=== PATIENT | female | born 1975 ===

== ENCOUNTER 2022-10-03 18:01 | Emergency (ER) | payer OTHER ==
--- OUTSIDE RECORDS SUMMARY | 2022-10-03 18:17 | XMS REPORT | Continuity of Care Document ---
:1975 Author Organization [facility] t Address [address] [facility]. [address] [place] [address] Care Team Providers Name Role Phone Kandice Andrew MD Primary Care Physician JANEE ALCOCER Attending Clinician Unavailable ABRAHAN SILVESTRE Attending Clinician Unavailable KILEY MOE Attending Clinician Unavailable JANET ADAM Attending Clinician Unavailable JANET ADAM Attending Clinician Unavailable DANILO CUMMINGS Attending Clinician Unavailable DANILO CUMMINGS Attending Clinician Unavailable Doctor Unassigned, Bly Attending Clinician Unavailable Ly MACKEY, mIelda Reyna Attending Clinician Unavailable LUIS MAGUIRE Attending Clinician Unavailable Pepe Horner MD Attending Clinician Luis Maguire MD Attending Clinician Dmitri Wilson MD Attending Clinician Marlon Flower MD Attending Clinician LUIS ANTONIO JAMISON Attending Clinician Unavailable KANDICE ANDREW Attending Clinician Unavailable Worker, Transplant Social Attending Clinician Unavailable Gagan Win MD Attending Clinician Elizabeth Garcia MD Attending Clinician ELIZABETH GARCIA Attending Clinician Unavailable Renal, Transplant Class Attending Clinician Unavailable GAGAN WIN Attending Clinician Unavailable Jamila THOMAS, lAta Reyes Attending Clinician [phone] Janee Alcocer MD Attending Clinician Lorrie THOMAS, Kandice Carroll Attending Clinician [phone] Liang THOMAS, Abrahan Attending Clinician Nurse, [facility] Plastic Surg Attending Clinician Unavailable Pj Rosario Attending Clinician PJ SCHNEIDER Attending Clinician Unavailable Catrett V, ACNP, Tonja Attending Clinician Only, Adc Test Attending Clinician Unavailable Rashida MACKEY, Mercedez Crawford Attending Clinician Pob, [facility] Lab Main Attending Clinician Unavailable EVELIA JOHNSON Attending Clinician Unavailable Roderick THOMAS, Evelia Attending Clinician Janet Adam DO Attending Clinician Vaccine, Ang Db [facility] Attending Clinician Unavailable Chris TRACING LATHE SET UP OPERATOR, Etienne Attending Clinician ETIENNE HUSSEIN Attending Clinician Unavailable Therapist, [facility] Respiratory Attending Clinician Unavailable Av Porras MD Attending Clinician AV PORRAS Attending Clinician Unavailable Jane Maldonado S Attending Clinician Billy Andrade MD Attending Clinician Levy Duarte MD Attending Clinician Italo Steven DO Attending Clinician ALYSSA TRUJILLO Attending Clinician Unavailable Kiley Moe MD Attending Clinician Kika Villa CRNA Attending Clinician Osei Laird MD Attending Clinician Gramm TRACING LATHE SET UP OPERATOR, Diana A Attending Clinician GRAMM, DIANA A Attending Clinician Unavailable KNOW, DOES_NOT Attending Clinician Unavailable Lachelle Larios Attending Clinician Unavailable Reji Ibarra MD Attending Clinician REJI IBARRA Attending Clinician Unavailable JANEE ALCOCER Admitting Clinician Unavailable ABRAHAN SILVESTRE Admitting Clinician Unavailable KILEY MOE Admitting Clinician Unavailable DANILO CUMMINGS Admitting Clinician Unavailable LUIS MAGUIRE Admitting Clinician Unavailable Luis Maguire MD Admitting Clinician Janee Alcocer MD Admitting Clinician Abrahan Silvestre MD Admitting Clinician PJ SCHNEIDER Admitting Clinician Unavailable JANET ADAM Admitting Clinician Unavailable Levy Duarte MD Admitting Clinician Kiley Moe MD Admitting Clinician Physician, No Primary or Family Admitting Clinician UnavailLachelle Wheatley Admitting Clinician Unavailable REJI IBARRA Admitting Clinician Unavailable ALYSSA TRUJILLO Admitting Clinician Unavailable Payers Payer Name Policy Type Policy Number Effective Date Expiration Date S sher [facility] [id number] 2016 00:00:00 PLUS Problems Condition Condition Condition Status Onset Resolution Last Treating Co mments Source Name Details Category Date Date Treatment Clinician Date ESRD on ESRD on Disease Active Univers hemodialys hemodialys 2-21 it y of is is 00:00: [place] 00 Medical Branch Lung Lung Disease Active Univers nodule nodule 2-03 ity of 00:00: [place] 00 Medical Branch (HFpEF) (HFpEF) Disease Active 2020-05 Univers heart heart 0-03 ity of failure failure 00:00: [place] with with 00 Medical preserved preserved Bran ch ejection ejection fraction fraction Pulmonary Pulmonary Disease Active Uni vers edema edema 01-30 ity of cardiac cardiac 00:00: [place] cause cause 00 Medical Branch Screening Screening Disease Active Overview: Univers for for 01-15 Formattin ity of colorectal colorectal 00:00: g of this [place] cancer cancer 00 note Medical might be Branch different from the original. Added automatic ally from request for surgery [id number] History of History of Disease Active Overview : Univers colon colon 01-15 Formattin ity of polyps polyps 00:00: g of this [place] 00 note Medical might be Branch different from the original. Added automatic ally from request for surgery [id number] Peritoneal Peritoneal Disease Active Overview : Univers dialysis dialysis 7-02 Formattin ity of catheter catheter 00:00: g of this [place] as in place in place 00 note Medica l might be Branch different from the original. Added automatic ally from request for surgery [id number] Mediastina Mediastina Disease Active Overview : Univers l l 9-06 Formattin ity of lymphadeno lymphadeno 00:00: g of this [place] jarrett jarrett 00 note Medical might be Branch different from the original. Added automatic ally from request for surgery [id number] Pseudoaneu Pseudoaneu Disease Active Overview : Univers rysm of rysm of 8 Formattin ity o f arterioven arterioven 00:00: g of this [place] ous ous 00 note Medical dialysis dialysis might be Bran ch fistula, fistula, different initial initial from the encounter encounter original. Added automatic ally from request for surgery [id number] S/P S/P Disease Active Univers hysterecto hysterecto 6-30 it y of my my 00:00: [place] 00 Medical Branch Volume Volume Disease Active Univers overload overload 4-24 ity of 00:00: Medical Branch Endometria Endometria Disease Active U nivers l l 1-05 ity of adenocarci adenocarci 00:[place]oma 00 Medical Branch Tobacco Tobacco Disease Active Univers use use 9-22 ity of disorder disorder 00:00: [place] [facility] Essential Essential Disease Active Uni vers hypertensi hypertensi 5-18 it y of on, benign on, benign 00:00: [place] Obesity Obesity Disease Active 2015-05 Univers (BMI (BMI 1-02 ity of 30-39.9) 30-39.9) 00:00: [place] Medical [facility] ESRD ESRD Disease Active 2015-05 Overview: Univer s needing needing 0-23 Formattin ity o f dialysis dialysis 00:00: g of this [place] 00 note Medical might be Branch different from the original. 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 Morbid Morbid Disease Active 2015-05 Univers obesity obesity 0-22 ity of 00:00: [place] 00 Medical Branch Allergies, Adverse Reactions, Alerts Allergy Allergy Status Severity Reaction(s) Onset Inactive Treating Comm ents Source Name Type Date Date Clinician MIDAZOLA DRUG Active Unknown-Cmnt 2020-0 Un adrianna M HCL INGREDI 02-05 ity of 00:00: [place] 00 Medical Branch Midazola Propensi Active Unknown - 2020-0 Severe Uni vers m Hcl ty to See comments 02-05 memory ity of adverse 00:00: loss [place] reaction 00 Medical [facility] lisinopr DA Active NC 2020-0 [facility] il 6-02 Clear 00:00: Solitario 00 [facility] lisinopr DA Active NC itching 2020-0 [facility] il 6-02 Clear 00:00: [place] 00 [facility] codeine DA Active SV 2020-0 [facility] 6- Clear 00:00: Solit[place] 00 [facility] "PRILS" DA Active U COUGH 2020-0 [facility] 6- Clear 00:00: [place] 00 [facility] codeine DA Active SV VOMIT 2020-0 [facility] 6- Clear 00:00: Solit[place] 00 [facility] Katerina Drug Active Cough 2018-0 Univers Inhibito Allergy 9-12 ity of rs 00:00: [place] 00 Medical Branch KATERINA Drug Active COUGH 2018-0 Univers INHIBITO Class 9-12 ity of RS 00:00: [place] 00 Medical Branch Katerina Drug Active Cough 2018-0 Univers Inhibito Allergy 9-12 ity of rs 00:00: [place] 00 [facility] CODEINE DRUG Active Other-Cmnt 2017- Unive rs INGREDI 1-17 ity of 00:00: [place] 00 Medical Branch LISINOPR DRUG Active COUGH 2017- Univers IL INGREDI 1-17 ity of 00:00: [place] 00 Medical Branch Codeine Propensi Active Other - See 2016-05 Un adrianna ty to comments 05-26 ity of adverse 00:00: [place] reaction 00 Medical [facility] Lisinopr Propensi Active Cough 2016- Univer s il ty to 17 ity of adverse 00:00: [place] reaction 00 Medical [facility] Family History Family Member Diagnosis Comments Start Date Stop Date Source Maternal Arthritis [facility] Maternal Cancer [facility] Maternal Heart [facility] Maternal Diabetes [facility] Maternal Psychiatry University of grandmother [facility] Maternal Uncle Heart [facility] Natural mother defects Univers ity of [facility] Natural mother Heart [facility] Natural mother Osteoporosis Universi ty of [facility] Natural mother Psychiatry [facility] Natural mother Stroke [facility] Natural mother Coronary Heart Univer sity of Disease [facility] Natural mother High cholesterol Univ ersity of [facility] Natural mother Hypertension Universi ty of [facility] Natural sister Asthma [facility] Social History Social Habit Start Date Stop Date Quantity Comments Source History of tobacco Passive smoker Un iversity of use [place] [facility] History SDOH Social Unive rsity of Connections Get [place] [facility] ical Together Branch History SDOH Social Unive rsity of Connections [facility] Medical Branch History SDOH Social Unive rsity of Connections [place] [facility] Membership Branch History SDOH Social Unive rsity of Connections [place] [facility] Meetings Branch History SDOH University o f Housing [facility] Last Year Branch Alcohol intake 2022-09-24 2022-09-24 0 /d University of 00:00:00 00:00:00 [facility] Exposure to 2022-09-13 2022-09-23 Not sure University of SARS-CoV-2 (event) 00:00:00 05:29:00 [facility] Branch History SDOH Social 2022-09-09 2022-09-09 5 Unive rsity of Connections Phone 00:00:00 00:00:00 [place] M edical Branch History SDOH Social 2022-09-09 2022-09-09 7 Unive rsity of Connections Living 00:00:00 00:00:00 [place] [facility] History SDOH 2022-09-09 2022-09-09 0 University o f Physical Activity 00:00:00 00:00:00 [place] M edical DPW Branch History SDOH 2022-09-09 2022-09-09 0 University o f Physical Activity 00:00:00 00:00:00 [place] M edical MPS Branch History SDOH 2022-09-09 2022-09-09 5 University o f Financial 00:00:00 00:00:00 [place] [facility] History SDOH Food 2022-09-09 2022-09-09 1 Univers ity of Worry 00:00:00 00:00:00 [place] [facility] History SDOH 2022-09-09 2022-09-09 2 University o f Transport Med 00:00:00 00:00:00 [place] Medic al Branch History SDOH 2022-09-09 2022-09-09 2 University o f Transport Non-Med 00:00:00 00:00:00 [place] M edical Branch History SDOH 2022-09-09 2022-09-09 2 University o f Housing Unable to 00:00:00 00:00:00 [place] M edical Pay Branch History SDOH 2022-09-09 2022-09-09 1 University o f Housing Places 00:00:00 00:00:00 [place] [facility] geovani Lived Branch History SDAL 2022-09-09 2022-09-09 1 University o f Alcohol Frequency 00:00:00 00:00:00 [facility] edical Branch Education 2022-09-08 2022-09-08 12 University of 00:00:00 00:00:00 [facility] Tobacco use and 2022-07-16 2022-07-16 Smokeless Universit y of exposure 00:00:00 00:00:00 tobacco non-user [facility] dical Branch Tobacco Comment 2022-07-16 2022-07-16 Vape 3 mg Universit y of 00:00:00 00:00:00 nicotine [place] [facility] History SDOH Food 2022-07-01 2022-07-01 1 Univers ity of Scarcity 00:00:00 00:00:[address] [facility] Branch History SDOH 2022-07-01 2022-07-01 0 University o f Alcohol Std Drinks 00:00:00 00:00:00 [place] [facility] History SDOH 2022-07-01 2022-07-01 1 University o f Alcohol Binge 00:00:00 00:00:00 [place] [facility] Cigarettes smoked 2021-05-22 2021-05-22 Univers ity of current (pack [facility] Cigarette 2021-05-22 2021-05-22 University of pack-years 00:00:00 00:00:00 [facility] Alcohol Comment 2019-03-30 2019-03-30 rare Universit y of 00:00:00 00:00:00 [facility] Sex [birth year] Universit y of 00:00:00 00:00:00 [facility] Smoking Status Start Date Stop Date Source Light tobacco smoker 2022-07-16 00:00:00 Univers ity [facility] [place] [facility] Medications Ordered Filled Start Stop Current Ordering Indication Dosage Frequency Signature Comments Components Source Medication Medication Date Date Medication? Clinician (SIG) Name Name budesonide- Yes 2{puff} Inhale 2 Univers formoteroL 5-18 Puffs in ity o f 160-4.5 13:26: the [place] mcg/actuati 07 morning Medic al on inhaler and 2 Branch Puffs in the evening. budesonide- Yes 2{puff} Inhale 2 Univers formoteroL 5-18 Puffs in ity o f 160-4.5 13:26: the [facility]/actuati morning Medic al on inhaler and 2 Branch Puffs in the evening. heparin 2022-0 2023- No [id number] DIALYSIS Univers 1,000 5- 05-03 ONCE - PT ity of unit/mL ( 17:45: 16:54 ROOM, 1 [place] mL) - 00 :00 dose, On Medical dialysis 09/09/22 Branc h catheter at 1245, care Routine
A port : 1.7 ml V port : 1.8 ml
heparin 2022-0 3- No [id number] DIALYSIS Univers 1,000 5- 05-03 ONCE - PT ity of unit/mL ( 17:45: 16:54 ROOM, 1 [place] mL) - 00 :00 dose, On Medical dialysis 09/09/22 Branc h catheter at 1245, care Routine
A port : 1.7 ml V port : 1.8 ml
budesonide- Yes 2{puff} Inhale 2 Univers formoteroL 5-03 Puffs in ity o f 160-4.5 15:02: [facility] morning Medic al on inhaler and 2 Branch Puffs in the evening. famotidine Yes 20mg Take 1 Unive rs 20 mg 5-03 tablet by ity of tablet 15:02: mouth in [place] [address] the Medical morning Branch and 1 tablet in the evening. budesonide- 3-0 Yes 2{puff} Inhale 2 Univers formoteroL 5-03 Puffs in ity o f 160-4.5 15:02: the [facility]/actuati 33 morning Medic al on inhaler and 2 Branch Puffs in the evening. famotidine 2023-0 Yes 20mg Take 1 Unive rs 20 mg 5-03 tablet by ity of tablet 15:02: mouth in [place] [address] the Medical morning Branch and 1 tablet in the evening. famotidine 2023-0 Yes 20mg Take 1 Unive rs 20 mg 5-03 tablet by ity of tablet 15:02: mouth in [place] [address] the Medical morning Branch and 1 tablet in the evening. famotidine 2023-0 Yes 20mg Take 1 Unive rs 20 mg 5-03 tablet by ity of tablet 15:02: mouth in [place] [address] the Medical morning Branch and 1 tablet in the evening. aspirin 2022-0 Yes 81mg 81 mg, Univers chewable 5-03 Oral, ity of tablet 81 14:00: DAILY, [place] mg 00 First dose Medical on Wed [address] 09/09/22 at 0900, Until Discontinu ed, Routine sennosides 2022-0 Yes 8.6mg 8.6 mg, Uni vers (SENOKOT) 5-03 Oral, ity of tablet 8.6 14:00: DAILY, [place] mg 00 First dose Medical on Wed [address] 09/09/22 at 0900, Until Discontinu ed, Routine NIFEdipine 2022-0 Yes 90mg 90 mg, Unive rs XL 5-03 Oral, QAM, ity of (PROCARDIA 14:00: First dose [place] XL) tablet 00 on Wed Medical 90 mg 09/09/22 at Branch 0900, Until Discontinu ed, Routine
presentation team member approving Non-formul hebert medication : DANILO CASTRO
Rox ason for non-formul hebert use: PATIENT CURRENTLY TAKING NONFORMULA RY PRODUCT aspirin 2022-0 2023- No 81mg 81 mg, Univers chewable 5-03 05-03 Oral, ity of tablet 81 14:00: 22:02 DAILY, [place] mg 00 :35 First dose Medical on Wed [address] 09/09/22 at 0900, Until Discontinu ed, Routine sennosides 2023-0 2023- No 8.6mg 8.6 mg, Un adrianna (SENOKOT) 09-09-03 Oral, ity of tablet 8.6 14:00: 22:02 DAILY, [place] mg 00 :35 First dose Medical on Wed Branch 09/09/22 at 0900, Until Discontinu ed, Routine NIFEdipine No 90mg 90 mg, Univ ers XL 09-09-03 Oral, QAM, ity of (PROCARDIA 14:00: 22:02 First dose [place] XL) tablet 00 :35 on Wed Medical 90 mg 09/09/22 at Branch 0900, Until Discontinu ed, Routine
presentation team member approving Non-formul hebert medication : DANILO CASTRO
Re ason for non-formul hebert use: PATIENT CURRENTLY TAKING NONFORMULA RY PRODUCT epoetin 2022- No 8000U 8,000 Univers bharat-epbx 09-09-03 Units, ity of (RETACRIT) 13:45: 14:39 Intravenou [place] injection 00 :00 s, Medical 8,000 Units DIALYSIS Bran ch ONCE - JULIANNE DSU, 1 dose, On Wed09/09/22 at 0845, Routine
presentation team member approving Restricted medication : WANG RODRIGUEZ epoetin No 8000U 8,000 Univers bharat-epbx 09-09-03 Units, ity of (RETACRIT) 13:45: 14:39 Intravenou [place] injection 00 :00 s, Medical 8,000 Units DIALYSIS Bran ch ONCE - JULIANNE DSU, 1 dose, On Wed09/09/22 at 0845, Routine
presentation team member approving Restricted medication : WANG RODRIGUEZ gabapentin Yes 300mg 300 mg, Uni vers (NEURONTIN) 03 Oral, QHS, it y of tablet 300 05:30: First dose [place] mg 00 (after Medical last Branch modificati on) on Wed09/09/22 at 0030, Until Discontinu ed, Routine gabapentin 2022- No 300mg 300 mg, Un adrianna (NEURONTIN) 09-09-03 Oral, QHS, i ty of tablet 300 05:30: 22:02 First dose [place] mg 00 :35 (after Medical last Branch modificati on) on Wed09/09/22 at 0030, Until Discontinu ed, Routine citalopram 3-0 Yes 40mg 40 mg, Unive rs (CELEXA) 5-03 Oral, QHS, ity o f tablet 40 02:00: First dose [place] mg 00 on [facility] 09/08/[address] 2100, Until Discontinu ed, Routine citalopram 202-0 202- No 40mg 40 mg, Univ ers (CELEXA) 5- 05-03 Oral, QHS, ity of tablet 40 02:00: 22:02 First dose [place] mg 00 :35 on [facility] 09/08/[address] 2099, Until Discontinu ed, Routine heparin 2022-0 Yes 5000U 5,000 Univers (porcine) 5-03 Units, ity of injection 01:00: Subcutaneo [place] 5,000 Units 00 us, Q12H, Med ica First dose Branch on Wed09/08/22 at 1999, Until Discontinu ed, Routine losartan 2022-0 Yes 50mg 50 mg, Univers (COZAAR) 5-03 Oral, BID, ity o f tablet 50 01:00: First dose [place] mg 00 on [facility] 09/08/22 at Branch 1999, Until Discontinu ed, Routine famotidine 2022-0 Yes 20mg 20 mg, [facility] rs (PEPCID AC) 5-03 Oral, BID, it y of tablet 20 01:00: First dose [place] mg 00 on [facility] 09/08/22 at Branch 1999, Until Discontinu ed, Routine budesonide- 2022-0 Yes 2{puff} 2 Puff, Univers formoteroL 5-03 Inhalation ity of (SYMBICORT) 01:00: , BID, [place] 160-4.5 00 First dose Medica l mcg/actuati on Wed [address] on inhaler 09/08/22 at 2 Puff 1999, Until Discontinu ed, Routine heparin 2023-0 2023- No 5000U 5,000 Univers (porcine) 5-03 05-03 Units, ity of injection 01:00: 22:02 Subcutaneo [place] 5,000 Units 00 :35 us, Q12H, Med ical First dose Branch on Wed09/08/22 at 1999, Until Discontinu ed, Routine losartan 2022- No 50mg 50 mg, Univer s (COZAAR) 09-09 Oral, BID, ity of tablet 50 01:00: 22:02 First dose [place] mg 00 :35 on Wed09/08/22 at Branch 1999, Until Discontinu ed, Routine famotidine No 20mg 20 mg, Univ ers (PEPCID AC) 09-09 Oral, BID, i ty of tablet 20 01:00: 22:02 First dose [place] mg 00 :35 on Wed09/08/[address] 1999, Until Discontinu ed, Routine budesonide- 2022- No 2{puff} 2 Puff, Univers formoteroL 09-09 Inhalation it y of (SYMBICORT) 01:00: 22:02 , BID, [place] 160-4.5 00 :35 First dose Medica l mcg/actuati on Wed on inhaler 09/08/22 at 2 Puff 1999, Until Discontinu ed, Routine HYDROcodone 2022- Yes [id number] 1{tbl} Take 1 U nivers -acetaminop 5- 05-11 tablet by it y of hen (NORCO) 00:00: 04:59 [place] 5-325 mg 00 :00 every 6 Medical tablet (six) Branch hours as needed for Pain (scale 7-10) for up to 7 days. Indication s: acute pain HYDROcodone 2022- Yes [id number] 1{tbl} Take 1 U nivers -acetaminop 5-03 05-11 tablet by it y of hen (NORCO) 00:00: 04:59 [place] 5-325 mg 00 :00 every 6 Medical tablet (six) Branch hours as needed for Pain (scale 7-10) for up to 7 days. Indication s: acute pain carvediloL Yes 12.5mg 12.5 mg, U nivers (COREG) 09-08 Oral, BID ity of tablet 12.5 22:00: MEALS, [place] mg 00 First dose Medical on [facility] 09/08/22 at 1700, Until Discontinu ed, Routine carvediloL 2022- No 12.5mg 12.5 mg, Univers (COREG) 09-08 Oral, BID ity of tablet 12.5 22:00: 22:02 MEALS, [place] mg 00 :35 First dose Medical on [facility] 09/08/22 at 1700, Until Discontinu ed, Routine traMADoL Yes 50mg 50 mg, Univers (ULTRAM) 09-08 Oral, ity of tablet 50 17:45: [id number], [place] mg [address] [facility] 09/08/22 at 1245, Until Discontinu ed, Routine, Pain (scale 4-6) traMADoL 2022- No 50mg 50 mg, Univer s (ULTRAM) 09-08 Oral, ity of tablet 50 17:45: 22:02 [id number], [place] mg 00 :[address] [facility] 09/08/22 at 1245, Until Wed09/09/22 at 1702, Routine, Pain (scale 4-6) calcium Yes 667mg 667 mg, Univer s acetate(radha 09-08 Oral, TID ity of sphat bind) 17:00: MEALS, [place] (PHOSLO) 00 First dose Medic al capsule 667 on [facility] 09/08/22 at 1200, Until Discontinu ed albuterol 0 Yes 2{puff} 2 Puff, Un adrianna (VENTOLIN) 09-08 Inhalation ity of inhaler 2 17:00: , Q6H, [place] Puff 00 First dose Medical on [facility] 09/08/22 at 1200, Until Discontinu ed, Routine sevelamer 0 Yes 2400mg 2,400 mg, U nivers (RENVELA) 09-08 Oral, TID ity o f tablet 17:00: MEALS, [place] 2,400 mg 00 First dose Medic al on [facility] 09/08/22 at 1200, Until Discontinu ed, Routine calcium 2022-0 2022- No 667mg 667 mg, Unive rs acetate(radha 09-08 Oral, TID it y of sphat bind) 17:00: 22:02 MEALS, [place] (PHOSLO) 00 :35 First dose Medic al capsule 667 on Wed mg 09/08/22 at 1200, Until Discontinu ed albuterol 2022- No 2{puff} 2 Puff, U nivers (VENTOLIN) 09-08 Inhalation it y of inhaler 2 17:00: 22:02 , Q6H, [place] Puff 00 :35 First dose Medical on [facility] 09/08/22 at 1200, Until Discontinu ed, Routine sevelamer 2022- No 2400mg 2,400 mg, Univers (RENVELA) 09-08 Oral, TID ity of tablet 17:00: 22:02 MEALS, [place] 2,400 mg 00 :35 First dose Medic al on Wed [address] 09/08/22 at 1200, Until Discontinu ed, Routine HYDROcodone 2022- No 1{tbl} 1 tablet, Univers -acetaminop 09-08 Oral, ity of hen (NORCO 16:45: 18:10 ONCE, 1 [place] 5) 5-325 mg 00 :00 dose, On Medi geovani tablet 1 Wed09/08/22 Branc h tablet at 1145, Routine, PACU HYDROcodone 2022- No 1{tbl} 1 tablet, Univers -acetaminop 09-08 Oral, ity of hen (NORCO 16:45: 18:10 ONCE, 1 [place] 5) 5-325 mg 00 :00 dose, On Medi geovani tablet 1 Wed09/08/22 Branc h tablet at 1145, Routine, PACU FENTanyl PF 2022- No 25ug 25 mcg, Un adrianna (SUBLIMAZE 09-08 Slow IV ity o f (PF)) 16:44: 18:32 Push, [place] injection 57 :00 Q5MIN PRN, Medi geovani 25 mcg 4 doses, Branch Starting on Wed09/08/22 at 1144, Until Wed09/08/22 at 1332, Routine, Pain (scale 4-6), PACU FENTanyl PF 2022- No 25ug 25 mcg, Un adrianna (SUBLIMAZE 09-08 Slow IV ity o f (PF)) 16:44: 18:32 Push, [place] injection 57 :00 Q5MIN PRN, Medi geovani 25 mcg 4 doses, Branch Starting on Wed09/08/22 at 1144, Until Wed09/08/22 at 1332, Routine, Pain (scale 4-6), PACU FENTanyl PF 2022-0 Yes 50ug 50 mcg, Uni vers (SUBLIMAZE 09-08 Slow IV ity of (PF)) 16:31: Push, [place] injection 48 Q8HPRN, Medical 50 mcg Starting Branch on Wed09/08/22 at 1131, Until Discontinu ed, Routine, Pain (scale 7-10) FENTanyl PF 2022-0 2022- No 50ug 50 mcg, Un adrianna (SUBLIMAZE 09-08 Slow IV ity o f (PF)) 16:31: 22:02 Push, [place] injection 48 :35 Q8HPRN, Medical 50 mcg Starting Branch on Wed09/08/22 at 1131, Until Wed09/09/22 at 1702, Routine, Pain (scale 7-10) acetaminoph 2022-0 Yes 650mg 650 mg, Un adrianna en 09-08 Oral, ity of (TYLENOL) 16:29: Q6HPRN, [place] tablet 650 41 Starting Medic al mg on Wed09/08/22 at 1129, Until Discontinu ed, Routine, Pain (scale 1-3) acetaminoph 2022-0 2022- No 650mg 650 mg, U nivers en 09-08 Oral, ity of (TYLENOL) 16:29: 22:02 Q6HPRN, [place] tablet 650 41 :35 Starting Medic al mg on Wed Branch 09/08/22 at 1129, Until Wed09/09/22 at 1702, Routine, Pain (scale 1-3) iodixanoL 2022-0 202- No PRN, Univers (VISIPAQUE 09-08 Starting ity of 270-150 mL) 16:25: 17:36 on Wed [place] injection 00 :34 09/08/22 at Medic al 1125, Branch Until Wed09/08/22 at 1236, Routine, Intra-op thrombin 2022- No PRN, Univers (recombinan 09-08 Starting ity of t) 15:52: 17:36 on Wed [place] (RECOTHROM) 00 :34 09/08/[address] [facility] topical 1052, Branch solution Until Wed09/08/22 at 1236, Routine, Intra-op alteplase 2022- No PRN, Univers (CATHFLO 09-08 Starting ity of ACTIVASE) 15:09: 17:36 on Wed [place] intraventri 00 :34 09/08/[address] [facility] cular 1009, Branch injection Until Wed09/08/22 at 1236, Routine, Intra-op lidocaine 2022- No PRN, Univers 1% (PF) 09-08 Starting ity of (XYLOCAINE) 12:47: 17:36 on [facility] as injection 00 :34 09/08/22 at Medic al 07, Branch Until Wed09/08/22 at 1236, Routine, Intra-op heparin 2022- No PRN, Univers 10,000 09-08 Starting ity of units in NS 12:47: 17:36 on [facility] as 1000 mL for 00 :34 09/08/[address] [facility] vascular 0747, Branch Intra-op budesonide- 2022-0 Yes 2{puff} Inhale 2 Univers formoteroL 4-26 Puffs in ity o f 160-4.5 11:36: the [place] mcg/actuati 52 morning Medic al on inhaler and 2 Branch Puffs in the evening. famotidine 2023-0 Yes 20mg Take 1 Unive rs 20 mg 4-26 tablet by ity of tablet 11:36: mouth in [place] [address] the Medical morning Branch and 1 tablet in the evening. famotidine 2023-0 Yes 20mg Take 1 Unive rs 20 mg 3-16 tablet by ity of tablet 13:31: mouth in [address] Medical morning Branch and 1 tablet in the evening. famotidine 2023-0 Yes 20mg Take 1 Unive rs 20 mg 3-16 tablet by ity of tablet 13:31: mouth in [address] Medical morning Branch and 1 tablet in the evening. famotidine 2023-0 Yes 20mg Take 1 Unive rs 20 mg 3-16 tablet by ity of tablet 13:31: mouth in [place] [address] the Medical morning Branch and 1 tablet in the evening. famotidine 2023-0 Yes 20mg Take 1 Unive rs 20 mg 3-16 tablet by ity of tablet 13:31: mouth in [place] [address] the Medical morning Branch and 1 tablet in the evening. famotidine 2023-0 Yes 20mg Take 1 Unive rs 20 mg 3-16 tablet by ity of tablet 13:31: mouth in [place] [address] the Medical morning Branch and 1 tablet in the evening. famotidine 2023-0 Yes 20mg Take 1 Unive rs 20 mg 3-16 tablet by ity of tablet 13:31: mouth in [place] [address] the Medical morning Branch and 1 tablet in the evening. famotidine 2023-0 Yes 20mg Take 1 Unive rs 20 mg 3-16 tablet by ity of tablet 13:31: mouth in [place] [address] the [facility] morning [place] and 1 tablet in the evening. honey 80 % 2022- Yes [id number] 3mL Apply 3 mL Univers 3-16 -31 to area(s) ity of 00:00: 04:59 every 24 [place] 00 :00 (twenty- Medical ur) hours Branch as needed for Pain (scale 7-10) for up to 14 days. honey 80 % 0 2022- Yes [id number] 3mL Apply 3 mL Univers 3-16 -31 to area(s) ity of 00:00: 04:59 every 24 [place] 00 :00 (twenty- Medical ur) hours Branch as needed for Pain (scale 7-10) for up to 14 days. honey 80 % 0 2022- Yes [id number] 3mL Apply 3 mL Univers 3-16 03-31 to area(s) ity of 00:00: 04:59 every 24 [place] 00 :00 (twenty- Medical ur) hours Branch as needed for Pain (scale 7-10) for up to 14 days. honey 80 % 0 2022- Yes [id number] 3mL Apply 3 mL Univers 3-16 -31 to area(s) ity of 00:00: 04:59 every 24 [place] 00 :00 (twenty-fo Medical ur) hours Branch as needed for Pain (scale 7-10) for up to 14 days. doxycycline 2022- Yes [id number] 100mg Take 1 Univers hyclate 100 3-07 03-13 capsule by i ty of mg capsule 00:00: 04:59 mouth [place] 00 :00 every 12 Medical (twelve) Branch hours for 5 days. doxycycline 2022-0 2022- Yes [id number] 100mg Take 1 Univers hyclate 100 3-07 03-13 capsule by i ty of mg capsule 00:00: 04:59 mouth [place] 00 :00 every 12 Medical (twelve) Branch hours for 5 days. doxycycline 2022-0 2022- Yes [id number] 100mg Take 1 Univers hyclate 100 3- 03-13 capsule by i ty of mg capsule 00:00: 04:59 mouth [place] 00 :00 every 12 Medical (twelve) Branch hours for 5 days. doxycycline 2022- Yes [id number] 100mg Take 1 Univers hyclate 100 3- 03-13 capsule by i ty of mg capsule 00:00: 04:59 mouth [place] 00 :00 every 12 Medical (twelve) Branch hours for 5 days. budesonide- 0 Yes 2{puff} Inhale 2 Univers formoteroL 3-03 Puffs 2 ity of 160-4.5 18:24: (two) [place] mcg/actuati 00 times Medical on inhaler daily. Branch budesonide- 0 Yes 2{puff} Inhale 2 Univers formoteroL 3-03 Puffs 2 ity of 160-4.5 18:24: (two) [place] mcg/actuati 00 times Medical on inhaler daily. Branch budesonide- 0 Yes 2{puff} Inhale 2 Univers formoteroL 3-03 Puffs 2 ity of 160-4.5 18:24: (two) [place] mcg/actuati 00 times Medical on inhaler daily. Branch budesonide- 2022-0 Yes 2{puff} Inhale 2 Univers formoteroL 3-03 Puffs 2 ity of 160-4.5 18:24: (two) [place] mcg/actuati 00 times Medical on inhaler daily. Branch budesonide- 2022-0 Yes 2{puff} Inhale 2 Univers formoteroL 3-03 Puffs 2 ity of 160-4.5 18:24: (two) [place] mcg/actuati 00 times Medical on inhaler daily. [place] budesonide- 2022-0 Yes 2{puff} Inhale 2 Univers formoteroL 3-03 Puffs 2 ity of 160-4.5 18:24: (two) [place] mcg/actuati 00 times Medical on inhaler daily. [place] budesonide- 2022-0 Yes 2{puff} Inhale 2 Univers formoteroL 3-03 Puffs 2 ity of 160-4.5 18:24: (two) [place] mcg/actuati 00 times Medical on inhaler daily. Branch budesonide- 2022-0 Yes 2{puff} Inhale 2 Univers formoteroL 3-03 Puffs 2 ity of 160-4.5 18:24: (two) [place] mcg/actuati 00 times Medical on inhaler daily. [place] budesonide- 2022- Yes 2{puff} Inhale 2 Univers formoteroL 3-03 Puffs 2 ity of 160-4.5 18:24: (two) [place] mcg/actuati 00 times Medical on inhaler daily. [place] budesonide- 2022-0 Yes 2{puff} Inhale 2 Univers formoteroL 3-03 Puffs 2 ity of 160-4.5 18:24: (two) [place] mcg/actuati 00 times Medical on inhaler daily. [place] budesonide- 2022-0 Yes 2{puff} Inhale 2 Univers formoteroL 3-03 Puffs 2 ity of 160-4.5 18:24: (two) [place] mcg/actuati 00 times Medical on inhaler daily. [place] budesonide- 2022-0 Yes 2{puff} Inhale 2 Univers formoteroL 3-03 Puffs 2 ity of 160-4.5 18:24: (two) [place] mcg/actuati 00 times Medical on inhaler daily. Branch budesonide- 2022-0 Yes 2{puff} Inhale 2 Univers formoteroL 3-03 Puffs 2 ity of 160-4.5 18:24: (two) [place] mcg/actuati 00 times Medical on inhaler daily. [place] budesonide- 2022-0 Yes 2{puff} Inhale 2 Univers formoteroL 3-03 Puffs 2 ity of 160-4.5 18:24: (two) [place] mcg/actuati 00 times Medical on inhaler daily. Branch losartan 50 2022- No 50mg Take 50 mg Univers mg tablet 07-10 by mouth 2 ity of 15:54: 00:00 (two) [place] 23 :00 times Medical daily. Branch heparin Yes 2000U PRN - SEE Univ ers 1,000 07-10 INSTRUCTIO ity of unit/mL (10 15:23: NS, [place] mL) - 21 Starting Medical dialysis on Wed Branch catheter 07/10/22 at care 0923, Until Discontinu ed, Routine
For Priming of Ports:&nbs p; &n bsp; After initial saline flush, prime each port with heparin according to the priming volume listed on each catheter port for catheter lock.
heparin Yes 2000U PRN - SEE Univ ers 1,000 - INSTRUCTIO ity of unit/mL (10 15:23: NS, [place] mL) - 21 Starting Medical dialysis on Wed Branch catheter 07/10/22 at care 0923, Until Discontinu ed, Routine
For Priming of Ports:&nbs p; &n bsp; After initial saline flush, prime each port with heparin according to the priming volume listed on each catheter port for catheter lock.
acetaminoph No 1000mg 1,000 mg, Univers en ADULT 07-10 IV ity of (IRMEV) 05:00: 05:32 [place], [place] 00 :00 at 400 Medical 1,000 mg mL/hr Branch Administer over 15 Minutes, ONCE, 1 dose, On [place] 07/09/22 at 2300, Routine, PACU
In dication: Perioperat rubi Patient FENTanyl PF No 25ug 25 mcg, Un adrianna (SUBLIMAZE 07-10 Slow IV ity o f (PF)) 04:04: 05:17 Push, [place] injection 16 :00 Q5MIN PRN, Medi geovani 25 mcg 4 doses, Branch Starting on [place] 07/09/22 at 2204, Until [place] 07/09/22 at 2317, Routine, Pain (scale 4-6), PACU ondansetron 2022- No 4mg 4 mg, Slow Univers (ZOFRAN 07-10 IV Push, ity of (PF)) 04:04: 04:10 PRN, 1 [place] injection 4 16 :00 dose, Medical mg Starting Branch on [place] 07/09/22 at 2204, Until [place] 07/09/22 at 2210, Routine, Nausea and Vomiting (N/V), PACU heparin 2022- No PRN, Univers lock flush 07-10 Starting ity of (HEPARIN 03:38: 04:02 on [place] LOCKFLUSH(P 00 :43 07/09/22 at [facility] ica ORCINE)(PF) 2137, Branch ) 100 Until [place] unit/mL 07/09/22 at injection 2202, Routine, Intra-op vancomycin 2022- No PRN, Univer s (VANCOCIN) 07-10 Starting ity of injection 02:17: 04:02 on [facility] 00 :43 07/09/22 at Medical 2017, Branch Until [place] 07/09/22 at 2202, MENA, Intra-op vancomycin 2022- No PRN, Univer s (VANCOCIN) 07-10 Starting ity of 1,000 mg in 02:16: 04:02 on [place] as NaCl 0.9% 00 :43 07/09/22 at Medic al (NS) 1,000 2015, Branch mL OR Intra-op irrigation heparin 2022- No PRN, Univers 1,000 07-10 Starting ity of unit/mL 01:44: 04:02 on [place] 10,000 00 :43 07/09/22 at Medical Units in 194, Branch NaCl 0.9% Intra-op (NS) 1,000 mL OR irrigation carvediloL Yes 25mg 25 mg, Unive rs (COREG) 07-10 Oral, BID ity of tablet 25 00:45: MEALS, [place] mg 00 First dose Medical on [place] Branch 07/09/22 at 1845, Until Discontinu ed, Routine carvediloL 2023-0 Yes 25mg 25 mg, Unive rs (COREG) 3-03 Oral, BID ity of tablet 25 00:45: MEALS, [place] mg 00 First dose Medical on [place] Branch 07/09/22 at 1845, Until Discontinu ed, Routine hydralAZINE 3-0 Yes 10mg 10 mg, Univ ers (APRESOLINE 3-03 Slow IV ity o f ) injection 00:39: Push, [place] 10 mg 48 Q6HPRN, Medical Starting Branch on [facility] 07/09/22 at 1839, Until Discontinu ed, Routine, DBP=>10 0; SBP=>180 hydralAZINE 2023-0 Yes 10mg 10 mg, Univ ers (APRESOLINE 3-03 Slow IV ity o f ) injection 00:39: Push, [place] 10 mg 48 Q6HPRN, Medical Starting Branch on [facility] 07/09/22 at 1839, Until Discontinu ed, Routine, DBP=>10 0; SBP=>180 carvediloL 3-0 Yes [id number] 12.5mg Take 1 Univers 12.5 mg 3-03 tablet by ity of tablet 00:00: mouth in [place] [address] the [facility] morning Branch and 1 tablet in the evening. Take with meals. Take half a tablet on dialysis days. carvediloL 3-0 Yes [id number] 12.5mg Take 1 Univers 12.5 mg 3-03 tablet by ity of tablet 00:00: mouth in [place] [address] the [facility] morning Branch and 1 tablet in the evening. Take with meals. Take half a tablet on dialysis days. carvediloL 2023-0 Yes [id number] 12.5mg Take 1 Univers 12.5 mg 3-03 tablet by ity of tablet 00:00: mouth in [place] [address] the [facility] morning Branch and 1 tablet in the evening. Take with meals. Take half a tablet on dialysis days. carvediloL 2023-0 Yes [id number] 12.5mg Take 1 Univers 12.5 mg 3-03 tablet by ity of tablet 00:00: mouth in [address] morning [place] and 1 tablet in the evening. Take with meals. Take half a tablet on dialysis days. carvediloL 2023-0 Yes [id number] 12.5mg Take 1 Univers 12.5 mg 3-03 tablet by ity of tablet 00:00: mouth in [place] [address] the [facility] morning [place] [address] and 1 tablet in the evening. Take with meals. Take half a tablet on dialysis days. carvediloL 2022-0 Yes [id number] 12.5mg Take 1 Univers 12.5 mg 3-03 tablet by ity of tablet 00:00: mouth in [place] 00 the [facility] morning [address] and 1 tablet in the evening. Take with meals. Take half a tablet on dialysis days. carvediloL 2022-0 Yes [id number] 12.5mg Take 1 Univers 12.5 mg 3-03 tablet by ity of tablet 00:00: mouth in [place] [address] the [facility] morning [place] [address] and 1 tablet in the evening. Take with meals. Take half a tablet on dialysis days. carvediloL 2022-0 Yes [id number] 12.5mg Take 1 Univers 12.5 mg 3-03 tablet by ity of tablet 00:00: mouth in [place] [address] the [facility] morning [address] [address] and 1 tablet in the evening. Take with meals. Take half a tablet on dialysis days. carvediloL 2022-0 Yes [id number] 12.5mg Take 1 Univers 12.5 mg 3-03 tablet by ity of tablet 00:00: mouth in [place] [address] the [facility] morning [place] [address] and 1 tablet in the evening. Take with meals. Take half a tablet on dialysis days. carvediloL 2022-0 Yes [id number] 12.5mg Take 1 Univers 12.5 mg 3-03 tablet by ity of tablet 00:00: mouth in [place] [address] the [facility] morning [place] [address] and 1 tablet in the evening. Take with meals. Take half a tablet on dialysis days. carvediloL 2022-0 Yes [id number] 12.5mg Take 1 Univers 12.5 mg 3-03 tablet by ity of tablet 00:00: mouth in [place] [address] the [facility] morning [place] [address] and 1 tablet in the evening. Take with meals. Take half a tablet on dialysis days. carvediloL 3-0 Yes [id number] 12.5mg Take 1 Univers 12.5 mg 3-03 tablet by ity of tablet 00:00: mouth in [place] [address] the [facility] morning [place] [address] and 1 tablet in the evening. Take with meals. Take half a tablet on dialysis days. carvediloL 2022-0 Yes [id number] 12.5mg Take 1 Univers 12.5 mg 3-03 tablet by ity of tablet 00:00: mouth in [place] [address] the [facility] morning [place] [address] and 1 tablet in the evening. Take with meals. Take half a tablet on dialysis days. carvediloL 3-0 Yes [id number] 12.5mg Take 1 Univers 12.5 mg 3-03 tablet by ity of tablet 00:00: mouth in [place] [address] the [facility] morning [place] [address] and 1 tablet in the evening. Take with meals. Take half a tablet on dialysis days. carvediloL 2022-0 Yes [id number] 12.5mg Take 1 Univers 12.5 mg 3-03 tablet by ity of tablet 00:00: mouth in [place] [address] the [facility] morning [place] [address] and 1 tablet in the evening. Take with meals. Take half a tablet on dialysis days. carvediloL 2022-0 Yes [id number] 12.5mg Take 1 Univers 12.5 mg 3-03 tablet by ity of tablet 00:00: mouth in [address] and 1 tablet in the evening. Take with meals. Take half a tablet on dialysis days. carvediloL 2022-0 Yes [id number] 12.5mg Take 1 Univers 12.5 mg 3-03 tablet by ity of tablet 00:00: mouth in [address] and 1 tablet in the evening. Take with meals. Take half a tablet on dialysis days. carvediloL 2022-0 Yes [id number] 12.5mg Take 1 Univers 12.5 mg 3-03 tablet by ity of tablet 00:00: mouth in [address] and 1 tablet in the evening. Take with meals. Take half a tablet on dialysis days. carvediloL 2022-0 Yes [id number] 12.5mg Take 1 Univers 12.5 mg 3-03 tablet by ity of tablet 00:00: mouth in [place] [address] the [facility] and 1 tablet in the evening. Take with meals. Take half a tablet on dialysis days. NIFEdipine 2022-0 2023- No 90mg Take 90 mg Univers XL 90 mg 24 07-09 by mouth ity of hr tablet 11:16: 00:00 daily. [place] 27 :00 [facility] NIFEdipine 2022-0 3- No 90mg Take 90 mg Univers XL 90 mg 24 07-09 by mouth ity of hr tablet 11:16: 00:00 daily. [place] 27 :00 Medical Branch losartan 50 2022-0 Yes 50mg Take 50 mg Univers mg tablet 02 by mouth 2 ity of 11:16: (two) [place] 25 times Medical daily. Branch budesonide- Yes 2{puff} Inhale 2 Univers formoteroL 3-02 Puffs 2 ity of 160-4.5 11:16: (two) [place] mcg/actuati 25 times Medical on inhaler daily. Branch calcium 0 Yes 500mg 500 mg, Univer s carbonate 07-08 Oral, TID ity o f (OSCAL-500) 23:00: MEALS, [place] tablet 500 00 First dose Med ical mg on Wed [place] 07/08/22 at 1700, Until Discontinu ed, Routine calcium 2022-0 Yes 500mg 500 mg, Univer s carbonate 07-08 Oral, TID ity o f (OSCAL-500) 23:00: MEALS, [place] tablet 500 00 First dose Med ical mg on [facility] 07/08/22 at 1700, Until Discontinu ed, Routine calcium 2022-0 Yes 500mg 500 mg, Univer s carbonate 07-08 Oral, TID ity o f (OSCAL-500) 23:00: MEALS, [place] tablet 500 00 First dose Med ical mg on [facility] 07/08/22 at 1700, Until Discontinu ed, Routine heparin 2022-0 Yes 2000U PRN - SEE [facility] ers 1,000 3- INSTRUCTIO ity of unit/mL (10 20:21: NS, [place] mL) - 10 Starting Medical dialysis on [facility] catheter 07/08/22 at care 1421, Until Discontinu ed, Routine
For Priming of Ports:&nbs p; &n bsp; After initial saline flush, prime each port with heparin according to the priming volume listed on each catheter port for catheter lock.
heparin 2022-0 Yes 2000U PRN - SEE [facility] ers 1,000 3- INSTRUCTIO ity of unit/mL (10 20:21: NS, [place] mL) - 10 Starting Medical dialysis on [facility] catheter 07/08/22 at care 1421, Until Discontinu ed, Routine
For Priming of Ports:&nbs p; &n bsp; After initial saline flush, prime each port with heparin according to the priming volume listed on each catheter port for catheter lock.
heparin 2022-0 Yes 2000U PRN - SEE Univ ers 1,000 3- INSTRUCTIO ity of unit/mL (10 20:21: NS, [place] mL) - 10 Starting Medical dialysis on Wed Branch catheter 07/08/22 at care 1421, Until Discontinu ed, Routine
For Priming of Ports:&nbs p; &n bsp; After initial saline flush, prime each port with heparin according to the priming volume listed on each catheter port for catheter lock.
insulin 2022-0 Yes 2U 2 Units, Univer s lispro 3- Subcutaneo ity of (human) 14:35: us, PRN - [place] (HumaLOG 57 SEE Medical U-100) INSTRUCTIO Branch injection 2 NS, 1 Units dose, Starting on Wed07/08/22 at 0835, Until Discontinu ed, Routine, For blood glucose > 300 mg/dL dextrose 2022-0 Yes 125mL 125 mL, Unive rs 10% (D10W) 3- Intravenou ity of bolus 14:35: s, PRN - [place] infusion 57 SEE Medical 125 mL INSTRUCTIO Branch NS, Administer over 60 Minutes, Other, Administer once if after insulin administra tion, blood glucose is 71-150 mg/dL and patient is unable to eat a 15 g carb snack, Starting on Wed07/08/22 at 0835, For 1 dose
If patient is able to eat/swallo w, give 15 gram carb snack - Sprite or cranberry juice.
insulin 2022-0 Yes 2U 2 Units, Univer s lispro 3-01 Subcutaneo ity of (human) 14:35: us, PRN - [place] (HumaLOG 57 SEE Medical U-100) INSTRUCTIO Branch injection 2 NS, 1 Units dose, Starting on Wed07/08/22 at 0835, Until Discontinu ed, Routine, For blood glucose > 300 mg/dL dextrose 2022-0 Yes 125mL 125 mL, Unive rs 10% (D10W) 3- Intravenou ity of bolus 14:35: s, PRN - [place] infusion 57 SEE Medical 125 mL INSTRUCTIO Branch NS, Administer over 60 Minutes, Other, Administer once if after insulin administra tion, blood glucose is 71-150 mg/dL and patient is unable to eat a 15 g carb snack, Starting on Wed07/08/22 at 0835, For 1 dose
If patient is able to eat/swallo w, give 15 gram carb snack - Sprite or cranberry juice.
insulin 0 Yes 2U 2 Units, Univer s lispro 07-08 Subcutaneo ity of (human) 14:35: us, PRN - [place] (HumaLOG 57 SEE Medical U-100) INSTRUCTIO Branch injection 2 NS, 1 Units dose, Starting on Wed07/08/22 at 0835, Until Discontinu ed, Routine, For blood glucose > 300 mg/dL dextrose 2022-0 Yes 125mL 125 mL, Unive rs 10% (D10W) 07-08 Intravenou ity of bolus 14:35: s, PRN - [place] infusion 57 SEE Medical 125 mL INSTRUCTIO Branch NS, Administer over 60 Minutes, Other, Administer once if after insulin administra tion, blood glucose is 71-150 mg/dL and patient is unable to eat a 15 g carb snack, Starting on Wed07/08/22 at 0835, For 1 dose
If patient is able to eat/swallo w, give 15 gram carb snack - Sprite or cranberry juice.
lidocaine 2022-0 202- No 10mL 10 mL, Unive rs 1% (PF) 07-08 Subcutaneo ity o f (XYLOCAINE) 14:00: 14:00 us, ONCE, [place] injection 00 :00 1 dose, On Medi geovani 10 mL Wed07/08/22 Branch at 0800, Routine heparin 2022-0 Yes 5000U PERITONEAL Uni vers (1,000 3- DIALYSIS ity of unit/mL, 10 13:00: PRN- PT [place] as mL vial) 02 ROOM, 1 Medical dose, Branch Starting on Wed07/08/22 at 0700, Until Discontinu ed, Routine heparin 2022-0 Yes 5000U PERITONEAL Uni vers (1,000 3- DIALYSIS ity of unit/mL, 10 13:00: PRN- PT [place] mL vial) 02 ROOM, 1 Medical dose, Branch Starting on Wed07/08/22 at 0700, Until Discontinu ed, Routine heparin 2022-0 Yes 5000U PERITONEAL Uni vers (1,000 07-08 DIALYSIS ity of unit/mL, 10 13:00: PRN- PT [place] as mL vial) 02 ROOM, 1 Medical dose, Branch Starting on Wed07/08/22 at 0700, Until Discontinu ed, Routine calcium 3-0 Yes 2g 2 g, IV Univers gluconate 2 07-08 Infusion, ity of g in NaCl 12:35: at 200 [place] 100 mL 42 mL/hr Medical (ISO-OSM) Administer Bran ch RTU IV over 30 infusion 2 Minutes, g PRN - SEE INSTRUCTIO NS, Starting on Wed07/08/22 at 0635, Until Discontinu ed, STAT, Potassium greater than or equal to 6.0 mEq/L with our without EKG changes calcium 3-0 Yes 2g 2 g, IV Univers gluconate 2 07-08 Infusion, ity of g in NaCl 12:35: at 200 [place] 100 mL 42 mL/hr Medical (ISO-OSM) Administer Bran ch RTU IV over 30 infusion 2 Minutes, g PRN - SEE INSTRUCTIO NS, Starting on Wed07/08/22 at 0635, Until Discontinu ed, STAT, Potassium greater than or equal to 6.0 mEq/L with our without EKG changes calcium 3-0 Yes 2g 2 g, IV Univers gluconate 2 07-08 Infusion, ity of g in NaCl 12:35: at 200 [place] 100 mL 42 mL/hr Medical (ISO-OSM) Administer Bran ch RTU IV over 30 infusion 2 Minutes, g PRN - SEE INSTRUCTIO NS, Starting on Wed07/08/22 at 0635, Until Discontinu ed, STAT, Potassium greater than or equal to 6.0 mEq/L with our without EKG changes dextrose 3-0 Yes 250mL 250 mL, IV Un adrianna 10% (D10W) 07-08 Infusion, ity of bolus 12:35: PRN - SEE [place] infusion 30 INSTRUCTIO Medic al 250 mL NS, Branch Administer over 60 Minutes, Other, If blood glucose is < or = 70 mg/dL and patient is unable to swallow or has mental status changes, Starting on Wed07/08/22 at 0635
If blood glucose is < or = 70 mg/dL and patient is unable to swallow or has mental status changes (Give glucagon order if patient needs fluid restrictio n): IF IV access available: Dextrose 10%. 1. 125 mL (? bag) of D10W IV infusion - equivalent to 12.5 g dextrose 2. Blood glucose - draw blood glucose 15 minutes after D10W Administra tion. 3. If blood glucose is < 80 mg/dL, repeat.
dextrose 2022-0 Yes 250mL 250 mL, IV Un adrianna 10% (D10W) 3- Infusion, ity of bolus 12:35: PRN - SEE [place] infusion 30 INSTRUCTIO Medic al 250 mL NS, Branch Administer over 60 Minutes, Other, If blood glucose is < or = 70 mg/dL and patient is unable to swallow or has mental status changes, Starting on Wed07/08/22 at 0635
If blood glucose is < or = 70 mg/dL and patient is unable to swallow or has mental status changes (Give glucagon order if patient needs fluid restrictio n): IF IV access available: Dextrose 10%. 1. 125 mL (? bag) of D10W IV infusion - equivalent to 12.5 g dextrose 2. Blood glucose - draw blood glucose 15 minutes after D10W Administra tion. 3. If blood glucose is < 80 mg/dL, repeat.
dextrose 0 Yes 250mL 250 mL, IV Un adrianna 10% (D10W) 3 Infusion, ity of bolus 12:35: PRN - SEE [place] infusion 30 INSTRUCTIO Medic al 250 mL NS, Branch Administer over 60 Minutes, Other, If blood glucose is < or = 70 mg/dL and patient is unable to swallow or has mental status changes, Starting on Wed07/08/22 at 0635
If blood glucose is < or = 70 mg/dL and patient is unable to swallow or has mental status changes (Give glucagon order if patient needs fluid restrictio n): IF IV access available: Dextrose 10%. 1. 125 mL (? bag) of D10W IV infusion - equivalent to 12.5 g dextrose 2. Blood glucose - draw blood glucose 15 minutes after D10W Administra tion. 3. If blood glucose is < 80 mg/dL, repeat.
glucagon 2022-0 Yes 1mg 1 mg, Univers (GLUCAGEN 07-08 Intramuscu ity of DIAGNOSTIC 12:35: [place], PRN, [place] KIT) 28 Starting Medical injection 1 on Wed Branch mg 07/08/22 at 0635, Until Discontinu ed, MENA, Blood Glucose < or = 70 mg/dL and patient is NPO, unable to swallow or has mental changes. glucagon 2022-0 Yes 1mg 1 mg, Univers (GLUCAGEN 07-08 Intramuscu ity of DIAGNOSTIC 12:35: [place], PRN, [place] KIT) 28 Starting Medical injection 1 on Wed Branch mg 07/08/22 at 0635, Until Discontinu ed, MENA, Blood Glucose < or = 70 mg/dL and patient is NPO, unable to swallow or has mental changes. glucagon 2022-0 Yes 1mg 1 mg, Univers (GLUCAGEN 07-08 Intramuscu ity of DIAGNOSTIC 12:35: [place], PRN, [place] KIT) 28 Starting Medical injection 1 on Wed Branch mg 07/08/22 at 0635, Until Discontinu ed, MENA, Blood Glucose < or = 70 mg/dL and patient is NPO, unable to swallow or has mental changes. ceFAZolin 2022-0 2022- Yes 1000mg 1,000 mg, Univers (ANCEF) 07-0803 Intravenou ity o f 1,000 mg in 00:30: 00:29 s, Q24H, 2 [place] NaCl 0.9% 00 :00 doses, Medical (NS) 100 mL First dose Br anch MINI-BAG on Wed07/07/22 at 1830, Last dose on Wed07/08/22 at 1830, Administer over 30 Minutes, 100 mL
Reas on for Anti-Infec tive: Empiric Non-Surgic al Prophylaxi s
Durat ion of therapy: 72 hours ceFAZolin 2022022- No 1000mg 1,000 mg, Univers (ANCEF) 07-08 Intravenou ity o f 1,000 mg in 00:30: 05:03 s, Q24H, 2 [place] NaCl 0.9% 00 :00 doses, Medical (NS) 100 mL First dose Br anch MINI-BAG on Wed07/07/22 at 1830, Last dose on Wed07/08/22 at 1830, Administer over 30 Minutes, 100 mL
Reas on for Anti-Infec tive: Empiric Non-Surgic al Prophylaxi s
Durat ion of therapy: 72 hours thrombin 2022- No PRN, Univers topical 07-07 Starting ity of solution 19:32: 22:47 on Wed 00 :56 07/07/22 at [facility] 1332, Branch Until Wed07/07/22 at 1647, Routine, Intra-op heparin 2022- No PRN, Univers 10,000 07-07 Starting ity of units in NS 19:11: 22:47 on Wed [place] 1000 mL for 00 :56 07/07/22 at [facility], Branch Intra-op fenofibrate Yes Univer s 48 mg 2-27 ity of tablet 00:00: [place] [facility] fenofibrate 2022-0 Yes Univer s 48 mg 2-27 ity of tablet 00:00: [place] [facility] fenofibrate 2022-0 Yes Univer s 48 mg 2-27 ity of tablet 00:00: [facility] fenofibrate 2022-0 Yes Univer s 48 mg 2-27 ity of tablet 00:00: [place] [facility] fenofibrate 2022-0 Yes Univer s 48 mg 2-27 ity of tablet 00:00: [facility] fenofibrate 2022-0 Yes Univer s 48 mg 2-27 ity of tablet 00:00: [place] [facility] fenofibrate 2022-0 Yes Univer s 48 mg 2-27 ity of tablet 00:00: [place] [facility] fenofibrate 2022-0 Yes Univer s 48 mg 2-27 ity of tablet 00:00: [place] [facility] fenofibrate 2023-0 Yes Univer s 48 mg 2-27 ity of tablet 00:00: Medical Branch fenofibrate 2022-0 Yes Univer s 48 mg 2-27 ity of tablet 00:00: [facility] Branch fenofibrate 2022-0 Yes Univer s 48 mg 2-27 ity of tablet 00:00: Medical Branch fenofibrate 2022-0 Yes Univer s 48 mg 2-27 ity of tablet 00:00: Medical Branch heparin 2022- No [id number] 5000U DIALYSIS Univers 1,000 07-05 ONCE - JULIANNE ity of unit/mL (10 01:45: 00:34 DSU, 1 [place] mL) - 00 :00 dose, On Medical dialysis Sat Branch catheter 07/04/22 at care 1945, Routine heparin 2022- No 5mL 500 Units Univ ers lock flush 07-04 (5 mL), IV it y of (HEPARIN 13:06: 13:15 Push, [place] LOCKFLUSH(P 00 :00 ONCE, 1 Medic al ORCINE)(PF) dose, On Bran ch ) 100 Sat unit/mL 07/04/22 at injection 0715, STAT 500 Units NaCl 0.9% 2022- No 5mL 5 mL, Slow U nivers (NS) 07-03 IV Push, ity of injection 5 22:30: 22:30 ONCE, 1 [place] mL 00 :00 dose, On Medical Fri Branch 07/03/22 at 1630, Routine heparin Yes 2000U PRN - SEE Univ ers 1,000 - INSTRUCTIO ity of unit/mL (10 22:28: NS, [place] mL) - 55 Starting Medical dialysis on [facility] catheter 07/03/22 at care 1628, Until Discontinu ed, Routine
For Priming of Ports:&nbs p; &n bsp; After initial saline flush, prime each port with heparin according to the priming volume listed on each catheter port for catheter lock.
heparin 2022- No 2000U PRN - SEE Uni vers 1,000 07-03 INSTRUCTIO ity of unit/mL (10 22:28: 13:00 NS, [place] mL) - 55 :56 Starting Medical dialysis on Wed [place] catheter 07/03/22 at care 1628, Until 07/04/22 at 0700, Routine
For Priming of Ports:&nbs p; &n bsp; After initial saline flush, prime each port with heparin according to the priming volume listed on each catheter port for catheter lock.
NaCl 0.9% 0 202- No 500mL at 999 Univ ers (NS) IV 07-02 02-23 mL/hr, IV ity of infusion 23:45: 23:36 Infusion, [place] 500 mL 00 :44 ONCE, 1 Medical dose, On [place] Marci 07/02/22 at 1745, Routine iopamidol 0 Yes PRN, Univers (ISOVUE 07-02 Starting ity of 370-500 mL) 20:32: [place] injection 00 07/02/22 at [facility] 1432, [place] [address] Until Discontinu ed, Routine, Intra-op thrombin 0 Yes PRN, Univers (recombinan 07-02 Starting ity of t) 20:00: on [place] (RECOTHROM) 00 07/02/22 at [facility] topical 1400, Branch solution Until Discontinu ed, Routine, Intra-op alteplase 0 Yes PRN, Univers (TPA) 07-02 Starting ity of (ACTIVASE) 17:58: on [place] 10 mg/10 mL 00 07/02/22 at [facility] syringe 1158, Branch Until Discontinu ed, Routine, Intra-op lidocaine 0 Yes PRN, Univers 1% (PF) 07-02 Starting ity of (XYLOCAINE) 17:52: on [place] injection 00 07/02/22 at [facility] 115[address], [address] Until Discontinu ed, Routine, Intra-op heparin 2022-0 2022- No PRN, Univers 10,000 07-02 Starting ity of units in NS 17:52: 12:48 on [place] 1000 mL for 00 :51 07/02/22 at [facility] 1152, Branch Intra-op polyethylen 2022-0 Yes 17g 17 g, Unive rs e glycol 07-02 Oral, ity of 3350 powder 15:00: DAILY, [place] 17 g 00 First dose Medical on [place] Branch 07/02/22 at 0900, Until Discontinu ed, Routine piperacilli 2022- No 4.5g 4.5 g, IV Univers n-tazobacta 07-02 Piggyback, i ty of m (ZOSYN) 11:30: 11:29 Q12H ABX, [place] 4.5 g in 00 :00 14 doses, Medica l NaCl 0.9% First dose Bran ch (NS) 100 mL on [place] MINI-BAG 07/02/22 at 0530, Last dose on Wed07/08/22 at 1730, Administer over 4 Hours, 100 mL
Reas on for Anti-Infec tive: Documented Infection< br>Documen roger Infection Site: Blood
D uration of Therapy: 7 days piperacilli 2022- No 4.5g 4.5 g, IV Univers n-tazobacta 07-02 Piggyback, i ty of m (ZOSYN) 11:30: 18:35 Q12H ABX, [place] 4.5 g in 00 :32 14 doses, Medica l NaCl 0.9% First dose Bran ch (NS) 100 mL on [place] MINI-BAG 07/02/22 at 0530, Last dose on Wed07/08/22 at 1730, Administer over 4 Hours, 100 mL
Reas on for Anti-Infec tive: Documented Infection< br>Documen roger Infection Site: Blood
D uration of Therapy: 7 days acetaminoph 0 Yes 500mg 500 mg, Un adrianna en 07-02 Oral, ity of (TYLENOL) 04:42: Q6HPRN, [place] tablet 500 00 Starting Medic al mg on Wed Branch 07/01/22 at 2242, Until Discontinu ed, Routine, Pain (scale 1-3), Temp > 38 C, fever acetaminoph Yes 500mg 500 mg, Un adrianna en 07-02 Oral, ity of (TYLENOL) 04:42: Q6HPRN, [place] tablet 500 00 Starting Medic al mg on Wed Branch 07/01/22 at 2242, Until Discontinu ed, Routine, Pain (scale 1-3), Temp > 38 C, fever acetaminoph 3-0 Yes 500mg 500 mg, Un adrianna en 07-02 Oral, ity of (TYLENOL) 04:42: Q6HPRN, [place] tablet 500 00 Starting Medic al mg on Wed07/01/22 at 2242, Until Discontinu ed, Routine, Pain (scale 1-3), Temp > 38 C, fever acetaminoph 2022-0 Yes 500mg 500 mg, Un adrianna en 07-02 Oral, ity of (TYLENOL) 04:42: Q6HPRN, [place] tablet 500 00 Starting Medic al mg on Wed07/01/22 at 2242, Until Discontinu ed, Routine, Pain (scale 1-3), Temp > 38 C, fever melatonin 2022-0 Yes 3mg 3 mg, Univers (MELATIN) 2-23 Oral, QHS, ity of tablet 3 mg 03:00: First dose Wed07/01/22 at Branch 2100, Until Discontinu ed, Routine melatonin 2022-0 Yes 3mg 3 mg, Univers (MELATIN) 2-23 Oral, QHS, ity of tablet 3 mg 03:00: First dose Wed07/01/22 at Branch 2100, Until Discontinu ed, Routine melatonin 2022-0 Yes 3mg 3 mg, Univers (MELATIN) 2-23 Oral, QHS, ity of tablet 3 mg 03:00: First dose Wed07/01/22 at Branch 2100, Until Discontinu ed, Routine melatonin 2022-0 Yes 3mg 3 mg, Univers (MELATIN) 2-23 Oral, QHS, ity of tablet 3 mg 03:00: First dose Wed07/01/22 at Branch 2100, Until Discontinu ed, Routine NaCl 0.9% 2022- No 5mL 5 mL, Slow U nivers (NS) 07-01 IV Push, ity of injection 5 21:30: 21:30 ONCE, 1 [place] mL 00 :00 dose, On Wed [address] [address] 07/01/22 at 1530, Routine epoetin 2022-0 2022- No [id number] 10,000 Unive rs bharat-epbx 2-22 02-22 Units, ity of (RETACRIT) 21:30: 21:59 Intravenou [place] injection 00 :00 s, Medical 10,000 DIALYSIS Branch Units ONCE - JULIANNE DSU, 1 dose, On 07/01/22 at 1530, Routine
presentation team member approving Restricted medication : RENU RODRIGUEZLAYTON [place] heparin 2022- No 2000U PRN - SEE Uni vers 1,000 07-01 INSTRUCTIO ity of unit/mL (10 21:22: 12:48 NS, [place] mL) - 08 :51 Starting Medical dialysis on Wed Branch catheter 07/01/22 at care 1522, Until 07/03/22 at 0648, Routine
For Priming of Ports:&nbs p; &n bsp; After initial saline flush, prime each port with heparin according to the priming volume listed on each catheter port for catheter lock.
sennosides Yes 8.6mg 8.6 mg, Uni vers (SENOKOT) 07-01 Oral, ity of tablet 8.6 15:00: DAILY, [place] mg 00 First dose Medical on Wed Branch 07/01/22 at 0900, Until Discontinu ed, Routine sennosides 2022- No 8.6mg 8.6 mg, Un adrianna (SENOKOT) 07-01 Oral, ity of tablet 8.6 15:00: 12:58 DAILY, [place] mg 00 :16 First dose Medical on Wed Branch 07/01/22 at 0900, Until Discontinu ed, Routine docusate 2022- No 100mg 100 mg, Univ ers (COLACE) 07-01 Oral, ity of capsule 100 06:30: 12:19 DAILY, [place] mg 00 :23 First dose Medical on Wed Branch 07/01/22 at 0030, Until Discontinu ed, Routine zinc oxide Yes Topical, Uni vers 20 % 07-01 PRN, ity of ointment 06:18: Starting [place] 48 on Wed Medical 07/01/22 at Branch 0018, Until Discontinu ed, Routine, Other, hemorrhoid s zinc oxide 2022- No Topical, Un adrianna 20 % 07-01 PRN, ity of ointment 06:18: 12:52 [place] 48 :03 on Wed Medical 07/01/22 at Branch 0018, Until 07/05/22 at 0652, Routine, Other, hemorrhoid s HEPARIN 2022- No 4000U 4,000 Univers SODIUM 06-30 Units, IV ity of (PORCINE) 23:45: 01:51 Push, [place] 1,000 00 :00 ONCE, 1 Medical UNIT/ML dose, On Branch BOLUS ACS Tue ORDER SET 06/30/22 at 1745, MENA heparin Yes 0U/h 0-2,750 Univers 25,000 06-30 Units/hr ity of Units/250 23:35: (0-27.5 [place] mL 02 mL/hr), IV Medical (Premixed Infusion, Branc h Bag) in TITRATE, 0.45 % NS Starting on Tu06/30/22 at 1735, Until Discontinu ed, MENA heparin 2022- No 0U/h 0-2,750 Univer s 25,000 06-30 03-01 Units/hr ity of Units/250 23:35: 13:02 (0-27.5 [place] mL 02 :12 mL/hr), IV Medical (Premixed Infusion, Branc h Bag) in TITRATE, 0.45 % NS Parameters in Admin. Instr., Starting on Wed06/30/22 at 1735
In itiate dosing:&nb sp; & nbsp;&nbsp ; -Patient 83 kg or under: 1,000 Units/hr (Calculate d dose at 12 units/kg/h r) &n bsp; &nbs p; -Patient over 83 k,000 units/hr&n bsp;DO NOT Exceed the MAXIMUM 1,000 units/hr for initiation of heparin drip.&nbsp ; CAU TION - If LMWH given in ER, AVOID bolus and start next dose/drip 12 hrs after ER dosage.&nb sp; M ust program rate using programmab le infusion pump.&nbsp ; Lili ck with the ordering provider first prior to any administra tion should the patient be on existing/a dditional anticoagul ant therapy. Rang e, Dosing and Testing: &nbs p;FOR [facility] ONLY &nbs p; - aPTT < 35: & nbsp;Bolus 5000 units, increase rate 300 units/hr&n bsp; - aPTT 35-44:&nbs p; [place] marg[place] 3000 units, increase rate 200 units/hr&n bsp; - aPTT 45-54:&nbs p; In crease rate 100 units/hr&n bsp; - aPTT 55-85:&nbs p; NO CHANGE&nbs p; - aPTT 86-95:&nbs p; De crease rate 100 units/hr&n bsp; - aPTT 96-120:&nb sp; H old 30 minutes, decrease rate 150 units/hr&n bsp; - aPTT > 120: Hold 60 minutes, decrease rate 200 units/hr&n bsp; Check aPTT 6 hours after initiation , then Q6H after every change, aPTT Q12H once therapeuti c levels are reached.&n bsp; &nbs p; __ &n bsp;FOR [facility] ONLY - aPTT < 40: & nbsp;Bolus 5000 units, increase rate 300 units/hr&n bsp; - aPTT 40-49:&amp ;nbsp;&nbs p;Bolus 3000 units, increase rate 200 units/hr&n bsp; - aPTT 50-59:&nbs p; In crease rate 100 units/hr&n bsp; - aPTT 60-85:&nbs p; NO CHANGE&nbs p; - aPTT 86-95:&nbs p; De crease rate 100 units/hr&n bsp; - aPTT 96-120:&nb sp; H old 30 minutes, decrease rate 150 units/hr&n bsp; - aPTT > 120: Hold 60 minutes, decrease rate 200 units/hr&n bsp; Check aPTT 6 hours after initiation , then Q6H after every change, aPTT Q12H once therapeuti c levels are reached.&n bsp; DO NOT ADJUST INITIAL BOLUS OR INITIAL INFUSION RATE.
heparin Yes 3000U FOR Univers (1,000 06-30 REBOLUSING ity of unit/mL, 10 23:34: , Starting [place] mL vial) 52 on [facility] for 06/30/22 at [place] [address], Until Discontinu ed, Routine
Dosing based on aPPT testing parameters (refer to continuous heparin drip order).
heparin 2022- No 3000U FOR Univers (1,000 06-30 REBOLUSING ity of unit/mL, 10 23:34: 13:02 , Starting [place] mL vial) 52 :12 on [facility] for 06/30/22 at [place] [address], Until 07/08/22 at 0702, Routine
Dosing based on aPPT testing parameters (refer to continuous heparin drip order).
NaCl 0.9% 2022- No 5mL 5 mL, Slow U nivers (NS) 06-30 IV Push, ity of injection 5 16:15: 16:15 ONCE, 1 [place] mL 00 :00 dose, On [facility] 06/30/22 at 1015, Routine benzonatate 2023-0 Yes 100mg 100 mg, Un adrianna (TESSALON 06-30 Oral, ity of PERLES) 15:26: Q8HPRN, [place] capsule 100 49 Starting Medi geovani mg on Wed Branch 06/30/22 at 0926, Until Discontinu ed, Routine, Cough dexamethaso 2022- No 6mg 6 mg, Univ ers ne sod phos 06-30 Intravenou i ty of PF 15:00: 22:12 s, DAILY, [place] injection 6 00 :50 First dose Me dical mg on Wed Branch 06/30/22 at 0900, Until Discontinu ed, 1 mL acetaminoph 2022- No 1000mg 1,000 mg, Univers en ADULT 06-30 IV ity of (OFIRMEV) 14:45: 15:59 Infusion, [place] injection 00 :00 at 400 Medical 1,000 mg mL/hr Branch Administer over 15 Minutes, ONCE, 1 dose, On [facility] 06/30/22 at 0845, Routine
Indicatio n: Non-periop erative Patient
Approved by: Per Policy (NPO Status) sevelamer 2022-0 Yes 2400mg 2,400 mg, U nivers (RENVELA) 2-21 Oral, TID ity o f tablet 14:00: MEALS, [place] 2,400 mg 00 First dose Medic al on [facility] 06/30/22 at 0800, Until Discontinu ed, Routine sevelamer 2022-0 Yes 2400mg 2,400 mg, U nivers (RENVELA) 2-21 Oral, TID ity o f tablet 14:00: MEALS, [place] 2,400 mg 00 First dose Medic al on [facility] 06/30/22 at 0800, Until Discontinu ed, Routine sevelamer 2022-0 Yes 2400mg 2,400 mg, U nivers (RENVELA) 2-21 Oral, TID ity o f tablet 14:00: MEALS, [place] 2,400 mg 00 First dose Medic al on [facility] 06/30/22 at 0800, Until Discontinu ed, Routine sevelamer 2022-0 Yes 2400mg 2,400 mg, U nivers (RENVELA) 2-21 Oral, TID ity o f tablet 14:00: MEALS, [place] 2,400 mg 00 First dose Medic al on [facility] 06/30/22 at 0800, Until Discontinu ed, Routine acetaminoph No 500mg 500 mg, U nivers en 06-30 Oral, ity of (TYLENOL) 11:21: 04:42 Q6HPRN, [place] tablet 500 29 :24 Starting Medic al mg on [facility] 06/30/22 at 0521, Until Wed07/01/22 at 2242, Routine, Pain (scale 1-3), Temp > 38 C, fever albuterol 0 Yes 2{puff} 2 Puff, Un adrianna (VENTOLIN) 2-21 Inhalation ity of inhaler 2 06:00: , Q6H, [place] Puff 00 First dose Medical on [facility] 06/30/22 at 0000, Until Discontinu ed, Routine albuterol 0 Yes 2{puff} 2 Puff, Un adrianna (VENTOLIN) 2-21 Inhalation ity of inhaler 2 06:00: , Q6H, [place] Puff 00 First dose Medical on [facility] 06/30/22 at 0000, Until Discontinu ed, Routine albuterol 0 Yes 2{puff} 2 Puff, Un adrianna (VENTOLIN) 2-21 Inhalation ity of inhaler 2 06:00: , Q6H, [place] Puff 00 First dose Medical on [facility] 06/30/22 at 0000, Until Discontinu ed, Routine albuterol 0 Yes 2{puff} 2 Puff, Un adrianna (VENTOLIN) 2-21 Inhalation ity of inhaler 2 06:00: , Q6H, [place] Puff 00 First dose Medical on [facility] 06/30/22 at 0000, Until Discontinu ed, Routine carvediloL No 25mg 25 mg, Univ ers (COREG) 06-30 Oral, BID ity of tablet 25 03:30: 12:25 MEALS, [place] mg 00 :55 First dose Medical (after Branch last modificati on) on Wed06/29/22 at 2130, Until Discontinu ed, Routine gabapentin 0 Yes 1200mg 1,200 mg, Univers (NEURONTIN) 2-21 Oral, QHS, it y of tablet 03:00: First dose [place] 1,[address] [facility] 06/29/22 at [place] [address], Until Discontinu ed, Routine citalopram 2023-0 Yes 40mg 40 mg, Unive rs (CELEXA) 2-21 Oral, QHS, ity o f tablet 40 03:00: First dose [place] mg [address] [facility] 06/29/22 at [place] [address], Until Discontinu ed, Routine gabapentin 3-0 Yes 1200mg 1,200 mg, Univers (NEURONTIN) 2-21 Oral, QHS, it y of tablet 03:00: First dose [place] 1,[address] [facility] 06/29/22 at [place] [address], Until Discontinu ed, Routine citalopram 3-0 Yes 40mg 40 mg, Unive rs (CELEXA) 2-21 Oral, QHS, ity o f tablet 40 03:00: First dose [place] mg [address] [facility] 06/29/22 at [place] [address], Until Discontinu ed, Routine gabapentin 3-0 Yes 1200mg 1,200 mg, Univers (NEURONTIN) 2-21 Oral, QHS, it y of tablet 03:00: First dose [place] 1,[address] [facility] 06/29/22 at [place] [address], Until Discontinu ed, Routine citalopram 3-0 Yes 40mg 40 mg, Unive rs (CELEXA) 2-21 Oral, QHS, ity o f tablet 40 03:00: First dose [place] mg [address] [facility] 06/29/22 at [place] [address], Until Discontinu ed, Routine gabapentin 3-0 Yes 1200mg 1,200 mg, Univers (NEURONTIN) 2-21 Oral, QHS, it y of tablet 03:00: First dose [place] 1,[address] [facility] 06/29/22 at [place] [address], Until Discontinu ed, Routine citalopram 2023-0 Yes 40mg 40 mg, Unive rs (CELEXA) 2-21 Oral, QHS, ity o f tablet 40 03:00: First dose [place] mg [address] [facility] 06/29/22 at [place] [address], Until Discontinu ed, Routine famotidine 2023-0 Yes 20mg 20 mg, Unive rs (PEPCID AC) 2-21 Oral, ity of tablet 20 02:00: DAILY, [place] mg 00 First dose Medical on Wed Branch 06/29/22 at 1999, Until Discontinu ed, Routine budesonide- 2023-0 Yes 2{puff} 2 Puff, Univers formoteroL 2-21 Inhalation ity of (SYMBICORT) 02:00: , BID, [place] 160-4.5 00 First dose Medica l mcg/actuati on Wed Branch on inhaler 06/29/22 at 2 Puff 1999, Until Discontinu ed, Routine famotidine 2023-0 Yes 20mg 20 mg, Unive rs (PEPCID AC) 2-21 Oral, ity of tablet 20 02:00: DAILY, [place] mg 00 First dose Medical on Wed Branch 06/29/22 at 1999, Until Discontinu ed, Routine budesonide- 2023-0 Yes 2{puff} 2 Puff, Univers formoteroL 2-21 Inhalation ity of (SYMBICORT) 02:00: , BID, [place] 160-4.5 00 First dose Medica l mcg/actuati on Wed Branch on inhaler 06/29/22 at 2 Puff 1999, Until Discontinu ed, Routine famotidine 2023-0 Yes 20mg 20 mg, Unive rs (PEPCID AC) 2-21 Oral, ity of tablet 20 02:00: DAILY, [place] mg 00 First dose Medical on Wed Branch 06/29/22 at 1999, Until Discontinu ed, Routine budesonide- 2023-0 Yes 2{puff} 2 Puff, Univers formoteroL 2-21 Inhalation ity of (SYMBICORT) 02:00: , BID, [place] 160-4.5 00 First dose Medica l mcg/actuati on Wed Branch on inhaler 06/29/22 at 2 Puff 1999, Until Discontinu ed, Routine famotidine 2023-0 Yes 20mg 20 mg, Unive rs (PEPCID AC) 2-21 Oral, ity of tablet 20 02:00: DAILY, [place] mg 00 First dose Medical on Wed Branch 06/29/22 at 1999, Until Discontinu ed, Routine budesonide- 2023-0 Yes 2{puff} 2 Puff, Univers formoteroL 2-21 Inhalation ity of (SYMBICORT) 02:00: , BID, [place] 160-4.5 00 First dose Medica l mcg/actuati on Wed Branch on inhaler 06/29/22 at 2 Puff 1999, Until Discontinu ed, Routine heparin 2022- No 5000U 5,000 Univers (porcine) 06-30 Units, ity of injection 02:00: 15:26 Subcutaneo [place] 5,000 Units 00 :14 us, Q12H, Med ical First dose Branch (after last modificati on) on Wed06/29/22 at 2000, Until Discontinu ed, Routine NaCl 0.9% 2022- No 5mL 5 mL, Slow U nivers (NS) 06-30 IV Push, ity of injection 5 01:45: 03:00 ONCE, 1 [place] mL 00 :00 dose, On Medical [facility] Branch 06/29/22 at 1945, Routine heparin 2022- No 2000U PRN - SEE Uni vers 1,000 06-30 INSTRUCTIO ity of unit/mL (10 01:44: 12:48 NS, [place] mL) - 41 :51 Starting Medical dialysis on [facility] catheter 06/29/22 at care 1944, Until Wed07/03/22 at 0648, Routine
For Priming of Ports:&nbs p; &n bsp; After initial saline flush, prime each port with heparin according to the priming volume listed on each catheter port for catheter lock.
losartan 50 Yes 50mg Take 50 mg Univers mg tablet 2-20 by mouth 2 ity of 21:55: (two) [place] 30 times Medical daily. Branch NIFEdipine 0 Yes 90mg Take 90 mg U nivers XL 90 mg 24 2-20 by mouth ity of hr tablet 21:55: daily. [address] budesonide- Yes 2{puff} Inhale 2 Univers formoteroL 2-20 Puffs 2 ity of 160-4.5 21:55: (two) [place] mcg/actuati 30 times Medical on inhaler daily. Branch losartan 50 Yes 50mg Take 50 mg Univers mg tablet 2-20 by mouth 2 ity of 21:55: (two) [place] 30 times Medical daily. [place] [address] NIFEdipine 0 Yes 90mg Take 90 mg U nivers XL 90 mg 24 2-20 by mouth ity of hr tablet 21:55: daily. [address] budesonide- 0 Yes 2{puff} Inhale 2 Univers formoteroL 2-20 Puffs 2 ity of 160-4.5 21:55: (two) [place] mcg/actuati 30 times Medical on inhaler daily. [address] [address] losartan 50 2022-0 Yes 50mg Take 50 mg Univers mg tablet 2-20 by mouth 2 ity of 21:55: (two) [place] 30 times Medical daily. [place] [address] NIFEdipine 0 Yes 90mg Take 90 mg U nivers XL 90 mg 24 2-20 by mouth ity of hr tablet 21:55: daily. [address] budesonide- 0 Yes 2{puff} Inhale 2 Univers formoteroL 2-20 Puffs 2 ity of 160-4.5 21:55: (two) [place] mcg/actuati 30 times Medical on inhaler daily. [place] [address] dextrose 2022- No 250mL 250 mL, IV U nivers 10% (D10W) 06-29- Infusion, ity of bolus 19:45: 21:54 ONCE, On [place] infusion 00 :00 Mon Medical 250 mL 06/29/[address] 1345, For 1 dose
De xtrose 10% 250 mL bag contains:& nbsp;10 gm = 100 mL 20 gm = 200 mL 25 gm = 250 mL (whole bag) The maximum rate at which dextrose can be infused without producing glycosuria is 0.5 g/kg/hour. &nbs p;BUD: If wrapper is open bag is good for 30 days at room temperatur e. &l t;br> albuterol 2022- No 10mg 10 mg, Unive rs (PROVENTIL) -29 06-20 Inhalation i ty of 2.5 mg /3 19:45: 20:14 , ONCE [place] mL (0.083 00 :00 NOW, 1 Medical %) dose, On [address] nebulizer Mon solution 10 06/29/22 at mg 1345, Routine insulin 2022- No 5U 5 Units, Unive rs regular -29 06-20 Slow IV ity of human 19:30: 20:10 Push, [place] (HUMULIN R) 00 :00 ONCE, 1 Medic al injection 5 dose, On Bran ch Units 06/29/22 at 1330, Routine
Indicatio n for insulin: Hyperkalem ia- Please use the Insulin Protocol for Hyperkalem ia order set calcium 2022- No 2g 2 g, IV Univer s gluconate 2 06-29 Infusion, it y of g in NaCl 19:30: 21:54 at 200 [place] 100 mL 00 :00 mL/hr Medical (ISO-OSM) Administer Bran ch RTU IV over 30 infusion 2 Minutes, g ONCE, 1 dose, On 06/29/22 at 1330, Routine NIFEdipine 2021-0 Yes 90mg Take 1 Unive rs XL 90 mg 24 6-09 tablet by ity of hr tablet 00:00: mouth [place] 00 every Medical morning. Branch NIFEdipine 2021-0 Yes 90mg Take 1 Unive rs XL 90 mg 24 6-09 tablet by ity of hr tablet 00:00: mouth [place] 00 every Medical morning. Branch NIFEdipine 2-0 Yes 90mg Take 1 Unive rs XL 90 mg 24 6-09 tablet by ity of hr tablet 00:00: mouth [place] 00 every Medical morning. Branch NIFEdipine 2-0 Yes 90mg Take 1 Unive rs XL 90 mg 24 6-09 tablet by ity of hr tablet 00:00: mouth [place] 00 every Medical morning. Branch NIFEdipine 2-0 Yes 90mg Take 1 [facility] rs XL 90 mg 24 6-09 tablet by ity of hr tablet 00:00: mouth [place] 00 every Medical morning. Branch NIFEdipine 2022-0 Yes 90mg Take 1 [facility] rs XL 90 mg 24 6-09 tablet by ity of hr tablet 00:00: mouth [place] 00 every Medical morning. Branch NIFEdipine 2022-0 Yes 90mg Take 1 [facility] rs XL 90 mg 24 6-09 tablet by ity of hr tablet 00:00: mouth [place] 00 every Medical morning. Branch NIFEdipine 2-0 Yes 90mg Take 1 [facility] rs XL 90 mg 24 6-09 tablet by ity of hr tablet 00:00: mouth [place] 00 every Medical morning. Branch NIFEdipine 2022-0 Yes 90mg Take 1 [facility] rs XL 90 mg 24 6-09 tablet by ity of hr tablet 00:00: mouth [place] 00 every Medical morning. Branch NIFEdipine 2022-0 Yes 90mg Take 1 [facility] rs XL 90 mg 24 6-09 tablet by ity of hr tablet 00:00: mouth [place] 00 every Medical morning. Branch NIFEdipine 2022-0 Yes 90mg Take 1 [facility] rs XL 90 mg 24 6-09 tablet by ity of hr tablet 00:00: mouth [place] 00 every Medical morning. Branch NIFEdipine 2022-0 Yes 90mg Take 1 [facility] rs XL 90 mg 24 6-09 tablet by ity of hr tablet 00:00: mouth [place] 00 every Medical morning. Branch calcium 2021-0 Yes TAKE 2 [facility] acetate,radha 5-31 TABLETS BY it y of sphat bind, 00:00: MOUTH [place] 667 mg Tab 00 THREE Medical TIMES A Branch DAY WITH EACH MEAL calcium 2-0 Yes TAKE 2 [facility] acetate,radha 5-31 TABLETS BY it y of sphat bind, 00:00: MOUTH [place] 667 mg Tab 00 THREE Medical TIMES A Branch DAY WITH EACH MEAL calcium 2-0 Yes TAKE 2 [facility] acetate,radha 5-31 TABLETS BY it y of sphat bind, 00:00: MOUTH [place] 667 mg Tab 00 THREE Medical TIMES A Branch DAY WITH EACH MEAL calcium 2-0 Yes TAKE 2 [facility] acetate,radha 5-31 TABLETS BY it y of sphat bind, 00:00: MOUTH [place] 667 mg Tab 00 THREE Medical TIMES A Branch DAY WITH EACH MEAL calcium 2-0 Yes TAKE 2 [facility] acetate,radha 5-31 TABLETS BY it y of sphat bind, 00:00: MOUTH [place] 667 mg Tab 00 THREE Medical TIMES A Branch DAY WITH EACH MEAL calcium 2-0 Yes TAKE 2 [facility] acetate,radha 5-31 TABLETS BY it y of sphat bind, 00:00: MOUTH [place] 667 mg Tab 00 THREE Medical TIMES A Branch DAY WITH EACH MEAL calcium 2022-0 Yes TAKE 2 [facility] acetate,radha 5-31 TABLETS BY it y of sphat bind, 00:00: MOUTH [place] 667 mg Tab 00 THREE Medical TIMES A Branch DAY WITH EACH MEAL calcium 2022-0 Yes TAKE 2 [facility] acetate,radha 5-31 TABLETS BY it y of sphat bind, 00:00: MOUTH [place] 667 mg Tab 00 THREE Medical TIMES A Branch DAY WITH EACH MEAL calcium 2022-0 Yes TAKE 2 [facility] acetate,radha 5-31 TABLETS BY it y of sphat bind, 00:00: MOUTH [place] 667 mg Tab 00 THREE Medical TIMES A Branch DAY WITH EACH MEAL calcium 2022-0 Yes TAKE 2 [facility] acetate,radha 5-31 TABLETS BY it y of sphat bind, 00:00: MOUTH [place] 667 mg Tab 00 THREE Medical TIMES A Branch DAY WITH EACH MEAL calcium 2022-0 Yes TAKE 2 [facility] acetate,radha 5-31 TABLETS BY it y of sphat bind, 00:00: MOUTH [place] 667 mg Tab 00 THREE Medical TIMES A Branch DAY WITH EACH MEAL calcium 2022-0 Yes TAKE 2 [facility] acetate,radha 5-31 TABLETS BY it y of sphat bind, 00:00: MOUTH [place] 667 mg Tab 00 THREE Medical TIMES A Branch DAY WITH EACH MEAL losartan 50 2022-0 Yes 50mg Take 1 [facility] mg tablet 5-04 tablet by ity o f 00:00: mouth in [place] 00 the Medical morning Branch and 1 tablet in the evening. losartan 50 2022-0 Yes 50mg Take 1 [facility] ers mg tablet 5-04 tablet by ity o f 00:00: mouth in [place] 00 the Medical morning Branch and 1 tablet in the evening. losartan 50 2022-0 Yes 50mg Take 1 [facility] ers mg tablet 5-04 tablet by ity o f 00:00: mouth in [place] 00 the Medical morning Branch and 1 tablet in the evening. losartan 50 2022-0 Yes 50mg Take 1 [facility] ers mg tablet 5-04 tablet by ity o f 00:00: mouth in [place] 00 the Medical morning Branch and 1 tablet in the evening. losartan 50 2022-0 Yes 50mg Take 1 [facility] mg tablet 5-04 tablet by ity o f 00:00: mouth in [place] 00 the Medical morning Branch and 1 tablet in the evening. losartan 50 2022-0 Yes 50mg Take 1 [facility] ers mg tablet 5-04 tablet by ity o f 00:00: mouth in [place] 00 the Medical morning Branch and 1 tablet in the evening. losartan 50 2022-0 Yes 50mg Take 1 [facility] ers mg tablet 5-04 tablet by ity o f 00:00: mouth in [place] 00 the Medical morning Branch and 1 tablet in the evening. losartan 50 2021-0 Yes 50mg Take 1 [facility] ers mg tablet 5-04 tablet by ity o f 00:00: mouth in [place] 00 the Medical morning Branch and 1 tablet in the evening. losartan 50 2-0 Yes 50mg Take 1 [facility] ers mg tablet 5-04 tablet by ity o f 00:00: mouth in [place] 00 the Medical morning Branch and 1 tablet in the evening. losartan 50 2-0 Yes 50mg Take 1 [facility] ers mg tablet 5-04 tablet by ity o f 00:00: mouth in [place] 00 the Medical morning Branch and 1 tablet in the evening. losartan 50 2021-0 Yes 50mg Take 1 [facility] ers mg tablet 5-04 tablet by ity o f 00:00: mouth in [place] 00 the Medical morning Branch and 1 tablet in the evening. losartan 50 2021-0 Yes 50mg Take 1 [facility] ers mg tablet 5-04 tablet by ity o f 00:00: mouth in [place] 00 the Medical morning Branch and 1 tablet in the evening. losartan 50 2021-0 Yes 50mg Take 50 mg [facility] mg tablet 3-24 by mouth 2 ity of 16:33: (two) [place] 35 times Medical daily. Branch NIFEdipine 2021-0 Yes 90mg Take 90 mg U nivers XL 90 mg 24 3-24 by mouth ity of hr tablet 16:33: daily. [place] [address] Medical Branch budesonide- 2021-0 Yes 2{puff} Inhale 2 [facility] formoteroL 3-24 Puffs 2 ity of (SYMBICORT) 16:33: (two) [place] 160-4.5 35 times Medical mcg/actuati daily. Branch on inhaler losartan 50 2021-0 Yes 50mg Take 50 mg [facility] mg tablet 3-24 by mouth 2 ity of 16:33: (two) [place] 35 times Medical daily. Branch NIFEdipine 2021-0 Yes 90mg Take 90 mg U nivers XL 90 mg 24 3-24 by mouth ity of hr tablet 16:33: daily. [place] [address] Medical Branch budesonide- 2021-0 Yes 2{puff} Inhale 2 [facility] formoteroL 3-24 Puffs 2 ity of (SYMBICORT) 16:33: (two) [place] 160-4.5 35 times Medical mcg/actuati daily. Branch on inhaler losartan 50 2022-0 Yes 50mg Take 50 mg [facility] mg tablet 3-24 by mouth 2 ity of 16:33: (two) [place] 35 times Medical daily. Branch NIFEdipine Yes 90mg Take 90 mg U nivers XL 90 mg 24 3-24 by mouth ity of hr tablet 16:33: daily. [place] 35 Medical Branch budesonide- Yes 2{puff} Inhale 2 [facility] formoteroL 3-24 Puffs 2 ity of (SYMBICORT) 16:33: (two) [place] 160-4.5 35 times Medical mcg/actuati daily. Branch on inhaler sennosides Yes [id number] 8.6mg Take 1 [facility] 8.6 mg 3-04 tablet by ity of tablet 00:00: mouth [place] 00 daily. Medical Branch sennosides Yes [id number] 8.6mg Take 1 [facility] 8.6 mg 3-04 tablet by ity of tablet 00:00: mouth [place] 00 daily. Medical Branch sennosides Yes [id number] 8.6mg Take 1 [facility] 8.6 mg 3-04 tablet by ity of tablet 00:00: mouth [place] 00 daily. Medical Branch sennosides Yes [id number] 8.6mg Take 1 [facility] 8.6 mg 3-04 tablet by ity of tablet 00:00: mouth [place] 00 daily. Medical Branch sennosides Yes [id number] 8.6mg Take 1 [facility] 8.6 mg 3-04 tablet by ity of tablet 00:00: mouth [place] 00 daily. Medical Branch sennosides Yes [id number] 8.6mg Take 1 [facility] 8.6 mg 3-04 tablet by ity of tablet 00:00: mouth [place] 00 daily. Medical Branch sennosides Yes [id number] 8.6mg Take 1 [facility] 8.6 mg 3-04 tablet by ity of tablet 00:00: mouth [place] 00 daily. Medical Branch sennosides Yes [id number] 8.6mg Take 1 [facility] 8.6 mg 3-04 tablet by ity of tablet 00:00: mouth [place] 00 daily. Medical Branch sennosides Yes [id number] 8.6mg Take 1 [facility] 8.6 mg 3-04 tablet by ity of tablet 00:00: mouth [place] 00 daily. [facility] Yes [id number] 8.6mg Take 1 [facility] 8.6 mg 3-04 tablet by ity of tablet 00:00: mouth [place] 00 daily. [facility] Yes [id number] 8.6mg Take 1 [facility] 8.6 mg 3-04 tablet by ity of tablet 00:00: mouth [place] 00 daily. [facility] Yes [id number] 8.6mg Take 1 [facility] 8.6 mg 3-04 tablet by ity of tablet 00:00: mouth [place] 00 daily. [facility] Yes [id number] 8.6mg Take 1 [facility] 8.6 mg 3-04 tablet by ity of tablet 00:00: mouth [place] 00 daily. [facility] Yes [id number] 8.6mg Take 1 [facility] 8.6 mg 3-04 tablet by ity of tablet 00:00: mouth [place] 00 daily. [facility] Yes [id number] 8.6mg Take 1 [facility] 8.6 mg 3-04 tablet by ity of tablet 00:00: mouth [place] 00 daily. [facility] Yes [id number] 8.6mg Take 1 [facility] 8.6 mg 3-04 tablet by ity of tablet 00:00: mouth [place] 00 daily. [facility] Yes [id number] 8.6mg Take 1 [facility] 8.6 mg 3-04 tablet by ity of tablet 00:00: mouth [place] 00 daily. [facility] Yes [id number] 8.6mg Take 1 [facility] 8.6 mg 3-04 tablet by ity of tablet 00:00: mouth [place] 00 daily. [facility] Yes [id number] 8.6mg Take 1 [facility] 8.6 mg 3-04 tablet by ity of tablet 00:00: mouth [place] 00 daily. [facility] Yes [id number] 8.6mg Take 1 [facility] 8.6 mg 3-04 tablet by ity of tablet 00:00: mouth [place] 00 daily. [facility] Yes [id number] 8.6mg Take 1 [facility] 8.6 mg 3-04 tablet by ity of tablet 00:00: mouth [place] 00 daily. [facility] Yes [id number] 8.6mg Take 1 [facility] 8.6 mg 3-04 tablet by ity of tablet 00:00: mouth [place] 00 daily. [facility] Yes [id number] 8.6mg Take 1 [facility] 8.6 mg 3-04 tablet by ity of tablet 00:00: mouth [place] 00 daily. [facility] Yes [id number] 8.6mg Take 1 [facility] 8.6 mg 3-04 tablet by ity of tablet 00:00: mouth [place] 00 daily. [facility] Yes [id number] 8.6mg Take 1 [facility] 8.6 mg 3-04 tablet by ity of tablet 00:00: mouth [place] 00 daily. [facility] Yes [id number] 8.6mg Take 1 [facility] 8.6 mg 3-04 tablet by ity of tablet 00:00: mouth [place] 00 daily. [facility] [id number] 100mg Take 1 [facility] nivers 100 mg 3-03 capsule by ity of capsule 00:00: mouth [place] 00 daily. [facility] [id number] 100mg Take 1 U nivers 100 mg 3-03 capsule by ity of capsule 00:00: mouth [place] 00 daily. [facility] [id number] 100mg Take 1 U nivers 100 mg 3-03 capsule by ity of capsule 00:00: mouth [place] 00 daily. [facility] docusate 2022- No [id number] 100mg Take 1 [facility] 100 mg 3-03 02-20 capsule by ity of capsule 00:00: 00:00 mouth [place] 00 :00 daily. [facility] docusate 2022- No [id number] 100mg Take 1 [facility] 100 mg 3-03 02-20 capsule by ity of capsule 00:00: 00:00 mouth [place] 00 :00 daily. [facility] docusate 2023- No [id number] 100mg Take 1 [facility] 100 mg 3-07 09-20 capsule by ity of capsule 00:00: 00:00 mouth [place] 00 :00 daily. [facility] Branch docusate 2021-0 2022- No [id number] 100mg Take 1 [facility] 100 mg 3-07 09-20 capsule by ity of capsule 00:00: 00:00 mouth [place] 00 :00 daily. [facility] Branch docusate 2021-2022- No [id number] 100mg Take 1 [facility] 100 mg 3-07 09-20 capsule by ity of capsule 00:00: 00:00 mouth [place] 00 :00 daily. Medical Branch VENTOLIN Yes 2{puff} Inhale 2 Un adrianna HFA 90 9-08 Puffs ity of mcg/actuati 00:00: every 6 [place] as on inhaler 00 (six) Medical hours. Branch VENTOLIN Yes 2{puff} Inhale 2 Un adrianna HFA 90 9-08 Puffs ity of mcg/actuati 00:00: every 6 [place] on inhaler 00 (six) Medical hours. Branch VENTOLIN Yes 2{puff} Inhale 2 Un adrianna HFA 90 9-08 Puffs ity of mcg/actuati 00:00: every 6 [place] on inhaler 00 (six) Medical hours. Branch VENTOLIN Yes 2{puff} Inhale 2 Un adrianna HFA 90 9-08 Puffs ity of mcg/actuati 00:00: every 6 [place] on inhaler 00 (six) Medical hours. Branch VENTOLIN Yes 2{puff} Inhale 2 Un adrianna HFA 90 9-08 Puffs ity of mcg/actuati 00:00: every 6 [place] on inhaler 00 (six) Medical hours. Branch VENTOLIN Yes 2{puff} Inhale 2 Un adrianna HFA 90 9-08 Puffs ity of mcg/actuati 00:00: every 6 [place] on inhaler 00 (six) Medical hours. Branch VENTOLIN Yes 2{puff} Inhale 2 Un adrianna HFA 90 9-08 Puffs ity of mcg/actuati 00:00: every 6 [place] on inhaler 00 (six) Medical hours. [place] VENTOLIN 0 Yes 2{puff} Inhale 2 Un adrianna HFA 90 9-08 Puffs ity of mcg/actuati 00:00: every 6 [place] on inhaler 00 (six) Medical hours. Branch VENTOLIN 0 Yes 2{puff} Inhale 2 Un adrianna HFA 90 9-08 Puffs ity of mcg/actuati 00:00: every 6 [place] on inhaler 00 (six) Medical hours. Branch VENTOLIN 0 Yes 2{puff} Inhale 2 Un adrianna HFA 90 9-08 Puffs ity of mcg/actuati 00:00: every 6 [place] on inhaler 00 (six) Medical hours. Branch VENTOLIN 0 Yes 2{puff} Inhale 2 Un adrianna HFA 90 9-08 Puffs ity of mcg/actuati 00:00: every 6 [place] on inhaler 00 (six) Medical hours. Branch VENTOLIN Yes 2{puff} Inhale 2 Un adrianna HFA 90 9-08 Puffs ity of mcg/actuati 00:00: every 6 [place] on inhaler 00 (six) Medical hours. Branch VENTOLIN 0 Yes 2{puff} Inhale 2 Un adrianna HFA 90 9-08 Puffs ity of mcg/actuati 00:00: every 6 [place] as on inhaler 00 (six) Medical hours. Branch VENTOLIN 0 Yes 2{puff} Inhale 2 Un adrianna HFA 90 9-08 Puffs ity of mcg/actuati 00:00: every 6 [place] on inhaler 00 (six) Medical hours. Branch VENTOLIN 0 Yes 2{puff} Inhale 2 Un adrianna HFA 90 9-08 Puffs ity of mcg/actuati 00:00: every 6 [place] on inhaler 00 (six) Medical hours. Branch VENTOLIN 0 Yes 2{puff} Inhale 2 Un adrianna HFA 90 9-08 Puffs ity of mcg/actuati 00:00: every 6 [place] on inhaler 00 (six) Medical hours. Branch VENTOLIN 0 Yes 2{puff} Inhale 2 Un adrianna HFA 90 9-08 Puffs ity of mcg/actuati 00:00: every 6 [place] on inhaler 00 (six) Medical hours. Branch VENTOLIN Yes 2{puff} Inhale 2 Un adrianna HFA 90 9-08 Puffs ity of mcg/actuati 00:00: every 6 [place] as on inhaler 00 (six) Medical hours. Branch VENTOLIN Yes 2{puff} Inhale 2 Un adrianna HFA 90 9-08 Puffs ity of mcg/actuati 00:00: every 6 [place] as on inhaler 00 (six) Medical hours. Branch VENTOLIN Yes 2{puff} Inhale 2 Un adrianna HFA 90 9-08 Puffs ity of mcg/actuati 00:00: every 6 [place] as on inhaler 00 (six) Medical hours. [place] VENTOLIN Yes 2{puff} Inhale 2 Un adrianna HFA 90 9-08 Puffs ity of mcg/actuati 00:00: every 6 [place] as on inhaler 00 (six) Medical hours. Branch VENTOLIN Yes 2{puff} Inhale 2 Un adrianna HFA 90 9-08 Puffs ity of mcg/actuati 00:00: every 6 [place] as on inhaler 00 (six) Medical hours. Branch VENTOLIN Yes 2{puff} Inhale 2 Un adrianna HFA 90 9-08 Puffs ity of mcg/actuati 00:00: every 6 [place] as on inhaler 00 (six) Medical hours. Branch VENTOLIN Yes 2{puff} Inhale 2 Un adrianna HFA 90 9-08 Puffs ity of mcg/actuati 00:00: every 6 [place] as on inhaler 00 (six) Medical hours. Branch VENTOLIN Yes 2{puff} Inhale 2 Un adrianna HFA 90 9-08 Puffs ity of mcg/actuati 00:00: every 6 [place] as on inhaler 00 (six) Medical hours. Branch VENTOLIN Yes 2{puff} Inhale 2 Un adrianna HFA 90 9-08 Puffs ity of mcg/actuati 00:00: every 6 [place] as on inhaler 00 (six) Medical hours. [place] carvedilol 2018-0 Yes 50mg Take 50 mg U nivers 25 mg 4-27 by mouth 2 ity of tablet 00:00: (two) [place] 00 times Medical daily with Branch meals. carvedilol 2018-0 Yes 50mg Take 50 mg U nivers 25 mg 4-27 by mouth 2 ity of tablet 00:00: (two) [place] 00 times Medical daily with Branch meals. carvedilol 2018-0 Yes 50mg Take 50 mg U nivers 25 mg 4-27 by mouth 2 ity of tablet 00:00: (two) [place] 00 times Medical daily with Branch meals. carvedilol 2018-0 Yes 50mg Take 50 mg U nivers 25 mg 4-27 by mouth 2 ity of tablet 00:00: (two) [place] 00 times Medical daily with Branch meals. carvedilol 2018-0 Yes 50mg Take 50 mg U nivers 25 mg 4-27 by mouth 2 ity of tablet 00:00: (two) [place] 00 times Medical daily with Branch meals. carvedilol 2018-0 Yes 50mg Take 50 mg U nivers 25 mg 4-27 by mouth 2 ity of tablet 00:00: (two) [place] 00 times Medical daily with Branch meals. carvedilol 2018-0 2023- No 50mg Take 50 mg [facility] 25 mg 4-27 03-02 by mouth 2 ity of tablet 00:00: 00:00 (two) [place] 00 :00 times Medical daily with Branch meals. carvedilol 2018-0 2023- No 50mg Take 50 mg [facility] 25 mg 4-27 03-02 by mouth 2 ity of tablet 00:00: 00:00 (two) [place] 00 :00 times Medical daily with Branch meals. citalopram 2018-0 Yes 40mg Take 40 mg U nivers 40 mg 2-23 by mouth ity of tablet 00:00: at [place] [address] bedtime. Medical Branch sevelamer 2018-0 Yes 2400mg Take 2,400 [facility] 800 mg 2-23 mg by ity of tablet 00:00: mouth 3 [place] 00 (three) Medical times Branch daily with meals. citalopram 2018-0 Yes 40mg Take 40 mg U nivers 40 mg 2-23 by mouth ity of tablet 00:00: at [place] [address] bedtime. Medical Branch sevelamer 2018-0 Yes 2400mg Take 2,400 [facility] 800 mg 2-23 mg by ity of tablet 00:00: mouth 3 (three) Medical times Branch daily with meals. citalopram 2018-0 Yes 40mg Take 40 mg U nivers 40 mg 2-23 by mouth ity of tablet 00:00: at [place] [address] bedtime. Medical Branch sevelamer 2018-0 Yes 2400mg Take 2,400 [facility] 800 mg 2-23 mg by ity of tablet 00:00: mouth 3 (three) Medical times Branch daily with meals. citalopram 2018-0 Yes 40mg Take 40 mg U nivers 40 mg 2-23 by mouth ity of tablet 00:00: at [place] [address] bedtime. Medical Branch sevelamer 2018-0 Yes 2400mg Take 2,400 [facility] 800 mg 2-23 mg by ity of tablet 00:00: mouth 3 (three) Medical times Branch daily with meals. citalopram 2018-0 Yes 40mg Take 40 mg U nivers 40 mg 2-23 by mouth ity of tablet 00:00: at [place] [address] bedtime. Medical Branch sevelamer 2018-0 Yes 2400mg Take 2,400 [facility] 800 mg 2-23 mg by ity of tablet 00:00: mouth [place] () Medical times Branch daily with meals. citalopram 2018-0 Yes 40mg Take 40 mg U nivers 40 mg 2-23 by mouth ity of tablet 00:00: at [place] [address] bedtime. Medical Branch sevelamer 2018-0 Yes 2400mg Take 2,400 [facility] 800 mg 2-23 mg by ity of tablet 00:00: mouth [place] (three) Medical times Branch daily with meals. citalopram 2018-0 Yes 40mg Take 40 mg U nivers 40 mg 2-23 by mouth ity of tablet 00:00: at [place] [address] bedtime. Medical Branch sevelamer 2018-0 Yes 2400mg Take 2,400 [facility] 800 mg 2-23 mg by ity of tablet 00:00: mouth 3 [place] (three) Medical times Branch daily with meals. citalopram 2018-0 Yes 40mg Take 40 mg U nivers 40 mg 2-23 by mouth ity of tablet 00:00: at [place] [address] bedtime. Medical Branch sevelamer 2018-0 Yes 2400mg Take 2,400 [facility] 800 mg 2-23 mg by ity of tablet 00:00: mouth 3 (three) Medical times Branch daily with meals. citalopram 2018-0 Yes 40mg Take 40 mg U nivers 40 mg 2-23 by mouth ity of tablet 00:00: at [place] bedtime. Medical Branch sevelamer 2018-0 Yes 2400mg Take 2,400 [facility] 800 mg 2-23 mg by ity of tablet 00:00: mouth 3 (three) Medical times Branch daily with meals. citalopram 2018-0 Yes 40mg Take 40 mg U nivers 40 mg 2-23 by mouth ity of tablet 00:00: at [place] bedtime. Medical Branch sevelamer 2018-0 Yes 2400mg Take 2,400 [facility] 800 mg 2-23 mg by ity of tablet 00:00: mouth 3 (three) Medical times Branch daily with meals. citalopram 2018-0 Yes 40mg Take 40 mg U nivers 40 mg 2-23 by mouth ity of tablet 00:00: at [place] [address] bedtime. Medical Branch sevelamer 2018-0 Yes 2400mg Take 2,400 [facility] 800 mg 2-23 mg by ity of tablet 00:00: mouth () Medical times Branch daily with meals. citalopram 2018-0 Yes 40mg Take 40 mg U nivers 40 mg 2-23 by mouth ity of tablet 00:00: at [place] bedtime. Medical Branch sevelamer 2018-0 Yes 2400mg Take 2,400 [facility] 800 mg 2-23 mg by ity of tablet 00:00: mouth (three) Medical times Branch daily with meals. citalopram 2018-0 Yes 40mg Take 40 mg U nivers 40 mg 2-23 by mouth ity of tablet 00:00: at [place] bedtime. Medical Branch sevelamer 2018-0 Yes 2400mg Take 2,400 [facility] 800 mg 2-23 mg by ity of tablet 00:00: mouth 3 (three) Medical times Branch daily with meals. citalopram 2018-0 Yes 40mg Take 40 mg U nivers 40 mg 2-23 by mouth ity of tablet 00:00: at [place] [address] bedtime. Medical Branch sevelamer 2018-0 Yes 2400mg Take 2,400 [facility] 800 mg 2-23 mg by ity of tablet 00:00: mouth 3 (three) Medical times Branch daily with meals. citalopram 2018-0 Yes 40mg Take 40 mg U nivers 40 mg 2-23 by mouth ity of tablet 00:00: at [place] bedtime. Medical Branch sevelamer 2018-0 Yes 2400mg Take 2,400 [facility] 800 mg 2-23 mg by ity of tablet 00:00: mouth 3 (three) Medical times Branch daily with meals. citalopram 2018-0 Yes 40mg Take 40 mg U nivers 40 mg 2-23 by mouth ity of tablet 00:00: at [place] bedtime. Medical Branch sevelamer 2018-0 Yes 2400mg Take 2,400 [facility] 800 mg 2-23 mg by ity of tablet 00:00: mouth () Medical times Branch daily with meals. citalopram 2018-0 Yes 40mg Take 40 mg U nivers 40 mg 2-23 by mouth ity of tablet 00:00: at [place] bedtime. Medical Branch sevelamer 2018-0 Yes 2400mg Take 2,400 [facility] 800 mg 2-23 mg by ity of tablet 00:00: mouth () Medical times Branch daily with meals. citalopram 2018-0 Yes 40mg Take 40 mg U nivers 40 mg 2-23 by mouth ity of tablet 00:00: at [place] bedtime. Medical Branch sevelamer 2018-0 Yes 2400mg Take 2,400 [facility] 800 mg 2-23 mg by ity of tablet 00:00: mouth () Medical times Branch daily with meals. citalopram 2018-0 Yes 40mg Take 40 mg U nivers 40 mg 2-23 by mouth ity of tablet 00:00: at [place] [address] bedtime. Medical Branch sevelamer 2018-0 Yes 2400mg Take 2,400 [facility] 800 mg 2-23 mg by ity of tablet 00:00: mouth () Medical times Branch daily with meals. citalopram 2018-0 Yes 40mg Take 40 mg U nivers 40 mg 2-23 by mouth ity of tablet 00:00: at [place] [address] bedtime. Medical Branch sevelamer 2018-0 Yes 2400mg Take 2,400 [facility] 800 mg 2-23 mg by ity of tablet 00:00: mouth 3 [place] (three) Medical times Branch daily with meals. citalopram 2018-0 Yes 40mg Take 40 mg U nivers 40 mg 2-23 by mouth ity of tablet 00:00: at [place] [address] bedtime. [facility] 2018-0 Yes 2400mg Take 2,400 [facility] 800 mg 2-23 mg by ity of tablet 00:00: mouth 3 [place] (three) Medical times Branch daily with meals. citalopram 2018-0 Yes 40mg Take 1 Unive rs 40 mg 2-23 tablet by ity of tablet 00:00: mouth at [place] [address] bedtime. [facility] 2018-0 Yes 2400mg Take 3 Univ ers 800 mg 2-23 tablets by ity of tablet 00:00: mouth in [place] 00 the Medical morning Branch and 3 tablets at noon and 3 tablets in the evening. Take with meals. citalopram 2018-0 Yes 40mg Take 1 Unive rs 40 mg 2-23 tablet by ity of tablet 00:00: mouth at [place] [address] bedtime. [facility] 2018-0 Yes 2400mg Take 3 Univ ers 800 mg 2-23 tablets by ity of tablet 00:00: mouth in [place] 00 the Medical morning Branch and 3 tablets at noon and 3 tablets in the evening. Take with meals. citalopram 2018-0 Yes 40mg Take 1 Unive rs 40 mg 2-23 tablet by ity of tablet 00:00: mouth at [place] [address] bedtime. [facility] 2018-0 Yes 2400mg Take 3 Univ ers 800 mg 2-23 tablets by ity of tablet 00:00: mouth in [place] 00 the Medical morning Branch and 3 tablets at noon and 3 tablets in the evening. Take with meals. citalopram 2018-0 Yes 40mg Take 1 Unive rs 40 mg 2-23 tablet by ity of tablet 00:00: mouth at [place] [address] bedtime. [facility] 2018-0 Yes 2400mg Take 3 Univ ers 800 mg 2-23 tablets by ity of tablet 00:00: mouth in [place] [address] the Medical morning Branch and 3 tablets at noon and 3 tablets in the evening. Take with meals. citalopram 2018-0 Yes 40mg Take 1 Unive rs 40 mg 2-23 tablet by ity of tablet 00:00: mouth at [place] [address] bedtime. Medical Branch sevelamer 2018-0 Yes 2400mg Take 3 Univ ers 800 mg 2-23 tablets by ity of tablet 00:00: mouth in [place] 00 the Medical morning Branch and 3 tablets at noon and 3 tablets in the evening. Take with meals. gabapentin 2018-0 Yes [id number] 1200mg Take 2 [facility] 600 mg 1-05 tablets by ity of tablet 00:00: mouth at [place] [address] bedtime. Medical Branch gabapentin 2018-0 Yes [id number] 1200mg Take 2 [facility] 600 mg 1-05 tablets by ity of tablet 00:00: mouth at [place] [address] bedtime. Medical Branch gabapentin 2018-0 Yes [id number] 1200mg Take 2 [facility] 600 mg 1-05 tablets by ity of tablet 00:00: mouth at [place] [address] bedtime. Medical Branch gabapentin 2018-0 Yes [id number] 1200mg Take 2 [facility] 600 mg 1-05 tablets by ity of tablet 00:00: mouth at [place] [address] bedtime. [facility] gabapentin 2018-0 Yes [id number] 1200mg Take 2 [facility] 600 mg 1-05 tablets by [facility] tablet 00:00: mouth at [place] [address] bedtime. [facility] gabapentin 2018-0 Yes [id number] 1200mg Take 2 [facility] 600 mg 1-05 tablets by [facility] tablet 00:00: mouth at [place] [address] bedtime. [facility] gabapentin 2018-0 Yes [id number] 1200mg Take 2 [facility] 600 mg 1-05 tablets by [facility] tablet 00:00: mouth at [place] [address] bedtime. [facility] gabapentin 2018-0 Yes [id number] 1200mg Take 2 [facility] 600 mg 1-05 tablets by [facility] tablet 00:00: mouth at [place] [address] bedtime. [facility] gabapentin 2018-0 Yes [id number] 1200mg Take 2 [facility] 600 mg 1-05 tablets by [facility] tablet 00:00: mouth at [place] [address] bedtime. [facility] gabapentin 2018-0 Yes [id number] 1200mg Take 2 [facility] 600 mg 1-05 tablets by [facility] tablet 00:00: mouth at [place] [address] bedtime. [facility] gabapentin 2018-0 Yes [id number] 1200mg Take 2 [facility] 600 mg 1-05 tablets by [facility] tablet 00:00: mouth at [place] [address] bedtime. [facility] gabapentin 2018-0 Yes [id number] 1200mg Take 2 [facility] 600 mg 1-05 tablets by [facility] tablet 00:00: mouth at [place] [address] bedtime. [facility] gabapentin 2018-0 Yes [id number] 1200mg Take 2 [facility] 600 mg 1-05 tablets by [facility] tablet 00:00: mouth at [place] [address] bedtime. [facility] gabapentin 2018-0 Yes [id number] 1200mg Take 2 [facility] 600 mg 1-05 tablets by [facility] tablet 00:00: mouth at [place] [address] bedtime. [facility] gabapentin 2018-0 Yes [id number] 1200mg Take 2 [facility] 600 mg 1-05 tablets by [facility] tablet 00:00: mouth at [place] [address] bedtime. [facility] gabapentin 2018-0 Yes [id number] 1200mg Take 2 [facility] 600 mg 1-05 tablets by [facility] of tablet 00:00: mouth at [place] [address] bedtime. [facility] gabapentin 2018-0 Yes [id number] 1200mg Take 2 [facility] 600 mg 1-05 tablets by [facility] of tablet 00:00: mouth at [place] [address] bedtime. [facility] gabapentin 2018-0 Yes [id number] 1200mg Take 2 [facility] 600 mg 1-05 tablets by [facility] tablet 00:00: mouth at [place] [address] bedtime. [facility] gabapentin 2018-0 Yes [id number] 1200mg Take 2 [facility] 600 mg 1-05 tablets by [facility] of tablet 00:00: mouth at [place] [address] bedtime. [facility] gabapentin 2018-0 Yes [id number] 1200mg Take 2 [facility] 600 mg 1-05 tablets by [facility] of tablet 00:00: mouth at [place] [address] bedtime. [facility] gabapentin 2018-0 Yes [id number] 1200mg Take 2 [facility] 600 mg 1-05 tablets by [facility] tablet 00:00: mouth at [place] [address] bedtime. [facility] gabapentin 2018-0 Yes [id number] 1200mg Take 2 [facility] 600 mg 1-05 tablets by [facility] of tablet 00:00: mouth at [place] [address] bedtime. [facility] gabapentin 2018-0 Yes [id number] 1200mg Take 2 [facility] 600 mg 1-05 tablets by [facility] of tablet 00:00: mouth at [place] [address] bedtime. [facility] gabapentin 2018-0 Yes [id number] 1200mg Take 2 [facility] 600 mg 1-05 tablets by [facility] of tablet 00:00: mouth at [place] [address] bedtime. [facility] gabapentin 2018-0 Yes [id number] 1200mg Take 2 [facility] 600 mg 1-05 tablets by [facility] of tablet 00:00: mouth at [place] 00 bedtime. [facility] gabapentin 2018-0 Yes [id number] 1200mg Take 2 [facility] 600 mg 1-05 tablets by [facility] of tablet 00:00: mouth at [place] [address] bedtime. [facility] Immunizations Ordered Filled Immunization Date Status Comments [facility] e Immunization Name Name Remdesivir 2022-07-09 Completed [facility] 00:00:00 [facility] Remdesivir 2022-07-09 Completed [facility] 00:00:00 [facility] Remdesivir 2022-07-09 Completed [facility] 00:00:00 [facility] Remdesivir 2022-07-09 Completed [facility] 00:00:00 [facility] Remdesivir 2022-07-09 Completed [facility] 00:00:00 [facility] Remdesivir 2022-07-09 Completed [facility] 00:00:00 [facility] Remdesivir 2022-07-09 Completed [facility] 00:00:00 [facility] Remdesivir 2022-07-09 Completed [facility] 00:00:00 [facility] Remdesivir 2022-07-09 Completed [facility] 00:00:00 [facility] Remdesivir 2022-07-09 Completed [facility] 00:00:00 [facility] Remdesivir 2022-07-09 Completed [facility] 00:00:00 [facility] Remdesivir 2022-07-09 Completed [facility] 00:00:00 [facility] Remdesivir 2022-07-09 Completed [facility] 00:00:00 [facility] Remdesivir 2022-07-09 Completed [facility] 00:00:00 [facility] Remdesivir 2022-07-09 Completed [facility] 00:00:00 [facility] Remdesivir 2022-07-09 Completed [facility] 00:00:00 [facility] Remdesivir 2022-07-09 Completed [facility] 00:00:00 [facility] Remdesivir 2022-07-09 Completed [facility] 00:00:00 [facility] Remdesivir 2022-07-09 Completed [facility] of 00:00:00 [facility] Remdesivir 2022-07-09 Completed [facility] 00:00:00 [facility] Remdesivir 2022-07-07 Completed [facility] 00:00:00 [place] [facility] Remdesivir 2022-07-07 Completed [facility] 00:00:00 [place] [facility] Remdesivir 2022-07-07 Completed [facility] 00:00:00 [place] [facility] Remdesivir 2022-07-07 Completed [facility] 00:00:00 [place] [facility] Remdesivir 2022-07-07 Completed [facility] 00:00:00 [place] [facility] Remdesivir 2022-07-07 Completed [facility] 00:00:00 [place] [facility] Remdesivir 2022-07-07 Completed [facility] 00:00:00 [place] [facility] Remdesivir 2022-07-07 Completed [facility] 00:00:00 [place] [facility] Remdesivir 2022-07-07 Completed [facility] 00:00:00 [place] [facility] Remdesivir 2022-07-07 Completed [facility] 00:00:00 [place] [facility] Remdesivir 2022-07-07 Completed [facility] 00:00:00 [place] [facility] Remdesivir 2022-07-07 Completed [facility] 00:00:00 [place] [facility] Remdesivir 2022-07-07 Completed [facility] 00:00:00 [place] [facility] Remdesivir 2022-07-07 Completed [facility] 00:00:00 [place] [facility] Remdesivir 2022-07-07 Completed [facility] 00:00:00 [place] [facility] Remdesivir 2022-07-07 Completed [facility] 00:00:00 [place] [facility] Remdesivir 2022-07-07 Completed [facility] 00:00:00 [place] [facility] Remdesivir 2022-07-07 Completed [facility] 00:00:00 [place] [facility] Remdesivir 2022-07-07 Completed [facility] 00:00:00 [place] [facility] Remdesivir 2022-07-07 Completed [facility] 00:00:00 [place] [facility] Remdesivir 2022-07-07 Completed [facility] 00:00:00 [place] [facility] Remdesivir 2022-07-06 Completed [facility] 00:00:00 [place] [facility] Remdesivir 2022-07-06 Completed [facility] 00:00:00 [place] [facility] Remdesivir 2022-07-06 Completed [facility] 00:00:00 [place] [facility] Remdesivir 2022-07-06 Completed [facility] 00:00:00 [place] [facility] Remdesivir 2022-07-06 Completed [facility] 00:00:00 [place] [facility] Remdesivir 2022-07-06 Completed [facility] 00:00:00 [place] [facility] Remdesivir 2022-07-06 Completed [facility] 00:00:00 [place] [facility] Remdesivir 2022-07-06 Completed [facility] 00:00:00 [place] [facility] Remdesivir 2022-07-06 Completed [facility] 00:00:00 [place] [facility] Remdesivir 2022-07-06 Completed [facility] 00:00:00 [place] [facility] Remdesivir 2022-07-06 Completed [facility] 00:00:00 [place] [facility] Remdesivir 2022-07-06 Completed [facility] 00:00:00 [place] [facility] Remdesivir 2022-07-06 Completed [facility] 00:00:00 [place] [facility] Remdesivir 2022-07-06 Completed [facility] 00:00:00 [place] [facility] Remdesivir 2022-07-06 Completed [facility] 00:00:00 [place] [facility] Remdesivir 2022-07-06 Completed [facility] 00:00:00 [place] [facility] Remdesivir 2022-07-06 Completed [facility] 00:00:00 [place] [facility] Remdesivir 2022-07-06 Completed [facility] 00:00:00 [place] [facility] Remdesivir 2022-07-06 Completed [facility] 00:00:00 [place] [facility] Remdesivir 2022-07-06 Completed [facility] 00:00:00 [place] [facility] Remdesivir 2022-07-06 Completed [facility] 00:00:00 [place] [facility] Remdesivir 2022-07-05 Completed [facility] 00:00:00 [place] [facility] Remdesivir 2022-07-05 Completed [facility] 00:00:00 [place] [facility] Remdesivir 2022-07-05 Completed [facility] 00:00:00 [place] [facility] Remdesivir 2022-07-05 Completed [facility] 00:00:00 [place] [facility] Remdesivir 2022-07-05 Completed [facility] 00:00:00 [place] [facility] Remdesivir 2022-07-05 Completed [facility] 00:00:00 [place] [facility] Remdesivir 2022-07-05 Completed [facility] 00:00:00 [place] [facility] Remdesivir 2022-07-05 Completed [facility] 00:00:00 [place] [facility] Remdesivir 2022-07-05 Completed [facility] 00:00:00 [place] [facility] Remdesivir 2022-07-05 Completed [facility] 00:00:00 [place] [facility] Remdesivir 2022-07-05 Completed [facility] 00:00:00 [place] [facility] Remdesivir 2022-07-05 Completed [facility] 00:00:00 [place] [facility] Remdesivir 2022-07-05 Completed [facility] 00:00:00 [place] [facility] Remdesivir 2022-07-05 Completed [facility] 00:00:00 [place] [facility] Remdesivir 2022-07-05 Completed [facility] 00:00:00 [place] [facility] Remdesivir 2022-07-05 Completed [facility] 00:00:00 [place] [facility] Remdesivir 2022-07-05 Completed [facility] 00:00:00 [place] [facility] Remdesivir 2022-07-05 Completed [facility] 00:00:00 [place] [facility] Remdesivir 2022-07-05 Completed [facility] 00:00:00 [place] [facility] Remdesivir 2022-07-05 Completed [facility] 00:00:00 [place] [facility] Remdesivir 2022-07-05 Completed [facility] 00:00:00 [place] [facility] Remdesivir 2022-07-04 Completed [facility] 00:00:00 [place] [facility] Remdesivir 2022-07-04 Completed [facility] 00:00:00 [place] [facility] Remdesivir 2022-07-04 Completed [facility] 00:00:00 [place] [facility] Remdesivir 2022-07-04 Completed [facility] 00:00:00 [place] [facility] Remdesivir 2022-07-04 Completed [facility] 00:00:00 [place] [facility] Remdesivir 2022-07-04 Completed [facility] 00:00:00 [place] [facility] Remdesivir 2022-07-04 Completed [facility] 00:00:00 [place] [facility] Remdesivir 2022-07-04 Completed [facility] 00:00:00 [place] [facility] Remdesivir 2022-07-04 Completed [facility] 00:00:00 [place] [facility] Remdesivir 2022-07-04 Completed [facility] 00:00:00 [place] [facility] Remdesivir 2022-07-04 Completed [facility] 00:00:00 [place] [facility] Remdesivir 2022-07-04 Completed [facility] 00:00:00 [place] [facility] Remdesivir 2022-07-04 Completed [facility] 00:00:00 [place] [facility] Remdesivir 2022-07-04 Completed [facility] 00:00:00 [place] [facility] Remdesivir 2022-07-04 Completed [facility] 00:00:00 [place] [facility] Remdesivir 2022-07-04 Completed [facility] 00:00:00 [place] [facility] Remdesivir 2022-07-04 Completed [facility] 00:00:00 [place] [facility] Remdesivir 2022-07-04 Completed [facility] 00:00:00 [place] [facility] Remdesivir 2022-07-04 Completed [facility] 00:00:00 [place] [facility] Remdesivir 2022-07-04 Completed [facility] 00:00:00 [place] [facility] Remdesivir 2022-07-04 Completed [facility] 00:00:00 [place] [facility] Remdesivir 2022-07-03 Completed [facility] 00:00:00 [place] [facility] Remdesivir 2022-07-03 Completed [facility] 00:00:00 [place] [facility] Remdesivir 2022-07-03 Completed [facility] 00:00:00 [place] [facility] Remdesivir 2022-07-03 Completed [facility] 00:00:00 [place] [facility] Remdesivir 2022-07-03 Completed [facility] 00:00:00 [place] [facility] Remdesivir 2022-07-03 Completed [facility] 00:00:00 [place] [facility] Remdesivir 2022-07-03 Completed [facility] 00:00:00 [place] [facility] Remdesivir 2022-07-03 Completed [facility] 00:00:00 [place] [facility] Remdesivir 2022-07-03 Completed [facility] 00:00:00 [place] [facility] Remdesivir 2022-07-03 Completed [facility] 00:00:00 [place] [facility] Remdesivir 2022-07-03 Completed [facility] 00:00:00 [place] [facility] Remdesivir 2022-07-03 Completed [facility] 00:00:00 [place] [facility] Remdesivir 2022-07-03 Completed [facility] 00:00:00 [place] [facility] Remdesivir 2022-07-03 Completed [facility] 00:00:00 [place] [facility] Remdesivir 2022-07-03 Completed [facility] 00:00:00 [place] [facility] Remdesivir 2022-07-03 Completed [facility] 00:00:00 [place] [facility] Remdesivir 2022-07-03 Completed [facility] 00:00:00 [place] [facility] Remdesivir 2022-07-03 Completed [facility] 00:00:00 [place] [facility] Remdesivir 2022-07-03 Completed [facility] 00:00:00 [place] [facility] Remdesivir 2022-07-03 Completed [facility] 00:00:00 [place] [facility] Remdesivir 2022-07-03 Completed [facility] 00:00:00 [place] [facility] Remdesivir 2022-07-02 Completed [facility] 00:00:00 [place] [facility] Remdesivir 2022-07-02 Completed [facility] 00:00:00 [place] [facility] Remdesivir 2022-07-02 Completed [facility] 00:00:00 [place] [facility] Remdesivir 2022-07-02 Completed [facility] 00:00:00 [place] [facility] Remdesivir 2022-07-02 Completed [facility] 00:00:00 [place] [facility] Remdesivir 2022-07-02 Completed [facility] 00:00:00 [place] [facility] Remdesivir 2022-07-02 Completed [facility] 00:00:00 [place] [facility] Remdesivir 2022-07-02 Completed [facility] 00:00:00 [place] [facility] Remdesivir 2022-07-02 Completed [facility] 00:00:00 [place] [facility] Remdesivir 2022-07-02 Completed [facility] 00:00:00 [place] [facility] Remdesivir 2022-07-02 Completed [facility] 00:00:00 [place] [facility] Remdesivir 2022-07-02 Completed [facility] 00:00:00 [place] [facility] Remdesivir 2022-07-02 Completed [facility] 00:00:00 [place] [facility] Remdesivir 2022-07-02 Completed [facility] 00:00:00 [place] [facility] Remdesivir 2022-07-02 Completed [facility] 00:00:00 [place] [facility] Remdesivir 2022-07-02 Completed [facility] 00:00:00 [place] [facility] Remdesivir 2022-07-02 Completed [facility] 00:00:00 [place] [facility] Remdesivir 2022-07-02 Completed [facility] 00:00:00 [place] [facility] Remdesivir 2022-07-02 Completed [facility] 00:00:00 [place] [facility] Remdesivir 2022-07-02 Completed [facility] 00:00:00 [place] [facility] Remdesivir 2022-07-02 Completed [facility] 00:00:00 [place] [facility] Remdesivir 2022-07-02 Completed [facility] 00:00:00 [place] [facility] Remdesivir 2022-07-01 Completed [facility] 00:00:00 [place] [facility] Remdesivir 2022-07-01 Completed [facility] 00:00:00 [place] [facility] Remdesivir 2022-07-01 Completed [facility] 00:00:00 [place] [facility] Remdesivir 2022-07-01 Completed [facility] 00:00:00 [place] [facility] Remdesivir 2022-07-01 Completed [facility] 00:00:00 [place] [facility] Remdesivir 2022-07-01 Completed [facility] 00:00:00 [place] [facility] Remdesivir 2022-07-01 Completed [facility] 00:00:00 [place] [facility] Remdesivir 2022-07-01 Completed [facility] 00:00:00 [place] [facility] Remdesivir 2022-07-01 Completed [facility] 00:00:00 [place] [facility] Remdesivir 2022-07-01 Completed [facility] 00:00:00 [place] [facility] Remdesivir 2022-07-01 Completed [facility] 00:00:00 [place] [facility] Remdesivir 2022-07-01 Completed [facility] 00:00:00 [place] [facility] Remdesivir 2022-07-01 Completed [facility] 00:00:00 [place] [facility] Remdesivir 2022-07-01 Completed [facility] 00:00:00 [place] [facility] Remdesivir 2022-07-01 Completed [facility] 00:00:00 [place] [facility] Remdesivir 2022-07-01 Completed [facility] 00:00:00 [place] [facility] Remdesivir 2022-07-01 Completed [facility] 00:00:00 [place] [facility] Remdesivir 2022-07-01 Completed [facility] 00:00:00 [place] [facility] Remdesivir 2022-07-01 Completed [facility] 00:00:00 [place] [facility] Remdesivir 2022-07-01 Completed [facility] 00:00:00 [place] [facility] Remdesivir 2022-07-01 Completed [facility] 00:00:00 [place] [facility] Remdesivir 2022-07-01 Completed [facility] 00:00:00 [place] [facility] Remdesivir 2022-07-01 Completed [facility] 00:00:00 [place] [facility] Remdesivir 2022-06-30 Completed [facility] 00:00:00 [place] [facility] Remdesivir 2022-06-30 Completed [facility] 00:00:00 [place] [facility] Remdesivir 2022-06-30 Completed [facility] 00:00:00 [place] [facility] Remdesivir 2022-06-30 Completed [facility] 00:00:00 [place] [facility] Remdesivir 2022-06-30 Completed [facility] 00:00:00 [place] [facility] Remdesivir 2022-06-30 Completed [facility] 00:00:00 [place] [facility] Remdesivir 2022-06-30 Completed [facility] 00:00:00 [place] [facility] Remdesivir 2022-06-30 Completed [facility] 00:00:00 [place] [facility] Remdesivir 2022-06-30 Completed [facility] of 00:00:00 [facility] Remdesivir 2022-06-30 Completed [facility] 00:00:00 [place] [facility] Remdesivir 2022-06-30 Completed [facility] of 00:00:00 [facility] Remdesivir 2022-06-30 Completed [facility] of 00:00:00 [facility] Remdesivir 2022-06-30 Completed [facility] 00:00:00 [place] [facility] Remdesivir 2022-06-30 Completed [facility] 00:00:00 [place] [facility] Remdesivir 2022-06-30 Completed [facility] 00:00:00 [place] [facility] Remdesivir 2022-06-30 Completed [facility] 00:00:00 [place] [facility] Remdesivir 2022-06-30 Completed [facility] of 00:00:00 [facility] Remdesivir 2022-06-30 Completed [facility] of 00:00:00 [facility] Remdesivir 2022-06-30 Completed [facility] of 00[facility]00:00 [facility] Remdesivir 2022-06-30 Completed [facility] of 00:00:00 [facility] Remdesivir 2022-06-30 Completed [facility] of 00:00:00 [facility] Remdesivir 2022-06-30 Completed [facility] of 00:00:00 [facility] Remdesivir 2022-06-30 Completed [facility] of 00:00:00 [facility] SARS-COV-2 COVID-19 2021-04-26 Completed Unive rsity of PFIZER VACCINE 00:00:00 [facility] SARS-COV-2 COVID-19 2021-04-26 Completed Unive rsity of PFIZER VACCINE 00:00:00 [place] [facility] SARS-COV-2 COVID-19 2021-04-26 Completed Unive rsity of PFIZER VACCINE 00:00:00 [place] [facility] SARS-COV-2 COVID-19 2021-04-26 Completed Unive rsity of PFIZER VACCINE 00:00:00 [facility] SARS-COV-2 COVID-19 2021-04-26 Completed Unive rsity of PFIZER VACCINE 00:00:00 [facility] SARS-COV-2 COVID-19 2021-04-26 Completed Unive rsity of PFIZER VACCINE 00:00:00 [facility] SARS-COV-2 COVID-19 2021-04-26 Completed Unive rsity of PFIZER VACCINE 00:00:00 [facility] SARS-COV-2 COVID-19 2021-04-26 Completed Unive rsity of PFIZER VACCINE 00:00:00 [facility] SARS-COV-2 COVID-19 2021-04-26 Completed Unive rsity of PFIZER VACCINE 00:00:00 [facility] SARS-COV-2 COVID-19 2021-04-26 Completed Unive rsity of PFIZER VACCINE 00:00:00 [facility] SARS-COV-2 COVID-19 2021-04-26 Completed Unive rsity of PFIZER VACCINE 00:00:00 [facility] SARS-COV-2 COVID-19 2021-04-26 Completed Unive rsity of PFIZER VACCINE 00:00:00 [facility] SARS-COV-2 COVID-19 2021-04-26 Completed Unive rsity of PFIZER VACCINE 00:00:00 [facility] SARS-COV-2 COVID-19 2021-04-26 Completed Unive rsity of PFIZER VACCINE 00:00:00 [facility] SARS-COV-2 COVID-19 2021-04-26 Completed Unive rsity of PFIZER VACCINE 00:00:00 [facility] SARS-COV-2 COVID-19 2021-04-26 Completed Unive rsity of PFIZER VACCINE 00:00:00 [facility] SARS-COV-2 COVID-19 2021-04-26 Completed Unive rsity of PFIZER VACCINE 00:00:00 [facility] SARS-COV-2 COVID-19 2021-04-26 Completed Unive rsity of PFIZER VACCINE 00:00:00 [facility] SARS-COV-2 COVID-19 2021-04-26 Completed Unive rs[facility] of PFIZER VACCINE 00:00:00 [facility] SARS-COV-2 COVID-19 2021-04-26 Completed Unive rsity of PFIZER VACCINE 00:00:00 [facility] SARS-COV-2 COVID-19 2021-04-26 Completed Unive rsity of PFIZER VACCINE 00:00:00 [facility] SARS-COV-2 COVID-19 2021-04-26 Completed [facility]ive rs[facility] of PFIZER VACCINE 00:00:00 [facility] SARS-COV-2 COVID-19 2021-04-26 Completed Unive rsity of PFIZER VACCINE 00:00:00 [facility] SARS-COV-2 COVID-19 2021-04-26 Completed [facility]ive rs[facility] of PFIZER VACCINE 00:00:00 [facility] SARS-COV-2 COVID-19 2021-04-26 Completed Unive rs[facility] of PFIZER VACCINE 00:00:00 [facility] SARS-COV-2 COVID-19 2021-04-26 Completed Unive rsity of PFIZER VACCINE 00:00:00 [facility] Pneumococcal 2016-02-19 Completed University o f Polysaccharide, 00:00:00 [place] [facility] PPSV23 (PNEUMOVAX) Branch Pneumococcal 2016-02-19 Completed University o f Polysaccharide, 00:00:00 [place] [facility] PPSV23 (PNEUMOVAX) Branch Pneumococcal 2016-02-19 Completed University o f Polysaccharide, 00:00:00 [place] [facility] PPSV23 (PNEUMOVAX) Branch Pneumococcal 2016-02-19 Completed [facility] o f Polysaccharide, 00:00:00 [place] [facility] PPSV23 (PNEUMOVAX) Branch Pneumococcal 2016-02-19 Completed [facility] o f Polysaccharide, 00:00:00 [place] [facility] PPSV23 (PNEUMOVAX) Branch Pneumococcal 2016-02-19 Completed University o f Polysaccharide, 00:00:00 [place] [facility] PPSV23 (PNEUMOVAX) Branch Pneumococcal 2016-02-19 Completed University o f Polysaccharide, 00:00:00 [place] [facility] PPSV23 (PNEUMOVAX) Branch Pneumococcal 2016-02-19 Completed [facility] o f Polysaccharide, 00:00:00 [place] [facility] PPSV23 (PNEUMOVAX) Branch Pneumococcal 2016-02-19 Completed [facility] o f Polysaccharide, 00:00:00 [place] [facility] PPSV23 (PNEUMOVAX) Branch Pneumococcal 2016-02-19 Completed [facility] o f Polysaccharide, 00:00:00 [place] [facility] PPSV23 (PNEUMOVAX) Branch Pneumococcal 2016-02-19 Completed [facility] o f Polysaccharide, 00:00:00 [place] [facility] PPSV23 (PNEUMOVAX) Branch Pneumococcal 2016-02-19 Completed [facility] o f Polysaccharide, 00:00:00 [place] [facility] PPSV23 (PNEUMOVAX) Branch Pneumococcal 2016-02-19 Completed [facility] o f Polysaccharide, 00:00:00 [place] [facility] PPSV23 (PNEUMOVAX) Branch Pneumococcal 2016-02-19 Completed [facility] o f Polysaccharide, 00:00:00 [place] [facility] PPSV23 (PNEUMOVAX) Branch Pneumococcal 2016-02-19 Completed [facility] o f Polysaccharide, 00:00:00 [place] [facility] PPSV23 (PNEUMOVAX) Branch Pneumococcal 2016-02-19 Completed [facility] o f Polysaccharide, 00:00:00 [place] [facility] PPSV23 (PNEUMOVAX) Branch Pneumococcal 2016-02-19 Completed [facility] o f Polysaccharide, 00:00:00 [place] [facility] PPSV23 (PNEUMOVAX) Branch Pneumococcal 2016-02-19 Completed [facility] o f Polysaccharide, 00:00:00 [place] [facility] PPSV23 (PNEUMOVAX) Branch Pneumococcal 2016-02-19 Completed [facility] o f Polysaccharide, 00:00:00 [place] [facility] PPSV23 (PNEUMOVAX) Branch Pneumococcal 2016-02-19 Completed University o f Polysaccharide, 00:00:00 [place] [facility] PPSV23 (PNEUMOVAX) Branch Pneumococcal 2016-02-19 Completed University o f Polysaccharide, 00:00:00 [place] [facility] PPSV23 (PNEUMOVAX) Branch Pneumococcal 2016-02-19 Completed University o f Polysaccharide, 00:00:00 [place] [facility] PPSV23 (PNEUMOVAX) Branch Pneumococcal 2016-02-19 Completed University o f Polysaccharide, 00:00:00 [place] [facility] PPSV23 (PNEUMOVAX) Branch Pneumococcal 2016-02-19 Completed University o f Polysaccharide, 00:00:00 [place] [facility] PPSV23 (PNEUMOVAX) Branch Pneumococcal 2016-02-19 Completed University o f Polysaccharide, 00:00:00 [place] [facility] PPSV23 (PNEUMOVAX) Branch Pneumococcal 2016-02-19 Completed University o f Polysaccharide, 00:00:00 [place] [facility] PPSV23 (PNEUMOVAX) [place] Vital Signs Vital Name Observation Time Observation Value Comments Source Systolic blood 2022-09-24 178 mm[Hg] University of pressure 18:26:00 [facility] Diastolic blood 2022-09-24 105 mm[Hg] University o f pressure 18:26:00 [facility] Heart rate 2022-09-24 58 /min University of 18:26:00 [facility] Body temperature 2022-09-24 36.83 Geri University of 18:21:00 [facility] Respiratory rate 2022-09-24 18 /min University of 18:21:00 [facility] Body height 2022-09-24 170.2 cm University of 18:21:00 [facility] Body weight 2022-09-24 109.634 kg University of 18::00 [facility] BMI 2022-09-24 37.86 kg/m2 University of 18:21:00 [facility] Oxygen saturation 2022-09-24 95 /min University of in Arterial blood 18:21:00 [facility] by Pulse oximetry Branch Systolic blood 2022-09-09 156 mm[Hg] University of pressure 19:24:00 [facility] Diastolic blood 2022-09-09 84 mm[Hg] University o f pressure 19:24:00 [facility] Heart rate 2022-09-09 77 /min University of 19:24:00 [facility] Body temperature 2022-09-09 36.89 Geri University of 19:24:00 [facility] Respiratory rate 2022-09-09 16 /min University of 19:24:00 [facility] Body weight 2022-09-09 108.6 kg University of 17:41:00 [facility] BMI 2022-09-09 37.50 kg/m2 University of 17:41:00 [facility] Oxygen saturation 2022-09-09 98 /min University of in Arterial blood 12:39:00 [facility] geovani by Pulse oximetry Branch Body height 2022-09-08 170.2 cm University of 20:25:00 [facility] Systolic blood 2022-09-08 174 mm[Hg] University of pressure 10:47:00 [facility] Diastolic blood 2022-09-08 91 mm[Hg] University o f pressure 10:47:00 [facility] Heart rate 2022-09-08 61 /min University of 10:47:00 [facility] Body temperature 2022-09-08 36.83 Geri University of 10:23:00 [facility] Respiratory rate 2022-09-08 18 /min University of 10:23:00 [facility] Body height 2022-09-08 170.2 cm University of 10:23:00 [facility] Body weight 2022-09-08 109.9 kg University of 10:23:00 [facility] BMI 2022-09-08 37.50 kg/m2 University of 10:23:00 [facility] Oxygen saturation 2022-09-08 97 /min University of in Arterial blood 10:23:00 [place] [facility] by Pulse oximetry Branch Systolic blood 2022-08-13 163 mm[Hg] Patient denies University of pressure 18:06:00 s/s of coronary [place] [facility] distress. [facility] Diastolic blood 2022-08-13 95 mm[Hg] Patient denies University of pressure 18:06:00 s/s of coronary [place] [facility] distress. [facility] Heart rate 2022-08-13 61 /min University of 18:01:00 [facility] Body temperature 2022-08-13 36.39 Geri University of 18:01:00 [facility] Respiratory rate 2022-08-13 16 /min University of 18:01:00 [facility] Body height 2022-08-13 170.2 cm University of 18:01:00 [facility] Body weight 2022-08-13 110.904 kg University of 18:01:00 [facility] BMI 2022-08-13 38.29 kg/m2 University of 18:01:00 [facility] Oxygen saturation 2022-08-13 95 /min University of in Arterial blood 18:01:00 [place] [facility] by Pulse oximetry Branch Systolic blood 2022-07-23 160 mm[Hg] Patient feeling University of pressure 18:37:00 alina cobb [place] [facility] s/s of coronary Branch distress Diastolic blood 2022-07-23 91 mm[Hg] Patient feeling Universit y of pressure 18:37:00 fine denies [place] [facility] s/s of coronary Branch distress Heart rate 2022-07-23 75 /min University of 18:31:00 [facility] Body temperature 2022-07-23 36.67 Geri University of 18:31:00 [facility] Respiratory rate 2022-07-23 16 /min University of 18:31:00 [facility] Body height 2022-07-23 170.2 cm University of 18:31:00 [facility] Body weight 2022-07-23 110.36 kg University of 18:31:00 [facility] BMI 2022-07-23 38.11 kg/m2 University of 18:31:00 [facility] Oxygen saturation 2022-07-23 93 /min University of in Arterial blood 18:31:00 [place] [facility] by Pulse oximetry Branch Systolic blood 2022-07-16 143 mm[Hg] University of pressure 20:24:00 [place] [facility] Diastolic blood 2022-07-16 86 mm[Hg] University o f pressure 20:24:00 [facility] Heart rate 2022-07-16 62 /min University of 20:24:00 [facility] Body temperature 2022-07-16 36.22 Geri University of 20:22:00 [facility] Respiratory rate 2022-07-16 14 /min University of 20:22:00 [facility] Body height 2022-07-16 170.2 cm University of 20:22:00 [facility] Body weight 2022-07-16 110.678 kg University of 20:22:00 [facility] BMI 2022-07-16 38.22 kg/m2 University of 20:22:00 [facility] Oxygen saturation 2022-07-16 98 /min University of in Arterial blood 20:22:00 [place] [facility] by Pulse oximetry Branch Systolic blood 2022-07-10 170 mm[Hg] University of pressure 21:04:00 [place] [facility] Diastolic blood 2022-07-10 101 mm[Hg] University o f pressure 21:04:00 [facility] Heart rate 2022-07-10 80 /min University of 21:04:00 [facility] Body temperature 2022-07-10 37 Geri University of 21:04:00 [facility] Respiratory rate 2022-07-10 18 /min University of 21:04:00 [facility] Oxygen saturation 2022-07-10 92 /min University of in Arterial blood 21:04:00 [place] [facility] by Pulse oximetry Branch Body weight 2022-07-10 111.6 kg University of 20:15:00 [facility] BMI 2022-07-10 38.53 kg/m2 University of 20:15:00 [facility] Body height 2022-06-30 170.2 cm University of 09:11:00 [facility] Systolic blood 2022-07-10 162 mm[Hg] University of pressure 01:15:00 [facility] Diastolic blood 2022-07-10 98 mm[Hg] University o f pressure 01:15:00 [facility] Heart rate 2022-07-10 72 /min University of :15:00 [facility] Body temperature 2022-07-10 36.67 Geri University of :15:00 [facility] Respiratory rate 2022-07-10 18 /min University of :15:00 [facility] Body weight 2022-07-10 112.9 kg University of :15:00 [facility] BMI 2022-07-10 39.22 kg/m2 University of :15:00 [facility] Oxygen saturation 2022-07-09 92 /min University of in Arterial blood 18:16:00 [facility] by Pulse oximetry [place] Body height 2022-06-30 170.2 cm University of 09:11:00 [facility] Systolic blood 2022-07-07 163 mm[Hg] University of pressure 16:20:00 [facility] Diastolic blood 2022-07-07 88 mm[Hg] University o f pressure 16:20:00 [facility] Heart rate 2022-07-07 67 /min University of 16:20:00 [facility] Body temperature 2022-07-07 36.33 Geri University of 16:20:00 [facility] Respiratory rate 2022-07-07 16 /min University of 16:20:00 [facility] Oxygen saturation 2022-07-07 100 /min University of in Arterial blood 16:20:00 [facility] by Pulse oximetry [place] Body weight 2022-07-05 113.8 kg University of :18:00 [facility] BMI 2022-07-05 40.74 kg/m2 University of :18:00 [facility] Body height 2022-06-30 170.2 cm University of 09:11:00 [facility] Systolic blood 2022-07-02 142 mm[Hg] University of pressure 14:42:00 [facility] Branch Diastolic blood 2022-07-02 80 mm[Hg] University o f pressure 14:42:00 [facility] Heart rate 2022-07-02 66 /min University of 14:42:00 [facility] Body temperature 2022-07-02 37.44 Geri University of 14:42:00 [facility] Respiratory rate 2022-07-02 19 /min University of 14:42:00 [facility] Oxygen saturation 2022-07-02 97 /min University of in Arterial blood 14:42:00 [place] [facility] by Pulse oximetry Branch Body weight 2022-07-02 110 kg pt bed scale University of 03:00:00 [facility] BMI 2022-07-02 39.54 kg/m2 University of 03:00:00 [facility] Body height 2022-06-30 170.2 cm University of 09:11:00 [facility] Systolic blood 2021-11-18 103 mm[Hg] University of pressure 13:49:00 [facility] Diastolic blood 2021-11-18 66 mm[Hg] University o f pressure 13:49:00 [facility] Heart rate 2021-11-18 81 /min University of 13:49:00 [facility] Oxygen saturation 2021-11-18 98 /min University of in Arterial blood 13:49:00 [facility] geovani by Pulse oximetry Branch Body temperature 2021-11-18 36.39 Geri University of 13:48:00 [facility] Body height 2021-11-18 170.2 cm University of 13:48:00 [facility] Body weight 2021-11-18 110.36 kg University of 13:48:00 [facility] BMI 2021-11-18 38.11 kg/m2 University of 13:48:00 [facility] Systolic blood 2022-07-02 142 mm[Hg] University of pressure 14:42:00 [facility] Diastolic blood 2022-07-02 80 mm[Hg] University o f pressure 14:42:00 [facility] Heart rate 2022-07-02 66 /min University of 14:42:00 [facility] Body temperature 2022-07-02 37.44 Geri University of 14:42:00 [facility] Respiratory rate 2022-07-02 19 /min University of 14:42:00 [facility] Oxygen saturation 2022-07-02 97 /min [facility] Arterial blood 14:42:00 [facility] by Pulse oximetry [place] Body weight 2022-07-02 110 kg pt bed scale [facility] 03:00:00 [facility] BMI 2022-07-02 37.98 kg/m2 [facility] 03:00:00 [facility] Body height 2022-06-30 170.2 cm [facility] 09:11:00 [facility] Procedures Procedure Date / Time Performing Clinician Source Performed [facility]PHORUS 2022-09-09 [facility]:22[facility] 2022-09-09 13:22:00 [facility] ([facility], K, CL, CO2, GLUCOSE, Medica l Branch BUN, CREATININE, CA) PHOSPHORUS 2022-09-09 13:22[facility] 2022-09-09 13:22[facility] BASIC MET[facility]OLIC PANEL 2022-09-09 13:22:00 [facility] (NA, K, CL, CO2, GLUCOSE, Medica l Branch BUN, CREATININE, CA) CBC WITH DIFF 2022-09-09 13:21:00 [facility] WITH DIFF 2022-09-09 13:21:[facility] FL TIME OR 2022-09-08 19:25:26 Mary Justen [facility] (NON-REPORTABLE) [facility] FL TIME OR 2022-09-08 19:25:26 Jazmynenolan [facility] (NON-REPORTABLE) [facility] FISTULOGRAM 2022-09-08 12:00:00 Danilo Cummings [facility] PTFE GRAFT THROMBECTOMY 2022-09-08 12:00:00 [facility] 2022-09-08 12:00:00 Danilo Cummings [facility] FISTULOGRAM 2022-09-08 12:00:00 Danilo Cummings [facility] PTFE GRAFT THROMBECTOMY 2022-09-08 12:00:00 Danilo Cummings [facility] BRACHIAL ARTERY 2022-09-08 12:00:00 Danilo Cummings [facility] POTASSIUM SERUM 2022-09-08 10:44:00 [facility] HB ABO GROUPING 2022-09-08 10:44:00 [facility] POTASSIUM SERUM 2022-09-08 10:44:00 [facility] HB ABO GROUPING 2022-09-08 10:44:00 [facility] ASSIGNMENT OF BENEFITS 2022-09-08 10:18:31 Doctor Unassigned, Un [facility] XR CHEST 1 2022-07-10 14:35:00 [facility] XR CHEST 1 2022-07-10 14:35:00 [facility] MAGNESIUM 2022-07-10 11:27[facility] 2022-07-10 11:27:00 [facility] (NA, K, CL, CO2, GLUCOSE, Medica l Branch BUN, CREATININE, CA) CBC WITH DIFF 2022-07-10 11:27:00 [facility] MAGNESIUM 2022-07-10 11:27:00 [facility]OLIC PANEL 2022-07-10 11:27:00 [facility] ([facility], K, CL, CO2, GLUCOSE, Medica l Branch BUN, CREATININE, CA) CBC WITH DIFF 2022-07-10 11:27:00 [facility] HEMATOMA EVACUATION 2022-07-10 01:19:00 Danilo Cummings [facility] PERMACATH PLACEMENT 2022-07-10 01:19:00 Danilo Cummings [facility] HEMATOMA EVACUATION 2022-07-10 01:19:00 Danilo Cummings [facility] PERMACATH PLACEMENT 2022-07-10 01:19:00 Danilo Cummings [facility] PREPARE PACKED RBC 2022-07-09 23:09:48 [facility] PREPARE PACKED RBC 2022-07-09 23:09:48 [facility] 2022-07-09 11:41:00 [facility] BASIC METABOLIC PANEL 2022-07-09 11:41:00 Adina Ayoub [facility] (NA, K, CL, CO2, GLUCOSE, Medica l Branch BUN, CREATININE, CA) CBC WITH DIFF 2022-07-09 11:41:00 [facility] MAGNESIUM 2022-07-09 11:41:00 [facility] BASIC METABOLIC PANEL 2022-07-09 11:41:00 [facility] (NA, K, CL, CO2, GLUCOSE, Medica l Branch BUN, CREATININE, CA) CBC WITH DIFF 2022-07-09 11:41:00 [facility] PHOSPHORUS 2022-07-08 17:35:00 [facility] BASIC METABOLIC PANEL 2022-07-08 17:35:00 Adina Ayoub [facility] (NA, K, CL, CO2, GLUCOSE, Medica l Branch BUN, CREATININE, CA) PHOSPHORUS 2022-07-08 17:35:00 [facility] BASIC METABOLIC PANEL 2022-07-08 17:35:00 [facility] (NA, K, CL, CO2, GLUCOSE, Medica l Branch BUN, CREATININE, CA) PHOSPHORUS 2022-07-08 17:35:00 [facility] MET[facility]OLIC PANEL 2022-07-08 17:35:00 [facility] (NA, K, CL, CO2, GLUCOSE, Medica l Branch BUN, CREATININE, CA) XR CHEST 1 VW 2022-07-08 15:25:00 Denisha [facility] XR CHEST 1 VW 2022-07-08 15:25:00 Denisha [facility] XR CHEST 1 VW 2022-07-08 15:25:00 Denisha [facility] CBC WITH DIFF 2022-07-08 05:58:00 Antoine [facility] ACTIVATED PARTIAL 2022-07-08 05:58:00 Antoine [facility] CBC WITH DIFF 2022-07-08 05:58:00 Antoine [facility] ACTIVATED PARTIAL 2022-07-08 05:58:00 Antoine [facility] CBC WITH DIFF 2022-07-08 05:58:00 Antoine [facility] ACTIVATED PARTIAL 2022-07-08 05:58:00 Antoine [facility] SURGICAL PATHOLOGY EXAM 2022-07-07 19:57:00 [facility] 2022-07-07 19:57:00 Danilo Cummings [facility] VBG+VCOOX+NA+K+GLU+CA2+ 2022-07-07 19:50:00 Luis Maguire [facility] VBG+VCOOX+NA+K+GLU+CA2+ 2022-07-07 19:50:00 Luis Maguire [facility] VBG+VCOOX+NA+K+GLU+CA2+ 2022-07-07 19:50:00 Luis Maguire [facility] VBG+VCOOX+NA+K+GLU+CA2+ 2022-07-07 19:32:00 Luis Maguire [facility] VBG+VCOOX+NA+K+GLU+CA2+ 2022-07-07 19:32:00 Luis Maguire [facility] VBG+VCOOX+NA+K+GLU+CA2+ 2022-07-07 19:32:00 Luis Maguire [facility] ARTERIOVENOUS FISTULA 2022-07-07 17:50:00 Danilo Cummings [facility] ARTERIOVENOUS FISTULA 2022-07-07 17:50:00 Danilo Cummings [facility] PREPARE PACKED RBC 2022-07-07 10:33:[address] [facility] PREPARE PACKED RBC 2022-07-07 10:33:[address] [facility] PREPARE PACKED RBC 2022-07-07 10:33:[address] [facility] ACTIVATED PARTIAL 2022-07-07 04:17:00 [facility] ACTIVATED PARTIAL 2022-07-07 04:17:00 [facility] ACTIVATED PARTIAL 2022-07-07 04:17:00 [facility] HB ABO GROUPING 2022-07-06 23:10:00 [facility] HB ABO GROUPING 2022-07-06 23:10:00 [facility] HB ABO GROUPING 2022-07-06 23:10:00 [facility] MAGNESIUM 2022-07-06 11:54:00 [facility]OLIC PANEL 2022-07-06 11:54:00 Adina Ayoub [facility] (NA, K, CL, CO2, GLUCOSE, Medica l Branch BUN, CREATININE, CA) CBC WITH DIFF 2022-07-06 11:54:00 Adina Ayoub [facility] ACTIVATED PARTIAL 2022-07-06 11:54:00 [facility]-07-06 11:54:00 [facility]IC METABOLIC PANEL 2022-07-06 11:54:00 Adina Ayoub [facility] sity [facility] (NA, K, CL, CO2, GLUCOSE, Medica l Branch BUN, CREATININE, CA) CBC WITH DIFF 2022-07-06 11:54:00 [facility] 2022-07-06 11:54[facility]00 [facility] 2022-07-06 11:54:00 [facility] BASIC METABOLIC PANEL 2022-07-06 11:54:00 Adina Ayoub [facility] sity [facility] (NA, K, CL, CO2, GLUCOSE, Medica l Branch BUN, CREATININE, CA) CBC WITH DIFF 2022-07-06 11:54:00 [facility] ACTIVATED PARTIAL 2022-07-06 11:54[facility] 2022-07-06 00:01:00 [facility] ACTIVATED PARTIAL 2022-07-06 00:01:00 [facility] ACTIVATED PARTIAL 2022-07-06 00:01:00 [facility] MAGNESIUM 2022-07-05 11:45:00 [facility] BASIC METABOLIC PANEL 2022-07-05 11:45:00 Adina Ayoub [facility] sity [facility] (NA, K, CL, CO2, GLUCOSE, Medica l Branch BUN, CREATININE, CA) CBC WITH DIFF 2022-07-05 11:45:00 [facility] 2022-07-05 11:45:00 [facility] 2022-07-05 11:45:00 [facility] BASIC METABOLIC PANEL 2022-07-05 11:45:00 Adina Ayoub [facility] sity [facility] (NA, K, CL, CO2, GLUCOSE, Medica l Branch BUN, CREATININE, CA) CBC WITH DIFF 2022-07-05 11:45:00 Adina Ayoub [facility] ACTIVATED PARTIAL 2022-07-05 11:45:00 [facility] 2022-07-05 11:45:00 Adina Ayoub [facility] BASIC METABOLIC PANEL 2022-07-05 11:45:00 Adina Ayoub [facility] (NA, K, CL, CO2, GLUCOSE, Medica l Branch BUN, CREATININE, CA) CBC WITH DIFF 2022-07-05 11:45:00 [facility] 2022-07-05 11:45:00 [facility] ACTIVATED PARTIAL 2022-07-05 03:59:00 [facility] ACTIVATED PARTIAL 2022-07-05 03:59:00 [facility] ACTIVATED PARTIAL 2022-07-05 03:59:00 [facility] ACTIVATED PARTIAL 2022-07-04 18:56:00 [facility] ACTIVATED PARTIAL 2022-07-04 18:56:00 [facility] ACTIVATED PARTIAL 2022-07-04 18:56:00 [facility] MAGNESIUM 2022-07-04 07:35:00 [facility] BASIC METABOLIC PANEL 2022-07-04 07:35:00 Adina Ayoub [facility] (NA, K, CL, CO2, GLUCOSE, Medica l Branch BUN, CREATININE, CA) CBC WITH DIFF 2022-07-04 07:35:00 Adina Ayoub [facility] ACTIVATED PARTIAL 2022-07-04 07:35:00 [facility] MAGNESIUM 2022-07-04 07:35:00 [facility] BASIC METABOLIC PANEL 2022-07-04 07:35:00 Adina Ayoub [facility] (NA, K, CL, CO2, GLUCOSE, Medica l Branch BUN, CREATININE, CA) CBC WITH DIFF 2022-07-04 07:35:00 [facility] ACTIVATED PARTIAL 2022-07-04 07:35:00 [facility] MAGNESIUM 2022-07-04 07:35:00 [facility] BASIC METABOLIC PANEL 2022-07-04 07:35:00 [facility] (NA, K, CL, CO2, GLUCOSE, Medica l Branch BUN, CREATININE, CA) CBC WITH DIFF 2022-07-04 07:35:00 [facility] ACTIVATED PARTIAL 2022-07-04 07:35:00 [facility] AC PANEL 21 + LACTIC ACID 2022-07-04 05:16:00 Federico Watson [facility] AC PANEL 21 + LACTIC ACID 2022-07-04 05:16:00 Federico Watson [facility] AC PANEL 21 + LACTIC ACID 2022-07-04 05:16:00 Federico Watson [facility] CBC WITHOUT DIFF 2022-07-04 05:15:00 [facility] WITHOUT DIFF 2022-07-04 05:15:00 Federico Watson [facility] CBC WITHOUT DIFF 2022-07-04 05:15:00 [facility] ACT[facility] PART[facility] 2022-07-04 00:03:00 Antoine [facility] CBC WITHOUT DIFF 2022-07-04 00:03:00 [facility] ACT[facility] PART[facility] 2022-07-04 00:03:00 Antoine [facility] CBC WITHOUT DIFF 2022-07-04 00:03:00 [facility] ACT[facility] PART[facility] 2022-07-04 00:03:00 Antoine [facility] CBC WITHOUT DIFF 2022-07-04 00:03:00 Federico Watson [facility] ACTIVATED PARTIAL 2022-07-04 00:03:00 Antoine [facility] TRANSFUSE PACKED RBC 2022-07-03 18:48:00 [facility] TRANSFUSE PACKED RBC 2022-07-03 18:48:00 [facility] TRANSFUSE PACKED RBC 2022-07-03 18:48:00 [facility] PREPARE PACKED RBC 2022-07-03 18:33:53 [facility] PREPARE PACKED RBC 2022-07-03 18:33:53 [facility] PREPARE PACKED RBC 2022-07-03 18:33:53 [facility] PREPARE PACKED RBC 2022-07-03 18:33:53 [facility] MAGNESIUM 2022-07-03 08:28:00 [facility]OLIC PANEL 2022-07-03 08:28:00 [facility] (NA, K, CL, CO2, GLUCOSE, Medica l Branch BUN, CREATININE, CA) CBC WITH DIFF 2022-07-03 08:28:00 [facility] ACTIVATED PARTIAL 2022-07-03 08:28:00 [facility] MAGNESIUM 2022-07-03 08:28:00 [facility] BASIC METABOLIC PANEL 2022-07-03 08:28:00 [facility], K, CL, CO2, GLUCOSE, Medica l Branch BUN, CREATININE, CA) CBC WITH DIFF 2022-07-03 08:28:00 [facility] ACTIVATED PARTIAL 2022-07-03 08:28:00 Mega [facility] MAGNESIUM 2022-07-03 08:28:00 [facility] BASIC METABOLIC PANEL 2022-07-03 08:28:00 Adina Ayoub [facility] (NA, K, CL, CO2, GLUCOSE, Medica l Branch BUN, CREATININE, CA) CBC WITH DIFF 2022-07-03 08:28:00 [facility] ACTIVATED PARTIAL 2022-07-03 08:28:00 Mega [facility] MAGNESIUM 2022-07-03 08:28:00 Mega [facility] BASIC METABOLIC PANEL 2022-07-03 08:28:00 [facility] (NA, K, CL, CO2, GLUCOSE, Medica l Branch BUN, CREATININE, CA) CBC WITH DIFF 2022-07-03 08:28:00 [facility] ACTIVATED PARTIAL 2022-07-03 08:28:00 Mega [facility] BASIC METABOLIC PANEL 2022-07-02 23:31:00 Bret Lilly [facility] (NA, K, CL, CO2, GLUCOSE, Medica l Branch BUN, CREATININE, CA) CBC WITHOUT DIFF 2022-07-02 23:31:00 [facility] ACTIVATED PARTIAL 2022-07-02 23:31:00 [facility] BASIC METABOLIC PANEL 2022-07-02 23:31:00 Bret Lilly [facility] (NA, K, CL, CO2, GLUCOSE, Medica l Branch BUN, CREATININE, CA) CBC WITHOUT DIFF 2022-07-02 23:31:00 [facility] ACTIVATED PARTIAL 2022-07-02 23:31:00 Mega [facility] BASIC METABOLIC PANEL 2022-07-02 23:31:00 Bret Lilly [facility] (NA, K, CL, CO2, GLUCOSE, Medica l Branch BUN, CREATININE, CA) CBC WITHOUT DIFF 2022-07-02 23:31:00 [facility] ACTIVATED PARTIAL 2022-07-02 23:31:00 Adina Ayoub [facility] BASIC METABOLIC PANEL 2022-07-02 23:31:00 Bret Lilly [facility] (NA, K, CL, CO2, GLUCOSE, Medica l Branch BUN, CREATININE, CA) CBC WITHOUT DIFF 2022-07-02 23:31:00 Bret Lilly [facility] ACTIVATED PARTIAL 2022-07-02 23:31:00 [facility] 2022-07-02 21:43:00 [facility] (NON-REPORTABLE) [facility] FL TIME OR 2022-07-02 21:43:00 [facility] (NON-REPORTABLE) [facility] FL TIME OR 2022-07-02 21:43:00 [facility] (NON-REPORTABLE) [facility] FL TIME OR 2022-07-02 21:43:00 [facility] (NON-REPORTABLE) [facility] HB ABO GROUPING 2022-07-02 20:15:00 [facility] HB ABO GROUPING 2022-07-02 20:15:00 [facility] HB ABO GROUPING 2022-07-02 20:15:00 [facility] HB ABO GROUPING 2022-07-02 20:15:00 [facility] FISTULOGRAM 2022-07-02 16:58:00 [facility] ANGIOPLASTY 2022-07-02 16:58:00 [facility] ARTERIOVENOUS FISTULA 2022-07-02 16:58:00 [facility] FISTULOGRAM 2022-07-02 16:58:00 [facility] ANGIOPLASTY 2022-07-02 16:58:00 [facility] ARTERIOVENOUS FISTULA 2022-07-02 16:58:00 [facility] CBC WITH DIFF 2022-07-02 11:40:00 [facility] BASIC METABOLIC PANEL 2022-07-02 11:40:00 Adina Ayoub [facility] (NA, K, CL, CO2, GLUCOSE, Medica l Branch BUN, CREATININE, CA) MAGNESIUM 2022-07-02 11:40:00 [facility] ACTIVATED PARTIAL 2022-07-02 11:40:00 Antoine [facility] MAGNESIUM 2022-07-02 11:40:00 [facility] BASIC METABOLIC PANEL 2022-07-02 11:40:00 Adina Ayoub [facility] (NA, K, CL, CO2, GLUCOSE, Medica l Branch BUN, CREATININE, CA) CBC WITH DIFF 2022-07-02 11:40:00 [facility] ACTIVATED PARTIAL 2022-07-02 11:40:00 Antoine [facility] MAGNESIUM 2022-07-02 11:40:00 [facility] BASIC METABOLIC PANEL 2022-07-02 11:40:00 Adina Ayoub [facility] (NA, K, CL, CO2, GLUCOSE, Medica l Branch BUN, CREATININE, CA) CBC WITH DIFF 2022-07-02 11:40:00 [facility] 2022-07-02 11:40:00 Antoine [facility] MAGNESIUM 2022-07-02 11:40:00 [facility] BASIC METABOLIC PANEL 2022-07-02 11:40:00 [facility] (NA, K, CL, CO2, GLUCOSE, Medica l Branch BUN, CREATININE, CA) CBC WITH DIFF 2022-07-02 11:40:00 [facility] ACTIVATED PARTIAL 2022-07-02 11:40:00 Antoine [facility] MAGNESIUM 2022-07-02 11:40:00 [facility] MET[facility]OLIC PANEL 2022-07-02 11:40:00 Adina Ayoub [facility] (NA, K, CL, CO2, GLUCOSE, Medica l Branch BUN, CREATININE, CA) CBC WITH DIFF 2022-07-02 11:40:00 [facility] ACTIVATED PARTIAL 2022-07-02 11:40:00 Antoine [facility] AC PANEL 20 + LACTIC ACID 2022-07-02 04:47:00 Yeison [facility] AC PANEL 20 + LACTIC ACID 2022-07-02 04:47:00 Yeison [facility] AC PANEL 20 + LACTIC ACID 2022-07-02 04:47:00 Yeison [facility] AC PANEL 20 + LACTIC ACID 2022-07-02 04:47:00 Yeison [facility] AC PANEL 20 + LACTIC ACID 2022-07-02 04:47:00 Yeison [facility] ACTIVATED PARTIAL 2022-07-02 04:29:00 Antoine [facility] ACTIVATED PARTIAL 2022-07-02 04:29:00 Antoine [facility] ACTIVATED PARTIAL 2022-07-02 04:29:00 Antoine [facility] ACTIVATED PARTIAL 2022-07-02 04:29:00 Antoine [facility] ACTIVATED PARTIAL 2022-07-02 04:29:00 Antoine [facility] ACTIVATED PARTIAL 2022-07-02 02:58:00 Antoine [facility] ACTIVATED PARTIAL 2022-07-02 02:58:00 Antoine [facility] ACTIVATED PARTIAL 2022-07-02 02:58:00 [facility]-07-02 02:58:00 Antoine [facility] ACTIVATED PARTIAL 2022-07-02 02:58:00 [facility] 2022-07-02 00:31:00 Hector [facility] BLOOD CULTURE SCREEN 2022-07-02 00:31:00 Hector Wang [facility] BLOOD CULTURE SCREEN 2022-07-02 00:31:00 Hector Wang R [facility] BLOOD CULTURE SCREEN 2022-07-02 00:31:00 Hector Wang R [facility] BLOOD CULTURE SCREEN 2022-07-02 00:31:00 Hector Wang R [facility] BLOOD CULTURE SCREEN 2022-07-01 23:55:00 Hector Wang R [facility] BLOOD CULTURE SCREEN 2022-07-01 23:55:00 Hector Wang R [facility] BLOOD CULTURE SCREEN 2022-07-01 23:55:00 Hector Wagn R [facility] BLOOD CULTURE SCREEN 2022-07-01 23:55:00 Hector Wang R [facility] BLOOD CULTURE SCREEN 2022-07-01 23:55:00 Hector Wang [facility] HEMODIALYSIS DUPLEX - BY 2022-07-01 15:13:47 Karly, [facility] [place] V[facility] HEMODIALYSIS DUPLEX - BY 2022-07-01 15:13:47 Karly, [facility] Medical Branch HEMODIALYSIS DUPLEX - BY 2022-07-01 15:13:47 Karly, [facility] [place] [facility] HEMODIALYSIS DUPLEX - BY 2022-07-01 15:13:47 Karly, [facility] [place] VASCULAR [facility] HEMODIALYSIS DUPLEX - BY 2022-07-01 15:13:47 Karly, [facility] [place] VASCULAR [facility] BASIC METABOLIC PANEL 2022-07-01 11:15:00 [facility] (NA, K, CL, CO2, GLUCOSE, Medica l Branch BUN, CREATININE, CA) CBC WITH DIFF 2022-07-01 11:15:00 [facility] 2022-07-01 11:15:00 [facility] 2022-07-01 11:15:00 Antoine [facility] MAGNESIUM 2022-07-01 11:15:00 Mega [facility] BASIC METABOLIC PANEL 2022-07-01 11:15:00 Adina [facility]youb [facility] (NA, K, CL, CO2, GLUCOSE, Medica l Branch BUN, CREATININE, CA) CBC WITH DIFF 2022-07-01 11:15:00 [facility] 2022-07-01 11:15:00 Antoine [facility] MAGNESIUM 2022-07-01 11:15:00 Mega [facility] BASIC METABOLIC PANEL 2022-07-01 11:15:00 Adina Ayoub [facility] (NA, K, CL, CO2, GLUCOSE, Medica l Branch BUN, CREATININE, CA) CBC WITH DIFF 2022-07-01 11:15:00 [facility] 2022-07-01 11:15:00 Antoine [facility] MAGNESIUM 2022-07-01 11:15:00 Mega [facility] BASIC METABOLIC PANEL 2022-07-01 11:15:00 Adina Ayoub [facility] (NA, K, CL, CO2, GLUCOSE, Medica l Branch BUN, CREATININE, CA) CBC WITH DIFF 2022-07-01 11:15:00 Mega [facility] ACTIVATED PARTIAL 2022-07-01 11:15:00 Antoine [facility] MAGNESIUM 2022-07-01 11:15:00 Ayoub, Adina [facility] BASIC METABOLIC PANEL 2022-07-01 11:15:00 Adina Ayoub [facility] (NA, K, CL, CO2, GLUCOSE, Medica l Branch BUN, CREATININE, CA) CBC WITH DIFF 2022-07-01 11:15:00 Adina Ayoub [facility] ACTIVATED PARTIAL 2022-07-01 11:15:00 Antoien [facility] PROTHROMBIN TIME / INR 2022-06-30 23:50:00 Antoine [facility] ACTIVATED PARTIAL 2022-06-30 23:50:00 Antoine [facility] PROTHROMBIN TIME / INR 2022-06-30 23:50:00 Antoine [facility] ACTIVATED PARTIAL 2022-06-30 23:50:00 Antoine [facility] PROTHROMBIN TIME / INR 2022-06-30 23:50:00 Antoine [facility] ACTIVATED PARTIAL 2022-06-30 23:50:00 Antoine [facility] PROTHROMBIN TIME / INR 2022-06-30 23:50:00 Antoine [facility] ACTIVATED PARTIAL 2022-06-30 23:50:00 Antoine [facility] PROTHROMBIN TIME / INR 2022-06-30 23:50:00 Antoine [facility] ACTIVATED PARTIAL 2022-06-30 23:50:00 Antoine [facility] GALV ONLY - INFLUENZA A B 2022-06-30 23:48:00 [facility] GALV ONLY - INFLUENZA A B 2022-06-30 23:48:00 [facility] GALV ONLY - INFLUENZA A B 2022-06-30 23:48:00 Adina Ayoub Un [facility] RSV PCR Medical Branch GALV ONLY - INFLUENZA A B 2022-06-30 23:48:00 Adina Ayoub [facility] [place] [facility] PCR [facility] GALV ONLY - INFLUENZA A B 2022-06-30 23:48:00 Adina Ayoub [facility] PCR Medical Branch BASIC METABOLIC PANEL 2022-06-30 16:15:00 RawalaPramodd [facility] rsity [facility] (NA, K, CL, CO2, GLUCOSE, Felipe Medica l Branch BUN, CREATININE, CA) PROTHROMBIN TIME / INR 2022-06-30 16:15:00 Rawala, [facility] BAS[facility] MET[facility]OLIC PANEL 2022-06-30 16:15:00 RawalaLucasAlford [facility] rsity [facility] (NA, K, CL, CO2, GLUCOSE, Felipe Medica l Branch BUN, CREATININE, CA) PROTHROMBIN TIME / INR 2022-06-30 16:15:00 Rawala [facility] BASIC METABOLIC PANEL 2022-06-30 16:15:00 Rawala, Alford [facility] rsity [facility] (NA, K, CL, CO2, GLUCOSE, Felipe Medica l Branch BUN, CREATININE, CA) PROTHROMBIN TIME / INR 2022-06-30 16:15:00 Rawala, [facility] Univ [facility] BASIC METABOLIC PANEL 2022-06-30 16:15:00 RawalaLucasAlford [facility] rsity [facility] (NA, K, CL, CO2, GLUCOSE, Felipe Medica l Branch BUN, CREATININE, CA) PROTHROMBIN TIME / INR 2022-06-30 16:15:00 Rawala, [facility] BASIC METABOLIC PANEL 2022-06-30 16:15:00 Rawala, Alford [facility] rsity [facility] (NA, K, CL, CO2, GLUCOSE, Felipe Medica l Branch BUN, CREATININE, CA) PROTHROMBIN TIME / INR 2022-06-30 16:15:00 Rawala, Alford [facility] BASIC METABOLIC PANEL 2022-06-30 11:44:00 Karly, [facility] (NA, K, CL, CO2, GLUCOSE, Medica l Branch BUN, CREATININE, CA) MAGNESIUM 2022-06-30 11:44:00 Karly, [facility] CBC WITHOUT DIFF 2022-06-30 11:44:00 Kraly, [facility] LACTATE DEHYDROGENASE 2022-06-30 11:44:00 Karly, [facility] D-DIMER 2022-06-30 11:44:00 Karly, [facility] LACTATE DEHYDROGENASE 2022-06-30 11:44:00 Karly, [facility] MAGNESIUM 2022-06-30 11:44:00 Karly, [facility] BASIC METABOLIC PANEL 2022-06-30 11:44:00 Karly, [facility] (NA, K, CL, CO2, GLUCOSE, Medica l Branch BUN, CREATININE, CA) CBC WITHOUT DIFF 2022-06-30 11:44:00 Karly, [facility] D-DIMER 2022-06-30 11:44:00 Karly, [facility] LACTATE DEHYDROGENASE 2022-06-30 11:44:00 Karly, [facility] MAGNESIUM 2022-06-30 11:44:00 Karly, [facility] BASIC METABOLIC PANEL 2022-06-30 11:44:00 Karly, [facility] (NA, K, CL, CO2, GLUCOSE, Medica l Branch BUN, CREATININE, CA) CBC WITHOUT DIFF 2022-06-30 11:44:00 Karly, [facility] D-DIMER 2022-06-30 11:44:00 Karly, [facility] LACTATE DEHYDROGENASE 2022-06-30 11:44:00 Karly, [facility] MAGNESIUM 2022-06-30 11:44:00 Karly, [facility] BASIC METABOLIC PANEL 2022-06-30 11:44:00 Karly, [facility] (NA, K, CL, CO2, GLUCOSE, Medica l Branch BUN, CREATININE, CA) CBC WITHOUT DIFF 2022-06-30 11:44:00 Karly, [facility] D-DIMER 2022-06-30 11:44:00 Karly, [facility] LACTATE DEHYDROGENASE 2022-06-30 11:44:00 Karly, [facility] MAGNESIUM 2022-06-30 11:44:00 Karly, [facility] BASIC METABOLIC PANEL 2022-06-30 11:44:00 Karly, [facility] (NA, K, CL, CO2, GLUCOSE, Medica l Branch BUN, CREATININE, CA) CBC WITHOUT DIFF 2022-06-30 11:44:00 Karly, [facility] D-DIMER 2022-06-30 11:44:00 Karly, [facility] BLOOD CULTURE SCREEN 2022-06-30 06:26:00 Karly, [facility] BLOOD CULTURE SCREEN 2022-06-30 06:26:00 Karly, [facility] BLOOD CULTURE SCREEN 2022-06-30 06:26:00 Karly, [facility] BLOOD CULTURE SCREEN 2022-06-30 06:26:00 Karly, [facility] BLOOD CULTURE SCREEN 2022-06-30 06:26:00 Karly, [facility] COVID-19 (ID NOW RAPID 2022-06-30 06:21:00 Karly [facility] TESTING) [facility] MRSA / MSSA SCREEN BY 2022-06-30 06:21:00 Karly [facility] PCR, NARES [facility] BLOOD CULTURE SCREEN 2022-06-30 06:21:00 Karly, [facility] LAB ONLY COVID 2022-06-30 06:21:00 Karly, [facility] INTERPRETATION [facility] BLOOD CULTURE WORKUP 2022-06-30 06:21:00 Karly, [facility] GRAM NEGATIVE BLOOD 2022-06-30 06:21:00 Karly [facility] PATHOGENS DNA [facility] PROBE-AEROBIC BLOOD CULTURE SCREEN 2022-06-30 06:21:00 Karly, [facility] BLOOD CULTURE WORKUP 2022-06-30 06:21:00 [facility], [facility] MRSA / MSSA SCREEN BY 2022-06-30 06:21:00 Karly, [facility] PCR, NARES Medical Branch GRAM NEGATIVE BLOOD 2022-06-30 06:21:00 Karly, [facility] PATHOGENS DNA Medical Branch PROBE-AEROBIC COVID-19 (ID NOW RAPID 2022-06-30 06:21:00 Karly, [facility] TESTING) Medical Branch LAB ONLY COVID 2022-06-30 06:21:00 Karly, [facility] INTERPRETATION Medical Branch BLOOD CULTURE SCREEN 2022-06-30 06:21:00 Karly, [facility] BLOOD CULTURE WORKUP 2022-06-30 06:21:00 Karly, [facility] MRSA / MSSA SCREEN BY 2022-06-30 06:21:00 Karly, [facility] PCR, NAR Medical Branch GRAM NEGATIVE BLOOD 2022-06-30 06:21:00 Karly, [facility] PATHOGENS DNA Medical Branch PROBE-AEROBIC COVID-19 (ID NOW RAPID 2022-06-30 06:21:00 Karly, [facility] TESTING) Medical Branch LAB ONLY COVID 2022-06-30 06:21:00 Karly, [facility] INTERPRETATION Medical Branch BLOOD CULTURE SCREEN 2022-06-30 06:21:00 Karly, [facility] BLOOD CULTURE WORKUP 2022-06-30 06:21:00 Karly, [facility] MRSA / MSSA SCREEN BY 2022-06-30 06:21:00 Karly, [facility] PCR, NAR Medical Branch GRAM NEGATIVE BLOOD 2022-06-30 06:21:00 Karly, [facility] PATHOGENS DNA Medical Branch PROBE-AEROBIC COVID-19 (ID NOW RAPID 2022-06-30 06:21:00 Karly, [facility] TESTING) Medical Branch LAB ONLY COVID 2022-06-30 06:21:00 Karly, [facility] INTERPRETATION Medical Branch BLOOD CULTURE SCREEN 2022-06-30 06:21:00 Karly [facility] BLOOD CULTURE WORKUP 2022-06-30 06:21:00 Karly [facility] MRSA / MSSA SCREEN BY 2022-06-30 06:21:00 Karly [facility] PCR, NARES [facility] GRAM NEGATIVE BLOOD 2022-06-30 06:21:00 Karly [facility] PATHOGENS DNA Medical Branch PROBE-AEROBIC COVID-19 (ID NOW RAPID 2022-06-30 06:21:00 Karly [facility] TESTING) Medical Branch LAB ONLY COVID 2022-06-30 06:21:00 Karly [facility] INTERPRETATION [facility] XR CHEST 1 VW 2022-06-30 05:55:00 Karly, [facility] XR CHEST 1 VW 2022-06-30 05:55:00 Karly, [facility] XR CHEST 1 VW 2022-06-30 05:55:00 Karly, [facility] XR CHEST 1 VW 2022-06-30 05:55:00 Karly, [facility] XR CHEST 1 VW 2022-06-30 05:55:00 Karly [facility] GLYCOSYLATED HEMOGLOBIN 2022-06-30 01:57:00 Karly [facility] (A1[facility]) Medical Branch HEPATITIS B SURFACE 2022-06-30 01:57:00 [facility]ci [facility] ANTIBODY [facility] HEPATITIS B SURFACE 2022-06-30 01:57:00 Marci Saini [facility] ANTIGEN [facility] FOLATE 2022-06-30 01:57:00 Karly [facility] VITAMIN B12, LEVEL 2022-06-30 01:57:00 Karly [facility] PROCALCITONIN 2022-06-30 01:57:00 Karly [facility] C-REACTIVE PROTEIN 2022-06-30 01:57:00 Karly [facility] TROPONIN I 2022-06-30 01:57:00 Karly [facility] FERRITIN SERUM 2022-06-30 01:57:00 Karly, [facility] FERRITIN SERUM 2022-06-30 01:57:00 Karly, [facility] VITAMIN B12, LEVEL 2022-06-30 01:57:00 Karly, [facility] FOLATE 2022-06-30 01:57:00 Karly, [facility] C-REACTIVE PROTEIN 2022-06-30 01:57:00 Karly, [facility] TROPONIN I 2022-06-30 01:57:00 Karly, [facility] GLYCOSYLATED HEMOGLOBIN 2022-06-30 01:57:00 Karly [facility] Medical [place] HEPATITIS B SURFACE 2022-06-30 01:57:00 Yeny [facility] ANTIBODY Medical Branch HEPATITIS B SURFACE 2022-06-30 01:57:00 Yeny [facility] ANTIGEN [facility] PROCALCITONIN 2022-06-30 01:57:00 Karly [facility] FERRITIN SERUM 2022-06-30 01:57:00 Karly [facility] VITAMIN B12, LEVEL 2022-06-30 01:57:00 Karly [facility] FOLATE 2022-06-30 01:57:00 Karly, [facility] C-REACTIVE PROTEIN 2022-06-30 01:57:00 Karly [facility] TROPONIN I 2022-06-30 01:57:00 Karly [facility] GLYCOSYLATED HEMOGLOBIN 2022-06-30 01:57:00 Karly [facility] Medical [place] [address] HEPATITIS B SURFACE 2022-06-30 01:57:00 Yeny [facility] ANTIBODY Medical Branch HEPATITIS B SURFACE 2022-06-30 01:57:00 Yeny [facility] ANTIGEN [facility] PROCALCITONIN 2022-06-30 01:57:00 Karly [facility] FERRITIN SERUM 2022-06-30 01:57:00 Karly [facility] VITAMIN B12, LEVEL 2022-06-30 01:57:00 Karly, [facility] FOLATE 2022-06-30 01:57:00 Karly, [facility] C-REACTIVE PROTEIN 2022-06-30 01:57:00 Karly, [facility] TROPONIN I 2022-06-30 01:57:00 Kalry [facility] GLYCOSYLATED HEMOGLOBIN 2022-06-30 01:57:00 Karly [facility] Medical [place] [address] HEPATITIS B SURFACE 2022-06-30 01:57:00 Yeny [facility] ANTIBODY [facility] HEPATITIS B SURFACE 2022-06-30 01:57:00 Yeny [facility] ANTIGEN [facility] PROCALCITONIN 2022-06-30 01:57:00 Karly [facility] FERRITIN SERUM 2022-06-30 01:57:00 Karly [facility] VITAMIN B12, LEVEL 2022-06-30 01:57:00 Karly [facility] FOLATE 2022-06-30 01:57:00 Karly [facility] C-REACTIVE PROTEIN 2022-06-30 01:57:00 Karly [facility] TROPONIN I 2022-06-30 01:57:00 Karly [facility] GLYCOSYLATED HEMOGLOBIN 2022-06-30 01:57:00 Karly [facility] HEPATITIS B SURFACE 2022-06-30 01:57:00 Yeny [facility] ANTIBODY [facility] HEPATITIS B SURFACE 2022-06-30 01:57:00 Yeny [facility] ANTIGEN [facility] PROCALCITONIN 2022-06-30 01:57:00 Karly [facility] BASIC METABOLIC PANEL 2022-06-29 23:11:00 Seema Vázquez [facility] (NA, K, CL, CO2, GLUCOSE, Medica l Branch BUN, CREATININE, CA) BASIC METABOLIC PANEL 2022-06-29 23:11:00 Seema V[facility] ([facility], K, CL, CO2, GLUCOSE, Medica l Branch BUN, CREATININE, CA) BASIC METABOLIC PANEL 2022-06-29 23:11:00 Seema Vázquez [facility] ([facility], K, CL, CO2, GLUCOSE, Medica l Branch BUN, CREATININE, CA) BASIC METABOLIC PANEL 2022-06-29 23:11:00 Seema Vázquez [facility] (NA, K, CL, CO2, GLUCOSE, Medica l Branch BUN, CREATININE, CA) BASIC METABOLIC PANEL 2022-06-29 23:11:00 Seema Vázquez [facility] versity [facility] (NA, K, CL, CO2, GLUCOSE, Medica l Branch BUN, CREATININE, CA) CBC WITH DIFF 2022-06-29 18:40:00 Romeo [facility] PROTHROMBIN TIME / INR 2022-06-29 18:40:00 Shayy Walters [facility] CBC WITH DIFF 2022-06-29 18:40:00 Romeo [facility] PROTHROMBIN TIME / INR 2022-06-29 18:40:[address] [facility] CBC WITH DIFF 2022-06-29 18:40:00 Romeo [facility] PROTHROMBIN TIME / INR 2022-06-29 18:40:00 Shayy Walters [facility] CBC WITH DIFF 2022-06-29 18:40:00 Romeo [facility] PROTHROMBIN TIME / INR 2022-06-29 18:40:00 Shayy Walters [facility] CBC WITH DIFF 2022-06-29 18:40:00 Romeo [facility] PROTHROMBIN TIME / INR 2022-06-29 18:40:00 Sh[facility]y [facility]ters [facility] HB ECG ROUTINE & RHYTHM 2022-06-29 17:50:[address] [facility] HB ECG ROUTINE & RHYTHM 2022-06-29 17:50:[address] [facility] [place] STRIP Medical Branch HB ECG ROUTINE & RHYTHM 2022-06-29 17:50:18 Shayy Walters [facility] STRIP Medical Branch HB ECG ROUTINE & RHYTHM 2022-06-29 17:50:18 Romeo [facility] STRIP Medical Branch HB ECG ROUTINE & RHYTHM 2022-06-29 17:50:18 [facility] COMP. METABOLIC PANEL 2022-06-29 17:42:00 Shayy Walters [facility] ([id number]) Medical Branch HEPATITIS B SURFACE 2022-06-29 17:42:00 Saini [facility] ANTIGEN Medical Branch HEPATITIS B SURFACE 2022-06-29 17:42:00 Saini, [facility] ANTIBODY Medical Branch COMP. METABOLIC PANEL 2022-06-29 17:42:00 Shayy Walters [facility] ([id number]) Medical Branch HEPATITIS B SURFACE 2022-06-29 17:42:00 Saini [facility] ANTIBODY Medical Branch HEPATITIS B SURFACE 2022-06-29 17:42:00 Saini, [facility] ANTIGEN Medical Branch COMP. METABOLIC PANEL 2022-06-29 17:42:00 Shayy Walters [facility] ([id number]) Medical Branch HEPATITIS B SURFACE 2022-06-29 17:42:00 Saini [facility] ANTIBODY Medical Branch HEPATITIS B SURFACE 2022-06-29 17:42:00 Saini, [facility] ANTIGEN Medical Branch COMP. METABOLIC PANEL 2022-06-29 17:42:00 Shayy Walters [facility] ([id number]) Medical Branch HEPATITIS B SURFACE 2022-06-29 17:42:00 Saini, [facility] ANTIBODY Medical Branch HEPATITIS B SURFACE 2022-06-29 17:42:00 Saini, [facility] ANTIGEN Medical Branch COMP. METABOLIC PANEL 2022-06-29 17:42:00 Shayy Walters [facility] ([id number]) Medical Branch HEPATITIS B SURFACE 2022-06-29 17:42:00 Saini, [facility] [place] ANTIBODY Medical Branch HEPATITIS B SURFACE 2022-06-29 17:42:00 Marci Saini [facility] ANTIGEN Medical Branch CONSENT/REFUSAL FOR 2022-06-29 15:19:23 Doctor Unassigned, [facility] [place] [facility] Bly Medical Branch CONSENT/REFUSAL FOR 2022-06-29 15:19:23 Doctor Unassigned, [facility] [place] [facility] CONSENT/REFUSAL FOR 2022-06-29 15:19:23 Doctor Unassigned, [facility] [place] [facility] CONSENT/REFUSAL FOR 2022-06-29 15:19:23 Doctor Unassigned, [facility] [place] [facility] Branch CONSENT/REFUSAL FOR 2022-06-29 15:19:23 Doctor Unassigned, [facility] [place] [facility] Medical Branch [id number] 2019-10-12 00:00:00 GUPKA.01 [facility] [id number] 2019-10-10 00:00:00 GUPKA.01 [facility] Encounters Start End Encounter Admission Attending Care Care Encounter Source Date/Time Date/Time Type Type Clinicians Facility Department ID 2021-06-25 Outpatient [facility] [id number] Univers 07:26:38 JANEE [facility] 2021-06-19 Inpatient R ABRAHAN SILVESTRE [facility] SCT [id number] Univers [facility] [facility] [id number] Univers 01:00[facility] 2021-03-07 Outpatient R ABHI [facility] MARGOTH [id number] Univers 16:56:51 [facility] 2021-03-07 Outpatient R ABHI [facility] MARGOTH [id number] Univers 04:35:55 KILEY robbins [facility] 2022-09-24 2022-09-24 Outpatient R DANILO CUMMINGS [facility] [id number] Univers 13:30:00 13:49:33 DANILO CUMMINGS kar [facility] [place] [facility] 2022-09-24 2022-09-24 Office [facility] 1.2.840.114 [id number] Univers 13:30:00 13:49:33 Visit , Danilo Landaverde HEALTH 350.1.13.10 i ty of [place] [id number] [facility] [address] 2022-09-08 2022-09-09 Outpatient R FLOYDDANILO [facility] [id number] Univers 05:18:00 15:02:00 DANILO CUMMINGS ity [facility] 2022-09-08 2022-09-09 [facility] ISAIAH 1.2.840.114 1 [id number] Univers 05:18:00 15:02:00 Encounter , Danilo NARANJOY 350.1.13.10 ity of [facility] 4.2.7.2.686 [place] [id number] [facility] 090 [address] 2022-09-08 2022-09-08 Surgery [place] ISAIAH 1.2.840.114 10 [id number] Univers 07:00:00 09:03:00 , Danilo NARANJOY 350.1.13.10 it y of [facility] 4.2.7.2.686 [place] [phone] [facility] 103 [address] 2022-09-08 2022-09-08 Orders Doctor RADHA 1.2.840.114 [id number] Univers 00:00:00 00:00:00 Only Unassigned, SHAUN 350.1.13.10 ity of [facility] 4.2.7.2.686 [place] [id number] [facility] 009 Branch 2022-08-13 2022-08-13 Office [facility] 1.2.840.114 [id number] Univers 13:15:00 13:30:00 Visit , Danilo Landaverde HEALTH 350.1.13.10 i ty [place] [phone] [facility] [address] 2022-08-13 2022-08-13 Outpatient R DANILO CUM[facility] [id number] Univers 13:15:00 13:15:00 DANILO CUMMINGS itkar [facility] [place] [facility] 2022-07-27 2022-07-27 Telephone [facility] 1.2.840.11 [id number] Univers 00:00:00 00:00:00 , Danilo Y HEALTH 350.1.13.10 i ty [place] [id number] [address] 2022-07-23 2022-07-23 Outpatient R DANILO CUM[facility] [id number] Univers 14:00:00 14:13:33 DANILO CUMMINGS [facility] 2022-07-23 2022-07-23 Office [facility] 1.2.840.114 [id number] Univers 14:00:00 14:13:33 Visit , Danilo Y HEALTH 350.1.13.10 i ty [place] [id number] [address] 2022-07-16 2022-07-16 Office [facility] 1.2.840.114 [id number] Univers 14:15:00 14:30:00 Visit , Danilo Y HEALTH 350.1.13.10 i ty [place] [id number] [address] 2022-07-16 2022-07-16 Outpatient R DANILO CUM[facility] [id number] Univers 14:15:00 14:15:00 DANILO CUMMINGS [facility] 2022-07-14 2022-07-14 Telephone [facility] 1.2.840.114 [id number] Univers 00:00:00 00:00:00 , Danilo HEALTH 350.1.13.10 it y of [place] [id number] [address] OFFICE BUILDING 2022-07-13 2022-07-13 Telephone [facility] 1.2.840.11 [id number] Univers 00:00:00 00:00:00 , Danilo Y HEALTH 350.1.13.10 i ty [place] [id number] [address] 2022-07-13 2022-07-13 Transition [facility] Modi 1.2.840.114 10 [id number] Univers 00:00:00 00:00:00 of Care Imeldabee LEO 350.1.13.10 i ty of [place] 4.2.7.[place] [id number] [facility] 403 [address] 2022-06-29 2022-07-10 Inpatient X [facility] [id number] Univers 10:02:00 18:00:00 LUIS ity of [facility] 2022-06-29 2022-07-10 [facility] Pepe Horner 1.2.840.11 4 [id number] Univers 10:02:00 18:00:00 Encounter Luis Maguire SHAUN 350.1.13.10 ity of [facility] 4.2.7.2.686 [place] [id number] [facility] 093 Branch 2022-07-09 2022-07-09 Surgery [place] ISAIAH 1.2.840.114 10 [id number] Univers 19:20:00 21:38:00 , Danilo SHAUN 350.1.13.10 it y of HOSPITAL 4.2.7.2.686 [place] [id number] [facility] 103 [address] 2022-07-07 2022-07-07 Surgery [place] ISAIAH 1.2.840.114 10 [id number] Univers 12:00:00 15:12:00 , Danilo SHAUN 350.1.13.10 it y of HOSPITAL 4.2.7.2.686 [place] [phone] [facility] 103 [address] 2022-07-02 2022-07-02 Surgery [place] ISAIAH 1.2.840.114 10 [id number] Univers 10:55:00 12:45:00 , Danilo SHAUN 350.1.13.10 it y of HOSPITAL 4.2.7.2.686 [place] [id number] [facility] 103 [address] 2022-07-02 2022-07-02 Anesthesia Dmitri Wilson 1.2.840.6 [id number] Univers 11:15:00 11:15:00 Event Marlon Flower 07260.1.1 ity of 3.104.2.7 [place] .3.265901 Medica l .[address] 2022-06-29 2022-06-29 Travel 1.2.840.1 1.2.965.182 [id number] Univers 00:00:00 00:00:00 89108.1.1 350.1.13.10 ity of 3.104.2.7 4.2.7.3.698 [place] .3.644151 084.8 Medica l .[address] 2021-12-16 2021-12-16 Outpatient R YAQUELIN, [facility] [id number] Univers 11:00:00 11:00:00 LUIS ANTONIO robbins [facility] 2021-12-16 2021-12-16 [id number] Univers 10:40:00 10:40:00 KANDICE robbins [facility] 2021-11-18 2021-11-18 Dirt Bike Racer, Transplant Social [facility] 1.2.840.114 [id number] Univers 12:30:00 13:15:00 Management Gagan Win A MULTISPEC 350.1 .13.10 ity of Elizabeth Garcia IALTY 4.2.7.2.686 [facility] [id number] [address] DIABETES CLINIC 2021-11-18 2021-11-18 Dirt Bike Racer, Transplant Social [facility] 1.2.840.114 [id number] Univers 11:30:00 12:15:00 Management Gagan Win MULTISPEC 350.1 .13.10 ity of Jose Elizabeth IALTY 4.2.7.2.686 [facility] [id number] [address] DIABETES CLINIC 2021-11-18 2021-11-18 Office Elizabeth Garcia [facility] 1.2.840.114 [id number] Univers 09:00:00 09:40:00 Visit Gagan Win MULTISPEC 350.1.13 .10 ity of IALTY 4.2.7.2.686 [facility] [id number] [facility] [address] DIABETES CLINIC 2021-11-18 2021-11-18 Outpatient R ELIZABETH GARCIA [facility] [id number] Univers 09:00:00 09:00:00 ity of [facility] 2021-11-04 2021-11-04 Nurse Renal, Transplant Class [facility] 1. 2.840.114 [id number] Univers 10:00:00 10:15:00 Visit Gagan Win MULTISPEC 350.1.13 .10 ity [facility] 4.2.7.2.686 [facility] [id number] [facility] [address] DIABETES CLINIC 2021-11-04 2021-11-04 Outpatient [facility] [id number] Univers 10:00:00 10:00:00 GAGAN ity o [facility] 2021-10-22 2021-10-22 Telephone Jamila [facility] 1.2.840.114 [id number] Univers 00:00:00 00:00:00 Alta collins MULTISPEC 350.1.13.10 ity of IALTY 4.2.7.2.686 [facility] [id number] [address] DIABETES CLINIC 2021-10-10 2021-10-10 [facility] 1.2.544.555 [id number] Univers 14:02:00 23:59:00 Encounter Gagan Carroll SHAUN 350.1.13.10 ity of [facility] 4.2.7.[address] [place] [address] [phone] [place] [address] Branch 2021-10-10 2021-10-10 Outpatient R [facility] ACO [id number] Univers 00:00:00 23:59:00 GAGAN ity o [facility] 2021-10-10 2021-10-10 Telephone [facility] 1.2.840.114 [id number] Univers 00:00:00 00:00:00 Gagan Carroll MULTISPEC 350.1.13.10 ity of [place].2.7.2.686 [place] CENTER [phone] [facility] [place] [address] DIABETES CLINIC 2021-10-10 2021-10-10 Letter [facility] 1.2.840.114 [id number] Univers 00:00:00 00:00:00 (Out) Gagan Carroll MULTISPEC 350.1.13.10 ity of [place] 4.2.7.2.686 [place] CENTER [phone] [facility] [place] [address] DIABETES CLINIC 2021-09-29 2021-09-29 Telephone NYA Alcocer 1.2.840.114 [id number] Univers 00:00:00 00:00:00 [facility] 350.1.13.10 ity of CL[place]ICS 4.[place].2.[place] [phone] [facility] [address] 2021-09-11 2021-09-11 Outpatient [address] JANET ADAM [facility] [id number] Univers 12:00:00 12:00:00 JANET ADAM i ty of [facility] 2021-08-12 2021-08-12 [facility]phone [facility] 1.2.840.114 9 [id number] Univers 00:00:00 00:00:00 Kandice AVILA 350.1.13.10 ity of [place] 4.2.7.2.686 [place] [facility] [phone] [facility] [address] BUILDING 2021-08-12 2021-08-12 Orders Doctor RADHA 1.2.840.114 [id number] Univers 00:00:00 00:00:00 Only Unassigned, SHAUN 350.1.13.10 ity of [facility] 4.2.7.2.686 [place] [id number] [facility] 009 Branch 2021-07-31 2021-07-31 Office Abrahan Silvestre 1.2.840.114 [id number] Univers 16:45:00 17:00:00 Visit [facility] 350.1.13.10 i ty of CL[place]ICS 4.[place] [phone] [facility] 185 [address] 2021-07-31 2021-07-31 Nurse Nurse, [facility] Plastic Surg [facility] 1.2.840.114 [id number] Univers 16:00:00 16:52:11 Visit Pj Schneider [facility] 350.1.1 3.10 ity [facility] 4.2.7.2.686 [place] [id number] [facility] 201 [address] 2021-07-31 2021-07-31 Outpatient R ABRAHAN SILVESTRE [facility] [id number] Univers 16:45:00 16:45:00 ity [facility] [place] [facility] 2021-07-31 2021-07-31 Outpatient [facility] [id number] Univers 16:00:00 16:00:00 PJ [facility] 2021-07-17 2021-07-17 [facility] 1.2.840.114 [id number] Univers 12:59:14 23:59:00 Encounter Kandice [facility].1.13.10 [facility] 4.2.7.2.[place] [id number] [facility] [address] 2021-07-17 2021-07-[address] [facility] RAD [id number] Univers 00:00:00 23:59:00 KANDICE robbins [facility] 2021-07-15 2021-07-15 Surgery ISAIAH Alcocer 1.2.840.114 [id number] Univers 09:42:00 13:31:00 Janee DUNN 350.1.13.10 i ty [facility] 4.2.7.2.686 [place] [phone] [facility] 103 [address] 2021-07-15 2021-07-15 Outpatient R [facility] [id number] Univers 07:31:00 12:36:00 JANEE robbins o f [facility] 2021-07-15 2021-07-15 [facility] ISAIAH Alcocer 1.2.673.296 [id number] Univers 07:31:00 12:36:00 Encounter Janee DUNN 350.1.13.10 ity [facility] 4.2.7.2.686 [place] [id number] [facility] 104 [address] 2021-07-15 2021-07-15 Orders Doctor RADHA 1.2.840.114 [id number] Univers 00:00:00 00:00:00 Only Unassigned, SHAUN 350.1.13.10 ity of [place] [facility] 4.2.7.2.686 [place] [id number] [facility] 009 Branch 2021-07-15 2021-07-15 Case Robb, [facility] 1.2.840.114 [id number] Univers 00:00:00 00:00:00 Management Tonja Fortuna Vini 350.1.13.10 ity of [facility] 4.2.7.2.[place] [id number] [facility] 185 [address] 2021-07-14 2021-07-14 Laboratory Only, Adc Test [facility] 1.2.840. 114 [id number] Univers 15:00:00 15:15:00 Only Janee Alcocer 350.1.13.10 ity of [place] 4.2.7.2.686 [place] [id number] [facility] 353 [address] 2021-07-14 2021-07-[address] [facility] [id number] Univers 15:00:00 15:00:00 JANEE roper [facility] 2021-07-11 2021-07-11 Transition [facility] 1.2.840.114 [id number] Univers 00:00:00 00:00:00 of Care Mercedez LEO 350.1.13.10 i ty of [place] 4.2.7.2.[place] [id number] [facility] 403 [address] 2021-07-08 2021-07-10 Inpatient R ABRAHAN SILVESTRE [facility] SCT [id number] Univers 11:45:00 16:00:00 ity of [facility] 2021-07-08 2021-07-10 Hospital Abrahan Silvestre 1.2.840.114 [id number] Univers 11:45:00 16:00:00 Encounter SHAUN 350.1.13.10 ity of [facility] 4.2.7.2.686 [place] [id number] [facility] 089 Branch 2021-07-08 2021-07-10 Inpatient R ABRAHAN SILVESTRE [facility] SCT [id number] Univers 11:45:00 16:00:00 ity of [facility] 2021-07-08 2021-07-10 Inpatient ABRAHAN GONZALEZ [facility] SCT [id number] Univers 11:45:00 16:00:00 ity of [facility] 2021-07-08 2021-07-08 Surgery Abrahan Silvestre 1.2.692.257 [id number] Univers 12:10:00 16:20:00 SHAUN 350.1.13.10 it y of [facility] 4.2.7.2.686 [place] [id number] [facility] 103 [address] 2021-07-08 2021-07-08 Orders Doctor RADHA 1.2.840.114 [id number] Univers 00:00:00 00:00:00 Only Unassigned, SHAUN 350.1.13.10 ity of [place] [facility] 4.2.7.2.686 [place] [id number] [facility] 009 Branch 2021-07-07 2021-07-07 Vmware Administrator Richard, Adc Lab Main [facility] 1.2.8 40.114 [id number] Univers 15:15:00 15:30:00 Visit Abrahan Silvestre 350.1.13.10 ity [facility] 4.2.7.2.686 [place] [facility] [phone] [address] 2021-07-07 2021-07-07 Outpatient Fanny SILVESTRE ABRAHAN [facility] [id number] Univers 15:15:00 15:15:00 ity [facility] [place] [facility] 2021-07-07 2021-07-07 Laboratory Only, Adc Test [facility] 1.2.840. 114 [id number] Univers 15:00:00 15:15:00 Only Abrahan Silvestre 350.1.13.10 ity [facility] 4.2.7.2.686 [place] [id number] [facility] [address] 2021-07-07 2021-07-07 Outpatient Fanny SILVESTRE ABRAHAN [facility] [id number] Univers 15:00:00 15:00:00 ity of [facility] 2021-07-07 2021-07-07 Orders Doctor RADHA 1.2.840.114 [id number] Univers 00:00:00 00:00:00 Only Unassigned, SHAUN 350.1.13.10 ity of [facility] 4.2.7.2.686 [place] [id number] [address] 2021-07-04 2021-07-04 Telephone [facility] 1.2.840.114 [id number] Univers 00:00:00 00:00:00 Kandicesunita AVILA 350.1.13.10 ity of [place] 4.2.7.2.686 [place] [id number] [facility] [address] [facility] 2021-06-25 2021-06-25 Telephone [facility] 1.2.840.114 [id number] Univers 00:00:00 00:00:00 Kandice AVILA 350.1.13.10 ity of [place] 4.2.7.2.686 [place] [id number] [facility] [address] [facility] 2021-06-25 2021-06-25 Orders Doctor RADHA 1.2.840.114 [id number] Univers 00:00:00 00:00:00 Only Unassigned, SHAUN 350.1.13.10 ity of [place] [facility] 4.2.7.2.686 [place] [id number] [address] 2021-06-24 2021-06-[address] [facility] [id number] Univers 16:45:00 16:45:00 JANEE roper [facility] 2021-06-24 2021-06-24 Office [facility] [place] [facility] 1.2.840.114 [id number] Univers 16:45:00 16:45:00 Visit Janee GOMEZ 350.1.13.10 ity of [facility] 4.2.7.2.[place] [id number] [address] 2021-06-24 2021-06-24 Office Carlyn [facility] 1.2.840.114 [id number] Univers 16:45:00 16:45:00 Visit Janee Y HEALTH 350.1.13.10 ity of CLINICS 4[place].7.2.[place] [id number] [facility] [address] 2021-06-24 2021-06-24 Outpatient R CARLYN, [facility] [id number] Univers 16:45:00 15:30:28 JANEE vasquez [facility] 2021-06-23 2021-06-23 Telephone Alona, [facility] 1.2.840.114 [id number] Univers 00:00:00 00:00:00 Tonja Y HEALTH 350.1.13.10 i ty of CL[place] 4[place].2.[place] [id number] [address] 2021-06-20 2021-06-20 Outpatient R RODERICK, [facility] [id number] Univers 12:40:13 23:59:00 EVELIA rosendo vasquez [facility] 2021-06-20 2021-06-20 [facility] Pj Schneider [facility] 1.2 .840.114 [id number] Univers 12:40:13 23:59:00 Encounter RoderickCatarinosally [place] 350.1.13.10 ity of [place] 4.2.7.2.686 [place] [id number] [facility] [address] 2021-06-20 2021-06-20 Outpatient R RODERICK, [facility] [id number] Univers 12:40:13 23:59:00 EVELIA rustykar vasquez [facility] 2021-06-18 2021-06-18 Prep For Robb, [facility] 1.2.840.114 [id number] Univers 00:00:00 00:00:00 Surgery Tonja Y HEALTH 350.1.13.10 i ty of CL[place]ICS [place].2.[place] [id number] [address] 2021-06-18 2021-06-18 Case Robb, [facility] 1.2.840.114 [id number] Univers 00:00:00 00:00:00 Management Tonja Y HEALTH 350.1.13.10 ity of CL[place]ICS 4[place]2.7.2.[place] [id number] [facility] [address] 2021-06-17 2021-06-17 Office [facility] 1.2.840.114 [id number] Univers 10:40:00 12:45:57 Visit Kandice AVILA 350.1.13.10 ity [facility] 4.2.7.2.[place] [phone] [address] 2021-06-17 2021-06-17 [facility] [id number] Univers 10:40:00 12:45:[facility] 2021-06-17 2021-06-17 Outpatient [facility] [id number] Univers 10:40:00 10:40:00 [facility] 2021-06-17 2021-06-17 Outpatient Fanny [facility] [id number] Univers 10:40:00 10:40:00 [facility] 2021-06-12 2021-06-12 Office AUGUSTA Schneider [id number] [id number] Univers 14:00:00 14:30:00 Visit Pj R Y HE[facility] [id number] [place] [phone] [facility] [address] 2021-06-12 2021-06-12 Office Abrahan Silvestre [facility] 1.2.840.114 [id number] Univers 13:00:00 14:26:18 Visit Y HEALTH 350.1.13.10 i [place] [id number] [address] 2021-06-12 2021-06-[address] [facility] [id number] Univers 13:00[facility]00 [facility]26[facility] 2021-06-[address] [facility] [id number] Univers 14:00:00 14:00:00 PJ ity [facility] 2021-06-12 2021-06-12 Outpatient R ABRAHAN SILVESTRE [facility] [id number] Univers 13:00:00 13:00:00 ity of [facility] 2021-06-12 2021-06-12 Orders Doctor GARCIA [id number] [id number] Univers 00:00:00 00:00:00 Only Unassigned, SHAUN 350.1.13.10 ity of [facility] 4.2.7.2.686 [place] [phone] [facility] [address] 2021-05-22 2021-05-22 Outpatient R JANET ADAM [facility] [id number] Univers 14:00:00 15:08:54 JANET ADAM i ty [facility] 2021-05-22 2021-05-22 [facility] 1.2.840.114 [id number] Univers 14:00:00 15:08:54 Visit Janet AVILA 350.1.13.10 i ty [facility] 4.2.7.2.686 [facility] [phone] [place] dical [address] 2021-05-16 2021-05-16 Outpatient R JANET ADAM [facility] [id number] Univers 15:58:19 23:59:00 JANET ADAM i ty [facility] 2021-05-16 2021-05-16 [facility] 1.2.840.114 [id number] Univers 15:58:19 23:59:00 Encounter Janet AVILA 350.1.13.10 ity [facility] 4.2.7.2.686 [facility] [phone] [facility] [address] 2021-05-12 2021-05-12 Outpatient R JANET ADAM [facility] 10 [id number] Univers 13:00:00 13:00:00 JANET ADAM i ty [facility] 2021-04-26 2021-04-26 Imm/Inj Vaccine, Ang Db [facility] 1.2.840 .114 [id number] Univers 13:10:00 13:20:[address] [facility] 350.1.13.10 ity [facility] 4.2.7.2.686 Owen as GEORGE?BLEA [phone] Ak natalie MADRID [address] [place] [address] MEDICAL OFFICE BUILDING 2021-04-26 2021-04-[address] [facility] [id number] Univers 13:10:00 13:10:00 ETIENNE ity of [facility] 2021-04-17 2021-04-17 Vmware Administrator Therapist, Adc Respiratory [facility] 1.2.840.114 [id number] Univers 12:27:24 13:57:[address] [place] 350.1.13. 10 ity of [place] [phone] [place] [address] 2021-04-17 2021-04-[address] [facility] [id number] Univers 12:30:00 12:30:00 AV ity of [facility] 2021-04-17 2021-04-17 Orders AUGUSTA Adam 1.2.636.744 [id number] Univers 00:00:00 00:00:00 Only [facility] 350.1.13.10 i ty of [facility] [place]7.2.[place] [phone] [facility] [address] 2021-04-08 2021-04-08 Orders Doctor GARCIA 1.2.840.114 [id number] Univers 00:00:00 00:00:00 Only Unassigned, SHAUN 350.1.13.10 ity of [facility] 4.2.7.2.686 Owen as [phone] [facility] [address] 2021-03-27 2021-03-27 Outpatient R JANET ADAM [facility] 10 [id number] Univers 09:00:00 09:36:33 JANET ADAM i ty of [facility] 2021-03-27 2021-03-27 Office Seamus [facility] 1.2.840.114 [id number] Univers 08:37:30 09:36:33 Visit Janet AVILA 350.1.13.10 i ty of [place].2.[place] [facility] [phone] Ak dical NAL [address] [facility] 2021-03-27 2021-03-27 Outpatient R JANET ADAM [facility] 10 [id number] Univers 09:00:00 09:00:00 JANET ADAM i ty of [facility] 2021-03-18 2021-03-18 [facility] 1.2.840.114 [id number] Univers 00:00:00 00:00:00 Management Kandice AVILA 350.1.13.10 ity of [facility] [place].2.[place] [phone] Ak dical [facility] [address] [facility] 2021-03-13 2021-03-13 Patient [facility] 1.2.840.114 [id number] Univers 00:00:00 00:00:00 Secure Msg Kandice AVILA 350.1.13.10 ity of [place] [phone] Ak dical NAL [address] [place] [address] 2021-03-11 2021-03-11 Telephone [facility] 1.2.840.114 [id number] Univers 00:00:00 00:00:00 Kandice AVILA 350.1.13.10 ity of [place] [phone] Ak dic[address] 2021-03-10 2021-03-10 Orders Doctor RADHA 1.2.840.114 [id number] Univers 00:00:00 00:00:00 Only Unassigned, SHAUN 350.1.13.10 ity of [facility] 4.2.7.2.686 [place] as [phone] [facility] [address] 2021-02-19 2021-02-19 [facility] 1.2.840.114 [id number] Univers 11:54:07 23:59:00 Encounter Kandice Avila 350.1.13.10 ity of [place] [phone] [facility] [address] 2021-02-192021-02-19 [facility] [id number] Univers 00:00:00 00:00:00 KANDICE robbins [facility] 2021-02-10 2021-02-10 Office [facility] 1.2.840.114 [id number] Univers 14:27:40 15:35:38 Visit Kandice Avila 350.1.13.10 ity of [place]2.[place] [phone] Ak dical [facility] 231 [facility] 2021-02-10 2021-02-10 Outpatient [facility] [id number] Univers 14:20:00 14:20:00 KANDICE robbins [facility] 2021-02-04 2021-02-04 Telephone Andrew, [facility] 1.2.840.114 [id number] Univers 00:00:00 00:00:00 Kandice Avila 350.1.13.10 ity of [place]2.[place] [phone] [facility] 044 [facility] 2021-02-03 2021-02-03 Transition [place] 1.2.840.114 [id number] Univers 00:00:00 00:00:00 of Care Mercedez Leo 350.1.13.10 i ty of [place].2.[place] [phone] [facility] [address] 2021-01-30 2021-02-01 Hospital Jane Rivera [facility] 1.2.840.11 [id number] Univers 16:40:00 19:25:00 Encounter Billy Andrade 350.1.13.10 ity of [place] 4.2.7.2.686 [facility] [phone] [facility] [address] 2021-01-30 2021-01-30 Orders Doctor GARCIA 1.2.840.114 [id number] Univers 00:00:00 00:00:00 Only Unassigned, SHAUN 350.1.13.10 ity of [facility] 4.2.7.2.686 [place] as [phone] [address] 2021-01-14 2021-01-14 Office [facility] 1.2.840.114 [id number] Univers 13:45:33 14:22:15 Visit Cherylbandarsally Avila 350.1.13.10 ity of [place]2.[place] [phone] Ak dical nal [address] [facility] 2021-01-14 2021-01-[address] [facility] [id number] Univers 13:40:00 13:40:00 EVELIA robbins o f [facility] 2021-01-14 2021-01-14 Orders Doctor RADHA 1.2.840.114 [id number] Univers 00:00:00 00:00:00 Only Unassigned, SHAUN 350.1.13.10 ity of [facility] 4.2.7.2.686 [place] as [phone] [address] 2021-01-14 2021-01-14 Orders Doctor RADHA 1.2.840.114 [id number] Univers 00:00:00 00:00:00 Only Unassigned, SHAUN 350.1.13.10 ity of [facility] 4.2.7.2.686 [place] as [phone] [address] 2020-12-03 2020-12-03 Orders Doctor GARCIA 1.2.840.114 [id number] Univers 00:00:00 00:00:00 Only Unassigned, SHAUN 350.1.13.10 ity of [facility] 4.2.7.2.686 [place] as [phone] [address] 2020-07-25 2020-07-25 Patient Maurizio [facility] 1.2.840.114 [id number] Univers 00:00:00 00:00:00 Outreach Italo BRUNO 350.1.13.10 i ty of [facility] [place]2.7.2.[place] [facility] [phone] Ak dical [address] 2020-04-02 2020-04-[address] [facility] [id number] Univers 13:00:00 13:00:00 ALYSSA ity of [facility] 2020-02-20 2020-02-20 Telephone [facility] 1.2.840.114 [id number] 00:00:00 00:00:00 Kiley [place] 350.1.13.10 [place] 4.2.7.2.686 Professio [phone] [address] 2020-02-20 2020-02-20 Telephone [facility] 1.2.840.114 [id number] Univers 00:00:00 00:00:00 Kiley Avila 350.1.13.10 i ty of [place] [phone] Ak dical [address] 2020-02-19 2020-02-19 Orders Doctor RADHA 1.2.840.114 [id number] 00:00:00 00:00:00 Only Unassigned, SHAUN 350.1.13.10 [place] [facility] 4.2.7.2.686 [phone] 009 2020-02-19 2020-02-19 Orders Doctor RADHA 1.2.840.114 [id number] Univers 00:00:00 00:00:00 Only Unassigned, SHAUN 350.1.13.10 ity of [place] [facility] 4.2.7.2.686 [place] as [phone] [address] 2020-02-06 2020-02-06 [facility] 1.2.840.114 [id number] 06:52:00 08:45:00 Encounter Kiley [place] 350.1.13.10 [place] 4.2.7.2.686 Surgical [phone] [place] [address] 2020-02-06 2020-02-06 [facility] 1.2.840.114 [id number] [facility] 06:52:00 08:45:00 Encounter Kiley [place] 350.1.13.10 ity of [place] Surgical [phone] Med ica[address] 2020-02-06 2020-02-06 Anesthesia Kika Villa [facility] 1.2.840 .114 [id number] 07:26:00 08:12:00 Osei [place] 350.1.13.10 [place] 4.2.7.2.686 Surgical [phone] [place] [address] 2020-02-06 2020-02-06 Anesthesia Kika Villa [facility] 1.2.840 .114 [id number] [facility] 07:26:00 08:12:00 Osei Laird 350.1.13.10 it[place] of [place] [phone] [facility] ica[address] 2020-02-05 2020-02-05 Laboratory Only, [facility] Test [facility] 1.2.840. 114 [id number] Univers 13:19:22 13:34:22 Only Kiley Moe 350.1.13.10 ity of [place]2.[place] [phone] [address] 2020-02-05 2020-02-05 Laboratory Only, [facility] 1.2.840.114 [id number] 13:19:22 13:34:22 Only Test Abbott 350.1.13.10 [place] 4.2.7.2.686 [place] [phone] [facility] 2020-02-05 2020-02-05 Vmware Administrator Richard, [facility] Lab Main [facility] 1.2.8 40.114 [id number] Univers 13:18:28 13:33:28 Visit Diana Early 350.1.13.10 ity of [place] [phone] Ak dical [address] 2020-02-05 2020-02-05 Vmware Administrator Richard, [facility] 1.2.840.114 [id number] 13:18:28 13:33:28 Visit Lab Main [place] 350.1.13.10 [place] 4.2.7.2.686 Professio [phone] [address] 2020-02-05 2020-02-[address] [facility] [id number] Univers 13:00:00 13:00:00 DIANA robbins of [facility] 2020-02-05 2020-02-05 Orders Doctor RADHA 1.2.840.114 [id number] Univers 00:00:00 00:00:00 Only Unassigned, SHAUN 350.1.13.10 ity of [facility] 4.2.7.2.686 [place] as [phone] [address] 2020-02-05 2020-02-05 Orders Doctor RADHA 1.2.840.114 [id number] 00:00:00 00:00:00 Only Unassigned, SHAUN 350.1.13.10 [facility] 4.2.7.2.686 [phone] [facility] 2020-01-16 2020-01-16 Office [facility] 1.2.556.998 [id number] Univers 13:21:42 13:36:42 Visit Kiley Avila 350.1.13.10 i ty of [place] [phone] Ak dical formerly [facility] 188 [facility] 2020-01-16 2020-01-16 Office [facility] 1.2.098.273 [id number] 13:21:42 13:36:42 Visit Kiley Avila 350.1.13.10 [place] 4.2.7.2.686 Professio [phone] [address] 2020-01-16 2020-01-[address] [facility] [id number] Univers 13:30:00 13:30:00 KILEY rosendo [facility] 2020-01-16 2020-01-16 Prep For [facility] 1.2.840.114 [id number] Univers 00:00:00 00:00:00 Surgery Diana Carly Avila 350.1.13.10 it[place] [phone] Ak dical [facility] 204 [facility] 2019-12-21 2019-12-21 Out[address] ADAM [facility] 10 [id number] Univers 13:00:00 13:00:00 JANET ADAM i ty of [facility] 2019-12-09 2019-12-09 Outpatient KNOW, [facility] ADMI [id number] [facility] 05:20:00 05:20:00 DOES_NOT 50 [facility] 2019-11-21 2019-11-21 Hospital [facility] 1.2.840.114 [id number] Univers 06:45:28 13:25:00 Encounter Kiley Avila 350.1.13.10 ity of [place] [phone] [facility] [address] 2019-11-20 2019-11-20 Laboratory Only, Adc Test [facility] 1.2.840. 114 [id number] Univers 15:54:32 16:09:32 Only MoeRaimundoel [place] 350.1.13.10 ity of [place]2.[place] [phone] [facility] [address] 2019-11-20 2019-11-20 Out[facility] [id number] Univers 15:45:00 15:45:00 KILEY robbins of [facility] 2019-11-20 2019-11-20 Orders Doctor RADHA 1.2.840.114 [id number] Univers 00:00:00 00:00:00 Only Unassigned, SHAUN 350.1.13.10 ity of [facility] 4.2.7.2.686 [place] as [phone] [facility] [address] 2019-11-08 2019-11-08 Telephone [facility] 1.2.840.114 [id number] Univers 00:00:00 00:00:00 Kiley Avila 350.1.13.10 i ty of [place] [phone] Ak dical nal 377 [facility] 2019-11-08 2019-11-08 Prep [facility] 1.2.840.114 [id number] Univers 00:00:00 00:00:00 Surgery Kileylars Harriston 350.1.13.10 i ty of [place] [phone] Ak dical nal 377 [facility] 2019-11-07 2019-11-07 Office [facility] 1.2.787.054 [id number] Univers 14:25:31 15:17:25 Visit Kiley [place] 350.1.13.10 i ty [place]2.[place] [facility] [phone] Ak dical nal 377 [facility] 2019-11-07 2019-11-07 Outpatient R MOE, [facility] [id number] Univers 14:30:00 14:30:00 KILEY ity of [facility] 2019-10-19 2019-10-19 Office Seamus [facility] 1.2.840.114 [id number] Univers 08:48:24 09:08:24 Visit Janet Avila 350.1.13.10 i ty of [place]2.[place] [phone] [facility] nal 085 [facility] 2019-10-19 2019-10-19 Outpatient [address] AD[address] [facility] 10 [id number] Univers 08:40:00 08:40:00 JANET ADAM i ty of [facility] 2019-10-10 2019-10-19 Inpatient EM Ric, [facility] INTE.02 [id number] [facility] 00:41:00 04:32:[address] 2019-10-18 2019-10-18 Orders Doctor RADAH 1.2.840.114 [id number] Univers 00:00:00 00:00:00 Only Unassigned, SHAUN 350.1.13.10 ity of [place] [facility] 4.2.7.2.686 Owen as [phone] [facility] [address] 2019-09-29 2019-09-29 Emergency [facility] 1.2.245.086 [id number] Univers 02:32:28 05:10:00 Reji Avila 350.1.13.10 ity of [place] [phone] [facility] [address] 2019-09-29 2019-09-29 Emergency X [facility] ERT [id number] Univers 02:32:28 05:10:00 REJI ity of [facility] 2019-05-23 2019-05-23 Office [facility] 1.2.437.201 [id number] Univers 14:04:18 14:58:09 Visit Kiley Abbott 350.1.13.10 i catherine [place] 4.2.7.2.686 Erika Jaimesio [phone] Ak dic[address] 2019-04-13 2019-04-13 Outpatient R ADALGISAMONIKA, [facility] [id number] [facility] 10:11:28 23:59:00 ALYSSA robbins of [facility] Results Test Description Test Time Test Comments Results Result Comments Source Basic Metabolic Panel (NA, K, CL, CO2, GLUCOSE, BUN, 2022-09 13:53:58 CREATININE, [place]) Test Item Value Reference Range Interpretation Comme nts NA (test code = 8283778977) 139 mmol/L 135-145 K (test code = 1655828008) 4.5 mmol/L 3.5-5.0 CL (test code = 8749546367) 101 mmol/L 98-108 CO2 TOTAL (test code = 8603881329) 26 mmol/L 23-31 AGAP (test code = 9445244154) 12 2-16 BUN (test code = 6856587265) 57 mg/dL 7-23 H GLUCOSE (test code = 9609144821) 78 mg/dL 70-110 CREATININE (test code = 9.15 mg/dL 0.50-1.04 H 7323924128) CALCIUM (test code = 3102467436) 8.6 mg/dL 8.6-10.6 eGFR (test code = 1439123903) 4.6 mL/min/1.73m2 ADAM (test code = ADAM) Association of Glomerular Filtration Rate (GFR) and Staging of Kidney Disease* + +-------- + ------+| GFR (mL/min/1.73 m2) ?| With Kidney Damage ?| ?Without Kidney Damage+ +-- + +| ?>90 ?| ?Stage one ?| ? Normal ?+ +------- + -------+| ?60-89 ?| ?Stage two ?| ? Decreased GFR ? + +-------- + ------+| ?30-59 ?| ?Stage three ?| ? Stage three ? + +-------- + ------+| ?15-29 ?| ?Stage four ? | ? Stage four ?+ +------- + -------+| ?<15 (or dialysis) ? ?| ?Stage five ? | ? Stage five ?+ +------- + -------+ *Each stage assumes the associated GFR level has been in effect for at least three months. ?Stages 1 to 5, with or without kidney disease, indicate chronic kidney disease. Notes: Determination of stages one and two (with eGFR >59mL/min/1.73 m2) requires estimation of kidney damage for at least three months as defined by structural or functional abnormalities of the kidney, manifested by either:Pathological abnormalities or Markers of kidney damage (including abnormalities in the composition of the blood or urine or abnormalities in imaging tests). Lab Interpretation (test code = Abnormal 05353-8) [facility] [id number] 13:53:58 Test Item Value Reference Range Interpretation Comments MAGNESIUM (test code = 6660899810) 2.0 mg/dL 1.7-2.4 Lab Interpretation (test code = Normal 06677-4) [facility] [id number] 13:53:58 Test Item Value Reference Range Interpretation Comments PHOSPHORUS (test code = 6802208140) 5.3 mg/dL 2.5-5.0 H Lab Interpretation (test code = Abnormal 05713-0) [facility] Met[facility] Panel (NA, K, CL, CO2, GLUCOSE, BUN, CREATININE, [place])2022-09-09 13:53:58 Test Item Value Reference Range Interpretation Comments NA (test code = 139 mmol/L 135-145 5696226879) K (test code = 4.5 mmol/L 3.5-5.0 9975229257) CL (test code = 101 mmol/L 98-108 6162691004) CO2 TOTAL (test code = 26 mmol/L 23-31 9383474251) AGAP (test code = 12 2-16 0820973144) BUN (test code = 57 mg/dL 7-23 H 1777437553) GLUCOSE (test code = 78 mg/dL 70-110 1247356665) CREATININE (test code = 9.15 mg/dL 0.50-1.04 H 6061181567) CALCIUM (test code = 8.6 mg/dL 8.6-10.6 8883365141) eGFR (test code = 4.6 mL/min/1.73m2 9021921252) ADAM (test code = ADAM) Association of Glomerular Filtration Rate (GFR) and Staging of Kidney Disease* + --+ --+ ------+| GFR (mL/min/1.73 m2) ?| With Kidney Damage ?| ?Without Kidney Damage+ --------+ --------+ +| ?>90 ?| ?Stage one ?| ? Normal ?+ ---+ ---+ -------+| ?60-89 ?| ?Stage two ?| ? Decreased GFR ? + --+ --+ ------+| ?30-59 ?| ?Stage three ?| ? Stage three ? + --+ --+ ------+| ?15-29 ?| ?Stage four ? | ? Stage four ?+ ---+ ---+ -------+| ?<15 (or dialysis) ? ?| ?Stage five ? | ? Stage five ?+ ---+ ---+ -------+ *Each stage assumes the associated GFR level has been in effect for at least three months. ?Stages 1 to 5, with or without kidney disease, indicate chronic kidney disease. Notes: Determination of stages one and two (with eGFR >59mL/min/1.73 m2) requires estimation of kidney damage for at least three months as defined by structural or functional abnormalities of the kidney, manifested by either:Pathological abnormalities or Markers of kidney damage (including abnormalities in the composition of the blood or urine or abnormalities in imaging tests). Lab Interpretation Abnormal (test code = 15886-4) [facility] [id number] 13:53:58 Test Item Value Reference Range Interpretation Comments MAGNESIUM (test code = 6109991055) 2.0 mg/dL 1.7-2.4 Lab Interpretation (test code = Normal 27246-7) [facility] [id number] 13:53:58 Test Item Value Reference Range Interpretation Comments PHOSPHORUS (test code = 8031033155) 5.3 mg/dL 2.5-5.0 H Lab Interpretation (test code = Abnormal 31076-1) [facility] with Syoukqsogvtp7837-86-61 13:28:57 Test Item Value Reference Range Interpretation Comments WBC (test code = 5.96 See_Comment [Automated 6690-2) message] The sy stem which generated this result transmitted reference range : 4.30 - 11.10 10*3/?L. The reference range was not used to interpret this result as normal/abnormal . RBC (test code = 2.77 See_Comment L [Automated 789-8) message] The sy stem which generated this result transmitted reference range : 3.93 - 5.25 10*6/?L. The reference range was not used to interpret this result as normal/abnormal . HGB (test code = 9.2 g/dL 11.6-15.0 L 718-7) HCT (test code = 29.0 % 35.7-45.2 L 4544-3) MCV (test code = 104.7 fL 80.6-95.5 H 787-2) MCH (test code = 33.2 pg 25.9-32.8 H 785-6) MCHC (test code = 31.7 g/dL 31.6-35.1 786-4) RDW-SD (test code = 64.1 fL 39.0-49.9 H 74023-7) RDW-CV (test code = 16.7 % 12.0-15.5 H 788-0) PLT (test code = 168 See_Comment [Automated 777-3) message] The sy stem which generated this result transmitted reference range : 166 - 358 10*3/ ?L. The reference r darshan was not used to interpret this result as normal/abnormal . MPV (test code = 9.9 fL 9.5-12.9 22397-0) NRBC/100 WBC (test 0.0 See_Comment [Automat ed code = 2862078922) message] The system which generated this result transmitted reference range : 0.0 - 10.0 /100 WBCs. The refer ence range was not u sed to interpret th is result as normal/abnormal . NRBC x10^3 (test code See_Comment [Auto mated = 4775149885) message] The s ystem which generated this result transmitted reference range : 10*3/?L. The reference range was not used to interpret this result as normal/abnormal . GRAN MAT (NEUT) % 64.9 % (test code = 770-8) IMM GRAN % (test code 0.20 % = 7608192850) LYMPH % (test code = 26.0 % 736-9) MONO % (test code = 5.5 % 5905-5) EOS % (test code = 2.9 % 713-8) BASO % (test code = 0.5 % 706-2) GRAN MAT x10^3(ANC) 3.87 10*3/uL 1.88-7.09 (test code = 2859118629) IMM GRAN x10^3 (test 0.00-0.06 code = 2133775956) LYMPH x10^3 (test code 1.55 10*3/uL 1.32-3.29 = 731-0) MONO x10^3 (test code 0.33 10*3/uL 0.33-0.92 = 742-7) EOS x10^3 (test code = 0.17 10*3/uL 0.03-0.39 711-2) BASO x10^3 (test code 0.03 10*3/uL 0.01-0.07 = 704-7) Lab Interpretation Abnormal (test code = 13936-6) [facility] with Cdifvksfdthi3815-14-18 13:28:57 Test Item Value Reference Range Interpretation Comments WBC (test code = 5.96 See_Comment [Automated 6690-2) message] The sy stem which generated this result transmitted reference range : 4.30 - 11.10 10*3/?L. The reference range was not used to interpret this result as normal/abnormal . RBC (test code = 2.77 See_Comment L [Automated 789-8) message] The sy stem which generated this result transmitted reference range : 3.93 - 5.25 10*6/?L. The reference range was not used to interpret this result as normal/abnormal . HGB (test code = 9.2 g/dL 11.6-15.0 L 718-7) HCT (test code = 29.0 % 35.7-45.2 L 4544-3) MCV (test code = 104.7 fL 80.6-95.5 H 787-2) MCH (test code = 33.2 pg 25.9-32.8 H 785-6) MCHC (test code = 31.7 g/dL 31.6-35.1 786-4) RDW-SD (test code = 64.1 fL 39.0-49.9 H 07184-7) RDW-CV (test code = 16.7 % 12.0-15.5 H 788-0) PLT (test code = 168 See_Comment [Automated 777-3) message] The sy stem which generated this result transmitted reference range : 166 - 358 10*3/ ?L. The reference r darshan was not used to interpret this result as normal/abnormal . MPV (test code = 9.9 fL 9.5-12.9 20462-6) NRBC/100 WBC (test 0.0 See_Comment [Automat ed code = 5530067827) message] The system which generated this result transmitted reference range : 0.0 - 10.0 /100 WBCs. The refer ence range was not u sed to interpret th is result as normal/abnormal . NRBC x10^3 (test code See_Comment [Auto mated = [id number]) message] The s ystem which generated this result transmitted reference range : 10*3/?L. The reference range was not used to interpret this result as normal/abnormal . GRAN MAT (NEUT) % 64.9 % (test code = 770-8) IMM GRAN % (test code 0.20 % = [id number]) LYMPH % (test code = 26.0 % 736-9) MONO % (test code = 5.5 % 5905-5) EOS % (test code = 2.9 % 713-8) BASO % (test code = 0.5 % 706-2) GRAN MAT x10^3(ANC) 3.87 10*3/uL 1.88-7.09 (test code = [id number]) IMM GRAN x10^3 (test 0.00-0.06 code = [id number]) LYMPH x10^3 (test code 1.55 10*3/uL 1.32-3.29 = 731-0) MONO x10^3 (test code 0.33 10*3/uL 0.33-0.92 = 742-7) EOS x10^3 (test code = 0.17 10*3/uL 0.03-0.39 711-2) BASO x10^3 (test code 0.03 10*3/uL 0.01-0.07 = 704-7) Lab Interpretation Abnormal (test code = 88592-3) [facility] [id number] 10:52:00 Test Item Value Reference Range Interpretation Comments ABO & RH (test code = 20) A POSITIVE IAT (test code = 1185) [facility] [id number] 10:52:00 Test Item Value Reference Range Interpretation Comments ABO & RH (test code = 20) A POSITIVE IAT (test code = 1185) Negative [facility] [id number] 20:11:42 Test Item Value Reference Range Interpretation Comments Case Report (test code Surgical Pathology ? ? = [id number]) ?Case: [id number] ? Authorizing Provider: ?Danilo Cummings MD ? ? ?Collected: ? 07/07/2022 1357 ?Ordering Location: ? ? [facility] OR ? Received: ?07/07/2022 1455 ? Department ? Pathologist: ? Augie Walker MD ?Specimen: ? ?FISTULA, LUE FISTULA ?ANEURYSM ? Final Diagnosis (test l7laeGJwCSMnj4iuGWUedT code = [id number]) FuZzEwMzNcZnRuYmpcdWMx IHtccnRmMVxlcGljMTAyMD NhPG0fcEhzqDz6iPaqSJBr pjV3jVXqYYggi9ayUOZ3l9 bcjbtzIJMtOTztOw2uwGDx aPgqYbJqZYWyIKr7bF43GJ DnbY4qgRKvDBv4PXOhmAEt cpBcRoGaBPJgyHWpuJZ2JN BsXL7pbtffDDknRGpmALUl wuZ0MKLvdHJyH4IbATNbDE 3whfhkVWV0WOhuCWOoAIX4 JcIhJCAgk2Oljys0UiZnrK FyZFxwbGFpblxmczIwXHBh ciBBLiBGSVNUVUxBIEFORV VSWVNNLCBMRUZUIFVQUEVS IEVYVFJFTUlUWSwgUkVTRU STNW4QTukqGEIvUQGrEKYs QKIVJ1ILHBFFLJmHCTjSPN inKNOGKZ1RXwFQYWFXNMGC SW9WCRMgDT6YHBQEO7JHAG GYIMUEVtiGJQIVD69iiVUq BZLdrwDPEUhmu9BaRXZwOR whK67bkkarYYGwXEQiTd7i MDIzICAxMDoyOSBBTVxwYX LlLlZqQwxqQWZ2j4vqhRYe XHNzdGVjZjIyMDAwXGFuc2 lcZGVmbGFuZzEwMzNcZnRu HmwylEVrUUTiHyRcq5jhi1 44uBTfh2szTQNuPwX2bIZa PRPyaYdjuzi0jJypCwDgJZ Euf6loltXmAqQjGACiVBBe WQElmMJgX077ADKbBElow9 krg8WvFHTisHTga2J3UTTI BXjpRmAeH861d2drg7enmf IokDF3EEHmZJY5NQvowfPr zxY1UMupuZMuJwR0KWwney XnHDjvcuCbevLiSqn4JOFy B432TVV7yFysi3vbGLP6NT CeHUIsExcgLh5bjLScG046 CBDmJWYZXAWpkHj5IRCvjs CpbwXtxDCMl940W892f1wn SJBkntOoaDlXbjbhz0cfD1 19XHBhcGVydzEyMjQwXHBh lNIgoAQ5GWAzUC5tlsyyEP inQKonVUVbabX3ZKIhlTMt L1GxRMNvRL6nscfrHZP3EA ukEFExRNV5UuFwAUKxv7Dv neu0DyBhtr8kdt32EBZ8d3 SzkBelSCM4EJA0QqGcYn6x aDGeXHRqMO3lGnPzzHYzYN Nteg64pSzyMDpmbxKncX7z UdIrBLLicLNhFSKhSE1lpZ GqYQUseH5mhrnaNNQtEsNe zoljRJQvpKyqoaVeQp2neI qiGWA5VHkqG0wpaW8gPrI8 OUzgF6huzR7sMQq6WRfsuT W8IMMlrR7nIY9prltyb1ta OIpjLXthVSUeviZ7uoM6OU QdtCYbQ1EuyI5oBPUrVA5f yalue5xxMMD0ELttKNSaBM V3LbAsEPWqk1Pdsee5ZkJk s3UfgZHsRPkkN54na023TV MknaUkW8lsvLOwxksjwILs ysbrHWqcyzK1DLYxHWMhCP luXGYxXGZzMjBcbGFuZzEw MzNcaGljaFxmMVxkYmNoXG NsFIzcP8juWzNzI1UeWPZp SkAtbTOgYEouaHA3JQDmUX Owb41raSz8YKUxqujpd4Na PWHisITdsEXyeU0qpsPcv5 jeRAYxJONfONShH1AhXCG5 dRPrEOYxbQQxlQG6AE9qtw JxWG3yCCGfVwsentXibRAv fsNfRMSbFFadq9voSP6vCT MzbVihwW6cqUS4QOAqs5wa qXDzxVPzx3yqu8YaayNfOP udRRDkUZlnRZQtFUNrPH1o JOKxbIUnbkTwm8G1GjuxyW KlrbabMdbaakB9UKuoaetz EVFxDSnzU4amDoXlHPIliE odQyewm0KbWCKrWXBpQsat cGFyfX0= Clinical Information ESRD (test code = [id number]) Gross Description (test y2evrEGmXANajMDiOSDqLx code = [id number]) fhfiHqBKPwbJTeA3Dcrliz VIwwVJ0dMQ4hkWhrsLPnuL WcHFUfFtHau8qrt712yZAw p8psCLHUbisfiLv2qTmqJ0 1hy4H7UcrjY41ftIFqQFC9 UXDmGEKuxAHsMHQrBCE2KM UgkVIgY5veVGUvFC7sohom ACkeQJidSDJdaVY7SWQrcM BfO8TiFFYtOPawFWResir3 TgBlRf9reKXciVxtIKufEy ifgDlzj3ZzhDPcSFcySPJv ZIWnPJqxKSRoK5ZWRRFlRn F2Fvc3GzLaXhOECIC3UKvf NTkgRVBUICIgIFoxOTYzMD AwIiBMUlIgODAwMDAwMDAw KRDqEG9tBHzriXMdSZnaIf reQUfnL862COdoOCBhQ4Os V2LaXQujJPR8LGNmFiJdLE HvUQ4LKuVsFOLvSKT5GVHe GJh1FCv7BK6YNkHiRYZnNB Z1Kcr6WCPcPOf6QCcyXU1H MLT4OIFfMzGmJLUlVMI3OT mrEOf3RWRcSVqupxGnPOxs QnpcOQlbN46loPEdLXofwI FpblxmczIwIFNQRUNJTUVO FZRvpVZiZYCjdmSlh6JcKR jveHtoEHQjPkForRfauZ4t AvVpPiHJsZXjuH6hztFDQV jcEFIxB3ByunHvZOEjAZAa LCBsYWJlbGVkIHdpdGggdG msAANvwHmaqyFbpyKzPF1c LWNQISHjgP1cANWkUUHDSH WlJyjmcKIiBAAicnD0hkdv sEHaWQ4zWKVtswVjn5KlMA 8xYDNytE6ssZvslxVnm0Xx kTDmEFGfkvalIC7aJHzblX 0orokwQ0ibDRP0hIS9tGQe UQGue6N1EXNiz9U0OGLxWh 8bNOwbRj4vOJcqQd44MJNu IGFuZCAzLjkgeCAyLjkgeC XmRwFrT66kWvJJa4NsLTZe FBCwoVMlueBuixMmj4TrsG XvbAgli1DgjMyuwkOzMLHr IHJldmVhbCBhIGNlbnRyYW efD8Y5zQE9SVmamEDzzELy PVDaqEDsVTYmyFAeoZ2xlw tbPl65XYMfXNzsHUIlCX0b dGVyOyBzZWNvbmQgbWVhc3 BtWXJzc9GtK6toQK69JQXl NCBjbSBpbiBkaWFtZXRlci kgZmlsbGVkIHdpdGggZGFy pw4fQMPozunaC526mrQcJI 1vcnJoYWdpYyBtYXRlcmlh cH6fLAsmXPYxjSLtwkexOo OzzQJit4VtFxYqQTTtBASp ZSKjsx33AJcsr4kpFC5oVI G3ixhrmIVmCoQCYQTlQIVx yuLioGm5YFYwLMO6zA1gbx BceoTwf3GnuBy5dYGrMRmh IEExLUEyLlxwYXJccGFyZF viGFHlT4IhvErumfUkq4Ja IyypRWVfEQP1UIOneyH8LK 0mGQL8uqNeSRUvFCHrnRQo JQPayt1oalBxIYM9qT8wYH SlxJOuq3MduRQ0vMZmHFOi cvWXSpulo5Epz77gKX3yBT B7ytVkNFXjWJUbnATlOKPg cz7quqUaNIJ5hL6nFUOwEH BlSOWixmTjmLc9ZVotAENn vQKyAOWxVwYqIGJsN2urAB HtEBgks8ZmDN2eA2JyTTQd gGnZCZY0aRYdrhSryOdmPW GGQLR6UFKjnzUocEuyITIL DUIaTISALJw5DUHsnPZdGB Q2IZ7lyMkdTNScP9ZjD0Hq kkS2TFPlru2= Disclaimer (test code = j6avcXWvWDJhm8hoVJGapS [id number]) FuZzEwMzNcZnRuYmpcdWMx KOdkwwOgNUaij2UkZ4ClSt AwMFxhbnNpXGRlZmxhbmcx GXWaVJG6hyZpDUSdQVqcIE GvTIztLv3moMIprHawJrFe PVQsr9uuutWWIRjgYoFsA1 42BLJaUHefm3qri6DuXHDq oVWea7Z5UYYVhlfvaZs5uA eeX51ww9H7WicoQ6ckFVTe UXNlD1NnPU1eHRUqGsu2NC Q3NMO1FXRgSBJeX6KnSV6m UYQpbHHrJFg5m1ivjPeoIH FqQQJ0q9aeYKjttfJiWT2r tf7zxZk3a8hvlhHhPLLlUB LdjXXQAPLtC4FxvGbsOo9c aFx6oAzuDfwiQWT0Feg0YB 3oeh04wcs4pOcqCXTyqcwo MdB6UYbeZJExcnlxVJu3AO qdTGNbdSZ2AJDekQUtS6Kg EQFsAK6yztj4BRA3FWfpZS ZcCbO2SVZacOFrGQWceYsu HVbfb865HBG3ZkQjSK9jJ8 Rnb4U6tC9xuGUjAMKfuHIt PySuOCBefe9yiSNyQHyyj8 SeFNT1tjR2iNNdhLBrDRVl XX52Plooh7KuMkqzz2FtI6 8utOS3JZwxh5cqDS2xKlF5 byLcMGwea4cmkJ9qGeK5FG llWQ6aIK3oKUHnvX2nxlbj XHBnYnJkcmhlYWRccGdicm DsCq0drZmfFOE9LXevP0sx eV8qVpA1MRmaO7ewwF7gRX m6RXeubPU0SLTtaK5iBU8c kvknu4cuPCfjEGozJBRcyb T2itG0FTMocKWyZ7VygX9u BEHiLL0qmlqws6huXZO3OK cgKVGuXHA3CkRnTNUna6Wd wiy9IsOjq7YuoHVvWByaV1 2md248HBTmeoEbD1yxnOHz ahqzyZSwagvwHViqdbO6XD WjozCso3JbMSXfSYV0NBmt LEaqqFVyCOPbgRukv4iiK5 RscGFyXHBsYWluXGYxXGZz MjBcbGFuZzEwMzNcaGljaF oyVJzpWrZrJOFsVSgaS3yk EnRcE4HmXMOkZiAfuSSqK2 ggVGhpcyByZXBvcnQgbWF5 VErgC4y5OHFmkgIxxFd7qd EgFgOvKNZrRXC5CGqtePGo LMPhl1HoaqttqGLuFf3jaI VpITCrgN9zBLFxJBEdZXdz XJ7myTn5SUZNyLYrdJRyPl FPNOTsTR17ykRoDSMJohag s0X2ABttVSAnz7DgkQKyB1 awo6XvOEHsd86pWH6oc2D2 y2wmMMD1YR7hf1PdHJPfnZ NeePAoMUIdb6Swhcqfu5Fb LSJycwEea2SmPOLmffOfbB ZbXZDagoXijp2dqySkMVLx LGZsA3SlcmqwsRyzceNuIU Hfbx8oaeDnMRE6XQJYXWOg YHOrw3UurN7cbDCKDSY4hK Vvvo0lhrZQzNHoBFUqof37 LDYiWJ8aS3udYJBgEETyza ZtmSMvv9OkQZPvzWG7mBCg VI3MQtJGe15sXLAtNAWJqb KoBWRkoTvuaLO1twX7fI4j IChGREEpLlx+IFRoZSBGRE KmQN8slhHjt6MvhsObiXhv NXQnlEOlj9FysBGtu0WpnU hrz0AldIAcbMVkAJ4fJGCc clxwYXIgVVRNQiBMYWJvcm U4l3PmPREhAPKsQOG3pPpg izm2MFAeiP3qMVPvQ3gjls fcVIgvBNFst8LajB4mxFMN jAUnr4OssTEkxDSWtHXgAY 6hkiZfJEmGYCtRNRC3ilZc BUGuc0RaODtbJ8hvQ07uhW rbaYm2nVL7DYA8gM9wHyg+ IFxwYXJccGFyIEFwcHJvcH OmCKOudMpvohOcI6NctzJv lG8vrFWobuSjHX0pLO6dY3 Z8aCClLVSweiQoh1vmKSjm dmUgYmVlbiByZXZpZXdlZC Ggw2EnEFehDAX2CHdcxgBa bmNsdWRpbmcgSCZFLCBTcG YciJAoWLO8PVvnfjIjkgVj TG0vuF5cuAfbjA3fbVBhmL H2wlnxFXYgPTAndAfkCFNf OR5yfXKkXWRlarQOqLrqqF LdkL2tE3RlCNVfOVHwsd1u ECIjgW5cQKmdu0FcwtwpKH RiFIDcRMVpxoBjkj4xUKRq oYOVGR2KYUvhtZZiw2Ucsy ZyB5xAVBH7MTJpJpYvPzln KTAteYWptEQnYACgni20XK CcnA8oaMcaMADruK7ldG3g xBxoqN1wTfTeBgThCShvWV 7iCWCmZ2bxnLIlFISvBWUf C6cpKzLqaM0bpIuoHWjyPe QtBoXyVDncFVR6aY== Embedded Images (test code = [id number]) [facility] [id number] 20:11:42 Test Item Value Reference Range Interpretation Comments Case Report (test code Surgical Pathology ? ? = [id number]) ?Case: [id number] ? Authorizing Provider: ?Danilo Cummings MD ? ? ?Collected: ? 07/07/2022 1357 ?Ordering Location: ? ? [facility] OR ? Received: ?07/07/2022 1455 ? Department ? Pathologist: ? Augie Walker MD ?Specimen: ? ?FISTULA, LUE FISTULA ?ANEURYSM ? Final Diagnosis (test t2plsOTkRELzh3agNOHgkW code = [id number]) FuZzEwMzNcZnRuYmpcdWMx IHtccnRmMVxlcGljMTAyMD AvAB0poPzjdTr6vInoPVFk svD3vBIgMHjvu2zeLFF1c5 hqzmdbEEBvWTjzPx9qaGNb tBskVeCfCCHtWYz7nO66OO AdfQ5ofTEnORu4IHBnoFGh kuNyOwHkMHZkwAAmuOT9RN MhQW4wfmraLZlsYRxrKIBs anZ8UQEsxXWmU7LdRZLwVU 1qzffoVPM5MEsrRKRqMUB1 JpSwUAUms5Xkgoa8SuHdvY FyZFxwbGFpblxmczIwXHBh ciBBLiBGSVNUVUxBIEFORV VSWVNNLCBMRUZUIFVQUEVS IEVYVFJFTUlUWSwgUkVTRU NGGB9SPslfKNLuZAUkDICi UIZJK2YFSSCLWIgXXRlLSP ouHLFCMR3XChDFEGZEZUOD KD2KUQXmSY9AUNTWZ2CTZC BKXIPWOhyKXPRFS23ktTDl GNVpcrGGDScql2YzOPRtXF tkP58zechqTGCfIDDxEd8b MDIzICAxMDoyOSBBTVxwYX FmJtVgJyedJDG5r6cclDSv XHNzdGVjZjIyMDAwXGFuc2 lcZGVmbGFuZzEwMzNcZnRu YqvonCDdUCCzJyZsf0ndm5 25tPOoj4jtCYOrYnO6gIMk HCIvzXoostc1bEkfPcIcAS Fft3syneFbKpYdPFLqNHPh PGUpnSEvB380TUCsFLguc3 csx8TrCVKagEXvv1H7UFVJ DVhpEcPuD136e1ltd1jano HmdNH5BHCuDCJ8MEcfcrZo xpJ4KRjvyLVuGeF1MLtszp RfNPycdoXojgOaLys0VEIl X875UPM7rVqus1qnQUE5US CqNXZeErxxVw9doYBfS582 VYNbSEHXILMnnRf8NKTvwu RkosXjmQRXr881D039x1ap FBHafjGsnBjAuuujl6pcN7 19XHBhcGVydzEyMjQwXHBh qREjwPR4YTQiRV6criefWB avYNaeFIAvpiK6RHAesSRh R9NvJPJkLX2nwmweIAY0ZU avQJUmTUC4IdUaHPYhi8Is sgx0NpNbsr4jhx90PJG8p9 EglXzoIAT8KCZ9DvBpBs0i uMIgHXRiJW3lJqJxyVLaVX Tmoy76qJucFXemwpWhtS6c GfCoDJThcOAdTJRvQD5dbX YmXPVdjA0hoodzGXObFaRx cfxcQMQgoOquudStGu9exU jaSGS0BEtlJ0ajxF1dCpL7 BUqwA0jitQ0jGKi9AAnqaC M3PCPhsT4mUB9ctxxrh8yx PUywIZscVJEkqxV1vvG5ZR CqbALjE8WqgU5dMDBoLE9h jjxio9rjWRQ4LYssSOIfIE X8BnAiYHQqa5Hkuln7ErUe j0OikNBuNJygG74wr810AC AdciKoC7tnoAHvoksqlZLb uxiyFTwnydQ1NUZgLVPvWY luXGYxXGZzMjBcbGFuZzEw MzNcaGljaFxmMVxkYmNoXG ZvJZsjJ3khZbIvV2YtOAOv BhAeyAYaCKpyuZZ6JOSfFA Jxf41zoRp7LRYscilao3Ft YTKspELteNHdtR7nrzVro9 meKGBzZUNyEZXlN7MbJSP9 rUMkYNQljVPfeNJ9PV9ifn JkBE3uJTHiHayjtxRfpPVf tuPzHHUbYQliv6bkFQ1cQS RrgHjynL7wnWW1YAKsh4iu gQXkfHHvq6kkd0PsjqCiZD jjBQUmXOpsPWNrWZLfUV1g TMPgjHAlceGev8E6OwdobE MfigueMyopgvW6AUyyvzsb MNYzJGezI3lfEhIsSPXuwZ bmThucz5QyDPLpIFTwCzot cGFyfX0= Clinical Information ESRD (test code = 0425050981) Gross Description (test h2bskOWfLXByiCVdBCSiXq code = 4425369644) umnyJiGIZmvUIqO5Uhcgvw DWklCU2iCO5drJlksMSykF TeXDGpGmNio2xll446uDKs h2xsZXKZuvplwPp1nIlhI6 0sd9A2XcmeX61mlLVyYZQ2 WCCcBXRlxYLtPISjJDR1PR FphPRgH2dzEHYaGI7rtroa KWvcTWstVGFojPS0KSBakR JwP1QcVLFnGDebMAEagea8 ZnUdMa0nrMLjcKzvMMwwSk hzeQdsw9XsfNNfVVbiPBVz QBCgMSudTGRiQ6IOWEZmWx G2Lfy7KwBeYrUSAVE9VWwn NTkgRVBUICIgIFoxOTYzMD AwIiBMUlIgODAwMDAwMDAw HZXjXT0pYKqqbMPrPMccZs fcQYdlH110YSzaWNBfU7Jg Z4AzDNeuEGH4MFHtAoVoYG UdWH0KIqPcCULhTGL8DGXw GYt3CTt3QR1HOqOfWFJqNJ E8Ags6XXOqGYt8PDbvHG6B FGB0TPNjMrLqEYCeHZZ7TQ ckANx9JGDfWWiqlmNkVBwg KbqiYBydG81reBHfWWvtzH FpblxmczIwIFNQRUNJTUVO DPDgpMEfMXPcuhYae5LwFZ wpwImsIPVoJcGgbHxyaL4c ApJyCgRQyHWjwF1znyMWAF aqJCTiE3ItonAtBTEmZARb LCBsYWJlbGVkIHdpdGggdG sxJTUnsNypuaPoygNhQO4y KJRUCSPsnG1lZBVmMDWUSW DiZzxyvVNfIUIjcfN8maao uFMdXK9yWMQmxfJuy4LuDU 9hIZUfiW9vmVvwciIhw5Oe wLGiZSTztshxJM7cUKthoM 0pnmwhT4cqCOD1mJB4wEQo BDRti4W6OCQsu0O3DQUfPu 7wNBilTs1eIYjzCb63PYBx IGFuZCAzLjkgeCAyLjkgeC JpZoWvS46vVvWZg6ZuLUBl ZKBklCTyrhGwveSlm6QvuZ VzxBfbi4RylEliffMnXUCj IHJldmVhbCBhIGNlbnRyYW jbP4O4fFD0PMrqxUAfnVQr YQUwtNAhNYOxyBHowW0aac taAr17LJOvGPjsHAEtSW3b dGVyOyBzZWNvbmQgbWVhc3 PfMSYza5IfA8hcNQ46JPYy NCBjbSBpbiBkaWFtZXRlci kgZmlsbGVkIHdpdGggZGFy af5mVUNnffqmD525zgLbXE 1vcnJoYWdpYyBtYXRlcmlh mF8yYBnkGYAivOKnzfbwDy FnxLIxb4EtSrGdLKXqLNWu YDSdxq24YLndk4xjPG9hPH A9zyqoiYTlLdEXUVIxRAEi blWbtEr4HYNuLNL4bM3tfy VmuaMxm1SbyRe4bKWuXUxl IEExLUEyLlxwYXJccGFyZF ktJMQpC6ZgiKlsmlTmp5Id BpkfSXQsGEZ4TIGitaQ0TE 0hFOY4bsExIXRuTDBtfYZs MIJkeu1ojyUqHBZ0hT4gMD LoaUTdg4WdcCP5kRWmLOQt udVSIbbnt1Oyg50hXI6dPB N4zmDbROAgMLTvsTUhMVGc qr6vevOqDMQ8lU5rYQFqDI JbNSAxnmSalPx8WPhbGTYh tQPxKOOvXpVmZMCvA0rcTO GaLSyva6SbPI0aZ3KlXDDu qHrVRMC7rOQqrjOilRctNQ LEMCM6OWIiloPvhAhbHTUI XZZrQQKPIPk5MYXmrXKtAO R4PF7nyZnsLGYiW1RhO9Sn tdQ5UDUvot2= Disclaimer (test code = t2hqxBXvMHBzu8sjCGBsmS 4605228599) FuZzEwMzNcZnRuYmpcdWMx USqgtjDlMRrgy8PjC4EbPg AwMFxhbnNpXGRlZmxhbmcx JWAhYNV3llQwBQXaKXtqPJ PcVEobEb7kiSMeuYmbCnQs AEHaa4ldtbFCHCwcHsSlA3 47PAKjHWseu9hju7JlKUNr aOYeo9F1HQDRaicazIo8cH qgH00pb0F5EqwsS0bqJIEb VEAqV2NyLL3bOIKxYgn7KG Z7HDZ5DTCcHYFgL2IvVH5v RZDklFNtFDw7b8ddvVvwPG HyYVC9w5qdSDhidjHmCZ1q xr7ywQb4y3sfdmJySVTuYA DjrNFWDDHmZ6UgsUivHc4p rWh5iKrcLuwyMYQ2Irp6VM 0fkb70zqm0jMwnKPApdawh DtK9FNvmMVNhfsulOLd2FF avRLPpkCR1KCFjdEPbQ4Xq MUAsML9latq0MBG0WVzcZW LvNgO2LWWyrENiXAHtjAtj MVfgr638CWM7IrSjQU6pC6 Bto1P9qI9elPFnQVDppUQi XjAsORMjhm2cnECyMGzar8 QwYTH2lxP3uBMvnEThWTAb PA69Nwuhg5VlEagqt4PhH9 1epAN2YZcyu1qjYV4sTzO4 ekDgROqdh2xynQ8bHoQ2VB tyQY9xUQ3qENYsmZ9xfhzk XHBnYnJkcmhlYWRccGdicm JcRv3loMuaAIV9SEeaY7xo xE8xIeD2XDsiK1swcX0cHC n2ZLuasEB9CUNrrE0vDV0c evaat5etQXmgKKfvXBZauz M1loP7BQImcEFbS2LszC9s YZApIC9tifcee5ugWOP3CZ koFSXdLKQ2RaSeNTQum7Oc caa3HhPfg1QicXSxLApaQ6 7az636DMBhiqPiH6ievQWo gdrelNEbqtsnSGaobxT0FG XtjhXif7RnRLYvTMO9LGdd QUayfGKfVEJlwYcww0ctL1 RscGFyXHBsYWluXGYxXGZz MjBcbGFuZzEwMzNcaGljaF vwTHxnEvSaSVAlFBckY6zu YfRaO7MuFEMwQrZcfXIkC3 ggVGhpcyByZXBvcnQgbWF5 ENwhE3u5WHGbilQmkWx9lx XqQgMfOTWwNNQ7HBwetEZy UHVcb2LzjzpdcNSpTz7amI IhZPQliG7uARGxKCBcGAla FW1qtHp9HKDGqKQfwZSsJp RFHQTjJE06ayZqKZQJopgp r0I2UPinTNWls3OtjLRrS6 qnc6ArDIGin68dCY9lm8K5 o5qaLIW4YK3lk2VwECYjeK XbdEYpFBBhi7Koavnhd6Ce HEDtmhImd6JcFSPzrvIpbP HqKSMdkvIzcw7twlWcHKRl BPMfG7SolcoymPkdjqAyZJ Pnin2yxwJnFKC6FHERIDVi KIRfl4BmlQ6swCLKNKO4dJ Tjtg9xbxBDnNQkLCXtxb77 ZEWmBJ4oF9tzTPIqWKCmzd ItwHXsh0UuUVPkiNJ5yRJe HZ7NNuGTz67oVEXtGSDZvf IoQCUudZdzuFJ1xxC1aB1m IChGREEpLlx+IFRoZSBGRE FgNR9itkWtr6EjlxNimVcz GTHldIHfa6XesSBdq9ZppO gon8JinQSlqGIqTR5dFNAg clxwYXIgVVRNQiBMYWJvcm G7n5SlOBWfWZVsKZI4jSoj faw4ARJyeX2tFMSwN6mjmo jeCBrnLQGly8CquU4htXNE lYGga6LiiTXhtQPMnNGyVJ 1tztBoSAvKVTbXHIE3ugNo PMCih4ZsMTslI8lpM14liL deiIr7lLZ9LHV1gY9yCmt+ IFxwYXJccGFyIEFwcHJvcH PqIHYwqEdpitTlE5OfzpAx eF5zjVJjeiLhHI1nNJ6qV3 D7vVSpGPXlfkMpa1zfBRju dmUgYmVlbiByZXZpZXdlZC Hur7NdJPinBJJ7GMszwaOq bmNsdWRpbmcgSCZFLCBTcG XnuIQwTED7DWkcqgWddcIg TD8coT7ooQfxdR6umVGptN B8hwxiFUDiIXEhrRxuEXHv XK0uiDPmOPQmdxRXoFqlaE CicO6iP2BmVIFdIJTbef6o CTDsoW1pTAatr7VvqqthIU VgVVYrYEYoerJdyg5oJELe jVPCIR7EPCiypRMck8Ymfz OmZ4oPEAM1SJGnHvNxZayg GGEiyAYdwUHmPXSwoa17OP VihE6goQsbYVYimI0znU0d pLlflA8sJrArYmGbGVirNZ 2lOGTvD8qdnAMwUDKzFPXo E0rfRrRxqC4wvVrxZNyeGo CrJmOyUUpcPSR4pX== Embedded Images (test code = 8876953893) [facility] Packed RBC (in units), 1 Units 2022-07-09 23:09:48 Test Item Value Reference Range Interpretation Comments Cross Match Result Compatible (test code = 4409) ISBT Blood Type Code 6200 (test code = 010090) Unit Blood Type (test A Pos code = 4410) Unit Number (test [id number] code = 4411) Blood Expiration Date 572609701713 & Time (test code = 381258) Status Information Issued (test code = 4412) Product Red Blood Cells Identification (test code = 4413) Product Code (test [id number] Performed at [facility] code = 4414) Laboratory Services - [facility] Blood [address] [place] [address]Zsub Free: [phone] A No. [id number] [facility] Packed RBC (in units), 1 Units 2022-07-09 23:09:48 Test Item Value Reference Range Interpretation Comments Cross Match Result Compatible (test code = 4409) ISBT Blood Type Code 6200 (test code = 739231) Unit Blood Type (test A Pos code = 4410) Unit Number (test [id number] code = 4411) Blood Expiration Date & Time (test code = 011401) Status Information Issued (test code = 4412) Product Red Blood Cells Identification (test code = 4413) Product Code (test [id number] Performed at [facility] code = 4414) Laboratory Services - [facility] Blood [address] [address] Free: [phone] A No. [id number] [facility]:52:34 Test Item Value Reference Range Interpretation Comments PHOSPHORUS (test code = 4599528696) 8.4 mg/dL 2.5-5.0 H Lab Interpretation (test code = Abnormal 40361-0) [facility] 18:52:34 Test Item Value Reference Range Interpretation Comments PHOSPHORUS (test code = 4084841734) 8.4 mg/dL 2.5-5.0 H Lab Interpretation (test code = Abnormal 46971-6) [facility] 18:52:34 Test Item Value Reference Range Interpretation Comments PHOSPHORUS (test code = 4807380322) 8.4 mg/dL 2.5-5.0 H Lab Interpretation (test code = Abnormal 35939-3) [facility] (NA, K, CL, CO2, GLUCOSE, BUN, CREATININE, CA)2022-07-08 18:16:48 Test Item Value Reference Range Interpretation Comments NA (test code = 134 mmol/L 135-145 L 0349250690) K (test code = 5.4 mmol/L 3.5-5.0 H 9472036770) CL (test code = 101 mmol/L 98-108 7742227318) CO2 TOTAL (test code = 19 mmol/L 23-31 L 7932256706) AGAP (test code = 14 2-16 1860853370) BUN (test code = 81 mg/dL 7-23 H 1004300815) GLUCOSE (test code = 107 mg/dL 70-110 3662384862) CREATININE (test code = 18.18 mg/dL 0.50-1.04 H 3586101604) CALCIUM (test code = 8.4 mg/dL 8.6-10.6 L 0481838577) eGFR (test code = 2.1 mL/min/1.73m2 0954884509) ADAM (test code = ADAM) Association of Glomerular Filtration Rate (GFR) and Staging of Kidney Disease* + --+ --+ ------+| GFR (mL/min/1.73 m2) ?| With Kidney Damage ?| ?Without Kidney Damage+ --------+ --------+ +| ?>90 ?| ?Stage one ?| ? Normal ?+ ---+ ---+ -------+| ?60-89 ?| ?Stage two ?| ? Decreased GFR ? + --+ --+ ------+| ?30-59 ?| ?Stage three ?| ? Stage three ? + --+ --+ ------+| ?15-29 ?| ?Stage four ? | ? Stage four ?+ ---+ ---+ -------+| ?<15 (or dialysis) ? ?| ?Stage five ? | ? Stage five ?+ ---+ ---+ -------+ *Each stage assumes the associated GFR level has been in effect for at least three months. ?Stages 1 to 5, with or without kidney disease, indicate chronic kidney disease. Notes: Determination of stages one and two (with eGFR >59mL/min/1.73 m2) requires estimation of kidney damage for at least three months as defined by structural or functional abnormalities of the kidney, manifested by either:Pathological abnormalities or Markers of kidney damage (including abnormalities in the composition of the blood or urine or abnormalities in imaging tests). Lab Interpretation Abnormal (test code = 20819-2) [facility] METABOLIC PANEL (NA, K, CL, CO2, GLUCOSE, BUN, CREATININE, CA)2022-07-08 18:16:48 Test Item Value Reference Range Interpretation Comments NA (test code = 134 mmol/L 135-145 L 8355836313) K (test code = 5.4 mmol/L 3.5-5.0 H 8291328346) CL (test code = 101 mmol/L 98-108 6884898223) CO2 TOTAL (test code = 19 mmol/L 23-31 L 7533716457) AGAP (test code = 14 2-16 5721162334) BUN (test code = 81 mg/dL 7-23 H 6445108534) GLUCOSE (test code = 107 mg/dL 70-110 2258667020) CREATININE (test code = 18.18 mg/dL 0.50-1.04 H 4928000004) CALCIUM (test code = 8.4 mg/dL 8.6-10.6 L 3907569503) eGFR (test code = 2.1 mL/min/1.73m2 5482584893) ADAM (test code = ADAM) Association of Glomerular Filtration Rate (GFR) and Staging of Kidney Disease* + --+ --+ ------+| GFR (mL/min/1.73 m2) ?| With Kidney Damage ?| ?Without Kidney Damage+ --------+ --------+ +| ?>90 ?| ?Stage one ?| ? Normal ?+ ---+ ---+ -------+| ?60-89 ?| ?Stage two ?| ? Decreased GFR ? + --+ --+ ------+| ?30-59 ?| ?Stage three ?| ? Stage three ? + --+ --+ ------+| ?15-29 ?| ?Stage four ? | ? Stage four ?+ ---+ ---+ -------+| ?<15 (or dialysis) ? ?| ?Stage five ? | ? Stage five ?+ ---+ ---+ -------+ *Each stage assumes the associated GFR level has been in effect for at least three months. ?Stages 1 to 5, with or without kidney disease, indicate chronic kidney disease. Notes: Determination of stages one and two (with eGFR >59mL/min/1.73 m2) requires estimation of kidney damage for at least three months as defined by structural or functional abnormalities of the kidney, manifested by either:Pathological abnormalities or Markers of kidney damage (including abnormalities in the composition of the blood or urine or abnormalities in imaging tests). Lab Interpretation Abnormal (test code = 14277-5) [facility] METABOLIC PANEL (NA, K, CL, CO2, GLUCOSE, BUN, CREATININE, CA)2022-07-08 18:16:48 Test Item Value Reference Range Interpretation Comments NA (test code = 134 mmol/L 135-145 L 0819869425) K (test code = 5.4 mmol/L 3.5-5.0 H 0267729109) CL (test code = 101 mmol/L 98-108 7432270226) CO2 TOTAL (test code = 19 mmol/L 23-31 L 6652346574) AGAP (test code = 14 2-16 2132609687) BUN (test code = 81 mg/dL 7-23 H 1491136080) GLUCOSE (test code = 107 mg/dL 70-110 1926754479) CREATININE (test code = 18.18 mg/dL 0.50-1.04 H 2907904996) CALCIUM (test code = 8.4 mg/dL 8.6-10.6 L 3589300540) eGFR (test code = 2.1 mL/min/1.73m2 7144665737) ADAM (test code = ADAM) Association of Glomerular Filtration Rate (GFR) and Staging of Kidney Disease* + --+ --+ ------+| GFR (mL/min/1.73 m2) ?| With Kidney Damage ?| ?Without Kidney Damage+ --------+ --------+ +| ?>90 ?| ?Stage one ?| ? Normal ?+ ---+ ---+ -------+| ?60-89 ?| ?Stage two ?| ? Decreased GFR ? + --+ --+ ------+| ?30-59 ?| ?Stage three ?| ? Stage three ? + --+ --+ ------+| ?15-29 ?| ?Stage four ? | ? Stage four ?+ ---+ ---+ -------+| ?<15 (or dialysis) ? ?| ?Stage five ? | ? Stage five ?+ ---+ ---+ -------+ *Each stage assumes the associated GFR level has been in effect for at least three months. ?Stages 1 to 5, with or without kidney disease, indicate chronic kidney disease. Notes: Determination of stages one and two (with eGFR >59mL/min/1.73 m2) requires estimation of kidney damage for at least three months as defined by structural or functional abnormalities of the kidney, manifested by either:Pathological abnormalities or Markers of kidney damage (including abnormalities in the composition of the blood or urine or abnormalities in imaging tests). Lab Interpretation Abnormal (test code = 08230-9) [facility]VCOOX+NA+K+GLU+CA2+2022-07-08 03:40:45 Test Item Value Reference Range Interpretation Comments PH (test code = 7.19 7.32-7.42 LL 9041747310) PCO2 NEVA (test code = 49 See_Comment [Auto mated message] 9473681316) The system Rad generated this result transmit roger reference range : 41 - 51 mmHg. The reference range was not used to interpret this result as normal/abnormal . PO2 NEVA (test code = 82 See_Comment HH [Autom ated message] 7687363705) The system Rad generated this result transmit roger reference range : 25 - 40 mmHg. The reference range was not used to interpret this result as normal/abnormal . HCO3 NEVA (test code = 18 See_Comment L [Auto mated message] 9010116602) The system Rad generated this result transmit roger reference range : 24 - 28 mEq/L. The reference range was not used to interpret this result as normal/abnormal . AC VBE(BEAKER) (test -9.8 mEq/L code = 6589689354) THB NEVA (test code = 11.0 g/dL 12.0-16.0 L 2428043354) %O2HB NEVA (test code = 92.7 % 52.0-63.0 H 4826378664) %COHB NEVA (test code = 0.4 % 0.0-1.5 6543834860) %METHB NEVA (test code = 0.1 % 0.4-1.5 L 2739799486) VOL%O2 NEVA (test code = 14.4 % 6.0-12.0 H QUES 2098571391) NA (test code = 130 mmol/L 135-145 L 6096905997) K+ (test code = 5.4 mmol/L 3.5-5.0 H 5168919092) AC CA IONZ (test code = 4.50 mg/dL 4.50-5.30 5109117459) GLUCOSE (test code = 88 mg/dL 70-110 5134035136) Lab Interpretation Abnormal (test code = 95378-7) [facility]+NA+K+GLU+CA2+2022-07-08 03:40:45 Test Item Value Reference Range Interpretation Comments PH (test code = 7.19 7.32-7.42 LL 3475815878) PCO2 NEVA (test code = 49 See_Comment [Auto mated message] 2620888342) The system Rad generated this result transmit roger reference range : 41 - 51 mmHg. The reference range was not used to interpret this result as normal/abnormal . PO2 NEVA (test code = 82 See_Comment HH [Autom ated message] 2362290875) The system Rad generated this result transmit roger reference range : 25 - 40 mmHg. The reference range was not used to interpret this result as normal/abnormal . HCO3 NEVA (test code = 18 See_Comment L [Auto mated message] 1569392882) The system Rad generated this result transmit roger reference range : 24 - 28 mEq/L. The reference range was not used to interpret this result as normal/abnormal . AC VBE(BEAKER) (test -9.8 mEq/L code = 7478388000) THB NEVA (test code = 11.0 g/dL 12.0-16.0 L 4397636482) %O2HB NEVA (test code = 92.7 % 52.0-63.0 H 5363613728) %COHB NEVA (test code = 0.4 % 0.0-1.5 4441968086) %METHB NEVA (test code = 0.1 % 0.4-1.5 L 3290791650) VOL%O2 NEVA (test code = 14.4 % 6.0-12.0 H QUES 9656557405) NA (test code = 130 mmol/L 135-145 L 2293011193) K+ (test code = 5.4 mmol/L 3.5-5.0 H 0230693734) AC CA IONZ (test code = 4.50 mg/dL 4.50-5.30 6267165857) GLUCOSE (test code = 88 mg/dL 70-110 6320048182) Lab Interpretation Abnormal (test code = 57898-3) [facility]NA+K+GLU+CA2+2022-07-08 03:40:45 Test Item Value Reference Range Interpretation Comments PH (test code = 7.19 7.32-7.42 LL 9169714859) PCO2 NEAV (test code = 49 See_Comment [Auto mated message] 1733654571) The system Rad generated this result transmit roger reference range : 41 - 51 mmHg. The reference range was not used to interpret this result as normal/abnormal . PO2 NEVA (test code = 82 See_Comment HH [Autom ated message] [id number]) The system Rad generated this result transmit roger reference range : 25 - 40 mmHg. The reference range was not used to interpret this result as normal/abnormal . HCO3 NEVA (test code = 18 See_Comment L [Auto mated message] [id number]) The system Rad generated this result transmit roger reference range : 24 - 28 mEq/L. The reference range was not used to interpret this result as normal/abnormal . AC VBE(BEAKER) (test -9.8 mEq/L code = 2016514720) THB NEVA (test code = 11.0 g/dL 12.0-16.0 L 6436476628) %O2HB NEVA (test code = 92.7 % 52.0-63.0 H 1378435323) %COHB NEVA (test code = 0.4 % 0.0-1.5 6429682952) %METHB NEVA (test code = 0.1 % 0.4-1.5 L 1857270716) VOL%O2 NEVA (test code = 14.4 % 6.0-12.0 H QUES 3169610128) NA (test code = 130 mmol/L 135-145 L 4838169054) K+ (test code = 5.4 mmol/L 3.5-5.0 H 2288075761) AC CA IONZ (test code = 4.50 mg/dL 4.50-5.30 4499329574) GLUCOSE (test code = 88 mg/dL 70-110 3450400989) Lab Interpretation Abnormal (test code = 77811-5) [facility]GLU[facility]CA2+2022-07-08 03:40:10 Test Item Value Reference Range Interpretation Comments PH (test code = 7.18 7.32-7.42 LL 5652052046) PCO2 NEVA (test code = 47 See_Comment [Auto mated message] [id number]) The system Rad generated this result transmit roger reference range : 41 - 51 mmHg. The reference range was not used to interpret this result as normal/abnormal . PO2 NEVA (test code = 90 See_Comment HH [Autom ated message] 1440790555) The system Rad generated this result transmit roger reference range : 25 - 40 mmHg. The reference range was not used to interpret this result as normal/abnormal . HCO3 NEVA (test code = 17 See_Comment L [Auto mated message] 8314060382) The system Rad generated this result transmit roger reference range : 24 - 28 mEq/L. The reference range was not used to interpret this result as normal/abnormal . AC VBE(BEAKER) (test -10.7 mEq/L code = 3441444036) THB NEVA (test code = 9.0 g/dL 12.0-16.0 L 4596137847) %O2HB NEVA (test code = 93.5 % 52.0-63.0 H 6707475564) %COHB NEVA (test code = 0.2 % 0.0-1.5 5449611317) %METHB NEVA (test code = 0.3 % 0.4-1.5 L 3542935725) VOL%O2 NEVA (test code = 12.0 % 6.0-12.0 QUES 8517074641) NA (test code = 130 mmol/L 135-145 L 9325761637) K+ (test code = 5.6 mmol/L 3.5-5.0 H 0519603624) AC CA IONZ (test code = 4.50 mg/dL 4.50-5.30 3687416051) GLUCOSE (test code = 95 mg/dL 70-110 8477505727) Lab Interpretation Abnormal (test code = 63818-2) [facility]+K+GLU+CA2+2022-07-08 03:40:10 Test Item Value Reference Range Interpretation Comments PH (test code = 7.18 7.32-7.42 LL 1177524622) PCO2 NEVA (test code = 47 See_Comment [Auto mated message] [id number]) The system Rad generated this result transmit roger reference range : 41 - 51 mmHg. The reference range was not used to interpret this result as normal/abnormal . PO2 NEVA (test code = 90 See_Comment HH [Autom ated message] 8763506131) The system Rad generated this result transmit roger reference range : 25 - 40 mmHg. The reference range was not used to interpret this result as normal/abnormal . HCO3 NEVA (test code = 17 See_Comment L [Auto mated message] 7372801728) The system Rad generated this result transmit roger reference range : 24 - 28 mEq/L. The reference range was not used to interpret this result as normal/abnormal . AC VBE(BEAKER) (test -10.7 mEq/L code = 7052964589) THB NEVA (test code = 9.0 g/dL 12.0-16.0 L 7757182322) %O2HB NEVA (test code = 93.5 % 52.0-63.0 H 8022648401) %COHB NEVA (test code = 0.2 % 0.0-1.5 1972223398) %METHB NEVA (test code = 0.3 % 0.4-1.5 L 2367583120) VOL%O2 NEVA (test code = 12.0 % 6.0-12.0 QUES 9552024977) NA (test code = 130 mmol/L 135-145 L 5295535926) K+ (test code = 5.6 mmol/L 3.5-5.0 H 2031722891) AC CA IONZ (test code = 4.50 mg/dL 4.50-5.30 6599575781) GLUCOSE (test code = 95 mg/dL 70-110 1884243372) Lab Interpretation Abnormal (test code = 75588-5) [facility]+K+GLU+CA2+2022-07-08 03:40:10 Test Item Value Reference Range Interpretation Comments PH (test code = 7.18 7.32-7.42 LL 6466235397) PCO2 NEVA (test code = 47 See_Comment [Auto mated message] 4728946940) The system Rad generated this result transmit roger reference range : 41 - 51 mmHg. The reference range was not used to interpret this result as normal/abnormal . PO2 NEVA (test code = 90 See_Comment HH [Autom ated message] 3775291422) The system Rad generated this result transmit roger reference range : 25 - 40 mmHg. The reference range was not used to interpret this result as normal/abnormal . HCO3 NEVA (test code = 17 See_Comment L [Auto mated message] 1716749057) The system Rad generated this result transmit roegr reference range : 24 - 28 mEq/L. The reference range was not used to interpret this result as normal/abnormal . AC VBE(BEAKER) (test -10.7 mEq/L code = 8733207128) THB NEVA (test code = 9.0 g/dL 12.0-16.0 L 6321668924) %O2HB NEVA (test code = 93.5 % 52.0-63.0 H 0333928453) %COHB NEVA (test code = 0.2 % 0.0-1.5 1788294904) %METHB NEVA (test code = 0.3 % 0.4-1.5 L 1662105700) VOL%O2 NEVA (test code = 12.0 % 6.0-12.0 QUES 4898107736) NA (test code = 130 mmol/L 135-145 L 3683092497) K+ (test code = 5.6 mmol/L 3.5-5.0 H 0008339725) AC CA IONZ (test code = 4.50 mg/dL 4.50-5.30 7981647303) GLUCOSE (test code = 95 mg/dL 70-110 0543923457) Lab Interpretation Abnormal (test code = 27960-1) [facility] RBC (in units), 1 Units 2022-07-07 10:33:21 Test Item Value Reference Range Interpretation Comments Cross Match Result Compatible (test code = 4409) ISBT Blood Type Code 6200 (test code = 550743) Unit Blood Type (test A Pos code = 4410) Unit Number (test [id number] code = 4411) Blood Expiration Date [id number] & Time (test code = 485819) Status Information Issued (test code = 4412) Product Red Blood Cells Identification (test code = 4413) Product Code (test R2883A59 Performed at [facility] code = 4414) Laboratory Services - [facility] Blood [address] [place] [id number] Free: [phone] A No. [id number] [facility] Packed RBC (in units), 1 Units 2022-07-07 10:33:21 Test Item Value Reference Range Interpretation Comments Cross Match Result Compatible (test code = 4409) ISBT Blood Type Code 6200 (test code = 008838) Unit Blood Type (test A Pos code = 4410) Unit Number (test [id number] code = 4411) Blood Expiration Date & Time (test code = 201238) Status Information Issued (test code = 4412) Product Red Blood Cells Identification (test code = 4413) Product Code (test M3566M63 Performed at [facility] code = 4414) Laboratory Services - [facility] Blood [address] [place] [id number] Free: [phone] A No. [id number] [facility] Packed RBC (in units), 1 Units 2022-07-07 10:33:21 Test Item Value Reference Range Interpretation Comments Cross Match Result Compatible (test code = 4409) ISBT Blood Type Code 6200 (test code = 407989) Unit Blood Type (test A Pos code = 4410) Unit Number (test [id number] code = 4411) Blood Expiration Date & Time (test code = 557546) Status Information Issued (test code = 4412) Product Red Blood Cells Identification (test code = 4413) Product Code (test A0588W91 Performed at [facility] code = 4414) Laboratory Services - [facility] Blood [address] [place] [address]Fxll Free: [phone] A No. [id number] [facility] America[facility] Umpqxcs5323-21-61 01:01:21 Test Item Value Reference Range Interpretation Comments Blood Culture-Aerobic No organisms No growth Previo us (test code = 99281-3) isolated prelim inary verified result was Culture In Progress on 07/01/2022 at 22 02 CSTPrevious preliminary verified result was No growth a t 24 hours on 07/02/2022 at 19 01 CSTPrevious preliminary verified result was No growth a t 48 hours on 07/03/2022 at 19 CSTPrevious preliminary verified result was No growth a t 72 hours on 07/04/2022 at 19 01 MARKET RESE[employer] INTERVIEWER Blood No organisms No growth Previous Culture-Anaerobic isolated preliminar y (test code = 04373-1) verifi ed result was Culture In Progress on 07/01/2022 at 22 02 CSTPrevious preliminary verified result was No growth a t 24 hours on 07/02/2022 at 19 CSTPrevious preliminary verified result was No growth a t 48 hours on 07/03/2022 at 19 CSTPrevious preliminary verified result was No growth a t 72 hours on 07/04/2022 at 28 05 MARKET RESEARCH INTERVIEWER Lab Interpretation Normal (test code = 79065-9) [facility] [id number] 01:01:21 Test Item Value Reference Range Interpretation Comments Blood Culture-Aerobic No organisms No growth Previo us (test code = 16008-2) isolated prelim inary verified result was Culture In Progress on 07/01/2022 at 22 CSTPrevious preliminary verified result was No growth a t 24 hours on 07/02/2022 at 19 CSTPrevious preliminary verified result was No growth a t 48 hours on 07/03/2022 at 28 05 CSTPrevious preliminary verified result was No growth a t 72 hours on 07/04/2022 at 19 01 MARK[employer] INTERVIEWER Blood No organisms No growth Previous Culture-Anaerobic isolated preliminar y (test code = 11211-9) verifi ed result was Culture In Progress on 07/01/2022 at 22 02 CSTPrevious preliminary verified result was No growth a t 24 hours on 07/02/2022 at 19 CSTPrevious preliminary verified result was No growth a t 48 hours on 07/03/2022 at 19 CSTPrevious preliminary verified result was No growth a t 72 hours on 07/04/2022 at 19 MARK[employer] RESEARCH INTERVIEWER Lab Interpretation Normal (test code = 80823-5) [facility] Qwurrzp1006-20-73 01:01:21 Test Item Value Reference Range Interpretation Comments Blood Culture-Aerobic No organisms No growth Previo us (test code = 96930-8) isolated prelim inary verified result was Culture In Progress on 07/01/2022 at 22 02 CSTPrevious preliminary verified result was No growth a t 24 hours on 07/02/2022 at 19 01 CSTPrevious preliminary verified result was No growth a t 48 hours on 07/03/2022 at 19 01 CSTPrevious preliminary verified result was No growth a t 72 hours on 07/04/2022 at 19 01 MARK[employer] INTERVIEWER Blood No organisms No growth Previous Culture-Anaerobic isolated preliminar y (test code = 53577-1) verifi ed result was Culture In Progress on 07/01/2022 at 22 02 CSTPrevious preliminary verified result was No growth a t 24 hours on 07/02/2022 at 19 01 CSTPrevious preliminary verified result was No growth a t 48 hours on 07/03/2022 at 19 CSTPrevious preliminary verified result was No growth a t 72 hours on 07/04/2022 at 19 01 MARK[employer] RESE[employer] INTERVIEWER Lab Interpretation Normal (test code = 98674-3) [facility] [id number] 01:01:21 Test Item Value Reference Range Interpretation Comments Blood Culture-Aerobic No organisms No growth Previo us (test code = 61592-5) isolated prelim inary verified result was Culture In Progress on 07/01/2022 at 22 02 CSTPrevious preliminary verified result was No growth a t 24 hours on 07/02/2022 at 19 01 CSTPrevious preliminary verified result was No growth a t 48 hours on 07/03/2022 at 19 01 CSTPrevious preliminary verified result was No growth a t 72 hours on 07/04/2022 at 19 01 MARK[employer] INTERVIEWER Blood No organisms No growth Previous Culture-Anaerobic isolated preliminar y (test code = 79975-1) verifi ed result was Culture In Progress on 07/01/2022 at 22 02 CSTPrevious preliminary verified result was No growth a t 24 hours on 07/02/2022 at 19 01 CSTPrevious preliminary verified result was No growth a t 48 hours on 07/03/2022 at 19 01 CSTPrevious preliminary verified result was No growth a t 72 hours on 07/04/2022 at 19 01 MARK[employer] RESE[employer] INTERVIEWER Lab Interpretation Normal (test code = 22933-6) [facility] [id number] 01:01:21 Test Item Value Reference Range Interpretation Comments Blood Culture-Aerobic No organisms No growth Previo us (test code = 20324-4) isolated prelim inary verified result was Culture In Progress on 07/01/2022 at 22 02 CSTPrevious preliminary verified result was No growth a t 24 hours on 07/02/2022 at 19 01 CSTPrevious preliminary verified result was No growth a t 48 hours on 07/03/2022 at 19 01 CSTPrevious preliminary verified result was No growth a t 72 hours on 07/04/2022 at 19 01 MARK[employer] INTERVIEWER Blood No organisms No growth Previous Culture-Anaerobic isolated preliminar y (test code = 10241-9) verifi ed result was Culture In Progress on 07/01/2022 at 22 02 CSTPrevious preliminary verified result was No growth a t 24 hours on 07/02/2022 at 19 01 CSTPrevious preliminary verified result was No growth a t 48 hours on 07/03/2022 at 19 01 CSTPrevious preliminary verified result was No growth a t 72 hours on 07/04/2022 at 19 01 MARK[employer] INTERVIEWER Lab Interpretation Normal (test code = 64937-9) [facility] Qpezltq0212-03-10 01:01:21 Test Item Value Reference Range Interpretation Comments Blood Culture-Aerobic No organisms No growth Previo us (test code = 01226-2) isolated prelim inary verified result was Culture In Progress on 07/01/2022 at 22 02 CSTPrevious preliminary verified result was No growth a t 24 hours on 07/02/2022 at 19 01 CSTPrevious preliminary verified result was No growth a t 48 hours on 07/03/2022 at 19 01 CSTPrevious preliminary verified result was No growth a t 72 hours on 07/04/2022 at 19 01 MARK[employer] RESE[employer] INTERVIEWER Blood No organisms No growth Previous Culture-Anaerobic isolated preliminar y (test code = 06841-1) verifi ed result was Culture In Progress on 07/01/2022 at 22 02 CSTPrevious preliminary verified result was No growth a t 24 hours on 07/02/2022 at 19 01 CSTPrevious preliminary verified result was No growth a t 48 hours on 07/03/2022 at 19 01 CSTPrevious preliminary verified result was No growth a t 72 hours on 07/04/2022 at 19 01 MARKET RESEARCH INTERVIEWER Lab Interpretation Normal (test code = 23995-1) [facility] America[facility] Screen - ONCE [id number] 23:58:45 Test Item Value Reference Range Interpretation Comments ABO & RH (test code A POSITIVE Performe d at [facility] = 20) Laboratory [facility] Blood [address] [place] [id number] Free: [phone] A No. [id number] IAT (test code = Negative Performed a t [facility] 1185) Laboratory [facility] Blood [address] [place] [id number] Free: [phone] A No. [id number] [facility] Screen - ONCE [id number] 23:58:45 Test Item Value Reference Range Interpretation Comments ABO & RH (test code A POSITIVE Performe d at [facility] = 20) Laboratory [facility] Blood [address] [place] [id number] Free: [phone] A No. [id number] IAT (test code = Negative Performed a t [facility] 1185) Laboratory [facility] Blood [address] [place] [id number] Free: [phone] A No. [id number] [facility] Screen - ONCE [id number] 23:58:45 Test Item Value Reference Range Interpretation Comments ABO & RH (test code A POSITIVE Performe d at [facility] = 20) Laboratory [facility] Blood [address] [place] [id number] Free: [phone] A No. [id number] IAT (test code = Negative Performed a t [facility] 1185) Laboratory [facility] Blood [address] [place] [id number] Free: [phone] A No. [id number] [facility] America[facility] (for use with Heparin Drip)2022-07-06 00:19:58 Test Item Value Reference Range Interpretation Comments APTT Patient (test code 62 See_Comment H [Au tomated message] = 3173-2) The system Rad generated this result transmitted ref erence range: 26 - 36 Seconds. The reference range was not used to int erpret this result as normal/abnormal . Lab Interpretation (test Abnormal code = 81492-6) [facility] (for use with Heparin Drip)2022-07-06 00:19:58 Test Item Value Reference Range Interpretation Comments APTT Patient (test code 62 See_Comment H [Au tomated message] = 3173-2) The system Rad generated this result transmitted ref erence range: 26 - 36 Seconds. The reference range was not used to int erpret this result as normal/abnormal . Lab Interpretation (test Abnormal code = 93391-7) [facility] (for use with Heparin Drip)2022-07-06 00:19:58 Test Item Value Reference Range Interpretation Comments APTT Patient (test code 62 See_Comment H [Au tomated message] = 3173-2) The system Rad generated this result transmitted ref erence range: 26 - 36 Seconds. The reference range was not used to int erpret this result as normal/abnormal . Lab Interpretation (test Abnormal code = 95170-9) [facility] [id number] 07:01:11 Test Item Value Reference Range Interpretation Comments Blood Culture-Aerobic No organisms No growth Previo us (test code = 79181-1) isolated prelim inary verified result was Culture In Progress on 06/30/2022 at 04 01 CSTPrevious preliminary verified result was No growth a t 24 hours on 07/01/2022 at 01 CSTPrevious preliminary verified result was No growth a t 48 hours on 07/02/2022 at 05 10 CSTPrevious preliminary verified result was No growth a t 72 hours on 07/03/2022 at 01 01 MARKET RESEARCH INTERVIEWER Blood No organisms No growth Previous Culture-Anaerobic isolated preliminar y (test code = 64648-7) verifi ed result was Culture In Progress on 06/30/2022 at 04 01 CSTPrevious preliminary verified result was No growth a t 24 hours on 07/01/2022 at 01 CSTPrevious preliminary verified result was No growth a t 48 hours on 07/02/2022 at 01 CSTPrevious preliminary verified result was No growth a t 72 hours on 07/03/2022 at 01 01 MARKET RESEARCH INTERVIEWER Lab Interpretation Normal (test code = 81978-0) [facility] CULTURE [id number] 07:01:11 Test Item Value Reference Range Interpretation Comments Blood Culture-Aerobic No organisms No growth Previo us (test code = 98609-7) isolated prelim inary verified result was Culture In Progress on 06/30/2022 at 04 01 CSTPrevious preliminary verified result was No growth a t 24 hours on 07/01/2022 at 01 CSTPrevious preliminary verified result was No growth a t 48 hours on 07/02/2022 at 01 CSTPrevious preliminary verified result was No growth a t 72 hours on 07/03/2022 at 01 01 MARK[employer] RESEARCH INTERVIEWER Blood No organisms No growth Previous Culture-Anaerobic isolated preliminar y (test code = 60473-3) verifi ed result was Culture In Progress on 06/30/2022 at 04 01 CSTPrevious preliminary verified result was No growth a t 24 hours on 07/01/2022 at 01 CSTPrevious preliminary verified result was No growth a t 48 hours on 07/02/2022 at 01 CSTPrevious preliminary verified result was No growth a t 72 hours on 07/03/2022 at 01 01 MARKET RESEARCH INTERVIEWER Lab Interpretation Normal (test code = 19857-0) [facility] CULTURE [id number] 07:01:11 Test Item Value Reference Range Interpretation Comments Blood Culture-Aerobic No organisms No growth Previo us (test code = 05350-4) isolated prelim inary verified result was Culture In Progress on 06/30/2022 at 04 CSTPrevious preliminary verified result was No growth a t 24 hours on 07/01/2022 at 05 10 CSTPrevious preliminary verified result was No growth a t 48 hours on 07/02/2022 at 01 CSTPrevious preliminary verified result was No growth a t 72 hours on 07/03/2022 at 01 01 MARKET RESEARCH INTERVIEWER Blood No organisms No growth Previous Culture-Anaerobic isolated preliminar y (test code = 48670-8) verifi ed result was Culture In Progress on 06/30/2022 at 04 01 CSTPrevious preliminary verified result was No growth a t 24 hours on 07/01/2022 at 01 CSTPrevious preliminary verified result was No growth a t 48 hours on 07/02/2022 at 01 CSTPrevious preliminary verified result was No growth a t 72 hours on 07/03/2022 at 05 10 MARKET RESEARCH INTERVIEWER Lab Interpretation Normal (test code = 84694-5) [facility] [id number] 18:18:42 Test Item Value Reference Range Interpretation Comments Blood Culture-Aerobic Culture positive. No growth AA P revious (test code = 10031-0) See Blood Culture p reliminary Workup for verified result additional was Culture In information. Progress on 06/30/2022 at 04 CSTPrevious preliminary verified result was No growth a t 24 hours on 07/01/2022 at 05 10 CSTPrevious preliminary verified result was No growth a t 48 hours on 07/02/2022 at 05 10 MARKET RESEARCH INTERVIEWER Blood No organisms No growth Previous Culture-Anaerobic isolated preliminar y (test code = 51942-8) verifi ed result was Culture In Progress on 06/30/2022 at 04 01 CSTPrevious preliminary verified result was No growth a t 24 hours on 07/01/2022 at 05 10 CSTPrevious preliminary verified result was No growth a t 48 hours on 07/02/2022 at 05 10 CSTPrevious preliminary verified result was Culture In Progress on 07/02/2022 at 04 20 MARKET RESEARCH INTERVIEWER Lab Interpretation Abnormal (test code = 49972-7) [facility] [id number] 18:18:42 Test Item Value Reference Range Interpretation Comments Blood Culture-Aerobic Culture positive. No growth AA P revious (test code = 73787-0) See Blood Culture p reliminary Workup for verified result additional was Culture In information. Progress on 06/30/2022 at 08 08 CSTPrevious preliminary verified result was No growth a t 24 hours on 07/01/2022 at 05 10 CSTPrevious preliminary verified result was No growth a t 48 hours on 07/02/2022 at 05 10 MARKET RESEARCH INTERVIEWER Blood No organisms No growth Previous Culture-Anaerobic isolated preliminar y (test code = 41658-8) verifi ed result was Culture In Progress on 06/30/2022 at 04 01 CSTPrevious preliminary verified result was No growth a t 24 hours on 07/01/2022 at 05 10 CSTPrevious preliminary verified result was No growth a t 48 hours on 07/02/2022 at 05 10 CSTPrevious preliminary verified result was Culture In Progress on 07/02/2022 at 04 20 MARKET RESEARCH INTERVIEWER Lab Interpretation Abnormal (test code = 66886-5) [facility] [id number] 18:18:42 Test Item Value Reference Range Interpretation Comments Blood Culture-Aerobic Culture positive. No growth AA P revious (test code = 75086-6) See Blood Culture p reliminary Workup for verified result additional was Culture In information. Progress on 06/30/2022 at 04 01 CSTPrevious preliminary verified result was No growth a t 24 hours on 07/01/2022 at 01 CSTPrevious preliminary verified result was No growth a t 48 hours on 07/02/2022 at 01 01 MARKET RESEARCH INTERVIEWER Blood No organisms No growth Previous Culture-Anaerobic isolated preliminar y (test code = 05901-4) verifi ed result was Culture In Progress on 06/30/2022 at 04 01 CSTPrevious preliminary verified result was No growth a t 24 hours on 07/01/2022 at 05 10 CSTPrevious preliminary verified result was No growth a t 48 hours on 07/02/2022 at 01 CSTPrevious preliminary verified result was Culture In Progress on 07/02/2022 at 04 20 MARKET RESEARCH INTERVIEWER Lab Interpretation Abnormal (test code = 86774-3) [facility] America[facility] PANEL 21 + LACTIC [id number] 05:36:19 Test Item Value Reference Range Interpretation Comments PH (test code = 7.35 7.32-7.42 [id number]) PCO2 NEVA (test code = 34 See_Comment L [Auto mated [id number]) message] The sy stem which generated this result transmitted reference range : 41 - 51 mmHg. The reference range was not used to interpret this result as normal/abnormal . PO2 NEVA (test code = 50 See_Comment H [Autom ated [id number]) message] The sy stem which generated this result transmitted reference range : 25 - 40 mmHg. The reference range was not used to interpret this result as normal/abnormal . HCO3 NEVA (test code = 18 See_Comment L [Auto mated [id number]) message] The sy stem which generated this result transmitted reference range : 24 - 28 mEq/L. The reference range was not used to interpret this result as normal/abnormal . AC VBE(BEAKER) (test -7.0 mEq/L code = 0691789880) THB NEVA (test code = 8.5 g/dL 12.0-16.0 L 5831737867) %O2HB NEVA (test code = 83.3 % 52.0-63.0 H 5546831078) %COHB NEVA (test code = 0.6 % 0.0-1.5 2804440179) %METHB NEVA (test code = 0.3 % 0.4-1.5 L 9528287572) VOL%O2 NEVA (test code = 10.0 % 6.0-12.0 4320593959) NA (test code = 131 mmol/L 135-145 L 3285868209) K+ (test code = 4.4 mmol/L 3.5-5.0 9582768865) AC CA IONZ (test code = 3.80 mg/dL 4.50-5.30 L 1714986977) GLUCOSE (test code = 100 mg/dL 70-110 5175419339) LACTIC ACID (test code 0.79 mmol/L 0.50-2.20 QUES = 3399306480) Lab Interpretation Abnormal (test code = 24411-6) [facility] [id number] 05:36:19 Test Item Value Reference Range Interpretation Comments PH (test code = 7.35 7.32-7.42 4140878455) PCO2 NEVA (test code = 34 See_Comment L [Auto mated 3513220282) message] The sy stem which generated this result transmitted reference range : 41 - 51 mmHg. The reference range was not used to interpret this result as normal/abnormal . PO2 NEVA (test code = 50 See_Comment H [Autom ated 4939871436) message] The sy stem which generated this result transmitted reference range : 25 - 40 mmHg. The reference range was not used to interpret this result as normal/abnormal . HCO3 NEVA (test code = 18 See_Comment L [Auto mated 5590295447) message] The sy stem which generated this result transmitted reference range : 24 - 28 mEq/L. The reference range was not used to interpret this result as normal/abnormal . AC VBE(BEAKER) (test -7.0 mEq/L code = 3800855017) THB NEVA (test code = 8.5 g/dL 12.0-16.0 L 8524875220) %O2HB NEVA (test code = 83.3 % 52.0-63.0 H 5818584647) %COHB NEVA (test code = 0.6 % 0.0-1.5 1050395219) %METHB NEVA (test code = 0.3 % 0.4-1.5 L 0617359290) VOL%O2 NEVA (test code = 10.0 % 6.0-12.0 0476286210) NA (test code = 131 mmol/L 135-145 L 8840748590) K+ (test code = 4.4 mmol/L 3.5-5.0 6093411680) AC CA IONZ (test code = 3.80 mg/dL 4.50-5.30 L 4007991602) GLUCOSE (test code = 100 mg/dL 70-110 9003863070) LACTIC ACID (test code 0.79 mmol/L 0.50-2.20 QUES = 3314606458) Lab Interpretation Abnormal (test code = 57069-6) [facility] [id number] 05:36:19 Test Item Value Reference Range Interpretation Comments PH (test code = 7.35 7.32-7.42 7546719640) PCO2 NEVA (test code = 34 See_Comment L [Auto mated 4222063891) message] The sy stem which generated this result transmitted reference range : 41 - 51 mmHg. The reference range was not used to interpret this result as normal/abnormal . PO2 NEVA (test code = 50 See_Comment H [Autom ated 7698678157) message] The sy stem which generated this result transmitted reference range : 25 - 40 mmHg. The reference range was not used to interpret this result as normal/abnormal . HCO3 NEVA (test code = 18 See_Comment L [Auto mated 8841535466) message] The sy stem which generated this result transmitted reference range : 24 - 28 mEq/L. The reference range was not used to interpret this result as normal/abnormal . AC VBE(BEAKER) (test -7.0 mEq/L code = 2736891066) THB NEVA (test code = 8.5 g/dL 12.0-16.0 L 9096041902) %O2HB NEVA (test code = 83.3 % 52.0-63.0 H 9181885479) %COHB NEVA (test code = 0.6 % 0.0-1.5 7598597619) %METHB NEVA (test code = 0.3 % 0.4-1.5 L 7369759625) VOL%O2 NEVA (test code = 10.0 % 6.0-12.0 1659293291) NA (test code = 131 mmol/L 135-145 L 4476784572) K+ (test code = 4.4 mmol/L 3.5-5.0 9522811613) AC CA IONZ (test code = 3.80 mg/dL 4.50-5.30 L 8663338037) GLUCOSE (test code = 100 mg/dL 70-110 0963080970) LACTIC ACID (test code 0.79 mmol/L 0.50-2.20 QUES = 7135211688) Lab Interpretation Abnormal (test code = 04127-8) [facility] WITHOUT [id number] 00:53:05 Test Item Value Reference Range Interpretation Comments WBC (test code = 7.66 See_Comment [Automated message] 6690-2) The system [employer] generated this result transmitted ref erence range: 4.30 - 1 1.10 10*3/?L. The reference range was not used to int erpret this result as normal/abnormal . RBC (test code = 789-8) 2.39 See_Comment L [Au tomated message] The system [employer] generated this result transmitted ref erence range: 3.93 - 5 .25 10*6/?L. The reference range was not used to int erpret this result as normal/abnormal . HGB (test code = 718-7) 8.2 g/dL 11.6-15.0 L HCT (test code = 24.0 % 35.7-45.2 L 4544-3) MCH (test code = 785-6) 34.3 pg 25.9-32.8 H MCV (test code = 787-2) 100.4 fL 80.6-95.5 H MCHC (test code = 34.2 g/dL 31.6-35.1 786-4) PLT (test code = 777-3) 148 See_Comment L [Au tomated message] The system [employer] generated this result transmitted ref erence range: 166 - 35 8 10*3/?L. The reference range was not used to int erpret this result as normal/abnormal . MPV (test code = 11.2 fL 9.5-12.9 89044-4) RDW-CV (test code = 15.3 % 12.0-15.5 788-0) RDW-SD (test code = 55.7 fL 39.0-49.9 H 47528-0) NRBC x10^3 (test code = See_Comment [Au tomated message] 9207923163) The system [facility] generated this result transmitted ref erence range: 10*3/?L. The reference range was not used to int erpret this result as normal/abnormal . NRBC/100 WBC (test code 0.0 See_Comment [Au tomated message] = 3693918252) The system [facility] generated this result transmitted ref erence range: 0.0 - 10 .0 /100 WBCs. The reference range was not used to int erpret this result as normal/abnormal . IPF % (test code = 4.3 % 1.3-7.7 Platelet count 4983807816) measured by fluorescence me thod. Lab Interpretation Abnormal (test code = 66104-9) [facility] WITHOUT [id number] 00:53:05 Test Item Value Reference Range Interpretation Comments WBC (test code = 7.66 See_Comment [Automated message] 6690-2) The system [facility] generated this result transmitted ref erence range: 4.30 - 1 1.10 10*3/?L. The reference range was not used to int erpret this result as normal/abnormal . RBC (test code = 789-8) 2.39 See_Comment L [Au tomated message] The system [facility] generated this result transmitted ref erence range: 3.93 - 5 .25 10*6/?L. The reference range was not used to int erpret this result as normal/abnormal . HGB (test code = 718-7) 8.2 g/dL 11.6-15.0 L HCT (test code = 24.0 % 35.7-45.2 L 4544-3) MCH (test code = 785-6) 34.3 pg 25.9-32.8 H MCV (test code = 787-2) 100.4 fL 80.6-95.5 H MCHC (test code = 34.2 g/dL 31.6-35.1 786-4) PLT (test code = 777-3) 148 See_Comment L [Au tomated message] The system [facility] generated this result transmitted ref erence range: 166 - 35 8 10*3/?L. The reference range was not used to int erpret this result as normal/abnormal . MPV (test code = 11.2 fL 9.5-12.9 59602-0) RDW-CV (test code = 15.3 % 12.0-15.5 788-0) RDW-SD (test code = 55.7 fL 39.0-49.9 H 74807-0) NRBC x10^3 (test code = See_Comment [Au tomated message] 6261751725) The system [employer] generated this result transmitted ref erence range: 10*3/?L. The reference range was not used to int erpret this result as normal/abnormal . NRBC/100 WBC (test code 0.0 See_Comment [Au tomated message] = 9543368907) The system [facility] generated this result transmitted ref erence range: 0.0 - 10 .0 /100 WBCs. The reference range was not used to int erpret this result as normal/abnormal . IPF % (test code = 4.3 % 1.3-7.7 Platelet count [id number]) measured by fluorescence me thod. Lab Interpretation Abnormal (test code = 23801-7) [facility] WITHOUT [id number] 00:53:05 Test Item Value Reference Range Interpretation Comments WBC (test code = 7.66 See_Comment [Automated message] 6690-2) The system [employer] generated this result transmitted ref erence range: 4.30 - 1 1.10 10*3/?L. The reference range was not used to int erpret this result as normal/abnormal . RBC (test code = 789-8) 2.39 See_Comment L [Au tomated message] The system [facility] generated this result transmitted ref erence range: 3.93 - 5 .25 10*6/?L. The reference range was not used to int erpret this result as normal/abnormal . HGB (test code = 718-7) 8.2 g/dL 11.6-15.0 L HCT (test code = 24.0 % 35.7-45.2 L 4544-3) MCH (test code = 785-6) 34.3 pg 25.9-32.8 H MCV (test code = 787-2) 100.4 fL 80.6-95.5 H MCHC (test code = 34.2 g/dL 31.6-35.1 786-4) PLT (test code = 777-3) 148 See_Comment L [Au tomated message] The system [facility] generated this result transmitted ref erence range: 166 - 35 8 10*3/?L. The reference range was not used to int erpret this result as normal/abnormal . MPV (test code = 11.2 fL 9.5-12.9 63241-3) RDW-CV (test code = 15.3 % 12.0-15.5 788-0) RDW-SD (test code = 55.7 fL 39.0-49.9 H 21877-9) NRBC x10^3 (test code = See_Comment [Au tomated message] 6257099716) The system [employer] generated this result transmitted ref erence range: 10*3/?L. The reference range was not used to int erpret this result as normal/abnormal . NRBC/100 WBC (test code 0.0 See_Comment [Au tomated message] = 9158389255) The system [facility] generated this result transmitted ref erence range: 0.0 - 10 .0 /100 WBCs. The reference range was not used to int erpret this result as normal/abnormal . IPF % (test code = 4.3 % 1.3-7.7 Platelet count 1188675297) measured by fluorescence me thod. Lab Interpretation Abnormal (test code = 85989-7) [facility] use with [facility] Infusion[facility]2022-07-04 00:33:04 Test Item Value Reference Range Interpretation Comments APTT Patient (test code 88 See_Comment H [Au tomated message] = 3173-2) The system Rad generated this result transmitted ref erence range: 26 - 36 Seconds. The reference range was not used to int erpret this result as normal/abnormal . Lab Interpretation (test Abnormal code = 65037-1) [facility] (for use with Heparin Infusion)2022-07-04 00:33:04 Test Item Value Reference Range Interpretation Comments APTT Patient (test code 88 See_Comment H [Au tomated message] = 3173-2) The system [employer] generated this result transmitted ref erence range: 26 - 36 Seconds. The reference range was not used to int erpret this result as normal/abnormal . Lab Interpretation (test Abnormal code = 68819-3) [facility] (for use with Heparin Infusion)2022-07-04 00:33:04 Test Item Value Reference Range Interpretation Comments APTT Patient (test code 88 See_Comment H [Au tomated message] = 3173-2) The system [employer] generated this result transmitted ref erence range: 26 - 36 Seconds. The reference range was not used to int erpret this result as normal/abnormal . Lab Interpretation (test Abnormal code = 32472-6) [facility] (for use with Heparin Infusion)2022-07-04 00:33:04 Test Item Value Reference Range Interpretation Comments APTT Patient (test code 88 See_Comment H [Au tomated message] = 3173-2) The system [employer] generated this result transmitted ref erence range: 26 - 36 Seconds. The reference range was not used to int erpret this result as normal/abnormal . Lab Interpretation (test Abnormal code = 48289-8) [facility] P[facility] RBC (in units), 1 Units 2022-07-03 18:33:53 Test Item Value Reference Range Interpretation Comments Cross Match Result Compatible (test code = 4409) ISBT Blood Type Code 6200 (test code = 788673) Unit Blood Type (test A Pos code = 4410) Unit Number (test [id number] code = 4411) Blood Expiration Date & Time (test code = 339010) Status Information Issued (test code = 4412) Product Red Blood Cells Identification (test code = 4413) Product Code (test Q6931Q03 Performed at [facility] code = 4414) Laboratory Services [facility] Blood [address] [place] [address]Srbn Free: [phone] A No. [id number] [facility] Packed RBC (in units), 1 Units 2022-07-03 18:33:53 Test Item Value Reference Range Interpretation Comments Cross Match Result Compatible (test code = 4409) ISBT Blood Type Code 6200 (test code = 932719) Unit Blood Type (test A Pos code = 4410) Unit Number (test [id number] code = 4411) Blood Expiration Date & Time (test code = 380532) Status Information Issued (test code = 4412) Product Red Blood Cells Identification (test code = 4413) Product Code (test [id number] Performed at [facility] code = 4414) Laboratory Services - [facility] Blood [address] [address]Emqe Free: [phone] A No. [id number] [facility] ([facility] units), 1 Units 2022-07-03 18:33:53 Test Item Value Reference Range Interpretation Comments Cross Match Result Compatible (test code = 4409) ISBT Blood Type Code 6200 (test code = 976807) Unit Blood Type (test A Pos code = 4410) Unit Number (test [id number] code = 4411) Blood Expiration Date & Time (test code = 693285) Status Information Issued (test code = 4412) Product Red Blood Cells Identification (test code = 4413) Product Code (test Q1599H43 Performed at [facility] code = 4414) Laboratory Services - [facility] Blood [address] [place] [address]Egne Free: [phone] A No. [id number] [facility] Packed RBC (in units), 1 Units 2022-07-03 18:33:53 Test Item Value Reference Range Interpretation Comments Cross Match Result Compatible (test code = 4409) ISBT Blood Type Code 6200 (test code = 834670) Unit Blood Type (test A Pos code = 4410) Unit Number (test [id number] code = 4411) Blood Expiration Date 381887374125 & Time (test code = 071939) Status Information Issued (test code = 4412) Product Red Blood Cells Identification (test code = 4413) Product Code (test [id number] Performed at [facility] code = 4414) Laboratory Services - [facility] Blood [address] [address]Aobd Free: [phone] A No. [id number] [facility] (for use with Heparin Drip)2022-07-03 00:18:31 Test Item Value Reference Range Interpretation Comments APTT Patient (test code = 35 See_Comment [ Automated message] 3173-2) The system Rad generated this result transmitted ref erence range: 26 - 36 Seconds. The re ference range was not u sed to interpret this result as normal/abnor mal. Lab Interpretation (test Normal code = 39757-3) [facility] (for use with Heparin Drip)2022-07-03 00:18:31 Test Item Value Reference Range Interpretation Comments APTT Patient (test code = 35 See_Comment [ Automated message] 3173-2) The system [employer] generated this result transmitted ref erence range: 26 - 36 Seconds. The re ference range was not u sed to interpret this result as normal/abnor mal. Lab Interpretation (test Normal code = 63160-9) [facility] (for use with Heparin Drip)2022-07-03 00:18:31 Test Item Value Reference Range Interpretation Comments APTT Patient (test code = 35 See_Comment [ Automated message] 3173-2) The system Rad generated this result transmitted ref erence range: 26 - 36 Seconds. The re ference range was not u sed to interpret this result as normal/abnor mal. Lab Interpretation (test Normal code = 10991-6) [facility] (for use with Heparin Drip)2022-07-03 00:18:31 Test Item Value Reference Range Interpretation Comments APTT Patient (test code = 35 See_Comment [ Automated message] 3173-2) The system [employer] generated this result transmitted ref erence range: 26 - 36 Seconds. The re ference range was not u sed to interpret this result as normal/abnor mal. Lab Interpretation (test Normal code = 20960-0) [facility] WITHOUT [id number] 00:10:17 Test Item Value Reference Range Interpretation Comments WBC (test code = 3.67 See_Comment L [Automated message] 6690-2) The system Rad generated this result transmitted ref erence range: 4.30 - 1 1.10 10*3/?L. The reference range was not used to int erpret this result as normal/abnormal . RBC (test code = 789-8) 2.07 See_Comment L [Au tomated message] The system Rad generated this result transmitted ref erence range: 3.93 - 5 .25 10*6/?L. The reference range was not used to int erpret this result as normal/abnormal . HGB (test code = 718-7) 7.1 g/dL 11.6-15.0 L HCT (test code = 21.8 % 35.7-45.2 L 4544-3) MCH (test code = 785-6) 34.3 pg 25.9-32.8 H MCV (test code = 787-2) 105.3 fL 80.6-95.5 H MCHC (test code = 32.6 g/dL 31.6-35.1 786-4) PLT (test code = 777-3) 100 See_Comment L [Au tomated message] The system Rad generated this result transmitted ref erence range: 166 - 35 8 10*3/?L. The reference range was not used to int erpret this result as normal/abnormal . MPV (test code = 10.6 fL 9.5-12.9 20257-0) RDW-CV (test code = 15.0 % 12.0-15.5 788-0) RDW-SD (test code = 57.3 fL 39.0-49.9 H 44519-4) NRBC x10^3 (test code = See_Comment [Au tomated message] 3804687203) The system Rad generated this result transmitted ref erence range: 10*3/?L. The reference range was not used to int erpret this result as normal/abnormal . NRBC/100 WBC (test code 0.0 See_Comment [Au tomated message] = 4956435793) The system [employer] generated this result transmitted ref erence range: 0.0 - 10 .0 /100 WBCs. The reference range was not used to int erpret this result as normal/abnormal . IPF % (test code = 5.1 % 1.3-7.7 Platelet count 5725373607) measured by fluorescence me thod. Lab Interpretation Abnormal (test code = 61923-5) [facility] WITHOUT [id number] 00:10:17 Test Item Value Reference Range Interpretation Comments WBC (test code = 3.67 See_Comment L [Automated message] 6690-2) The system [employer] generated this result transmitted ref erence range: 4.30 - 1 1.10 10*3/?L. The reference range was not used to int erpret this result as normal/abnormal . RBC (test code = 789-8) 2.07 See_Comment L [Au tomated message] The system [employer] generated this result transmitted ref erence range: 3.93 - 5 .25 10*6/?L. The reference range was not used to int erpret this result as normal/abnormal . HGB (test code = 718-7) 7.1 g/dL 11.6-15.0 L HCT (test code = 21.8 % 35.7-45.2 L 4544-3) MCH (test code = 785-6) 34.3 pg 25.9-32.8 H MCV (test code = 787-2) 105.3 fL 80.6-95.5 H MCHC (test code = 32.6 g/dL 31.6-35.1 786-4) PLT (test code = 777-3) 100 See_Comment L [Au tomated message] The system [employer] generated this result transmitted ref erence range: 166 - 35 8 10*3/?L. The reference range was not used to int erpret this result as normal/abnormal . MPV (test code = 10.6 fL 9.5-12.9 91088-4) RDW-CV (test code = 15.0 % 12.0-15.5 788-0) RDW-SD (test code = 57.3 fL 39.0-49.9 H 84698-1) NRBC x10^3 (test code = See_Comment [Au tomated message] 3790004247) The system [employer] generated this result transmitted ref erence range: 10*3/?L. The reference range was not used to int erpret this result as normal/abnormal . NRBC/100 WBC (test code 0.0 See_Comment [Au tomated message] = 0424949996) The system [facility] generated this result transmitted ref erence range: 0.0 - 10 .0 /100 WBCs. The reference range was not used to int erpret this result as normal/abnormal . IPF % (test code = 5.1 % 1.3-7.7 Platelet count [id number]) measured by fluorescence me thod. Lab Interpretation Abnormal (test code = 69943-7) [facility] WITHOUT [id number] 00:10:17 Test Item Value Reference Range Interpretation Comments WBC (test code = 3.67 See_Comment L [Automated message] 6690-2) The system [employer] generated this result transmitted ref erence range: 4.30 - 1 1.10 10*3/?L. The reference range was not used to int erpret this result as normal/abnormal . RBC (test code = 789-8) 2.07 See_Comment L [Au tomated message] The system [employer] generated this result transmitted ref erence range: 3.93 - 5 .25 10*6/?L. The reference range was not used to int erpret this result as normal/abnormal . HGB (test code = 718-7) 7.1 g/dL 11.6-15.0 L HCT (test code = 21.8 % 35.7-45.2 L 4544-3) MCH (test code = 785-6) 34.3 pg 25.9-32.8 H MCV (test code = 787-2) 105.3 fL 80.6-95.5 H MCHC (test code = 32.6 g/dL 31.6-35.1 786-4) PLT (test code = 777-3) 100 See_Comment L [Au tomated message] The system [employer] generated this result transmitted ref erence range: 166 - 35 8 10*3/?L. The reference range was not used to int erpret this result as normal/abnormal . MPV (test code = 10.6 fL 9.5-12.9 55554-9) RDW-CV (test code = 15.0 % 12.0-15.5 788-0) RDW-SD (test code = 57.3 fL 39.0-49.9 H 74092-7) NRBC x10^3 (test code = See_Comment [Au tomated message] 1563434847) The system [employer] generated this result transmitted ref erence range: 10*3/?L. The reference range was not used to int erpret this result as normal/abnormal . NRBC/100 WBC (test code 0.0 See_Comment [Au tomated message] = 7156594448) The system [facility] generated this result transmitted ref erence range: 0.0 - 10 .0 /100 WBCs. The reference range was not used to int erpret this result as normal/abnormal . IPF % (test code = 5.1 % 1.3-7.7 Platelet count [id number]) measured by fluorescence me thod. Lab Interpretation Abnormal (test code = 61476-6) [facility] WITHOUT [id number] 00:10:17 Test Item Value Reference Range Interpretation Comments WBC (test code = 3.67 See_Comment L [Automated message] 6690-2) The system [employer] generated this result transmitted ref erence range: 4.30 - 1 1.10 10*3/?L. The reference range was not used to int erpret this result as normal/abnormal . RBC (test code = 789-8) 2.07 See_Comment L [Au tomated message] The system [facility] generated this result transmitted ref erence range: 3.93 - 5 .25 10*6/?L. The reference range was not used to int erpret this result as normal/abnormal . HGB (test code = 718-7) 7.1 g/dL 11.6-15.0 L HCT (test code = 21.8 % 35.7-45.2 L 4544-3) MCH (test code = 785-6) 34.3 pg 25.9-32.8 H MCV (test code = 787-2) 105.3 fL 80.6-95.5 H MCHC (test code = 32.6 g/dL 31.6-35.1 786-4) PLT (test code = 777-3) 100 See_Comment L [Au tomated message] The system [facility] generated this result transmitted ref erence range: 166 - 35 8 10*3/?L. The reference range was not used to int erpret this result as normal/abnormal . MPV (test code = 10.6 fL 9.5-12.9 29147-7) RDW-CV (test code = 15.0 % 12.0-15.5 788-0) RDW-SD (test code = 57.3 fL 39.0-49.9 H 23436-1) NRBC x10^3 (test code = See_Comment [Au tomated message] [id number]) The system [facility] generated this result transmitted ref erence range: 10*3/?L. The reference range was not used to int erpret this result as normal/abnormal . NRBC/100 WBC (test code 0.0 See_Comment [Au tomated message] = 6470057640) The system [facility] generated this result transmitted ref erence range: 0.0 - 10 .0 /100 WBCs. The reference range was not used to int erpret this result as normal/abnormal . IPF % (test code = 5.1 % 1.3-7.7 Platelet count [id number]) measured by fluorescence me thod. Lab Interpretation Abnormal (test code = 58012-0) [facility] METABOLIC PANEL (NA, K, CL, CO2, GLUCOSE, BUN, CREATININE, CA)2022-07-03 00:00:14 Test Item Value Reference Range Interpretation Comments NA (test code = 134 mmol/L 135-145 L 1246611308) K (test code = 5.2 mmol/L 3.5-5.0 H 2661221545) CL (test code = 102 mmol/L 98-108 3434856748) CO2 TOTAL (test code = 22 mmol/L 23-31 L 7080996779) AGAP (test code = 10 2-16 6209981438) BUN (test code = 64 mg/dL 7-23 H 6525148044) GLUCOSE (test code = 81 mg/dL 70-110 9374447184) CREATININE (test code = 11.89 mg/dL 0.50-1.04 H 7966554512) CALCIUM (test code = 7.5 mg/dL 8.6-10.6 L 0421100010) eGFR (test code = 3.4 mL/min/1.73m2 6468284552) ADAM (test code = ADAM) Association of Glomerular Filtration Rate (GFR) and Staging of Kidney Disease* + --+ --+ ------+| GFR (mL/min/1.73 m2) ?| With Kidney Damage ?| ?Without Kidney Damage+ --------+ --------+ +| ?>90 ?| ?Stage one ?| ? Normal ?+ ---+ ---+ -------+| ?60-89 ?| ?Stage two ?| ? Decreased GFR ? + --+ --+ ------+| ?30-59 ?| ?Stage three ?| ? Stage three ? + --+ --+ ------+| ?15-29 ?| ?Stage four ? | ? Stage four ?+ ---+ ---+ -------+| ?<15 (or dialysis) ? ?| ?Stage five ? | ? Stage five ?+ ---+ ---+ -------+ *Each stage assumes the associated GFR level has been in effect for at least three months. ?Stages 1 to 5, with or without kidney disease, indicate chronic kidney disease. Notes: Determination of stages one and two (with eGFR >59mL/min/1.73 m2) requires estimation of kidney damage for at least three months as defined by structural or functional abnormalities of the kidney, manifested by either:Pathological abnormalities or Markers of kidney damage (including abnormalities in the composition of the blood or urine or abnormalities in imaging tests). Lab Interpretation Abnormal (test code = 27138-7) [facility] METABOLIC PANEL (NA, K, CL, CO2, GLUCOSE, BUN, CREATININE, CA)2022-07-03 00:00:14 Test Item Value Reference Range Interpretation Comments NA (test code = 134 mmol/L 135-145 L 4660320887) K (test code = 5.2 mmol/L 3.5-5.0 H 5448827095) CL (test code = 102 mmol/L 98-108 0977327200) CO2 TOTAL (test code = 22 mmol/L 23-31 L 0667444136) AGAP (test code = 10 2-16 4528649907) BUN (test code = 64 mg/dL 7-23 H 4866644671) GLUCOSE (test code = 81 mg/dL 70-110 4314072415) CREATININE (test code = 11.89 mg/dL 0.50-1.04 H 2169451472) CALCIUM (test code = 7.5 mg/dL 8.6-10.6 L 1210617437) eGFR (test code = 3.4 mL/min/1.73m2 8905448351) ADAM (test code = ADAM) Association of Glomerular Filtration Rate (GFR) and Staging of Kidney Disease* + --+ --+ ------+| GFR (mL/min/1.73 m2) ?| With Kidney Damage ?| ?Without Kidney Damage+ --------+ --------+ +| ?>90 ?| ?Stage one ?| ? Normal ?+ ---+ ---+ -------+| ?60-89 ?| ?Stage two ?| ? Decreased GFR ? + --+ --+ ------+| ?30-59 ?| ?Stage three ?| ? Stage three ? + --+ --+ ------+| ?15-29 ?| ?Stage four ? | ? Stage four ?+ ---+ ---+ -------+| ?<15 (or dialysis) ? ?| ?Stage five ? | ? Stage five ?+ ---+ ---+ -------+ *Each stage assumes the associated GFR level has been in effect for at least three months. ?Stages 1 to 5, with or without kidney disease, indicate chronic kidney disease. Notes: Determination of stages one and two (with eGFR >59mL/min/1.73 m2) requires estimation of kidney damage for at least three months as defined by structural or functional abnormalities of the kidney, manifested by either:Pathological abnormalities or Markers of kidney damage (including abnormalities in the composition of the blood or urine or abnormalities in imaging tests). Lab Interpretation Abnormal (test code = 58727-3) [facility] METABOLIC PANEL (NA, K, CL, CO2, GLUCOSE, BUN, CREATININE, CA)2022-07-03 00:00:14 Test Item Value Reference Range Interpretation Comments NA (test code = 134 mmol/L 135-145 L 2748365660) K (test code = 5.2 mmol/L 3.5-5.0 H 0017641349) CL (test code = 102 mmol/L 98-108 8233994598) CO2 TOTAL (test code = 22 mmol/L 23-31 L 0541694593) AGAP (test code = 10 2-16 2817234789) BUN (test code = 64 mg/dL 7-23 H 2916612507) GLUCOSE (test code = 81 mg/dL 70-110 8428292543) CREATININE (test code = 11.89 mg/dL 0.50-1.04 H 9636714098) CALCIUM (test code = 7.5 mg/dL 8.6-10.6 L 6202812074) eGFR (test code = 3.4 mL/min/1.73m2 6140736195) ADAM (test code = ADAM) Association of Glomerular Filtration Rate (GFR) and Staging of Kidney Disease* + --+ --+ ------+| GFR (mL/min/1.73 m2) ?| With Kidney Damage ?| ?Without Kidney Damage+ --------+ --------+ +| ?>90 ?| ?Stage one ?| ? Normal ?+ ---+ ---+ -------+| ?60-89 ?| ?Stage two ?| ? Decreased GFR ? + --+ --+ ------+| ?30-59 ?| ?Stage three ?| ? Stage three ? + --+ --+ ------+| ?15-29 ?| ?Stage four ? | ? Stage four ?+ ---+ ---+ -------+| ?<15 (or dialysis) ? ?| ?Stage five ? | ? Stage five ?+ ---+ ---+ -------+ *Each stage assumes the associated GFR level has been in effect for at least three months. ?Stages 1 to 5, with or without kidney disease, indicate chronic kidney disease. Notes: Determination of stages one and two (with eGFR >59mL/min/1.73 m2) requires estimation of kidney damage for at least three months as defined by structural or functional abnormalities of the kidney, manifested by either:Pathological abnormalities or Markers of kidney damage (including abnormalities in the composition of the blood or urine or abnormalities in imaging tests). Lab Interpretation Abnormal (test code = 09402-2) [facility] METABOLIC PANEL (NA, K, CL, CO2, GLUCOSE, BUN, CREATININE, CA)2022-07-03 00:00:14 Test Item Value Reference Range Interpretation Comments NA (test code = 134 mmol/L 135-145 L 2768150476) K (test code = 5.2 mmol/L 3.5-5.0 H 9197068905) CL (test code = 102 mmol/L 98-108 3443196779) CO2 TOTAL (test code = 22 mmol/L 23-31 L 5614671577) AGAP (test code = 10 2-16 3186944533) BUN (test code = 64 mg/dL 7-23 H 2994273756) GLUCOSE (test code = 81 mg/dL 70-110 5600422380) CREATININE (test code = 11.89 mg/dL 0.50-1.04 H 6278926681) CALCIUM (test code = 7.5 mg/dL 8.6-10.6 L 5185248750) eGFR (test code = 3.4 mL/min/1.73m2 5117154980) ADAM (test code = ADAM) Association of Glomerular Filtration Rate (GFR) and Staging of Kidney Disease* + --+ --+ ------+| GFR (mL/min/1.73 m2) ?| With Kidney Damage ?| ?Without Kidney Damage+ --------+ --------+ +| ?>90 ?| ?Stage one ?| ? Normal ?+ ---+ ---+ -------+| ?60-89 ?| ?Stage two ?| ? Decreased GFR ? + --+ --+ ------+| ?30-59 ?| ?Stage three ?| ? Stage three ? + --+ --+ ------+| ?15-29 ?| ?Stage four ? | ? Stage four ?+ ---+ ---+ -------+| ?<15 (or dialysis) ? ?| ?Stage five ? | ? Stage five ?+ ---+ ---+ -------+ *Each stage assumes the associated GFR level has been in effect for at least three months. ?Stages 1 to 5, with or without kidney disease, indicate chronic kidney disease. Notes: Determination of stages one and two (with eGFR >59mL/min/1.73 m2) requires estimation of kidney damage for at least three months as defined by structural or functional abnormalities of the kidney, manifested by either:Pathological abnormalities or Markers of kidney damage (including abnormalities in the composition of the blood or urine or abnormalities in imaging tests). Lab Interpretation Abnormal (test code = 17472-3) [facility] and Screen - ONCE [id number] 21:19:13 Test Item Value Reference Range Interpretation Comments ABO & RH (test code A POSITIVE Performe d at [facility] = 20) Laboratory [facility] Blood [address] [address]Umyd Free: [phone] A No. [id number] IAT (test code = Negative Performed a t [facility] 1185) Laboratory [facility] Blood [address] [address]Mzss Free: [phone] A No. [id number] [facility] and Screen - ONCE [id number] 21:19:13 Test Item Value Reference Range Interpretation Comments ABO & RH (test code A POSITIVE Performe d at [facility] = 20) Laboratory [facility] Blood [address] [address]Jvsb Free: [phone] A No. [id number] IAT (test code = Negative Performed a t [facility] 1185) Laboratory [facility] Blood [address] [address]Zbia Free: [phone] A No. [id number] [facility] and Screen - ONCE [id number] 21:19:13 Test Item Value Reference Range Interpretation Comments ABO & RH (test code A POSITIVE Performe d at [facility] = 20) Laboratory [facility] Blood Bank3 [address] [facility] [address]Flie Free: [phone] A No. [id number] IAT (test code = Negative Performed a t [facility] 1185) Laboratory [facility] Blood Bank3 [address] [facility] [address]Zaau Free: [phone] A No. [id number] [facility] - ONCE [id number] 21:19:13 Test Item Value Reference Range Interpretation Comments ABO & RH (test code A POSITIVE Performe d at [facility] = 20) Laboratory [facility] Blood [address] [place] [address]Pohm Free: [phone] A No. [id number] IAT (test code = Negative Performed a t [facility] 1185) Laboratory [facility] Blood [address] [address]Ikwv Free: [phone] A No. [id number] [facility] NEGATIVE BLOOD PATHOGENS DNA [id number] 12:51:30 Test Item Value Reference Range Interpretation Comments Blood Pathogens by No organisms included in DNA Comment (test the Blood DNA Probe test code = 69502-4) panel were detected. Further identification workup to be performed by culture testing methods. ADAM (test code = See blood culture result ADAM) for additional information. ?Testing included eight identification and six resistance marker targets. [facility] NEGATIVE BLOOD PATHOGENS DNA [id number] 12:51:30 Test Item Value Reference Range Interpretation Comments Blood Pathogens by No organisms included in DNA Comment (test the Blood DNA Probe test code = 48437-3) panel were detected. Further identification workup to be performed by culture testing methods. ADAM (test code = See blood culture result ADAM) for additional information. ?Testing included eight identification and six resistance marker targets. [facility] NEGATIVE BLOOD PATHOGENS DNA [id number] 12:51:30 Test Item Value Reference Range Interpretation Comments Blood Pathogens by No organisms included in DNA Comment (test the Blood DNA Probe test code = 11639-8) panel were detected. Further identification workup to be performed by culture testing methods. ADAM (test code = See blood culture result ADAM) for additional information. ?Testing included eight identification and six resistance marker targets. [facility] NEGATIVE BLOOD PATHOGENS DNA [id number] 12:51:30 Test Item Value Reference Range Interpretation Comments Blood Pathogens by No organisms included in DNA Comment (test the Blood DNA Probe test code = 69744-0) panel were detected. Further identification workup to be performed by culture testing methods. ADAM (test code = See blood culture result ADAM) for additional information. ?Testing included eight identification and six resistance marker targets. [facility] NEGATIVE BLOOD PATHOGENS DNA [id number] 12:51:30 Test Item Value Reference Range Interpretation Comments Blood Pathogens by No organisms included in DNA Comment (test the Blood DNA Probe test code = 08103-0) panel were detected. Further identification workup to be performed by culture testing methods. ADAM (test code = See blood culture result ADAM) for additional information. ?Testing included eight identification and six resistance marker targets. [facility] + Lactic [id number] 04:52:40 Test Item Value Reference Range Interpretation Comments PH (test code = 2) 7.52 7.35-7.45 H PCO2 (test code = 26 See_Comment L [Automate d [id number]) message] The sy stem which generated this result transmitted reference range : 35 - 45 mmHg. The reference range was not used to interpret this result as normal/abnormal . PO2 (test code = 73 See_Comment L [Automated [id number]) message] The sy stem which generated this result transmitted reference range : 80 - 100 mmHg. The reference range was not used to interpret this result as normal/abnormal . HCO3 (test code = 21 See_Comment L [Automate d 0578669010) message] The sy stem which generated this result transmitted reference range : 22 - 26 mEq/L. The reference range was not used to interpret this result as normal/abnormal . BE (test code = -1.5 See_Comment [Automated 4637594022) message] The sy stem which generated this result transmitted reference range : -3.0 - 3.0 mEq/ L. The reference r darshan was not used to interpret this result as normal/abnormal . THB (test code = 9.4 g/dL 12.0-16.0 L 4168053246) %O2HB (test code = 94.6 % 94.0-99.0 9548791693) %COHB ART (test code = 0.3 % 0.0-1.5 1343463238) %METHB ART (test code = 0.3 % 0.4-1.5 L 1940730834) VOL%O2 ART (test code = 12.6 % 15.0-23.0 L 7727204445) NA (test code = 132 mmol/L 135-145 L 4678788787) K+ (test code = 4.1 mmol/L 3.5-5.0 6863206906) AC CA IONZ (test code = 4.40 mg/dL 4.50-5.30 L 3337423258) GLUCOSE (test code = 119 mg/dL 70-110 H 1906426600) LACTIC ACID (test code 0.97 mmol/L 0.50-2.20 = 8731662341) Lab Interpretation Abnormal (test code = 70456-4) [facility] 20 + Lactic [id number] 04:52:40 Test Item Value Reference Range Interpretation Comments PH (test code = 2) 7.52 7.35-7.45 H PCO2 (test code = 26 See_Comment L [Automate d 6760433676) message] The sy stem which generated this result transmitted reference range : 35 - 45 mmHg. The reference range was not used to interpret this result as normal/abnormal . PO2 (test code = 73 See_Comment L [Automated 1554916459) message] The sy stem which generated this result transmitted reference range : 80 - 100 mmHg. The reference range was not used to interpret this result as normal/abnormal . HCO3 (test code = 21 See_Comment L [Automate d 3905477494) message] The sy stem which generated this result transmitted reference range : 22 - 26 mEq/L. The reference range was not used to interpret this result as normal/abnormal . BE (test code = -1.5 See_Comment [Automated 2075145549) message] The sy stem which generated this result transmitted reference range : -3.0 - 3.0 mEq/ L. The reference r darshan was not used to interpret this result as normal/abnormal . THB (test code = 9.4 g/dL 12.0-16.0 L 3056875795) %O2HB (test code = 94.6 % 94.0-99.0 7099868695) %COHB ART (test code = 0.3 % 0.0-1.5 5759794266) %METHB ART (test code = 0.3 % 0.4-1.5 L 0434572632) VOL%O2 ART (test code = 12.6 % 15.0-23.0 L 0327600791) NA (test code = 132 mmol/L 135-145 L 7163003076) K+ (test code = 4.1 mmol/L 3.5-5.0 5493541147) AC CA IONZ (test code = 4.40 mg/dL 4.50-5.30 L 1158931830) GLUCOSE (test code = 119 mg/dL 70-110 H 6705888139) LACTIC ACID (test code 0.97 mmol/L 0.50-2.20 = 6074409950) Lab Interpretation Abnormal (test code = 97737-4) [facility] 20 + Lactic [id number] 04:52:40 Test Item Value Reference Range Interpretation Comments PH (test code = 2) 7.52 7.35-7.45 H PCO2 (test code = 26 See_Comment L [Automate d 8184061768) message] The sy stem which generated this result transmitted reference range : 35 - 45 mmHg. The reference range was not used to interpret this result as normal/abnormal . PO2 (test code = 73 See_Comment L [Automated 6279256624) message] The sy stem which generated this result transmitted reference range : 80 - 100 mmHg. The reference range was not used to interpret this result as normal/abnormal . HCO3 (test code = 21 See_Comment L [Automate d 5551988132) message] The sy stem which generated this result transmitted reference range : 22 - 26 mEq/L. The reference range was not used to interpret this result as normal/abnormal . BE (test code = -1.5 See_Comment [Automated 1648495191) message] The sy stem which generated this result transmitted reference range : -3.0 - 3.0 mEq/ L. The reference r darshan was not used to interpret this result as normal/abnormal . THB (test code = 9.4 g/dL 12.0-16.0 L 9298282882) %O2HB (test code = 94.6 % 94.0-99.0 1016829325) %COHB ART (test code = 0.3 % 0.0-1.5 0051734773) %METHB ART (test code = 0.3 % 0.4-1.5 L 4203588458) VOL%O2 ART (test code = 12.6 % 15.0-23.0 L 3292053116) NA (test code = 132 mmol/L 135-145 L 5102524324) K+ (test code = 4.1 mmol/L 3.5-5.0 4978519787) AC CA IONZ (test code = 4.40 mg/dL 4.50-5.30 L 3242359219) GLUCOSE (test code = 119 mg/dL 70-110 H 8189142224) LACTIC ACID (test code 0.97 mmol/L 0.50-2.20 = 2690869031) Lab Interpretation Abnormal (test code = 98179-6) [facility] + Lactic [id number] 04:52:40 Test Item Value Reference Range Interpretation Comments PH (test code = 2) 7.52 7.35-7.45 H PCO2 (test code = 26 See_Comment L [Automate d 6506292719) message] The sy stem which generated this result transmitted reference range : 35 - 45 mmHg. The reference range was not used to interpret this result as normal/abnormal . PO2 (test code = 73 See_Comment L [Automated 3473745865) message] The sy stem which generated this result transmitted reference range : 80 - 100 mmHg. The reference range was not used to interpret this result as normal/abnormal . HCO3 (test code = 21 See_Comment L [Automate d 6309590390) message] The sy stem which generated this result transmitted reference range : 22 - 26 mEq/L. The reference range was not used to interpret this result as normal/abnormal . BE (test code = -1.5 See_Comment [Automated 1940589100) message] The sy stem which generated this result transmitted reference range : -3.0 - 3.0 mEq/ L. The reference r darshan was not used to interpret this result as normal/abnormal . THB (test code = 9.4 g/dL 12.0-16.0 L 2817373373) %O2HB (test code = 94.6 % 94.0-99.0 8949124948) %COHB ART (test code = 0.3 % 0.0-1.5 8091631774) %METHB ART (test code = 0.3 % 0.4-1.5 L 2732491961) VOL%O2 ART (test code = 12.6 % 15.0-23.0 L 9636556546) NA (test code = 132 mmol/L 135-145 L 9035799259) K+ (test code = 4.1 mmol/L 3.5-5.0 7999826100) AC CA IONZ (test code = 4.40 mg/dL 4.50-5.30 L 1572051508) GLUCOSE (test code = 119 mg/dL 70-110 H 8191497106) LACTIC ACID (test code 0.97 mmol/L 0.50-2.20 = 0986941311) Lab Interpretation Abnormal (test code = 53135-9) [facility] + Lactic [id number] 04:52:40 Test Item Value Reference Range Interpretation Comments PH (test code = 2) 7.52 7.35-7.45 H PCO2 (test code = 26 See_Comment L [Automate d 3996818544) message] The sy stem which generated this result transmitted reference range : 35 - 45 mmHg. The reference range was not used to interpret this result as normal/abnormal . PO2 (test code = 73 See_Comment L [Automated 8335478911) message] The sy stem which generated this result transmitted reference range : 80 - 100 mmHg. The reference range was not used to interpret this result as normal/abnormal . HCO3 (test code = 21 See_Comment L [Automate d 5974977516) message] The sy stem which generated this result transmitted reference range : 22 - 26 mEq/L. The reference range was not used to interpret this result as normal/abnormal . BE (test code = -1.5 See_Comment [Automated 0297940539) message] The sy stem which generated this result transmitted reference range : -3.0 - 3.0 mEq/ L. The reference r darshan was not used to interpret this result as normal/abnormal . THB (test code = 9.4 g/dL 12.0-16.0 L 8260660475) %O2HB (test code = 94.6 % 94.0-99.0 3184881705) %COHB ART (test code = 0.3 % 0.0-1.5 4315315220) %METHB ART (test code = 0.3 % 0.4-1.5 L 3268655029) VOL%O2 ART (test code = 12.6 % 15.0-23.0 L 1178165089) NA (test code = 132 mmol/L 135-145 L 1309834841) K+ (test code = 4.1 mmol/L 3.5-5.0 0252943955) AC CA IONZ (test code = 4.40 mg/dL 4.50-5.30 L 9676318659) GLUCOSE (test code = 119 mg/dL 70-110 H 0754077106) LACTIC ACID (test code 0.97 mmol/L 0.50-2.20 = 4399858350) Lab Interpretation Abnormal (test code = 50863-8) [facility] Test Item Value Reference Range Interpretation Comments APTT Patient (test code 40 See_Comment H [Au tomated message] = 3173-2) The system Rad generated this result transmitted ref erence range: 26 - 36 Seconds. The reference range was not used to int erpret this result as normal/abnormal . Lab Interpretation (test Abnormal code = 63520-6) [facility] Test Item Value Reference Range Interpretation Comments APTT Patient (test code 40 See_Comment H [Au tomated message] = 3173-2) The system Rad generated this result transmitted ref erence range: 26 - 36 Seconds. The reference range was not used to int erpret this result as normal/abnormal . Lab Interpretation (test Abnormal code = 81649-8) [facility] Test Item Value Reference Range Interpretation Comments APTT Patient (test code 40 See_Comment H [Au tomated message] = 3173-2) The system Rad generated this result transmitted ref erence range: 26 - 36 Seconds. The reference range was not used to int erpret this result as normal/abnormal . Lab Interpretation (test Abnormal code = 82942-0) [facility] 04:03:19 Test Item Value Reference Range Interpretation Comments APTT Patient (test code 40 See_Comment H [Au tomated message] = 3173-2) The system Rad generated this result transmitted ref erence range: 26 - 36 Seconds. The reference range was not used to int erpret this result as normal/abnormal . Lab Interpretation (test Abnormal code = 37660-6) [facility] [id number] 21:28:05 Test Item Value Reference Range Interpretation Comments CRP (test code = 1578286774) 4.3 mg/dL <=0.8 H Lab Interpretation (test code = Abnormal 75005-5) [facility] [id number] 21:28:05 Test Item Value Reference Range Interpretation Comments CRP (test code = 8360467620) 4.3 mg/dL <=0.8 H Lab Interpretation (test code = Abnormal 10162-5) [facility] [id number] 21:28:05 Test Item Value Reference Range Interpretation Comments CRP (test code = 3840850317) 4.3 mg/dL <=0.8 H Lab Interpretation (test code = Abnormal 67057-2) [facility] [id number] 21:28:05 Test Item Value Reference Range Interpretation Comments CRP (test code = 1592873515) 4.3 mg/dL <=0.8 H Lab Interpretation (test code = Abnormal 67838-4) [facility]-REACT[facility] [id number] 21:28:05 Test Item Value Reference Range Interpretation Comments CRP (test code = 1444685857) 4.3 mg/dL <=0.8 H Lab Interpretation (test code = Abnormal 93948-2) [facility] 17:46:18 Test Item Value Reference Range Interpretation Comments Procalcitonin (test 0.19 ng/mL <=0.07 H code = 7857677142) ADAM (test code = ADAM) INTERPRETATION OF PROCALCITONIN RESULTS IN ADULTS >= 18 YEARS OF AGE Initiation and discontinuation of antibiotics on patients with suspected or confirmed Lower Respiratory Tract Infection in Adults >= 18 years of age. + +-------- --------+ + -----+|Procalcitonin |Interpretation ?|Antibiotic ? ? |Considerations ? |ng/mL ? | ?|recommendation | ? + +-------- --------+ + -----+| <0.1 ? | Bacterial ? ? ?| Strongly ? ? ?| ? | ?| infection very | discouraged ? | Overruling: ? | ?| unlikely ? ? ? | ? | ? Clinically unstable ? ? ? + +-------- --------+ + ? High risk for adverse ? ? | <0.25 ?| Bacterial ? ? ?| Discouraged ? | ? outcome ? | ?| infection ? ? ?| ? | ? SEE IMPORTANT NOTE ?| ?| unlikely ? ? ? | ? | ? + +-------- --------+ + -----+| >=0.25 ? ? ? | Bacterial ? ? ?| Encouraged ? ?| ? | ?| infection ? ? ?| ? | ? | ?| likely ? | ? | Consider treatment failure ?+ +------- ---------+ -+ if levels does not decrease | >0.5 ? | Bacterial ? ? ?| Strongly ? ? ?| appropriately ? | ?| infection very | encouraged ? ?| ? | ?| likely ? | ? | ? + +-------- --------+ + -----+ Discontinuation of antibiotics in high-acuity patients with suspected or confirmed sepsis in Adults >= 18 years of age. + +-------- --------+ + -----+|Procalcitonin |Interpretation ?|Antibiotic ? ? |Considerations ? |ng/mL ? | ?|recommendation | ? + +-------- --------+ + -----+| <0.25 ?| Bacterial ? ? ?| Strongly ? ? ?| ? | ?| infection very | discouraged ? | Overruling: ? | ?| unlikely ? ? ? | ? | ? Clinically unstable ? ? ? + +-------- --------+ + ? High risk for adverse ? ? | <0.5 or drop | Bacterial ? ? ?| Discouraged ? | ? outcome ? | >80% from ? ?| infection ? ? ?| ? | ? SEE IMPORTANT NOTE ?| highest PCT ?| unlikely ? ? ? | ? | ? | level ?| ?| ? | ? + +-------- --------+ + -----+| >=0.5 ?| Bacterial ? ? ?| Encouraged ? ?| ? | ?| infection ? ? ?| ? | ? | ?| likely ? | ? | Consider treatment failure ?+ +------- ---------+ -+ if levels does not decrease | >1.0 ? | Bacterial ? ? ?| Strongly ? ? ?| appropriately ? | ?| infection very | encouraged ? ?| ? | ?| likely ? | ? | ? + +-------- --------+ + -----+ Percentage of drop of Procalcitonin calculation for Discontinuation of antibiotics in high-acuity patients with suspected or confirmed sepsis in Adults >= 18 years of age. ? Procalcitonin highest{}-Procalcitonin current{}Delta Procalcitonin = x100% ? Procalcitonin current {} IMPORTANT NOTE: Procalcitonin may be elevated without bacterial infection by physiologic stress related to trauma, honeycutt, chronic dialysis, metastatic cancer, surgery in the past seven days, malaria, some fungal infections, and some forms of vasculitis. The interpretation algorithm may not apply to patients with immunosuppression (equivalent of >10 mg of prednisone daily), HIV with CD4 cell count < 350 cells/mm3, active malignancy on systemic chemotherapy, solid organ transplant or hematopoietic stem cell transplantation, or hospital acquired pneumonia. Additionally, some clinical trials of procalcitonin have excluded patients with shock requiring vasopressor use, acute respiratory failure requiring mechanical ventilation, or those with known lung abscess/empyema. For further information please refer to:[email or web address] Lab Interpretation Abnormal (test code = 79657-6) [facility]:46:18 Test Item Value Reference Range Interpretation Comments Procalcitonin (test 0.19 ng/mL <=0.07 H code = 2380666658) ADAM (test code = ADAM) INTERPRETATION OF PROCALCITONIN RESULTS IN ADULTS >= 18 YEARS OF AGE Initiation and discontinuation of antibiotics on patients with suspected or confirmed Lower Respiratory Tract Infection in Adults >= 18 years of age. + +-------- --------+ + -----+|Procalcitonin |Interpretation ?|Antibiotic ? ? |Considerations ? |ng/mL ? | ?|recommendation | ? + +-------- --------+ + -----+| <0.1 ? | Bacterial ? ? ?| Strongly ? ? ?| ? | ?| infection very | discouraged ? | Overruling: ? | ?| unlikely ? ? ? | ? | ? Clinically unstable ? ? ? + +-------- --------+ + ? High risk for adverse ? ? | <0.25 ?| Bacterial ? ? ?| Discouraged ? | ? outcome ? | ?| infection ? ? ?| ? | ? SEE IMPORTANT NOTE ?| ?| unlikely ? ? ? | ? | ? + +-------- --------+ + -----+| >=0.25 ? ? ? | Bacterial ? ? ?| Encouraged ? ?| ? | ?| infection ? ? ?| ? | ? | ?| likely ? | ? | Consider treatment failure ?+ +------- ---------+ -+ if levels does not decrease | >0.5 ? | Bacterial ? ? ?| Strongly ? ? ?| appropriately ? | ?| infection very | encouraged ? ?| ? | ?| likely ? | ? | ? + +-------- --------+ + -----+ Discontinuation of antibiotics in high-acuity patients with suspected or confirmed sepsis in Adults >= 18 years of age. + +-------- --------+ + -----+|Procalcitonin |Interpretation ?|Antibiotic ? ? |Considerations ? |ng/mL ? | ?|recommendation | ? + +-------- --------+ + -----+| <0.25 ?| Bacterial ? ? ?| Strongly ? ? ?| ? | ?| infection very | discouraged ? | Overruling: ? | ?| unlikely ? ? ? | ? | ? Clinically unstable ? ? ? + +-------- --------+ + ? High risk for adverse ? ? | <0.5 or drop | Bacterial ? ? ?| Discouraged ? | ? outcome ? | >80% from ? ?| infection ? ? ?| ? | ? SEE IMPORTANT NOTE ?| highest PCT ?| unlikely ? ? ? | ? | ? | level ?| ?| ? | ? + +-------- --------+ + -----+| >=0.5 ?| Bacterial ? ? ?| Encouraged ? ?| ? | ?| infection ? ? ?| ? | ? | ?| likely ? | ? | Consider treatment failure ?+ +------- ---------+ -+ if levels does not decrease | >1.0 ? | Bacterial ? ? ?| Strongly ? ? ?| appropriately ? | ?| infection very | encouraged ? ?| ? | ?| likely ? | ? | ? + +-------- --------+ + -----+ Percentage of drop of Procalcitonin calculation for Discontinuation of antibiotics in high-acuity patients with suspected or confirmed sepsis in Adults >= 18 years of age. ? Procalcitonin highest{}-Procalcitonin current{}Delta Procalcitonin = x100% ? Procalcitonin current {} IMPORTANT NOTE: Procalcitonin may be elevated without bacterial infection by physiologic stress related to trauma, honeycutt, chronic dialysis, metastatic cancer, surgery in the past seven days, malaria, some fungal infections, and some forms of vasculitis. The interpretation algorithm may not apply to patients with immunosuppression (equivalent of >10 mg of prednisone daily), HIV with CD4 cell count < 350 cells/mm3, active malignancy on systemic chemotherapy, solid organ transplant or hematopoietic stem cell transplantation, or hospital acquired pneumonia. Additionally, some clinical trials of procalcitonin have excluded patients with shock requiring vasopressor use, acute respiratory failure requiring mechanical ventilation, or those with known lung abscess/empyema. For further information please refer to:[email or web address] Lab Interpretation Abnormal (test code = 84710-6) [facility] 17:46:18 Test Item Value Reference Range Interpretation Comments Procalcitonin (test 0.19 ng/mL <=0.07 H code = 0063881465) ADAM (test code = ADAM) INTERPRETATION OF PROCALCITONIN RESULTS IN ADULTS >= 18 YEARS OF AGE Initiation and discontinuation of antibiotics on patients with suspected or confirmed Lower Respiratory Tract Infection in Adults >= 18 years of age. + +-------- --------+ + -----+|Procalcitonin |Interpretation ?|Antibiotic ? ? |Considerations ? |ng/mL ? | ?|recommendation | ? + +-------- --------+ + -----+| <0.1 ? | Bacterial ? ? ?| Strongly ? ? ?| ? | ?| infection very | discouraged ? | Overruling: ? | ?| unlikely ? ? ? | ? | ? Clinically unstable ? ? ? + +-------- --------+ + ? High risk for adverse ? ? | <0.25 ?| Bacterial ? ? ?| Discouraged ? | ? outcome ? | ?| infection ? ? ?| ? | ? SEE IMPORTANT NOTE ?| ?| unlikely ? ? ? | ? | ? + +-------- --------+ + -----+| >=0.25 ? ? ? | Bacterial ? ? ?| Encouraged ? ?| ? | ?| infection ? ? ?| ? | ? | ?| likely ? | ? | Consider treatment failure ?+ +------- ---------+ -+ if levels does not decrease | >0.5 ? | Bacterial ? ? ?| Strongly ? ? ?| appropriately ? | ?| infection very | encouraged ? ?| ? | ?| likely ? | ? | ? + +-------- --------+ + -----+ Discontinuation of antibiotics in high-acuity patients with suspected or confirmed sepsis in Adults >= 18 years of age. + +-------- --------+ + -----+|Procalcitonin |Interpretation ?|Antibiotic ? ? |Considerations ? |ng/mL ? | ?|recommendation | ? + +-------- --------+ + -----+| <0.25 ?| Bacterial ? ? ?| Strongly ? ? ?| ? | ?| infection very | discouraged ? | Overruling: ? | ?| unlikely ? ? ? | ? | ? Clinically unstable ? ? ? + +-------- --------+ + ? High risk for adverse ? ? | <0.5 or drop | Bacterial ? ? ?| Discouraged ? | ? outcome ? | >80% from ? ?| infection ? ? ?| ? | ? SEE IMPORTANT NOTE ?| highest PCT ?| unlikely ? ? ? | ? | ? | level ?| ?| ? | ? + +-------- --------+ + -----+| >=0.5 ?| Bacterial ? ? ?| Encouraged ? ?| ? | ?| infection ? ? ?| ? | ? | ?| likely ? | ? | Consider treatment failure ?+ +------- ---------+ -+ if levels does not decrease | >1.0 ? | Bacterial ? ? ?| Strongly ? ? ?| appropriately ? | ?| infection very | encouraged ? ?| ? | ?| likely ? | ? | ? + +-------- --------+ + -----+ Percentage of drop of Procalcitonin calculation for Discontinuation of antibiotics in high-acuity patients with suspected or confirmed sepsis in Adults >= 18 years of age. ? Procalcitonin highest{}-Procalcitonin current{}Delta Procalcitonin = x100% ? Procalcitonin current {} IMPORTANT NOTE: Procalcitonin may be elevated without bacterial infection by physiologic stress related to trauma, honeycutt, chronic dialysis, metastatic cancer, surgery in the past seven days, malaria, some fungal infections, and some forms of vasculitis. The interpretation algorithm may not apply to patients with immunosuppression (equivalent of >10 mg of prednisone daily), HIV with CD4 cell count < 350 cells/mm3, active malignancy on systemic chemotherapy, solid organ transplant or hematopoietic stem cell transplantation, or hospital acquired pneumonia. Additionally, some clinical trials of procalcitonin have excluded patients with shock requiring vasopressor use, acute respiratory failure requiring mechanical ventilation, or those with known lung abscess/empyema. For further information please refer to:[email or web address] Lab Interpretation Abnormal (test code = 97365-4) [facility] 17:46:18 Test Item Value Reference Range Interpretation Comments Procalcitonin (test 0.19 ng/mL <=0.07 H code = [id number]) ADAM (test code = ADAM) INTERPRETATION OF PROCALCITONIN RESULTS IN ADULTS >= 18 YEARS OF AGE Initiation and discontinuation of antibiotics on patients with suspected or confirmed Lower Respiratory Tract Infection in Adults >= 18 years of age. + +-------- --------+ + -----+|Procalcitonin |Interpretation ?|Antibiotic ? ? |Considerations ? |ng/mL ? | ?|recommendation | ? + +-------- --------+ + -----+| <0.1 ? | Bacterial ? ? ?| Strongly ? ? ?| ? | ?| infection very | discouraged ? | Overruling: ? | ?| unlikely ? ? ? | ? | ? Clinically unstable ? ? ? + +-------- --------+ + ? High risk for adverse ? ? | <0.25 ?| Bacterial ? ? ?| Discouraged ? | ? outcome ? | ?| infection ? ? ?| ? | ? SEE IMPORTANT NOTE ?| ?| unlikely ? ? ? | ? | ? + +-------- --------+ + -----+| >=0.25 ? ? ? | Bacterial ? ? ?| Encouraged ? ?| ? | ?| infection ? ? ?| ? | ? | ?| likely ? | ? | Consider treatment failure ?+ +------- ---------+ -+ if levels does not decrease | >0.5 ? | Bacterial ? ? ?| Strongly ? ? ?| appropriately ? | ?| infection very | encouraged ? ?| ? | ?| likely ? | ? | ? + +-------- --------+ + -----+ Discontinuation of antibiotics in high-acuity patients with suspected or confirmed sepsis in Adults >= 18 years of age. + +-------- --------+ + -----+|Procalcitonin |Interpretation ?|Antibiotic ? ? |Considerations ? |ng/mL ? | ?|recommendation | ? + +-------- --------+ + -----+| <0.25 ?| Bacterial ? ? ?| Strongly ? ? ?| ? | ?| infection very | discouraged ? | Overruling: ? | ?| unlikely ? ? ? | ? | ? Clinically unstable ? ? ? + +-------- --------+ + ? High risk for adverse ? ? | <0.5 or drop | Bacterial ? ? ?| Discouraged ? | ? outcome ? | >80% from ? ?| infection ? ? ?| ? | ? SEE IMPORTANT NOTE ?| highest PCT ?| unlikely ? ? ? | ? | ? | level ?| ?| ? | ? + +-------- --------+ + -----+| >=0.5 ?| Bacterial ? ? ?| Encouraged ? ?| ? | ?| infection ? ? ?| ? | ? | ?| likely ? | ? | Consider treatment failure ?+ +------- ---------+ -+ if levels does not decrease | >1.0 ? | Bacterial ? ? ?| Strongly ? ? ?| appropriately ? | ?| infection very | encouraged ? ?| ? | ?| likely ? | ? | ? + +-------- --------+ + -----+ Percentage of drop of Procalcitonin calculation for Discontinuation of antibiotics in high-acuity patients with suspected or confirmed sepsis in Adults >= 18 years of age. ? Procalcitonin highest{}-Procalcitonin current{}Delta Procalcitonin = x100% ? Procalcitonin current {} IMPORTANT NOTE: Procalcitonin may be elevated without bacterial infection by physiologic stress related to trauma, honeycutt, chronic dialysis, metastatic cancer, surgery in the past seven days, malaria, some fungal infections, and some forms of vasculitis. The interpretation algorithm may not apply to patients with immunosuppression (equivalent of >10 mg of prednisone daily), HIV with CD4 cell count < 350 cells/mm3, active malignancy on systemic chemotherapy, solid organ transplant or hematopoietic stem cell transplantation, or hospital acquired pneumonia. Additionally, some clinical trials of procalcitonin have excluded patients with shock requiring vasopressor use, acute respiratory failure requiring mechanical ventilation, or those with known lung abscess/empyema. For further information please refer to:[email or web address] Lab Interpretation Abnormal (test code = 01952-7) [facility] 17:46:18 Test Item Value Reference Range Interpretation Comments Procalcitonin (test 0.19 ng/mL <=0.07 H code = [id number]) ADAM (test code = ADAM) INTERPRETATION OF PROCALCITONIN RESULTS IN ADULTS >= 18 YEARS OF AGE Initiation and discontinuation of antibiotics on patients with suspected or confirmed Lower Respiratory Tract Infection in Adults >= 18 years of age. + +-------- --------+ + -----+|Procalcitonin |Interpretation ?|Antibiotic ? ? |Considerations ? |ng/mL ? | ?|recommendation | ? + +-------- --------+ + -----+| <0.1 ? | Bacterial ? ? ?| Strongly ? ? ?| ? | ?| infection very | discouraged ? | Overruling: ? | ?| unlikely ? ? ? | ? | ? Clinically unstable ? ? ? + +-------- --------+ + ? High risk for adverse ? ? | <0.25 ?| Bacterial ? ? ?| Discouraged ? | ? outcome ? | ?| infection ? ? ?| ? | ? SEE IMPORTANT NOTE ?| ?| unlikely ? ? ? | ? | ? + +-------- --------+ + -----+| >=0.25 ? ? ? | Bacterial ? ? ?| Encouraged ? ?| ? | ?| infection ? ? ?| ? | ? | ?| likely ? | ? | Consider treatment failure ?+ +------- ---------+ -+ if levels does not decrease | >0.5 ? | Bacterial ? ? ?| Strongly ? ? ?| appropriately ? | ?| infection very | encouraged ? ?| ? | ?| likely ? | ? | ? + +-------- --------+ + -----+ Discontinuation of antibiotics in high-acuity patients with suspected or confirmed sepsis in Adults >= 18 years of age. + +-------- --------+ + -----+|Procalcitonin |Interpretation ?|Antibiotic ? ? |Considerations ? |ng/mL ? | ?|recommendation | ? + +-------- --------+ + -----+| <0.25 ?| Bacterial ? ? ?| Strongly ? ? ?| ? | ?| infection very | discouraged ? | Overruling: ? | ?| unlikely ? ? ? | ? | ? Clinically unstable ? ? ? + +-------- --------+ + ? High risk for adverse ? ? | <0.5 or drop | Bacterial ? ? ?| Discouraged ? | ? outcome ? | >80% from ? ?| infection ? ? ?| ? | ? SEE IMPORTANT NOTE ?| highest PCT ?| unlikely ? ? ? | ? | ? | level ?| ?| ? | ? + +-------- --------+ + -----+| >=0.5 ?| Bacterial ? ? ?| Encouraged ? ?| ? | ?| infection ? ? ?| ? | ? | ?| likely ? | ? | Consider treatment failure ?+ +------- ---------+ -+ if levels does not decrease | >1.0 ? | Bacterial ? ? ?| Strongly ? ? ?| appropriately ? | ?| infection very | encouraged ? ?| ? | ?| likely ? | ? | ? + +-------- --------+ + -----+ Percentage of drop of Procalcitonin calculation for Discontinuation of antibiotics in high-acuity patients with suspected or confirmed sepsis in Adults >= 18 years of age. ? Procalcitonin highest{}-Procalcitonin current{}Delta Procalcitonin = x100% ? Procalcitonin current {} IMPORTANT NOTE: Procalcitonin may be elevated without bacterial infection by physiologic stress related to trauma, honeycutt, chronic dialysis, metastatic cancer, surgery in the past seven days, malaria, some fungal infections, and some forms of vasculitis. The interpretation algorithm may not apply to patients with immunosuppression (equivalent of >10 mg of prednisone daily), HIV with CD4 cell count < 350 cells/mm3, active malignancy on systemic chemotherapy, solid organ transplant or hematopoietic stem cell transplantation, or hospital acquired pneumonia. Additionally, some clinical trials of procalcitonin have excluded patients with shock requiring vasopressor use, acute respiratory failure requiring mechanical ventilation, or those with known lung abscess/empyema. For further information please refer to:[email or web address] Lab Interpretation Abnormal (test code = 47261-8) [facility] METABOLIC PANEL (NA, K, CL, CO2, GLUCOSE, BUN, CREATININE, CA)2022-06-30 17:28:17 Test Item Value Reference Range Interpretation Comments NA (test code = 135 mmol/L 135-145 1580974004) K (test code = 5.9 mmol/L 3.5-5.0 H 2361128608) CL (test code = 101 mmol/L 98-108 8979555252) CO2 TOTAL (test code = 21 mmol/L 23-31 L 3517442655) AGAP (test code = 13 2-16 9811203704) BUN (test code = 94 mg/dL 7-23 H 0320319146) GLUCOSE (test code = 83 mg/dL 70-110 1165654846) CREATININE (test code = 18.07 mg/dL 0.50-1.04 H 9375848609) CALCIUM (test code = 8.2 mg/dL 8.6-10.6 L 0404212308) eGFR (test code = 2.1 mL/min/1.73m2 3819202177) ADAM (test code = ADAM) Association of Glomerular Filtration Rate (GFR) and Staging of Kidney Disease* + --+ --+ ------+| GFR (mL/min/1.73 m2) ?| With Kidney Damage ?| ?Without Kidney Damage+ --------+ --------+ +| ?>90 ?| ?Stage one ?| ? Normal ?+ ---+ ---+ -------+| ?60-89 ?| ?Stage two ?| ? Decreased GFR ? + --+ --+ ------+| ?30-59 ?| ?Stage three ?| ? Stage three ? + --+ --+ ------+| ?15-29 ?| ?Stage four ? | ? Stage four ?+ ---+ ---+ -------+| ?<15 (or dialysis) ? ?| ?Stage five ? | ? Stage five ?+ ---+ ---+ -------+ *Each stage assumes the associated GFR level has been in effect for at least three months. ?Stages 1 to 5, with or without kidney disease, indicate chronic kidney disease. Notes: Determination of stages one and two (with eGFR >59mL/min/1.73 m2) requires estimation of kidney damage for at least three months as defined by structural or functional abnormalities of the kidney, manifested by either:Pathological abnormalities or Markers of kidney damage (including abnormalities in the composition of the blood or urine or abnormalities in imaging tests). Lab Interpretation Abnormal (test code = 79914-7) [facility] (NA, K, CL, CO2, GLUCOSE, BUN, CREATININE, CA)2022-06-30 17:28:17 Test Item Value Reference Range Interpretation Comments NA (test code = 135 mmol/L 135-145 1287191577) K (test code = 5.9 mmol/L 3.5-5.0 H 0611804741) CL (test code = 101 mmol/L 98-108 1997296462) CO2 TOTAL (test code = 21 mmol/L 23-31 L 4736430525) AGAP (test code = 13 2-16 1474819111) BUN (test code = 94 mg/dL 7-23 H 2780927842) GLUCOSE (test code = 83 mg/dL 70-110 4843159879) CREATININE (test code = 18.07 mg/dL 0.50-1.04 H 7910119077) CALCIUM (test code = 8.2 mg/dL 8.6-10.6 L 2474250979) eGFR (test code = 2.1 mL/min/1.73m2 0965201437) ADAM (test code = ADAM) Association of Glomerular Filtration Rate (GFR) and Staging of Kidney Disease* + --+ --+ ------+| GFR (mL/min/1.73 m2) ?| With Kidney Damage ?| ?Without Kidney Damage+ --------+ --------+ +| ?>90 ?| ?Stage one ?| ? Normal ?+ ---+ ---+ -------+| ?60-89 ?| ?Stage two ?| ? Decreased GFR ? + --+ --+ ------+| ?30-59 ?| ?Stage three ?| ? Stage three ? + --+ --+ ------+| ?15-29 ?| ?Stage four ? | ? Stage four ?+ ---+ ---+ -------+| ?<15 (or dialysis) ? ?| ?Stage five ? | ? Stage five ?+ ---+ ---+ -------+ *Each stage assumes the associated GFR level has been in effect for at least three months. ?Stages 1 to 5, with or without kidney disease, indicate chronic kidney disease. Notes: Determination of stages one and two (with eGFR >59mL/min/1.73 m2) requires estimation of kidney damage for at least three months as defined by structural or functional abnormalities of the kidney, manifested by either:Pathological abnormalities or Markers of kidney damage (including abnormalities in the composition of the blood or urine or abnormalities in imaging tests). Lab Interpretation Abnormal (test code = 39383-7) [facility] METABOLIC PANEL (NA, K, CL, CO2, GLUCOSE, BUN, CREATININE, CA)2022-06-30 17:28:17 Test Item Value Reference Range Interpretation Comments NA (test code = 135 mmol/L 135-145 1934115226) K (test code = 5.9 mmol/L 3.5-5.0 H 8845427878) CL (test code = 101 mmol/L 98-108 8280862497) CO2 TOTAL (test code = 21 mmol/L 23-31 L 5525591027) AGAP (test code = 13 2-16 0943132438) BUN (test code = 94 mg/dL 7-23 H 6272285173) GLUCOSE (test code = 83 mg/dL 70-110 7728877408) CREATININE (test code = 18.07 mg/dL 0.50-1.04 H 4774870909) CALCIUM (test code = 8.2 mg/dL 8.6-10.6 L 7389159687) eGFR (test code = 2.1 mL/min/1.73m2 1530197904) ADAM (test code = ADAM) Association of Glomerular Filtration Rate (GFR) and Staging of Kidney Disease* + --+ --+ ------+| GFR (mL/min/1.73 m2) ?| With Kidney Damage ?| ?Without Kidney Damage+ --------+ --------+ +| ?>90 ?| ?Stage one ?| ? Normal ?+ ---+ ---+ -------+| ?60-89 ?| ?Stage two ?| ? Decreased GFR ? + --+ --+ ------+| ?30-59 ?| ?Stage three ?| ? Stage three ? + --+ --+ ------+| ?15-29 ?| ?Stage four ? | ? Stage four ?+ ---+ ---+ -------+| ?<15 (or dialysis) ? ?| ?Stage five ? | ? Stage five ?+ ---+ ---+ -------+ *Each stage assumes the associated GFR level has been in effect for at least three months. ?Stages 1 to 5, with or without kidney disease, indicate chronic kidney disease. Notes: Determination of stages one and two (with eGFR >59mL/min/1.73 m2) requires estimation of kidney damage for at least three months as defined by structural or functional abnormalities of the kidney, manifested by either:Pathological abnormalities or Markers of kidney damage (including abnormalities in the composition of the blood or urine or abnormalities in imaging tests). Lab Interpretation Abnormal (test code = 63166-9) [facility] METABOLIC PANEL (NA, K, CL, CO2, GLUCOSE, BUN, CREATININE, CA)2022-06-30 17:28:17 Test Item Value Reference Range Interpretation Comments NA (test code = 135 mmol/L 135-145 4144458966) K (test code = 5.9 mmol/L 3.5-5.0 H 3815861805) CL (test code = 101 mmol/L 98-108 5825826772) CO2 TOTAL (test code = 21 mmol/L 23-31 L 1034661575) AGAP (test code = 13 2-16 9943266649) BUN (test code = 94 mg/dL 7-23 H 7822911996) GLUCOSE (test code = 83 mg/dL 70-110 7978708869) CREATININE (test code = 18.07 mg/dL 0.50-1.04 H 5065408528) CALCIUM (test code = 8.2 mg/dL 8.6-10.6 L 5140411766) eGFR (test code = 2.1 mL/min/1.73m2 4545009394) ADAM (test code = ADAM) Association of Glomerular Filtration Rate (GFR) and Staging of Kidney Disease* + --+ --+ ------+| GFR (mL/min/1.73 m2) ?| With Kidney Damage ?| ?Without Kidney Damage+ --------+ --------+ +| ?>90 ?| ?Stage one ?| ? Normal ?+ ---+ ---+ -------+| ?60-89 ?| ?Stage two ?| ? Decreased GFR ? + --+ --+ ------+| ?30-59 ?| ?Stage three ?| ? Stage three ? + --+ --+ ------+| ?15-29 ?| ?Stage four ? | ? Stage four ?+ ---+ ---+ -------+| ?<15 (or dialysis) ? ?| ?Stage five ? | ? Stage five ?+ ---+ ---+ -------+ *Each stage assumes the associated GFR level has been in effect for at least three months. ?Stages 1 to 5, with or without kidney disease, indicate chronic kidney disease. Notes: Determination of stages one and two (with eGFR >59mL/min/1.73 m2) requires estimation of kidney damage for at least three months as defined by structural or functional abnormalities of the kidney, manifested by either:Pathological abnormalities or Markers of kidney damage (including abnormalities in the composition of the blood or urine or abnormalities in imaging tests). Lab Interpretation Abnormal (test code = 77300-7) [facility] [id number] 17:15:08 Test Item Value Reference Range Interpretation Comments FERRITIN (test code = 1290.0 ng/mL 6.0-137.0 H 7074309650) ADAM (test code = ADAM) Biotin has been reported to cause a negative bias, interpret results relative to patient's use of biotin. Lab Interpretation (test Abnormal code = 13950-7) [facility] [id number] 17:15:08 Test Item Value Reference Range Interpretation Comments FERRITIN (test code = 1290.0 ng/mL 6.0-137.0 H 9035836213) ADAM (test code = ADAM) Biotin has been reported to cause a negative bias, interpret results relative to patient's use of biotin. Lab Interpretation (test Abnormal code = 53270-9) [facility] [id number] 17:15:08 Test Item Value Reference Range Interpretation Comments FERRITIN (test code = 1290.0 ng/mL 6.0-137.0 H 7708822859) ADAM (test code = ADAM) Biotin has been reported to cause a negative bias, interpret results relative to patient's use of biotin. Lab Interpretation (test Abnormal code = 30659-1) [facility] [id number] 17:15:08 Test Item Value Reference Range Interpretation Comments FERRITIN (test code = 1290.0 ng/mL 6.0-137.0 H 0004960366) ADAM (test code = ADAM) Biotin has been reported to cause a negative bias, interpret results relative to patient's use of biotin. Lab Interpretation (test Abnormal code = 04680-8) [facility] [id number] 17:15:08 Test Item Value Reference Range Interpretation Comments FERRITIN (test code = 1290.0 ng/mL 6.0-137.0 H [id number]) ADAM (test code = ADAM) Biotin has been reported to cause a negative bias, interpret results relative to patient's use of biotin. Lab Interpretation (test Abnormal code = 45593-5) [facility] / [id number] 16:39:28 Test Item Value Reference Range Interpretation Comments PROTIME PATIENT (test 14.5 See_Comment H [Auto mated message] code = 5964-2) The system [employer] generated this result transmitted ref erence range: 10.1 - 1 2.6 Seconds. The reference range was not used to int erpret this result as normal/abnormal . INR (test code = 6301-6) 1.3 Nor mal INR <1.1; Warfarin Therap eutic range 2.0 to 3. 0 or 2.5 to 3.5, dep ending upon the indica tions. Lab Interpretation (test Abnormal code = 96529-1) [facility] / [id number] 16:39:28 Test Item Value Reference Range Interpretation Comments PROTIME PATIENT (test 14.5 See_Comment H [Auto mated message] code = 5964-2) The system [employer] generated this result transmitted ref erence range: 10.1 - 1 2.6 Seconds. The reference range was not used to int erpret this result as normal/abnormal . INR (test code = 6301-6) 1.3 Nor mal INR <1.1; Warfarin Therap eutic range 2.0 to 3. 0 or 2.5 to 3.5, dep ending upon the indica tions. Lab Interpretation (test Abnormal code = 31509-2) [facility] / [id number] 16:39:28 Test Item Value Reference Range Interpretation Comments PROTIME PATIENT (test 14.5 See_Comment H [Auto mated message] code = 5964-2) The system [employer] generated this result transmitted ref erence range: 10.1 - 1 2.6 Seconds. The reference range was not used to int erpret this result as normal/abnormal . INR (test code = 6301-6) 1.3 Nor mal INR <1.1; Warfarin Therap eutic range 2.0 to 3. 0 or 2.5 to 3.5, dep ending upon the indica tions. Lab Interpretation (test Abnormal code = 11611-3) [facility] / [id number] 16:39:28 Test Item Value Reference Range Interpretation Comments PROTIME PATIENT (test 14.5 See_Comment H [Auto mated message] code = 5964-2) The system [employer] generated this result transmitted ref erence range: 10.1 - 1 2.6 Seconds. The reference range was not used to int erpret this result as normal/abnormal . INR (test code = 6301-6) 1.3 Nor mal INR <1.1; Warfarin Therap eutic range 2.0 to 3. 0 or 2.5 to 3.5, dep ending upon the indica tions. Lab Interpretation (test Abnormal code = 99139-7) [facility] [id number] 16:00:02 Test Item Value Reference Range Interpretation Comments TROPONIN I (test code = 0.014 ng/mL <=0.034 [id number]) ADAM (test code = ADAM) Reference (Normal) Range (defined by the 99th percentile reference limit): <= 0.034 ng/mL Note: Cardiac troponin begins to rise 3-4 hours after the onset of ischemia. Repeat in 4-6 hours if the sample was drawn within 3-4 hours of the onset of the symptom and found normal. Diagnosis of myocardial injury is made with acute changes in cTn concentrations with at least one serial sample above the 99th percentile upper reference limit (URL), taken together with the patient's clinical presentation. Biotin has been reported to cause a negative bias, interpret results relative to patient's use of biotin. Lab Interpretation Normal (test code = 26735-4) [facility] [id number] 16:00:02 Test Item Value Reference Range Interpretation Comments TROPONIN I (test code = 0.014 ng/mL <=0.034 [id number]) ADAM (test code = ADAM) Reference (Normal) Range (defined by the 99th percentile reference limit): <= 0.034 ng/mL Note: Cardiac troponin begins to rise 3-4 hours after the onset of ischemia. Repeat in 4-6 hours if the sample was drawn within 3-4 hours of the onset of the symptom and found normal. Diagnosis of myocardial injury is made with acute changes in cTn concentrations with at least one serial sample above the 99th percentile upper reference limit (URL), taken together with the patient's clinical presentation. Biotin has been reported to cause a negative bias, interpret results relative to patient's use of biotin. Lab Interpretation Normal (test code = 03588-2) [facility] [id number] 16:00:02 Test Item Value Reference Range Interpretation Comments TROPONIN I (test code = 0.014 ng/mL <=0.034 [id number]) ADAM (test code = ADAM) Reference (Normal) Range (defined by the 99th percentile reference limit): <= 0.034 ng/mL Note: Cardiac troponin begins to rise 3-4 hours after the onset of ischemia. Repeat in 4-6 hours if the sample was drawn within 3-4 hours of the onset of the symptom and found normal. Diagnosis of myocardial injury is made with acute changes in cTn concentrations with at least one serial sample above the 99th percentile upper reference limit (URL), taken together with the patient's clinical presentation. Biotin has been reported to cause a negative bias, interpret results relative to patient's use of biotin. Lab Interpretation Normal (test code = 47110-0) [facility] [id number] 16:00:02 Test Item Value Reference Range Interpretation Comments TROPONIN I (test code = 0.014 ng/mL <=0.034 [id number]) ADAM (test code = ADAM) Reference (Normal) Range (defined by the 99th percentile reference limit): <= 0.034 ng/mL Note: Cardiac troponin begins to rise 3-4 hours after the onset of ischemia. Repeat in 4-6 hours if the sample was drawn within 3-4 hours of the onset of the symptom and found normal. Diagnosis of myocardial injury is made with acute changes in cTn concentrations with at least one serial sample above the 99th percentile upper reference limit (URL), taken together with the patient's clinical presentation. Biotin has been reported to cause a negative bias, interpret results relative to patient's use of biotin. Lab Interpretation Normal (test code = 99458-1) [facility] [id number] 16:00:02 Test Item Value Reference Range Interpretation Comments TROPONIN I (test code = 0.014 ng/mL <=0.034 [id number]) ADAM (test code = ADAM) Reference (Normal) Range (defined by the 99th percentile reference limit): <= 0.034 ng/mL Note: Cardiac troponin begins to rise 3-4 hours after the onset of ischemia. Repeat in 4-6 hours if the sample was drawn within 3-4 hours of the onset of the symptom and found normal. Diagnosis of myocardial injury is made with acute changes in cTn concentrations with at least one serial sample above the 99th percentile upper reference limit (URL), taken together with the patient's clinical presentation. Biotin has been reported to cause a negative bias, interpret results relative to patient's use of biotin. Lab Interpretation Normal (test code = 00022-0) [facility] B[facility], [id number] 05:53:58 Test Item Value Reference Range Interpretation Comments VIT B12 (test code = 351 pg/mL 240-930 [id number]) ADAM (test code = ADAM) Biotin has been reported to cause a positive bias, interpret results relative to patient's use of biotin. Lab Interpretation (test Normal code = 99083-1) [facility] America[facility]2023-[facility] 05:53:58 Test Item Value Reference Range Interpretation Comments FOLATE SER (test code = 6928286955) 5.5 ng/mL 3.0-20.0 Lab Interpretation (test code = Normal 39411-0) [facility] 05:53:58 Test Item Value Reference Range Interpretation Comments FOLATE SER (test code = 2858977663) 5.5 ng/mL 3.0-20.0 Lab Interpretation (test code = Normal 77674-1) [facility] B12, [id number] 05:53:58 Test Item Value Reference Range Interpretation Comments VIT B12 (test code = 351 pg/mL 240-930 5429562450) ADAM (test code = ADAM) Biotin has been reported to cause a positive bias, interpret results relative to patient's use of biotin. Lab Interpretation (test Normal code = 14937-5) [facility] 05:53:58 Test Item Value Reference Range Interpretation Comments FOLATE SER (test code = 1970433115) 5.5 ng/mL 3.0-20.0 Lab Interpretation (test code = Normal 30771-1) [facility], [id number] 05:53:58 Test Item Value Reference Range Interpretation Comments VIT B12 (test code = 351 pg/mL 240-930 9731884290) ADAM (test code = ADAM) Biotin has been reported to cause a positive bias, interpret results relative to patient's use of biotin. Lab Interpretation (test Normal code = 03532-1) [facility] 05:53:58 Test Item Value Reference Range Interpretation Comments FOLATE SER (test code = 0878031096) 5.5 ng/mL 3.0-20.0 Lab Interpretation (test code = Normal 70732-0) [facility], [id number] 05:53:58 Test Item Value Reference Range Interpretation Comments VIT B12 (test code = 351 pg/mL 240-930 8633538995) ADAM (test code = ADAM) Biotin has been reported to cause a positive bias, interpret results relative to patient's use of biotin. Lab Interpretation (test Normal code = 08168-0) [facility] 05:53:58 Test Item Value Reference Range Interpretation Comments FOLATE SER (test code = 7115310394) 5.5 ng/mL 3.0-20.0 Lab Interpretation (test code = Normal 16465-9) [facility], [id number] 05:53:58 Test Item Value Reference Range Interpretation Comments VIT B12 (test code = 351 pg/mL 240-930 4943490513) ADAM (test code = ADMA) Biotin has been reported to cause a positive bias, interpret results relative to patient's use of biotin. Lab Interpretation (test Normal code = 73635-1) [facility] AmericaGlycosylated Hemoglobin (A1C)2022-06-30 03:48:46 Test Item Value Reference Range Interpretation Comments HGB A1C (test code = 4.7 % 4.0-5.7 4548-4) ADAM (test code = ADAM) Reference RangesNormal: <5.7%Prediabetes: 5.7 - 6.4%Diabetes: > 6.5% Lab Interpretation (test Normal code = 68529-8) [facility] America[facility]cosylated Hemoglobin (A1C)2022-06-30 03:48:46 Test Item Value Reference Range Interpretation Comments HGB A1C (test code = 4.7 % 4.0-5.7 4548-4) ADAM (test code = ADAM) Reference RangesNormal: <5.7%Prediabetes: 5.7 - 6.4%Diabetes: > 6.5% Lab Interpretation (test Normal code = 56197-5) [facility] America[facility]cosylated Hemoglobin (A1C)2022-06-30 03:48:46 Test Item Value Reference Range Interpretation Comments HGB A1C (test code = 4.7 % 4.0-5.7 4548-4) ADAM (test code = ADAM) Reference RangesNormal: <5.7%Prediabetes: 5.7 - 6.4%Diabetes: > 6.5% Lab Interpretation (test Normal code = 00655-0) [facility] America[facility]cosylated Hemoglobin (A1C)2022-06-30 03:48:46 Test Item Value Reference Range Interpretation Comments HGB A1C (test code = 4.7 % 4.0-5.7 4548-4) ADAM (test code = ADAM) Reference RangesNormal: <5.7%Prediabetes: 5.7 - 6.4%Diabetes: > 6.5% Lab Interpretation (test Normal code = 34246-5) [facility] America[facility] Hemoglobin (A1C)2022-06-30 03:48:46 Test Item Value Reference Range Interpretation Comments HGB A1C (test code = 4.7 % 4.0-5.7 4548-4) ADAM (test code = ADAM) Reference RangesNormal: <5.7%Prediabetes: 5.7 - 6.4%Diabetes: > 6.5% Lab Interpretation (test Normal code = 25209-6) [facility] America[facility] B Surface Antibody (HBsAb)2022-06-30 03:33:44 Test Item Value Reference Range Interpretation Comments HBsAB (test code = Positive 0781196206) HBsAb 19.00 mIU/mL Semi-Quantitative (test code = 9996395008) ADAM (test code = Interpretation: ADAM) ?Hepatitis B Surface Antibody ? Negative - Patient is considered to be not immune to infection with HBV. ? ? Positive - Anti-HBs detected at greater than or equal to 12 mIU/mL. ?Patient is considered to be immune to infection with HBV. ? [facility] B Surface Antibody (HBsAb)2022-06-30 03:33:44 Test Item Value Reference Range Interpretation Comments HBsAB (test code = Positive 2406041723) HBsAb 19.00 mIU/mL Semi-Quantitative (test code = 0605562643) ADAM (test code = Interpretation: ADAM) ?Hepatitis B Surface Antibody ? Negative - Patient is considered to be not immune to infection with HBV. ? ? Positive - Anti-HBs detected at greater than or equal to 12 mIU/mL. ?Patient is considered to be immune to infection with HBV. ? [facility] B Surface Antibody (HBsAb)2022-06-30 03:33:44 Test Item Value Reference Range Interpretation Comments HBsAB (test code = Positive 7731494048) HBsAb 19.00 mIU/mL Semi-Quantitative (test code = 5491579081) ADAM (test code = Interpretation: ADAM) ?Hepatitis B Surface Antibody ? Negative - Patient is considered to be not immune to infection with HBV. ? ? Positive - Anti-HBs detected at greater than or equal to 12 mIU/mL. ?Patient is considered to be immune to infection with HBV. ? [facility] B Surface Antibody (HBsAb)2022-06-30 03:33:44 Test Item Value Reference Range Interpretation Comments HBsAB (test code = Positive 0578303374) HBsAb 19.00 mIU/mL Semi-Quantitative (test code = 1352060341) ADAM (test code = Interpretation: ADAM) ?Hepatitis B Surface Antibody ? Negative - Patient is considered to be not immune to infection with HBV. ? ? Positive - Anti-HBs detected at greater than or equal to 12 mIU/mL. ?Patient is considered to be immune to infection with HBV. ? [facility] B Surface Antibody (HBsAb)2022-06-30 03:33:44 Test Item Value Reference Range Interpretation Comments HBsAB (test code = Positive 9439061904) HBsAb 19.00 mIU/mL Semi-Quantitative (test code = 8905842319) ADAM (test code = Interpretation: ADAM) ?Hepatitis B Surface Antibody ? Negative - Patient is considered to be not immune to infection with HBV. ? ? Positive - Anti-HBs detected at greater than or equal to 12 mIU/mL. ?Patient is considered to be immune to infection with HBV. ? [facility] B Surface Antigen (HBsAg)2022-06-30 03:16:21 Test Item Value Reference Range Interpretation Comments HBsAg Semi-Quantitative (test code = 0.06 Negative 5195-3) [facility] B Surface Antigen (HBsAg)2022-06-30 03:16:21 Test Item Value Reference Range Interpretation Comments HBsAg Semi-Quantitative (test code = 0.06 Negative 5195-3) [facility] B Surface Antigen (HBsAg)2022-06-30 03:16:21 Test Item Value Reference Range Interpretation Comments HBsAg Semi-Quantitative (test code = 0.06 Negative 5195-3) [facility] B Surface Antigen (HBsAg)2022-06-30 03:16:21 Test Item Value Reference Range Interpretation Comments HBsAg Semi-Quantitative (test code = 0.06 Negative 5195-3) [facility] B Surface Antigen (HBsAg)2022-06-30 03:16:21 Test Item Value Reference Range Interpretation Comments HBsAg Semi-Quantitative (test code = 0.06 Negative 5195-3) [facility] METABOLIC PANEL (NA, K, CL, CO2, GLUCOSE, BUN, CREATININE, CA)2022-06-30 01:13:06 Test Item Value Reference Range Interpretation Comments NA (test code = 136 mmol/L 135-145 4484955561) K (test code = 7.2 mmol/L 3.5-5.0 HH 6099678802) CL (test code = 101 mmol/L 98-108 5746770399) CO2 TOTAL (test code = 19 mmol/L 23-31 L 5893605382) AGAP (test code = 16 2-16 3474321170) BUN (test code = 108 mg/dL 7-23 H 1167166259) GLUCOSE (test code = 75 mg/dL 70-110 3426733604) CREATININE (test code = 20.52 mg/dL 0.50-1.04 H 6897565306) CALCIUM (test code = 8.9 mg/dL 8.6-10.6 8776905195) eGFR (test code = 1.8 mL/min/1.73m2 1468966436) ADAM (test code = ADAM) Association of Glomerular Filtration Rate (GFR) and Staging of Kidney Disease* + --+ --+ ------+| GFR (mL/min/1.73 m2) ?| With Kidney Damage ?| ?Without Kidney Damage+ --------+ --------+ +| ?>90 ?| ?Stage one ?| ? Normal ?+ ---+ ---+ -------+| ?60-89 ?| ?Stage two ?| ? Decreased GFR ? + --+ --+ ------+| ?30-59 ?| ?Stage three ?| ? Stage three ? + --+ --+ ------+| ?15-29 ?| ?Stage four ? | ? Stage four ?+ ---+ ---+ -------+| ?<15 (or dialysis) ? ?| ?Stage five ? | ? Stage five ?+ ---+ ---+ -------+ *Each stage assumes the associated GFR level has been in effect for at least three months. ?Stages 1 to 5, with or without kidney disease, indicate chronic kidney disease. Notes: Determination of stages one and two (with eGFR >59mL/min/1.73 m2) requires estimation of kidney damage for at least three months as defined by structural or functional abnormalities of the kidney, manifested by either:Pathological abnormalities or Markers of kidney damage (including abnormalities in the composition of the blood or urine or abnormalities in imaging tests). Lab Interpretation Abnormal (test code = 44387-0) [facility] METABOLIC PANEL (NA, K, CL, CO2, GLUCOSE, BUN, CREATININE, CA)2022-06-30 01:13:06 Test Item Value Reference Range Interpretation Comments NA (test code = 136 mmol/L 135-145 6088512794) K (test code = 7.2 mmol/L 3.5-5.0 HH 5540985266) CL (test code = 101 mmol/L 98-108 9642390607) CO2 TOTAL (test code = 19 mmol/L 23-31 L 9055745563) AGAP (test code = 16 2-16 4111184847) BUN (test code = 108 mg/dL 7-23 H 0616288741) GLUCOSE (test code = 75 mg/dL 70-110 9008958056) CREATININE (test code = 20.52 mg/dL 0.50-1.04 H 2466331168) CALCIUM (test code = 8.9 mg/dL 8.6-10.6 9628542001) eGFR (test code = 1.8 mL/min/1.73m2 1852426995) ADAM (test code = ADAM) Association of Glomerular Filtration Rate (GFR) and Staging of Kidney Disease* + --+ --+ ------+| GFR (mL/min/1.73 m2) ?| With Kidney Damage ?| ?Without Kidney Damage+ --------+ --------+ +| ?>90 ?| ?Stage one ?| ? Normal ?+ ---+ ---+ -------+| ?60-89 ?| ?Stage two ?| ? Decreased GFR ? + --+ --+ ------+| ?30-59 ?| ?Stage three ?| ? Stage three ? + --+ --+ ------+| ?15-29 ?| ?Stage four ? | ? Stage four ?+ ---+ ---+ -------+| ?<15 (or dialysis) ? ?| ?Stage five ? | ? Stage five ?+ ---+ ---+ -------+ *Each stage assumes the associated GFR level has been in effect for at least three months. ?Stages 1 to 5, with or without kidney disease, indicate chronic kidney disease. Notes: Determination of stages one and two (with eGFR >59mL/min/1.73 m2) requires estimation of kidney damage for at least three months as defined by structural or functional abnormalities of the kidney, manifested by either:Pathological abnormalities or Markers of kidney damage (including abnormalities in the composition of the blood or urine or abnormalities in imaging tests). Lab Interpretation Abnormal (test code = 62371-6) [facility] METABOLIC PANEL (NA, K, CL, CO2, GLUCOSE, BUN, CREATININE, CA)2022-06-30 01:13:06 Test Item Value Reference Range Interpretation Comments NA (test code = 136 mmol/L 135-145 8627827367) K (test code = 7.2 mmol/L 3.5-5.0 HH 2418725753) CL (test code = 101 mmol/L 98-108 1771575552) CO2 TOTAL (test code = 19 mmol/L 23-31 L 8922821881) AGAP (test code = 16 2-16 7549127533) BUN (test code = 108 mg/dL 7-23 H 6170120565) GLUCOSE (test code = 75 mg/dL 70-110 3394236400) CREATININE (test code = 20.52 mg/dL 0.50-1.04 H 2920367270) CALCIUM (test code = 8.9 mg/dL 8.6-10.6 8075804814) eGFR (test code = 1.8 mL/min/1.73m2 9706871682) ADAM (test code = ADAM) Association of Glomerular Filtration Rate (GFR) and Staging of Kidney Disease* + --+ --+ ------+| GFR (mL/min/1.73 m2) ?| With Kidney Damage ?| ?Without Kidney Damage+ --------+ --------+ +| ?>90 ?| ?Stage one ?| ? Normal ?+ ---+ ---+ -------+| ?60-89 ?| ?Stage two ?| ? Decreased GFR ? + --+ --+ ------+| ?30-59 ?| ?Stage three ?| ? Stage three ? + --+ --+ ------+| ?15-29 ?| ?Stage four ? | ? Stage four ?+ ---+ ---+ -------+| ?<15 (or dialysis) ? ?| ?Stage five ? | ? Stage five ?+ ---+ ---+ -------+ *Each stage assumes the associated GFR level has been in effect for at least three months. ?Stages 1 to 5, with or without kidney disease, indicate chronic kidney disease. Notes: Determination of stages one and two (with eGFR >59mL/min/1.73 m2) requires estimation of kidney damage for at least three months as defined by structural or functional abnormalities of the kidney, manifested by either:Pathological abnormalities or Markers of kidney damage (including abnormalities in the composition of the blood or urine or abnormalities in imaging tests). Lab Interpretation Abnormal (test code = 93052-5) [facility] METABOLIC PANEL (NA, K, CL, CO2, GLUCOSE, BUN, CREATININE, CA)2022-06-30 01:13:06 Test Item Value Reference Range Interpretation Comments NA (test code = 136 mmol/L 135-145 7160761015) K (test code = 7.2 mmol/L 3.5-5.0 HH 6646099764) CL (test code = 101 mmol/L 98-108 2196761994) CO2 TOTAL (test code = 19 mmol/L 23-31 L 3112579878) AGAP (test code = 16 2-16 7361304612) BUN (test code = 108 mg/dL 7-23 H 2950147838) GLUCOSE (test code = 75 mg/dL 70-110 0959725265) CREATININE (test code = 20.52 mg/dL 0.50-1.04 H 5024594275) CALCIUM (test code = 8.9 mg/dL 8.6-10.6 1923157715) eGFR (test code = 1.8 mL/min/1.73m2 9647543470) ADAM (test code = ADAM) Association of Glomerular Filtration Rate (GFR) and Staging of Kidney Disease* + --+ --+ ------+| GFR (mL/min/1.73 m2) ?| With Kidney Damage ?| ?Without Kidney Damage+ --------+ --------+ +| ?>90 ?| ?Stage one ?| ? Normal ?+ ---+ ---+ -------+| ?60-89 ?| ?Stage two ?| ? Decreased GFR ? + --+ --+ ------+| ?30-59 ?| ?Stage three ?| ? Stage three ? + --+ --+ ------+| ?15-29 ?| ?Stage four ? | ? Stage four ?+ ---+ ---+ -------+| ?<15 (or dialysis) ? ?| ?Stage five ? | ? Stage five ?+ ---+ ---+ -------+ *Each stage assumes the associated GFR level has been in effect for at least three months. ?Stages 1 to 5, with or without kidney disease, indicate chronic kidney disease. Notes: Determination of stages one and two (with eGFR >59mL/min/1.73 m2) requires estimation of kidney damage for at least three months as defined by structural or functional abnormalities of the kidney, manifested by either:Pathological abnormalities or Markers of kidney damage (including abnormalities in the composition of the blood or urine or abnormalities in imaging tests). Lab Interpretation Abnormal (test code = 90090-6) [facility] B Surface Antibody (HBsAb)2022-06-30 00:54:30 Test Item Value Reference Range Interpretation Comments HBsAB (test code = Positive 6236868474) HBsAb 16.90 mIU/mL Semi-Quantitative (test code = 9019997573) ADAM (test code = Interpretation: ADAM) ?Hepatitis B Surface Antibody ? Negative - Patient is considered to be not immune to infection with HBV. ? ? Positive - Anti-HBs detected at greater than or equal to 12 mIU/mL. ?Patient is considered to be immune to infection with HBV. ? [facility] 00:54:30 Test Item Value Reference Range Interpretation Comments HBsAB (test code = Positive 4939520455) HBsAb 16.90 mIU/mL Semi-Quantitative (test code = 6228396749) ADAM (test code = Interpretation: ADAM) ?Hepatitis B Surface Antibody ? Negative - Patient is considered to be not immune to infection with HBV. ? ? Positive - Anti-HBs detected at greater than or equal to 12 mIU/mL. ?Patient is considered to be immune to infection with HBV. ? [facility]22-[facility]-30 00:54:30 Test Item Value Reference Range Interpretation Comments HBsAB (test code = Positive 7106163946) HBsAb 16.90 mIU/mL Semi-Quantitative (test code = 9195508977) ADAM (test code = Interpretation: ADAM) ?Hepatitis B Surface Antibody ? Negative - Patient is considered to be not immune to infection with HBV. ? ? Positive - Anti-HBs detected at greater than or equal to 12 mIU/mL. ?Patient is considered to be immune to infection with HBV. ? [facility]BsAb[facility]2022-06-30 00:54:30 Test Item Value Reference Range Interpretation Comments HBsAB (test code = Positive [id number]) HBsAb 16.90 mIU/mL Semi-Quantitative (test code = 3537123732) ADAM (test code = Interpretation: ADAM) ?Hepatitis B Surface Antibody ? Negative - Patient is considered to be not immune to infection with HBV. ? ? Positive - Anti-HBs detected at greater than or equal to 12 mIU/mL. ?Patient is considered to be immune to infection with HBV. ? [facility] B Surface Antigen (HBsAg)2022-06-30 00:37:07 Test Item Value Reference Range Interpretation Comments HBsAg Semi-Quantitative (test code = 0.06 Negative 5195-3) [facility] B Surface Antigen (HBsAg)2022-06-30 00:37:07 Test Item Value Reference Range Interpretation Comments HBsAg Semi-Quantitative (test code = 0.06 Negative 5195-3) [facility] B Surface Antigen (HBsAg)2022-06-30 00:37:07 Test Item Value Reference Range Interpretation Comments HBsAg Semi-Quantitative (test code = 0.06 Negative 5195-3) [facility] B Surface Antigen (HBsAg)2022-06-30 00:37:07 Test Item Value Reference Range Interpretation Comments HBsAg Semi-Quantitative (test code = 0.06 Negative 5195-3) [facility] / [id number] 19:03:56 Test Item Value Reference Range Interpretation Comments PROTIME PATIENT (test 12.6 See_Comment [Auto mated message] code = 5964-2) The system [employer] generated this result transmitted ref erence range: 10.1 - 1 2.6 Seconds. The re ference range was not u sed to interpret this result as normal/abnor mal. INR (test code = 6301-6) 1.1 Nor mal INR <1.1; Warfarin Therap eutic range 2.0 to 3. 0 or 2.5 to 3.5, dep ending upon the indica tions. Lab Interpretation (test Normal code = 60394-4) [facility] / [id number] 19:03:56 Test Item Value Reference Range Interpretation Comments PROTIME PATIENT (test 12.6 See_Comment [Auto mated message] code = 5964-2) The system [employer] generated this result transmitted ref erence range: 10.1 - 1 2.6 Seconds. The re ference range was not u sed to interpret this result as normal/abnor mal. INR (test code = 6301-6) 1.1 Nor mal INR <1.1; Warfarin Therap eutic range 2.0 to 3. 0 or 2.5 to 3.5, dep ending upon the indica tions. Lab Interpretation (test Normal code = 53053-0) [facility] / [id number] 19:03:56 Test Item Value Reference Range Interpretation Comments PROTIME PATIENT (test 12.6 See_Comment [Auto mated message] code = 5964-2) The system [employer] generated this result transmitted ref erence range: 10.1 - 1 2.6 Seconds. The re ference range was not u sed to interpret this result as normal/abnor mal. INR (test code = 6301-6) 1.1 Nor mal INR <1.1; Warfarin Therap eutic range 2.0 to 3. 0 or 2.5 to 3.5, dep ending upon the indica tions. Lab Interpretation (test Normal code = 93578-0) [facility] / [id number] 19:03:56 Test Item Value Reference Range Interpretation Comments PROTIME PATIENT (test 12.6 See_Comment [Auto mated message] code = 5964-2) The system [employer] generated this result transmitted ref erence range: 10.1 - 1 2.6 Seconds. The re ference range was not u sed to interpret this result as normal/abnor mal. INR (test code = 6301-6) 1.1 Nor mal INR <1.1; Warfarin Therap eutic range 2.0 to 3. 0 or 2.5 to 3.5, dep ending upon the indica tions. Lab Interpretation (test Normal code = 77177-6) [facility] WITH [id number] 18:59:56 Test Item Value Reference Range Interpretation Comments WBC (test code = 6.05 See_Comment [Automated 6690-2) message] The sy stem which generated this result transmitted reference range : 4.30 - 11.10 10*3/?L. The reference range was not used to interpret this result as normal/abnormal . RBC (test code = 2.65 See_Comment L [Automated 789-8) message] The sy stem which generated this result transmitted reference range : 3.93 - 5.25 10*6/?L. The reference range was not used to interpret this result as normal/abnormal . HGB (test code = 9.5 g/dL 11.6-15.0 L 718-7) HCT (test code = 28.1 % 35.7-45.2 L 4544-3) MCV (test code = 106.0 fL 80.6-95.5 H 787-2) MCH (test code = 35.8 pg 25.9-32.8 H 785-6) MCHC (test code = 33.8 g/dL 31.6-35.1 786-4) RDW-SD (test code = 57.9 fL 39.0-49.9 H 36915-1) RDW-CV (test code = 15.1 % 12.0-15.5 788-0) PLT (test code = 150 See_Comment L [Automated 777-3) message] The sy stem which generated this result transmitted reference range : 166 - 358 10*3/ ?L. The reference r darshan was not used to interpret this result as normal/abnormal . MPV (test code = 9.7 fL 9.5-12.9 46532-3) NRBC/100 WBC (test 0.0 See_Comment [Automat ed code = 1084971031) message] The system which generated this result transmitted reference range : 0.0 - 10.0 /100 WBCs. The refer ence range was not u sed to interpret th is result as normal/abnormal . NRBC x10^3 (test code See_Comment [Auto mated = 8870808415) message] The s ystem which generated this result transmitted reference range : 10*3/?L. The reference range was not used to interpret this result as normal/abnormal . GRAN MAT (NEUT) % 80.7 % (test code = 770-8) IMM GRAN % (test code 0.50 % = 9070259025) LYMPH % (test code = 11.6 % 736-9) MONO % (test code = 5.1 % 5905-5) EOS % (test code = 1.8 % 713-8) BASO % (test code = 0.3 % 706-2) GRAN MAT x10^3(ANC) 4.88 10*3/uL 1.88-7.09 (test code = 4007527721) IMM GRAN x10^3 (test 0.03 10*3/uL 0.00-0.06 code = 8104746848) LYMPH x10^3 (test code 0.70 10*3/uL 1.32-3.29 L = 731-0) MONO x10^3 (test code 0.31 10*3/uL 0.33-0.92 L = 742-7) EOS x10^3 (test code = 0.11 10*3/uL 0.03-0.39 711-2) BASO x10^3 (test code 0.01-0.07 = 704-7) Lab Interpretation Abnormal (test code = 87024-1) [facility] WITH [id number] 18:59:56 Test Item Value Reference Range Interpretation Comments WBC (test code = 6.05 See_Comment [Automated 6690-2) message] The sy stem which generated this result transmitted reference range : 4.30 - 11.10 10*3/?L. The reference range was not used to interpret this result as normal/abnormal . RBC (test code = 2.65 See_Comment L [Automated 789-8) message] The sy stem which generated this result transmitted reference range : 3.93 - 5.25 10*6/?L. The reference range was not used to interpret this result as normal/abnormal . HGB (test code = 9.5 g/dL 11.6-15.0 L 718-7) HCT (test code = 28.1 % 35.7-45.2 L 4544-3) MCV (test code = 106.0 fL 80.6-95.5 H 787-2) MCH (test code = 35.8 pg 25.9-32.8 H 785-6) MCHC (test code = 33.8 g/dL 31.6-35.1 786-4) RDW-SD (test code = 57.9 fL 39.0-49.9 H 33805-3) RDW-CV (test code = 15.1 % 12.0-15.5 788-0) PLT (test code = 150 See_Comment L [Automated 777-3) message] The sy stem which generated this result transmitted reference range : 166 - 358 10*3/ ?L. The reference r dasrhan was not used to interpret this result as normal/abnormal . MPV (test code = 9.7 fL 9.5-12.9 38523-8) NRBC/100 WBC (test 0.0 See_Comment [Automat ed code = 2995434905) message] The system which generated this result transmitted reference range : 0.0 - 10.0 /100 WBCs. The refer ence range was not u sed to interpret th is result as normal/abnormal . NRBC x10^3 (test code See_Comment [Auto mated = 1974534861) message] The s ystem which generated this result transmitted reference range : 10*3/?L. The reference range was not used to interpret this result as normal/abnormal . GRAN MAT (NEUT) % 80.7 % (test code = 770-8) IMM GRAN % (test code 0.50 % = 8267687232) LYMPH % (test code = 11.6 % 736-9) MONO % (test code = 5.1 % 5905-5) EOS % (test code = 1.8 % 713-8) BASO % (test code = 0.3 % 706-2) GRAN MAT x10^3(ANC) 4.88 10*3/uL 1.88-7.09 (test code = 9164172638) IMM GRAN x10^3 (test 0.03 10*3/uL 0.00-0.06 code = 1327389628) LYMPH x10^3 (test code 0.70 10*3/uL 1.32-3.29 L = 731-0) MONO x10^3 (test code 0.31 10*3/uL 0.33-0.92 L = 742-7) EOS x10^3 (test code = 0.11 10*3/uL 0.03-0.39 711-2) BASO x10^3 (test code 0.01-0.07 = 704-7) Lab Interpretation Abnormal (test code = 62088-0) [facility] WITH [id number] 18:59:56 Test Item Value Reference Range Interpretation Comments WBC (test code = 6.05 See_Comment [Automated 6690-2) message] The sy stem which generated this result transmitted reference range : 4.30 - 11.10 10*3/?L. The reference range was not used to interpret this result as normal/abnormal . RBC (test code = 2.65 See_Comment L [Automated 789-8) message] The sy stem which generated this result transmitted reference range : 3.93 - 5.25 10*6/?L. The reference range was not used to interpret this result as normal/abnormal . HGB (test code = 9.5 g/dL 11.6-15.0 L 718-7) HCT (test code = 28.1 % 35.7-45.2 L 4544-3) MCV (test code = 106.0 fL 80.6-95.5 H 787-2) MCH (test code = 35.8 pg 25.9-32.8 H 785-6) MCHC (test code = 33.8 g/dL 31.6-35.1 786-4) RDW-SD (test code = 57.9 fL 39.0-49.9 H 13525-0) RDW-CV (test code = 15.1 % 12.0-15.5 788-0) PLT (test code = 150 See_Comment L [Automated 777-3) message] The sy stem which generated this result transmitted reference range : 166 - 358 10*3/ ?L. The reference r darshan was not used to interpret this result as normal/abnormal . MPV (test code = 9.7 fL 9.5-12.9 57719-9) NRBC/100 WBC (test 0.0 See_Comment [Automat ed code = 7824895708) message] The system which generated this result transmitted reference range : 0.0 - 10.0 /100 WBCs. The refer ence range was not u sed to interpret th is result as normal/abnormal . NRBC x10^3 (test code See_Comment [Auto mated = 4891319026) message] The s ystem which generated this result transmitted reference range : 10*3/?L. The reference range was not used to interpret this result as normal/abnormal . GRAN MAT (NEUT) % 80.7 % (test code = 770-8) IMM GRAN % (test code 0.50 % = 8005962660) LYMPH % (test code = 11.6 % 736-9) MONO % (test code = 5.1 % 5905-5) EOS % (test code = 1.8 % 713-8) BASO % (test code = 0.3 % 706-2) GRAN MAT x10^3(ANC) 4.88 10*3/uL 1.88-7.09 (test code = 8697742226) IMM GRAN x10^3 (test 0.03 10*3/uL 0.00-0.06 code = 7791873814) LYMPH x10^3 (test code 0.70 10*3/uL 1.32-3.29 L = 731-0) MONO x10^3 (test code 0.31 10*3/uL 0.33-0.92 L = 742-7) EOS x10^3 (test code = 0.11 10*3/uL 0.03-0.39 711-2) BASO x10^3 (test code 0.01-0.07 = 704-7) Lab Interpretation Abnormal (test code = 28370-9) [facility] WITH [id number] 18:59:56 Test Item Value Reference Range Interpretation Comments WBC (test code = 6.05 See_Comment [Automated 8588-2) message] The sy stem which generated this result transmitted reference range : 4.30 - 11.10 10*3/?L. The reference range was not used to interpret this result as normal/abnormal . RBC (test code = 2.65 See_Comment L [Automated 237-8) message] The sy stem which generated this result transmitted reference range : 3.93 - 5.25 10*6/?L. The reference range was not used to interpret this result as normal/abnormal . HGB (test code = 9.5 g/dL 11.6-15.0 L 718-7) HCT (test code = 28.1 % 35.7-45.2 L 4544-3) MCV (test code = 106.0 fL 80.6-95.5 H 787-2) MCH (test code = 35.8 pg 25.9-32.8 H 785-6) MCHC (test code = 33.8 g/dL 31.6-35.1 786-4) RDW-SD (test code = 57.9 fL 39.0-49.9 H 07483-4) RDW-CV (test code = 15.1 % 12.0-15.5 788-0) PLT (test code = 150 See_Comment L [Automated 777-3) message] The sy stem which generated this result transmitted reference range : 166 - 358 10*3/ ?L. The reference r darshan was not used to interpret this result as normal/abnormal . MPV (test code = 9.7 fL 9.5-12.9 66029-4) NRBC/100 WBC (test 0.0 See_Comment [Automat ed code = 0545443395) message] The system which generated this result transmitted reference range : 0.0 - 10.0 /100 WBCs. The refer ence range was not u sed to interpret th is result as normal/abnormal . NRBC x10^3 (test code See_Comment [Auto mated = 6919437139) message] The s ystem which generated this result transmitted reference range : 10*3/?L. The reference range was not used to interpret this result as normal/abnormal . GRAN MAT (NEUT) % 80.7 % (test code = 770-8) IMM GRAN % (test code 0.50 % = 1988978659) LYMPH % (test code = 11.6 % 736-9) MONO % (test code = 5.1 % 5905-5) EOS % (test code = 1.8 % 713-8) BASO % (test code = 0.3 % 706-2) GRAN MAT x10^3(ANC) 4.88 10*3/uL 1.88-7.09 (test code = 8888938102) IMM GRAN x10^3 (test 0.03 10*3/uL 0.00-0.06 code = 7029709041) LYMPH x10^3 (test code 0.70 10*3/uL 1.32-3.29 L = 731-0) MONO x10^3 (test code 0.31 10*3/uL 0.33-0.92 L = 742-7) EOS x10^3 (test code = 0.11 10*3/uL 0.03-0.39 711-2) BASO x10^3 (test code 0.01-0.07 = 704-7) Lab Interpretation Abnormal (test code = 69461-9) [facility]. METABOLIC PANEL ([id number])2022-06-29 18:26:41 Test Item Value Reference Range Interpretation Comments NA (test code = 137 mmol/L 135-145 8360559665) K (test code = 6.9 mmol/L 3.5-5.0 HH 2809978932) CL (test code = 102 mmol/L 98-108 3871995284) CO2 TOTAL (test code = 19 mmol/L 23-31 L 4076178177) AGAP (test code = 16 2-16 0554930050) BUN (test code = 107 mg/dL 7-23 H 4954382709) GLUCOSE (test code = 81 mg/dL 70-110 1649954199) CREATININE (test code = 19.84 mg/dL 0.50-1.04 H 1301435748) TOTAL BILI (test code = 0.6 mg/dL 0.1-1.9 7942471377) CALCIUM (test code = 8.7 mg/dL 8.6-10.6 7918393944) T PROTEIN (test code = 7.1 g/dL 6.3-8.2 4658248085) ALBUMIN (test code = 4.5 g/dL 3.5-5.0 4409867820) ALK PHOS (test code = 84 U/L 34-122 0216138453) ALTv (test code = 23 U/L 5-35 1742-6) AST(SGOT) (test code = 21 U/L 13-40 7394019596) eGFR (test code = 1.9 mL/min/1.73m2 8242408094) ADAM (test code = ADAM) Association of Glomerular Filtration Rate (GFR) and Staging of Kidney Disease* + --+ --+ ------+| GFR (mL/min/1.73 m2) ?| With Kidney Damage ?| ?Without Kidney Damage+ --------+ --------+ +| ?>90 ?| ?Stage one ?| ? Normal ?+ ---+ ---+ -------+| ?60-89 ?| ?Stage two ?| ? Decreased GFR ? + --+ --+ ------+| ?30-59 ?| ?Stage three ?| ? Stage three ? + --+ --+ ------+| ?15-29 ?| ?Stage four ? | ? Stage four ?+ ---+ ---+ -------+| ?<15 (or dialysis) ? ?| ?Stage five ? | ? Stage five ?+ ---+ ---+ -------+ *Each stage assumes the associated GFR level has been in effect for at least three months. ?Stages 1 to 5, with or without kidney disease, indicate chronic kidney disease. Notes: Determination of stages one and two (with eGFR >59mL/min/1.73 m2) requires estimation of kidney damage for at least three months as defined by structural or functional abnormalities of the kidney, manifested by either:Pathological abnormalities or Markers of kidney damage (including abnormalities in the composition of the blood or urine or abnormalities in imaging tests). Lab Interpretation Abnormal (test code = 66020-0) [facility]. METABOLIC PANEL ([id number])2022-06-29 18:26:41 Test Item Value Reference Range Interpretation Comments NA (test code = 137 mmol/L 135-145 4000835970) K (test code = 6.9 mmol/L 3.5-5.0 HH 0395872561) CL (test code = 102 mmol/L 98-108 0737759707) CO2 TOTAL (test code = 19 mmol/L 23-31 L 2670659959) AGAP (test code = 16 2-16 6689372017) BUN (test code = 107 mg/dL 7-23 H 2080640368) GLUCOSE (test code = 81 mg/dL 70-110 0380537874) CREATININE (test code = 19.84 mg/dL 0.50-1.04 H 3161964183) TOTAL BILI (test code = 0.6 mg/dL 0.1-1.5 9503748839) CALCIUM (test code = 8.7 mg/dL 8.6-10.6 2643864288) T PROTEIN (test code = 7.1 g/dL 6.3-8.2 3081813154) ALBUMIN (test code = 4.5 g/dL 3.5-5.0 4165248606) ALK PHOS (test code = 84 U/L 34-122 4993310801) ALTv (test code = 23 U/L 5-35 1742-6) AST(SGOT) (test code = 21 U/L 13-40 7149873763) eGFR (test code = 1.9 mL/min/1.73m2 2463590836) ADAM (test code = ADAM) Association of Glomerular Filtration Rate (GFR) and Staging of Kidney Disease* + --+ --+ ------+| GFR (mL/min/1.73 m2) ?| With Kidney Damage ?| ?Without Kidney Damage+ --------+ --------+ +| ?>90 ?| ?Stage one ?| ? Normal ?+ ---+ ---+ -------+| ?60-89 ?| ?Stage two ?| ? Decreased GFR ? + --+ --+ ------+| ?30-59 ?| ?Stage three ?| ? Stage three ? + --+ --+ ------+| ?15-29 ?| ?Stage four ? | ? Stage four ?+ ---+ ---+ -------+| ?<15 (or dialysis) ? ?| ?Stage five ? | ? Stage five ?+ ---+ ---+ -------+ *Each stage assumes the associated GFR level has been in effect for at least three months. ?Stages 1 to 5, with or without kidney disease, indicate chronic kidney disease. Notes: Determination of stages one and two (with eGFR >59mL/min/1.73 m2) requires estimation of kidney damage for at least three months as defined by structural or functional abnormalities of the kidney, manifested by either:Pathological abnormalities or Markers of kidney damage (including abnormalities in the composition of the blood or urine or abnormalities in imaging tests). Lab Interpretation Abnormal (test code = 17918-8) [facility] METABOLIC PANEL ([id number])2022-06-29 18:26:41 Test Item Value Reference Range Interpretation Comments NA (test code = 137 mmol/L 135-145 2048220139) K (test code = 6.9 mmol/L 3.5-5.0 HH 8214793254) CL (test code = 102 mmol/L 98-108 3948460012) CO2 TOTAL (test code = 19 mmol/L 23-31 L 6041507566) AGAP (test code = 16 2-16 1769823276) BUN (test code = 107 mg/dL 7-23 H 8691097104) GLUCOSE (test code = 81 mg/dL 70-110 9238739709) CREATININE (test code = 19.84 mg/dL 0.50-1.04 H 7955150969) TOTAL BILI (test code = 0.6 mg/dL 0.1-1.5 2222571211) CALCIUM (test code = 8.7 mg/dL 8.6-10.6 8242451869) T PROTEIN (test code = 7.1 g/dL 6.3-8.2 3876173674) ALBUMIN (test code = 4.5 g/dL 3.5-5.0 8878531127) ALK PHOS (test code = 84 U/L 34-122 0314455016) ALTv (test code = 23 U/L 5-35 1742-6) AST(SGOT) (test code = 21 U/L 13-40 3909647025) eGFR (test code = 1.9 mL/min/1.73m2 8776415538) ADAM (test code = ADAM) Association of Glomerular Filtration Rate (GFR) and Staging of Kidney Disease* + --+ --+ ------+| GFR (mL/min/1.73 m2) ?| With Kidney Damage ?| ?Without Kidney Damage+ --------+ --------+ +| ?>90 ?| ?Stage one ?| ? Normal ?+ ---+ ---+ -------+| ?60-89 ?| ?Stage two ?| ? Decreased GFR ? + --+ --+ ------+| ?30-59 ?| ?Stage three ?| ? Stage three ? + --+ --+ ------+| ?15-29 ?| ?Stage four ? | ? Stage four ?+ ---+ ---+ -------+| ?<15 (or dialysis) ? ?| ?Stage five ? | ? Stage five ?+ ---+ ---+ -------+ *Each stage assumes the associated GFR level has been in effect for at least three months. ?Stages 1 to 5, with or without kidney disease, indicate chronic kidney disease. Notes: Determination of stages one and two (with eGFR >59mL/min/1.73 m2) requires estimation of kidney damage for at least three months as defined by structural or functional abnormalities of the kidney, manifested by either:Pathological abnormalities or Markers of kidney damage (including abnormalities in the composition of the blood or urine or abnormalities in imaging tests). Lab Interpretation Abnormal (test code = 58576-4) [facility]. METABOLIC PANEL ([id number])2022-06-29 18:26:41 Test Item Value Reference Range Interpretation Comments NA (test code = 137 mmol/L 135-145 8672369647) K (test code = 6.9 mmol/L 3.5-5.0 HH 1096027790) CL (test code = 102 mmol/L 98-108 9095166918) CO2 TOTAL (test code = 19 mmol/L 23-31 L 6811479172) AGAP (test code = 16 2-16 4889479020) BUN (test code = 107 mg/dL 7-23 H 3692447803) GLUCOSE (test code = 81 mg/dL 70-110 9687485620) CREATININE (test code = 19.84 mg/dL 0.50-1.04 H 4785984238) TOTAL BILI (test code = 0.6 mg/dL 0.1-1.4 3403107061) CALCIUM (test code = 8.7 mg/dL 8.6-10.6 2234627008) T PROTEIN (test code = 7.1 g/dL 6.3-8.2 1251359842) ALBUMIN (test code = 4.5 g/dL 3.5-5.0 7535771316) ALK PHOS (test code = 84 U/L 34-122 8899909752) ALTv (test code = 23 U/L 5-35 1742-6) AST(SGOT) (test code = 21 U/L 13-40 6110442681) eGFR (test code = 1.9 mL/min/1.73m2 8968835954) ADAM (test code = ADAM) Association of Glomerular Filtration Rate (GFR) and Staging of Kidney Disease* + --+ --+ ------+| GFR (mL/min/1.73 m2) ?| With Kidney Damage ?| ?Without Kidney Damage+ --------+ --------+ +| ?>90 ?| ?Stage one ?| ? Normal ?+ ---+ ---+ -------+| ?60-89 ?| ?Stage two ?| ? Decreased GFR ? + --+ --+ ------+| ?30-59 ?| ?Stage three ?| ? Stage three ? + --+ --+ ------+| ?15-29 ?| ?Stage four ? | ? Stage four ?+ ---+ ---+ -------+| ?<15 (or dialysis) ? ?| ?Stage five ? | ? Stage five ?+ ---+ ---+ -------+ *Each stage assumes the associated GFR level has been in effect for at least three months. ?Stages 1 to 5, with or without kidney disease, indicate chronic kidney disease. Notes: Determination of stages one and two (with eGFR >59mL/min/1.73 m2) requires estimation of kidney damage for at least three months as defined by structural or functional abnormalities of the kidney, manifested by either:Pathological abnormalities or Markers of kidney damage (including abnormalities in the composition of the blood or urine or abnormalities in imaging tests). Lab Interpretation Abnormal (test code = 23880-8) [facility]. METABOLIC PANEL ([id number])2022-06-29 18:26:41 Test Item Value Reference Range Interpretation Comments NA (test code = 137 mmol/L 135-145 3953813503) K (test code = 6.9 mmol/L 3.5-5.0 HH 0972571577) CL (test code = 102 mmol/L 98-108 7386661908) CO2 TOTAL (test code = 19 mmol/L 23-31 L 8544988793) AGAP (test code = 16 2-16 7758386031) BUN (test code = 107 mg/dL 7-23 H 3412315588) GLUCOSE (test code = 81 mg/dL 70-110 6189596481) CREATININE (test code = 19.84 mg/dL 0.50-1.04 H 7354618808) TOTAL BILI (test code = 0.6 mg/dL 0.1-1.1 1161692615) CALCIUM (test code = 8.7 mg/dL 8.6-10.6 9135110287) T PROTEIN (test code = 7.1 g/dL 6.3-8.2 2205047696) ALBUMIN (test code = 4.5 g/dL 3.5-5.0 4597402922) ALK PHOS (test code = 84 U/L 34-122 7618553091) ALTv (test code = 23 U/L 5-35 1742-6) AST(SGOT) (test code = 21 U/L 13-40 2470636515) eGFR (test code = 1.9 mL/min/1.73m2 8519158926) ADAM (test code = ADAM) Association of Glomerular Filtration Rate (GFR) and Staging of Kidney Disease* + --+ --+ ------+| GFR (mL/min/1.73 m2) ?| With Kidney Damage ?| ?Without Kidney Damage+ --------+ --------+ +| ?>90 ?| ?Stage one ?| ? Normal ?+ ---+ ---+ -------+| ?60-89 ?| ?Stage two ?| ? Decreased GFR ? + --+ --+ ------+| ?30-59 ?| ?Stage three ?| ? Stage three ? + --+ --+ ------+| ?15-29 ?| ?Stage four ? | ? Stage four ?+ ---+ ---+ -------+| ?<15 (or dialysis) ? ?| ?Stage five ? | ? Stage five ?+ ---+ ---+ -------+ *Each stage assumes the associated GFR level has been in effect for at least three months. ?Stages 1 to 5, with or without kidney disease, indicate chronic kidney disease. Notes: Determination of stages one and two (with eGFR >59mL/min/1.73 m2) requires estimation of kidney damage for at least three months as defined by structural or functional abnormalities of the kidney, manifested by either:Pathological abnormalities or Markers of kidney damage (including abnormalities in the composition of the blood or urine or abnormalities in imaging tests). Lab Interpretation Abnormal (test code = 35345-9) [facility] W/AUTO [id number] 11:29:00 Test Item Value Reference Range Interpretation Comments WHITE BLOOD CELL (test code = 7.70 x10 3/uL 4.5-11.0 N WBC) RED BLOOD CELL (test code = 2.54 x10 6/uL 3.54-5.02 L RBC) HEMOGLOBIN (test code = HGB) 8.5 g/dL 11.0-15.0 L HEMATOCRIT (test code = HCT) 26.9 % 33.0-45.0 L MEAN CELL VOLUME (test code = 105.9 fL 81.0-99.0 H MCV) MEAN CELL HGB (test code = MCH) 33.5 pg 27.0-33.0 H MEAN CELL HGB CONCETRATION 31.6 g/dL 33.0-37.0 L (test code = MCHC) RED CELL DISTRIBUTION WIDTH CV 12.6 % 11.5-14.5 N (test code = RDW) RED CELL DISTRIBUTION WIDTH SD 49.5 fL 37.0-54.0 N (test code = RDW-SD) PLATELET COUNT (test code = 256 x10 3/uL 150-400 N PLT) MEAN PLATELET VOLUME (test code 9.7 fL 7.0-9.0 H = MPV) NEUTROPHIL % (test code = NT%) 65.9 % 56.0-77.0 N IMMATURE GRANULOCYTE % (test 1.4 % 0.0-2.0 N code = IG%) LYMPHOCYTE % (test code = LY%) 20.4 % 14.0-32.0 N MONOCYTE % (test code = MO%) 7.8 % 4.8-9.0 N EOSINOPHIL % (test code = EO%) 4.0 % 0.3-3.7 H BASOPHIL % (test code = BA%) 0.5 % 0.0-2.0 N NUCLEATED RBC % (test code = 0.0 % 0-0 N NRBC%) NEUTROPHIL # (test code = NT#) 5.07 x10 3/uL 2.0-7.6 N IMMATURE GRANULOCYTE # (test 0.11 x10 3/uL 0.00-0.03 H code = IG#) LYMPHOCYTE # (test code = LY#) 1.57 x10 3/uL 1.0-3.8 N MONOCYTE # (test code = MO#) 0.60 x10 3/uL 0.1-0.8 N EOSINOPHIL # (test code = EO#) 0.31 x10 3/uL 0.0-0.2 H BASOPHIL # (test code = BA#) 0.04 x10 3/uL 0.0-0.2 N NUCLEATED RBC # (test code = 0.00 x10 3/uL 0.0-0.1 N NRBC#) MANUAL DIFF REQUIRED (test code NO = MDIFF) RBC [id number] 11:29:00 Test Item Value Reference Range Interpretation Comments MACROCYTOSIS (test code = MACR) 1+ BASIC METABOLIC [id number] 08:40:00 Test Item Value Reference Range Interpretation Comments SODIUM (test code = NA) 138 mEq/L 134-147 N POTASSIUM (test code = 3.8 mEq/L 3.4-5.0 N K) CHLORIDE (test code = 100 mEq/L 100-108 N CL) CARBON DIOXIDE (test 27 mEq/L 21-33 N code = CO2) ANION GAP (test code = 15 0-20 N GAP) GLUCOSE (test code = 67 mg/dL 70-110 L GLU) BLOOD UREA NITROGEN 21 mg/dL 7-18 H (test code = BUN) GLOMERULAR FILTRATION 5.7 95-105 L Units of measure = RATE (test code = GFR) ml/mi n/1.73 m2 CREATININE (test code = 7.7 mg/dL 0.6-1.3 H CREAT) CALCIUM (test code = 8.2 mg/dL 8.0-10.5 N CA) CBC W/AUTO [id number] 07:29:00 Test Item Value Reference Range Interpretation Comments WHITE BLOOD CELL (test code = 7.70 x10 3/uL 4.5-11.0 N WBC) RED BLOOD CELL (test code = 2.54 x10 6/uL 3.54-5.02 L RBC) HEMOGLOBIN (test code = HGB) 8.5 g/dL 11.0-15.0 L HEMATOCRIT (test code = HCT) 26.9 % 33.0-45.0 L MEAN CELL VOLUME (test code = 105.9 fL 81.0-99.0 H MCV) MEAN CELL HGB (test code = MCH) 33.5 pg 27.0-33.0 H MEAN CELL HGB CONCETRATION 31.6 g/dL 33.0-37.0 L (test code = MCHC) RED CELL DISTRIBUTION WIDTH CV 12.6 % 11.5-14.5 N (test code = RDW) RED CELL DISTRIBUTION WIDTH SD 49.5 fL 37.0-54.0 N (test code = RDW-SD) PLATELET COUNT (test code = 256 x10 3/uL 150-400 N PLT) MEAN PLATELET VOLUME (test code 9.7 fL 7.0-9.0 H = MPV) NEUTROPHIL % (test code = NT%) 65.9 % 56.0-77.0 N IMMATURE GRANULOCYTE % (test 1.4 % 0.0-2.0 N code = IG%) LYMPHOCYTE % (test code = LY%) 20.4 % 14.0-32.0 N MONOCYTE % (test code = MO%) 7.8 % 4.8-9.0 N EOSINOPHIL % (test code = EO%) 4.0 % 0.3-3.7 H BASOPHIL % (test code = BA%) 0.5 % 0.0-2.0 N NUCLEATED RBC % (test code = 0.0 % 0-0 N NRBC%) NEUTROPHIL # (test code = NT#) 5.07 x10 3/uL 2.0-7.6 N IMMATURE GRANULOCYTE # (test 0.11 x10 3/uL 0.00-0.03 H code = IG#) LYMPHOCYTE # (test code = LY#) 1.57 x10 3/uL 1.0-3.8 N MONOCYTE # (test code = MO#) 0.60 x10 3/uL 0.1-0.8 N EOSINOPHIL # (test code = EO#) 0.31 x10 3/uL 0.0-0.2 H BASOPHIL # (test code = BA#) 0.04 x10 3/uL 0.0-0.2 N NUCLEATED RBC # (test code = 0.00 x10 3/uL 0.0-0.1 N NRBC#) MANUAL DIFF REQUIRED (test code NO = MDIFF) RBC [id number] 07:29:00 Test Item Value Reference Range Interpretation Comments ANISOCYTOSIS (test code = ANISO) CBC W/AUTO [id number] 07:29:00 Test Item Value Reference Range Interpretation Comments WHITE BLOOD CELL (test code = 7.70 x10 3/uL 4.5-11.0 N WBC) RED BLOOD CELL (test code = 2.54 x10 6/uL 3.54-5.02 L RBC) HEMOGLOBIN (test code = HGB) 8.5 g/dL 11.0-15.0 L HEMATOCRIT (test code = HCT) 26.9 % 33.0-45.0 L MEAN CELL VOLUME (test code = 105.9 fL 81.0-99.0 H MCV) MEAN CELL HGB (test code = MCH) 33.5 pg 27.0-33.0 H MEAN CELL HGB CONCETRATION 31.6 g/dL 33.0-37.0 L (test code = MCHC) RED CELL DISTRIBUTION WIDTH CV 12.6 % 11.5-14.5 N (test code = RDW) RED CELL DISTRIBUTION WIDTH SD 49.5 fL 37.0-54.0 N (test code = RDW-SD) PLATELET COUNT (test code = 256 x10 3/uL 150-400 N PLT) MEAN PLATELET VOLUME (test code 9.7 fL 7.0-9.0 H = MPV) NEUTROPHIL % (test code = NT%) 65.9 % 56.0-77.0 N IMMATURE GRANULOCYTE % (test 1.4 % 0.0-2.0 N code = IG%) LYMPHOCYTE % (test code = LY%) 20.4 % 14.0-32.0 N MONOCYTE % (test code = MO%) 7.8 % 4.8-9.0 N EOSINOPHIL % (test code = EO%) 4.0 % 0.3-3.7 H BASOPHIL % (test code = BA%) 0.5 % 0.0-2.0 N NUCLEATED RBC % (test code = 0.0 % 0-0 N NRBC%) NEUTROPHIL # (test code = NT#) 5.07 x10 3/uL 2.0-7.6 N IMMATURE GRANULOCYTE # (test 0.11 x10 3/uL 0.00-0.03 H code = IG#) LYMPHOCYTE # (test code = LY#) 1.57 x10 3/uL 1.0-3.8 N MONOCYTE # (test code = MO#) 0.60 x10 3/uL 0.1-0.8 N EOSINOPHIL # (test code = EO#) 0.31 x10 3/uL 0.0-0.2 H BASOPHIL # (test code = BA#) 0.04 x10 3/uL 0.0-0.2 N NUCLEATED RBC # (test code = 0.00 x10 3/uL 0.0-0.1 N NRBC#) MANUAL DIFF REQUIRED (test code NO = MDIFF) RBC [id number] 07:29:00 Test Item Value Reference Range Interpretation Comments ANISOCYTOSIS (test code = ANISO) BASIC METABOLIC [id number] 09:09:00 Test Item Value Reference Range Interpretation Comments SODIUM (test code = NA) 134 mEq/L 134-147 N POTASSIUM (test code = 3.7 mEq/L 3.4-5.0 N K) CHLORIDE (test code = 99 mEq/L 100-108 L CL) CARBON DIOXIDE (test 23 mEq/L 21-33 N code = CO2) ANION GAP (test code = 16 0-20 N GAP) GLUCOSE (test code = 125 mg/dL 70-110 H GLU) BLOOD UREA NITROGEN 44 mg/dL 7-18 H (test code = BUN) GLOMERULAR FILTRATION 2.9 95-105 L Units of measure = RATE (test code = GFR) ml/mi n/1.73 m2 CREATININE (test code = 13.8 mg/dL 0.6-1.3 H CREAT) CALCIUM (test code = 7.6 mg/dL 8.0-10.5 L CA) TOTAL IRON BINDING [id number] 09:03:00 Test Item Value Reference Range Interpretation Comments SERUM IRON (test code = IRON) 55 mcg/dL 35-150 N TOTAL IRON BINDING CAPACITY (test 109 mcg/dL 260-445 L code = TIBC) UIBC (test code = UIBC) 54 mcg/dL IRON SATURATION (test code = 50.5 % 14-34 H FESAT) [id number] 09:03:00 Test Item Value Reference Range Interpretation Comments FERRITIN (test code = MELVA) 1858.0 ng/mL 11.0-306.8 H CBC W/AUTO [id number] 08:45:00 Test Item Value Reference Range Interpretation Comments WHITE BLOOD CELL (test code = 10.19 x10 3/uL 4.5-11.0 N WBC) RED BLOOD CELL (test code = 2.47 x10 6/uL 3.54-5.02 L RBC) HEMOGLOBIN (test code = HGB) 8.2 g/dL 11.0-15.0 L HEMATOCRIT (test code = HCT) 25.2 % 33.0-45.0 L MEAN CELL VOLUME (test code = 102.0 fL 81.0-99.0 H MCV) MEAN CELL HGB (test code = 33.2 pg 27.0-33.0 H MCH) MEAN CELL HGB CONCETRATION 32.5 g/dL 33.0-37.0 L (test code = MCHC) RED CELL DISTRIBUTION WIDTH CV 12.7 % 11.5-14.5 N (test code = RDW) RED CELL DISTRIBUTION WIDTH SD 47.3 fL 37.0-54.0 N (test code = RDW-SD) PLATELET COUNT (test code = 254 x10 3/uL 150-400 N PLT) MEAN PLATELET VOLUME (test 9.5 fL 7.0-9.0 H code = MPV) NEUTROPHIL % (test code = NT%) 80.0 % 56.0-77.0 H IMMATURE GRANULOCYTE % (test 0.9 % 0.0-2.0 N code = IG%) LYMPHOCYTE % (test code = LY%) 10.2 % 14.0-32.0 L MONOCYTE % (test code = MO%) 4.5 % 4.8-9.0 L EOSINOPHIL % (test code = EO%) 4.1 % 0.3-3.7 H BASOPHIL % (test code = BA%) 0.3 % 0.0-2.0 N NUCLEATED RBC % (test code = 0.0 % 0-0 N NRBC%) NEUTROPHIL # (test code = NT#) 8.15 x10 3/uL 2.0-7.6 H IMMATURE GRANULOCYTE # (test 0.09 x10 3/uL 0.00-0.03 H code = IG#) LYMPHOCYTE # (test code = LY#) 1.04 x10 3/uL 1.0-3.8 N MONOCYTE # (test code = MO#) 0.46 x10 3/uL 0.1-0.8 N EOSINOPHIL # (test code = EO#) 0.42 x10 3/uL 0.0-0.2 H BASOPHIL # (test code = BA#) 0.03 x10 3/uL 0.0-0.2 N NUCLEATED RBC # (test code = 0.00 x10 3/uL 0.0-0.1 N NRBC#) MANUAL DIFF REQUIRED (test NO code = MDIFF) BASIC METABOLIC [id number] 08:59:00 Test Item Value Reference Range Interpretation Comments SODIUM (test code = NA) 136 mEq/L 134-147 N POTASSIUM (test code = 3.8 mEq/L 3.4-5.0 N K) CHLORIDE (test code = 101 mEq/L 100-108 N CL) CARBON DIOXIDE (test 22 mEq/L 21-33 N code = CO2) ANION GAP (test code = 17 0-20 N GAP) GLUCOSE (test code = 64 mg/dL 70-110 L GLU) BLOOD UREA NITROGEN 33 mg/dL 7-18 H (test code = BUN) GLOMERULAR FILTRATION 3.4 95-105 L Units of measure = RATE (test code = GFR) ml/mi n/1.73 m2 CREATININE (test code = 12.1 mg/dL 0.6-1.3 H CREAT) CALCIUM (test code = 7.7 mg/dL 8.0-10.5 L CA) - NM LUNG PERF [id number] 08:44:00 FAX: Lachelle Larios [phone] [place]: St: ADM Name: MICKEY GONZALES [facility] : 1975 Age/S: 44/F [address] [place] [address] Unit #: [id number] Loc: [address] [place] [address] Phys: Lachelle Larios MD Acct: [id number] Dis Date: Status: ADM IN PHONE #: [phone] Exam Date: 10/11/2019 0808 FAX #: Reason: elevated d-dimer EXAMS: CPT CODE: [id number] NM LUNG PERF PARTICULATE [id number] PROCEDURE: NUCLEAR MEDICINE PERFUSION SCAN INDICATION: Shortness of breath, elevated d-dimer. COMPARISON: Chest radiograph dated 10/10/2019. TECHNIQUE: Perfusion only scan performed by protocol given current precautions. 5 mCi Tc 99m MAA administered intravenously at the right AC for perfusion study. FINDINGS: PERFUSION: Heterogeneous tracer deposition within the right lung corresponding with right lung opacities on comparison chest radiograph. No large mismatched segmental perfusion defects. IMPRESSION: Low p robability for acute pulmonary embolism. SL: [id number] at 0844 Reported and signed by: Nury Estrella M.D. CC: Lachelle Larios MD Technologist: GALILEA JosephR)([facility]) Trnscrd Date/Time/By: 10/11/2019 (0844) : By: [email or web address] Orig Print D/T: S: 10/11/2019 (2189) PAGE 1 Signed ReportCBC W/AUTO DIFF 2019-10-11 07:41:00 Test Item Value Reference Range Interpretation Comments WHITE BLOOD CELL (test code = 8.41 x10 3/uL 4.5-11.0 N WBC) RED BLOOD CELL (test code = 2.40 x10 6/uL 3.54-5.02 L RBC) HEMOGLOBIN (test code = HGB) 8.0 g/dL 11.0-15.0 L HEMATOCRIT (test code = HCT) 24.9 % 33.0-45.0 L MEAN CELL VOLUME (test code = 103.8 fL 81.0-99.0 H MCV) MEAN CELL HGB (test code = MCH) 33.3 pg 27.0-33.0 H MEAN CELL HGB CONCETRATION 32.1 g/dL 33.0-37.0 L (test code = MCHC) RED CELL DISTRIBUTION WIDTH CV 12.8 % 11.5-14.5 N (test code = RDW) RED CELL DISTRIBUTION WIDTH SD 47.9 fL 37.0-54.0 N (test code = RDW-SD) PLATELET COUNT (test code = 250 x10 3/uL 150-400 N PLT) MEAN PLATELET VOLUME (test code 10.6 fL 7.0-9.0 H = MPV) NEUTROPHIL % (test code = NT%) 73.0 % 56.0-77.0 N IMMATURE GRANULOCYTE % (test 1.0 % 0.0-2.0 N code = IG%) LYMPHOCYTE % (test code = LY%) 16.5 % 14.0-32.0 N MONOCYTE % (test code = MO%) 6.3 % 4.8-9.0 N EOSINOPHIL % (test code = EO%) 3.0 % 0.3-3.7 N BASOPHIL % (test code = BA%) 0.2 % 0.0-2.0 N NUCLEATED RBC % (test code = 0.0 % 0-0 N NRBC%) NEUTROPHIL # (test code = NT#) 6.14 x10 3/uL 2.0-7.6 N IMMATURE GRANULOCYTE # (test 0.08 x10 3/uL 0.00-0.03 H code = IG#) LYMPHOCYTE # (test code = LY#) 1.39 x10 3/uL 1.0-3.8 N MONOCYTE # (test code = MO#) 0.53 x10 3/uL 0.1-0.8 N EOSINOPHIL # (test code = EO#) 0.25 x10 3/uL 0.0-0.2 H BASOPHIL # (test code = BA#) 0.02 x10 3/uL 0.0-0.2 N NUCLEATED RBC # (test code = 0.00 x10 3/uL 0.0-0.1 N NRBC#) MANUAL DIFF REQUIRED (test code NO = IFF) - XR CHEST 1 [id number] 17:43:00 FAX: Victor M Cabrera MD [phone] [place]: St: [facility] FAX: Lachelle Larios [phone] Name: MICKEY GONZALES [facility] Solitario : 1975 Age/S: 44/F [address] [place] [address] Unit #: [id number] Loc: [place] [address] Phys: Victor M Cabrera MD Acct: [id number] Dis Date: Status: ADM IN PHONE #: [phone] Exam Date: 10/10/2019 1734 FAX #: [phone] Reason: pneumonia EXAMS: CPT CODE: [id number] XR CHEST 1 V [id number] Clinical Indication: Pneumonia. Comparison: CT abdomen 10/09/2019. Impression: Chest, single view. Cardiomegaly. Right lung opacities, pneumonia favored over edema. No definite pleural effusion. No pneum othorax. No acute osseous abnormality. SL: [id number] at 9723 Reported and signed by: Nury Estrella M.D. CC: Victor M Cabrera MD; Lachelle Larios MD Technologist: Lucía Anthony RT(R) Trnscrd Date/Time/By: 10/10/2019 (8642) : By: [email or web address] Orig Print D/T: S: 10/10/2019 (2177) PAGE 1 Signed ReportACUTE HEPATITIS PANEL 2019-10-10 16:06:00 Test Item Value Reference Range Interpretation Comments AB HEPATITIS A IGM (test NON REACTIVE INDEX NON REACT. code = HAVMAB) AG HEPATITIS B SURFACE NON REACTIVE INDEX NonReactive (test code = HBSAG) AB HEPATITIS B CORE IGM NON REACTIVE INDEX NON REACT. (test code = HBCMAB) AB HEPATITIS C (test code NON REACTIVE INDEX NON REACT. = HCVAB) ACUTE HEPATITIS [id number] 16:03:00 Test Item Value Reference Range Interpretation Comments AB HEPATITIS A IGM (test INDEX NON REACT. code = HAVMAB) AG HEPATITIS B SURFACE NON REACTIVE INDEX NonReactive (test code = HBSAG) AB HEPATITIS B CORE IGM NON REACTIVE INDEX NON REACT. (test code = HBCMAB) AB HEPATITIS C (test code NON REACTIVE INDEX NON REACT. = HCVAB) ACUTE HEPATITIS [id number] 16:01:00 Test Item Value Reference Range Interpretation Comments AB HEPATITIS A IGM (test INDEX NON REACT. code = HAVMAB) AG HEPATITIS B SURFACE NON REACTIVE INDEX NonReactive (test code = HBSAG) AB HEPATITIS B CORE IGM INDEX NON REACT. (test code = HBCMAB) AB HEPATITIS C (test code NON REACTIVE INDEX NON REACT. = HCVAB) ACUTE HEPATITIS [id number] 15:33:00 Test Item Value Reference Range Interpretation Comments AB HEPATITIS A IGM (test INDEX NON REACT. code = HAVMAB) AG HEPATITIS B SURFACE NON REACTIVE INDEX NonReactive (test code = HBSAG) AB HEPATITIS B CORE IGM INDEX NON REACT. (test code = HBCMAB) AB HEPATITIS C (test code INDEX NON REACT. = HCVAB) Novel Coronavirus [id number] 13:22:00 Test Item Value Reference Range Interpretation Comments Novel Coronavirus Negative Negative Positive r esults are 2019 Inhouse (test indicativ e of the presence code = [id number]) ofSARS-CoV -2 RNA, clinical correlation wit h patient historyand othe r diagnostic info rmation is necessary to determinepatien t infection status. Positiv e results do not rule out bacterial infection or co -infection with other viru ses. Negative result s do not preclude SARS-C oV-2 infection andsh ould not be used as the aye e basis for patient managementdecis ions. Negative result s must be combined with otherclinical observations, p atient history, and epidemiological information . Detection of SARS-CoV-2 RNA may be affe cted bysample collec tion methods, storag e conditions, and /or stageof infection. Dhara l RNA mutations, vacc inations, antiviraltherap eutics, antibiotics, chemotherapeuti c orimmunosuppres leslie drugs have not been e valuated for effectson d etection. Results are for the identification of SARS-CoV-2 RNA usingthe Hoffman M2000 Sy stem under the FDA Emergen cy UseAuthorizatio n. The testing is perf ormed by jhonny bustos in the procedures for the Hoffman M2000 molecular diagnostic SARS-CoV-2 assa y in vitro. Testing Criteria: Shortness of Breath Fever Sore Throat & FeverINFLUENZA A B 2019-10-10 01:40:00 Test Item Value Reference Range Interpretation Comments INFLUENZA A (test code = FLUAPCR) Negative Negative INFLUENZA B (test code = FLUBPCR) Negative Negative PROCALCITONIN (PCT)2019-10-10 01:08:00 Test Item Value Reference Range Interpretation Comments PROCALCITONIN (PCT) 0.55 ng/mL 0.00-0.05 H PROCALCI TONIN (PCT) (test code = PROCAL) NORMAL RANGE (ADULT): <0.05 NG/ML. * a concentration < 0.5 ng/mL represent s a low risk of severe sepsis and/or septic s hock.* a concentration > 2 ng/mL represents a hi gh risk of severe sepsi s and/or septic shock.Neverthel ess, concentrations <0.5 ng/mL do not ex clude aninfection, on account of localized in fections (withoutsystemi c signs) which can be as sociated with such lowconcentratio ns, or a systemic infect ion in its initialstag es (< 6 hours). Further more, increased procalcitoninca n occur without infecti on. PCT concentrations between 0.5and 2.0 ng/m L should be interpreted taking into account thepatient's hi story. It is recommend ed to retest PCT with in6-24 hours if any concentrations <2 ng/mL are obtained. COMPREHENSIVE METABOLIC [id number] 00:52:00 Test Item Value Reference Range Interpretation Comments SODIUM (test code = NA) 132 mEq/L 134-147 L POTASSIUM (test code = 4.7 mEq/L 3.4-5.0 N K) CHLORIDE (test code = 93 mEq/L 100-108 L CL) CARBON DIOXIDE (test 24 mEq/L 21-33 N code = CO2) ANION GAP (test code = 20 0-20 N GAP) GLUCOSE (test code = 81 mg/dL 70-110 N GLU) BLOOD UREA NITROGEN 76 mg/dL 7-18 H (test code = BUN) GLOMERULAR FILTRATION 1.7 95-105 L Units of measure = RATE (test code = GFR) ml/mi n/1.73 m2 CREATININE (test code = 22.4 mg/dL 0.6-1.3 H CREAT) TOTAL PROTEIN (test 7.2 g/dL 6.4-8.2 N code = PROT) ALBUMIN (test code = 2.30 g/dL 3.4-5.0 L ALB) CALCIUM (test code = 7.8 mg/dL 8.0-10.5 L CA) BILIRUBIN TOTAL (test 0.7 MG/DL <1.5 N code = BILT) SGOT/AST (test code = 8 IUnit/L 15-37 L AST) SGPT/ALT (test code = 11 IUnit/L 15-65 L ALT) ALKALINE PHOSPHATASE 125 IUnit/L 20-125 N TOTAL (test code = ALKP) C REACTIVE [id number] 00:52:00 Test Item Value Reference Range Interpretation Comments C REACTIVE PROTEIN (test code = 205.0 MG/L 0.0-2.9 H CRP) Acknowledged? YESCOMMENTS: SwabLACTIC [id number] 00:46:00 Test Item Value Reference Range Interpretation Comments LACTIC ACID (test code = LACT) 0.5 mmol/L 0.4-1.9 N [id number] 00:41:00 Test Item Value Reference Range Interpretation Comments D-DIMER (test 1392 ng/mlFEU <=500 HH THROMBOSIS A ND/OR code = PULMONARY EMBOL ISM AND THE DDIMER) CLINICAL CUT- O FF VALUE FOR EXCLUSION (500 ng/mL FEU) OF THESE CONDIT IONSIS VALIDATED BY TH E HOT PIPE GAUGER OF THE METHOD. A NEGATIVE D-DI YVONNE RESULT WHEN COMBINED W ITH A CLINICALASSESSM ENT OF LOW PRETEST PROBABI LITY HAS BEEN SHOWN TO H AVEA HIGH NEGATIVE PREDIC TIVE VALUE OF DVT OR PE. D -DIMER VALUES >500 ng/ mL FEU ARE NOT DIAGNOSTIC FOR DVT, PEor DIC WITHOU T OTHER CONFIRMATORY TE STS AND APPROPRIATECLIN ICAL EUALUATIONS. COMPREHENSIVE METABOLIC [id number] 00:38:00 Test Item Value Reference Range Interpretation Comments SODIUM (test code = NA) 132 mEq/L 134-147 L POTASSIUM (test code = K) 4.7 mEq/L 3.4-5.0 N CHLORIDE (test code = CL) 93 mEq/L 100-108 L CARBON DIOXIDE (test code = CO2) 24 mEq/L 21-33 N ANION GAP (test code = GAP) 20 0-20 N GLUCOSE (test code = GLU) 81 mg/dL 70-110 N BLOOD UREA NITROGEN (test code = 76 mg/dL 7-18 H BUN) GLOMERULAR FILTRATION RATE (test 95-105 code = GFR) CREATININE (test code = CREAT) mg/dL 0.6-1.3 TOTAL PROTEIN (test code = PROT) g/dL 6.4-8.2 ALBUMIN (test code = ALB) g/dL 3.4-5.0 CALCIUM (test code = CA) 7.8 mg/dL 8.0-10.5 L BILIRUBIN TOTAL (test code = BILT) MG/DL <1.5 SGOT/AST (test code = AST) IUnit/L 15-37 SGPT/ALT (test code = ALT) IUnit/L 15-65 ALKALINE PHOSPHATASE TOTAL (test IUnit/L 20-125 code = ALKP) CBC W/AUTO [id number] 00:27:00 Test Item Value Reference Range Interpretation Comments WHITE BLOOD CELL (test code = 12.29 x10 3/uL 4.5-11.0 H WBC) RED BLOOD CELL (test code = 2.62 x10 6/uL 3.54-5.02 L RBC) HEMOGLOBIN (test code = HGB) 8.8 g/dL 11.0-15.0 L HEMATOCRIT (test code = HCT) 26.7 % 33.0-45.0 L MEAN CELL VOLUME (test code = 101.9 fL 81.0-99.0 H MCV) MEAN CELL HGB (test code = 33.6 pg 27.0-33.0 H MCH) MEAN CELL HGB CONCETRATION 33.0 g/dL 33.0-37.0 N (test code = MCHC) RED CELL DISTRIBUTION WIDTH CV 12.8 % 11.5-14.5 N (test code = RDW) RED CELL DISTRIBUTION WIDTH SD 47.7 fL 37.0-54.0 N (test code = RDW-SD) PLATELET COUNT (test code = 274 x10 3/uL 150-400 N PLT) MEAN PLATELET VOLUME (test 9.5 fL 7.0-9.0 H code = MPV) NEUTROPHIL % (test code = NT%) 80.8 % 56.0-77.0 H IMMATURE GRANULOCYTE % (test 0.7 % 0.0-2.0 N code = IG%) LYMPHOCYTE % (test code = LY%) 11.5 % 14.0-32.0 L MONOCYTE % (test code = MO%) 4.8 % 4.8-9.0 N EOSINOPHIL % (test code = EO%) 2.0 % 0.3-3.7 N BASOPHIL % (test code = BA%) 0.2 % 0.0-2.0 N NUCLEATED RBC % (test code = 0.0 % 0-0 N NRBC%) NEUTROPHIL # (test code = NT#) 9.92 x10 3/uL 2.0-7.6 H IMMATURE GRANULOCYTE # (test 0.09 x10 3/uL 0.00-0.03 H code = IG#) LYMPHOCYTE # (test code = LY#) 1.41 x10 3/uL 1.0-3.8 N MONOCYTE # (test code = MO#) 0.59 x10 3/uL 0.1-0.8 N EOSINOPHIL # (test code = EO#) 0.25 x10 3/uL 0.0-0.2 H BASOPHIL # (test code = BA#) 0.03 x10 3/uL 0.0-0.2 N NUCLEATED RBC # (test code = 0.00 x10 3/uL 0.0-0.1 N NRBC#) MANUAL DIFF REQUIRED (test NO code = MDIFF) Notes Date/Time Note Provider Source 2019-10-15 08:28:00-00:00 [id number] [place] [id number] PATIENT NAME: MICKEY GONZALES ADMIT DATE: 10/10/19 ACCOUNT NO: [id number] ROOM NO: 3358 AGE: 44 REPORT TYPE: DISCHARGE SUMMARY SEX: F ADMITTING PHYSICIAN:Lachelle Larios MD ATTENDING PHYSICIAN:Lachelle Larios MD ADMISSION DATE: 10/10/2019 DISCHARGE DATE: 10/13/2019 REASON FOR ADMISSION: Pneumonia. DISCHARGE DIAGNOSES: 1. Multifocal pneumonia. 2. End-stage renal disease. 3. High blood pressure. 4. History of uterine cancer. CONSULTANTS: Dr. Cabrera from Pulmonary, Dr. Gris gonzalez from Nephrology. HOSPITAL COURSE: This is a 44-year-old female wi th past medical history pertinent for end-stage deepak l disease on hemodialysis and uterine cancer, status post total abdominal hysterectomy, high blood pr essure, coming in from [facility] for left-sided chest pain. The patient was seen to have a multifocal pneumonia. She was seen by pulmonary services. T he patient was initially put on IV antibiotics, but then discharged home on 7 days treatment of Omnicef. The patient was also continued on hemodialysis. She was then discharged on 10/13/2019. PHYSICAL EXAMINATION: VITAL SIGNS: Temperature is 98.1, pulse of 69, r espiratory rate of 12, and BP 149/82. GENERAL: No acute distress. NECK: Supple. LUNGS: Clear to auscultation bilaterally. HEART: S1 and S2. Regular rate and rhythm. No mu rmurs, gallops, or rubs. ABDOMEN: Positive bowel sounds. Soft, nontender, and nondistended. EXTREMITIES: No clubbing, cyanosis, or edema. LABORATORY DATA: Reviewed. MEDICATIONS: Please see the EMR. DIET: Regular. ACTIVITY: As tolerated. FOLLOWUP: Follow up with hammad aguirre for hemodialysis and follow up with PCP in about 2 weeks. PATIENT NAME: MICKEY GONZALES 0 spent more than 30min in discharge planning for the patient Dictated By: Lachelle Larios MD WT: DS:TAMMY/KRISSY./NTS Conf#: [id number]/DID#: [id number] Authenticated and Edited by Lachelle Larios MD On 10/15/19 2:25:13 PM at 1111 PATIENT NAME: MICKEY GONZALES 0 2019-10-13 15:44:00-00:00 [facility] ([facility] Nephrology Progress Note REPORT#:[id number] REPORT STATUS: Signed DATE:10/13/19 TIME: 154 PATIENT: MICKEY GONZALES UNIT #: [id number] ROOM/BED: 3358-1 : 76 AGE: 44 SEX: F ATTEND: Brayden Larios MD ADM AUTHOR: Alesia Delacruz MD * ALL edits or amendments must be made on the el ectronic/computer document * Subjective Comments: Eager to go home Objective General VS/I O: Vital Signs: Date Time Temp Pulse Resp B/P B/P Pulse O2 O2 F low FiO2 Mean Ox Delivery Rate 10/12 1413 Nasal 3.185298 cannula 10/12 1314 96.8 64 16 114/76 88.5 93 Nasal cannula / 0954 97.7 65 16 107/67 80.2 96 Room air 06/ 0431 97.9 68 16 116/75 88.3 94 Room air 06/ 0017 98.1 64 16 101/54 69.8 97 Room air 06/ 2131 Nasal 3.739523 cannula 10/11 2043 98.8 73 16 121/77 91.7 99 Room air / 1742 99.1 71 16 124/84 97.1 97 Room air 24 hour I O ending at 0700: 10/12 0700 / 1900 Intake Total 0 Output Total 3400 Balance 0 -3400 Intake, Oral 0 Supplement Output, 3400 Hemodialysis Patient 127.9 kg Weight Medications Active Meds + DC'd Last 24 Hrs Azithromycin 500 MG DAILY PO Epoetin Bharat-epbx 10,000 UNIT MoWeFr@2100 IV Heparin Sodium 5,000 UNIT ASDIR PRN DIALYSIS Heparin Sodium 5,000 UNIT ASDIR PRN DIALYSIS Cefepime HCl 1 GM Q24H IV Sodium Chloride 10 ML Albumin Human 12.5 GM ASDIR PRN IV Lidocaine HCl 0.5 ML ASDIR PRN I-DERMAL (CKD) Mannitol 12.5 GM ASDIR PRN IV Sodium Chloride 2,000 ML ASDIR PRN IV Sodium Chloride 10 ML ASDIR PRN IV Sodium Chloride 250 ML ASDIR PRN IV Sevelamer Carbonate 3,200 MG TID MEALS PO Nicotine 21 MG DAILY PRN PRN TRANSDERM (CKD) Citalopram Hydrobromide 40 MG DAILY PO Gabapentin 1,200 MG BID PO Losartan Potassium 50 MG DAILY PO Nifedipine 90 MG DAILY PO Carvedilol 50 MG BID MEALS PO Acetaminophen 650 MG Q4H PRN PRN PO Hydralazine HCl 10 MG Q6H PRN PRN IV Hydrocodone Bitart/Acetaminophen 1 TAB Q4H PRN P RN PO Morphine Sulfate 4 MG Q4H PRN PRN IV Ondansetron HCl 4 MG Q4H PRN PRN IV Physical Exam General appearance: alert, awake, oriented Head/eyes: atraumatic, normocephalic, PERRLA Neck: no JVD, no lymphadenopathy Cardiovascular: normal heart sounds, regular rate and rhythm, no murmur, no rub Respiratory: decreased breath sounds, no distres s Abdomen: non-tender, normal bowel sounds, soft, no rebound Extremities: no edema, no gangrene Neuro/[employer]: alert, oriented X 3, CN II-XII intact , normal speech Results Findings/Data: Laboratory Tests 10/12 444 Chemistry Sodium (134 - 147 mEq/L) 138 Potassium (3.4 - 5.0 mEq/L) 3.8 Chloride (100 - 108 mEq/L) 100 Carbon Dioxide (21 - 33 mEq/L) 27 Anion Gap (0 - 20) 15 BUN (7 - 18 mg/dL) 21 H Creatinine (0.6 - 1.3 mg/dL) 7.7 H Glomerular Filtr Rate (95 - 105) 5.7 L Glucose (70 - 110 mg/dL) 67 L Calcium (8.0 - 10.5 mg/dL) 8.2 Laboratory Tests 10/12 444 Hematology WBC (4.5 - 11.0 x10 3/uL) 7.70 RBC (3.54 - 5.02 x10 6/uL) 2.54 L Hgb (11.0 - 15.0 g/dL) 8.5 L Hct (33.0 - 45.0 %) 26.9 L MCV (81.0 - 99.0 fL) 105.9 H MCH (27.0 - 33.0 pg) 33.5 H MCHC (33.0 - 37.0 g/dL) 31.6 L RDW (11.5 - 14.5 %) 12.6 Plt Count (150 - 400 x10 3/uL) 256 MPV (7.0 - 9.0 fL) 9.7 H Neut % (Auto) (56.0 - 77.0 %) 65.9 Lymph % (Auto) (14.0 - 32.0 %) 20.4 Major % (Auto) (4.8 - 9.0 %) 7.8 Eos % (Auto) (0.3 - 3.7 %) 4.0 H Baso % (Auto) (0.0 - 2.0 %) 0.5 Neut # (Auto) (2.0 - 7.6 x10 3/uL) 5.07 Lymph # (Auto) (1.0 - 3.8 x10 3/uL) 1.57 Major # (Auto) (0.1 - 0.8 x10 3/uL) 0.60 Eos # (Auto) (0.0 - 0.2 x10 3/uL) 0.31 H Baso # (Auto) (0.0 - 0.2 x10 3/uL) 0.04 Abs Immat Gran (auto) (0.00 - 0.03 x10 3/uL) 0. 11 H Add Manual Diff NO Immature Gran % (0.0 - 2.0 %) 1.4 Nucleated RBC % (0 - 0 %) 0.0 Nucleated RBCs # (Man) (0.0 - 0.1 x10 3/uL) 0.0 0 Macrocytosis 1+ Diagnosis, Assessment Plan Free Text A P: 1. ESRD HD in a.m. will hua bustos Pd cathter removed later as outpt. out pt Hs setup in [facility] done already per patient, aksed CM to verify 2. Pneumonia negative Covid test , pulmonary con sulted. cw abntibiotics 3. htn controlled 4. anemia of ckd started ROSA MARIA, iron panel ok Electronically Signed by Alesia Delacruz MD on at 1544 RPT #:[id number] END OF REPORT 2019-10-13 14:56:00-00:00 [facility] ([facility]) Pulmonology Progress Note REPORT#:[id number] REPORT STATUS: Signed DATE:10/13/19 TIME: 1455 PATIENT: MICKEY GONZALES UNIT #: [id number] ROOM/BED: [place] [address] : 76 AGE: 44 SEX: F ATTEND: Brayden Larios MD ADM AUTHOR: Victor M Cabrera MD * ALL edits or amendments must be made on the el [employer]/computer document * Subjective Chief Complaint: less SOB Improving cough Review of Systems ROS Constitutional: Denies: lethargy, malaise. Allergy/Immun: Denies: anaphylaxis, rhinorrhea. GI: Denies: hematemesis, hematochezia. Neuro: Denies: change in LOC, confusion. Objective Physical Exam VS/I O: Last Documented: Result Date Time O2 Delivery Nasal cannula 10/12 1413 O2 Flow Rate 3.207178 10/12 1413 Pulse Ox 93 10/12 1314 B/P 114/76 10/12 1314 B/P Mean 88.5 10/12 1314 Temp 36.0 10/12 1314 Pulse 64 10/12 1314 Resp 16 10/12 1314 24 hour I O ending at 0700: 10/12 0700 10/11 1900 Intake Total 0 Output Total 3400 Balance 0 -3400 Intake, Oral 0 Supplement Output, 3400 Hemodialysis Patient 127.9 kg Weight Patient Weight Weight (lb): 281 Weight (oz): 15.54 Weight (kg): 127.900 Medications: Active Meds + DC'd Last 24 Hrs Azithromycin 500 MG DAILY PO Epoetin Bharat-epbx 10,000 UNIT MoWeFr@2100 IV Heparin Sodium 5,000 UNIT ASDIR PRN DIALYSIS Heparin Sodium 5,000 UNIT ASDIR PRN DIALYSIS Cefepime HCl 1 GM Q24H IV Sodium Chloride 10 ML Albumin Human 12.5 GM ASDIR PRN IV Lidocaine HCl 0.5 ML ASDIR PRN I-DERMAL (CKD) Mannitol 12.5 GM ASDIR PRN IV Sodium Chloride 2,000 ML ASDIR PRN IV Sodium Chloride 10 ML ASDIR PRN IV Sodium Chloride 250 ML ASDIR PRN IV Sevelamer Carbonate 3,200 MG TID MEALS PO Nicotine 21 MG DAILY PRN PRN TRANSDERM (CKD) Citalopram Hydrobromide 40 MG DAILY PO Gabapentin 1,200 MG BID PO Losartan Potassium 50 MG DAILY PO Nifedipine 90 MG DAILY PO Carvedilol 50 MG BID MEALS PO Acetaminophen 650 MG Q4H PRN PRN PO Hydralazine HCl 10 MG Q6H PRN PRN IV Hydrocodone Bitart/Acetaminophen 1 TAB Q4H PRN P RN PO Morphine Sulfate 4 MG Q4H PRN PRN IV Ondansetron HCl 4 MG Q4H PRN PRN IV General appearance: alert, awake, oriented Neck: full range of motion, non-tender Cardiovascular: normal heart sounds Respiratory/chest: aerating well, symmetric expa nsion, no distress, no tenderness Abdomen: soft, non-tender, normal bowel sounds Extremities: no clubbing, no cyanosis, no edema Neuro/CHANNEL CEMENTER INSOLE MACHINE: alert, oriented X 3, CNII-XII intact Results Findings/Data: Laboratory Tests 10/13/19444: [Embedded Image Not Available] 10/12/19 0824: [Embedded Image Not Available] Laboratory Tests 10/12 444 Chemistry Sodium (134 - 147 mEq/L) 138 Potassium (3.4 - 5.0 mEq/L) 3.8 Chloride (100 - 108 mEq/L) 100 Carbon Dioxide (21 - 33 mEq/L) 27 Anion Gap (0 - 20) 15 BUN (7 - 18 mg/dL) 21 H Creatinine (0.6 - 1.3 mg/dL) 7.7 H Glomerular Filtr Rate (95 - 105) 5.7 L Glucose (70 - 110 mg/dL) 67 L Calcium (8.0 - 10.5 mg/dL) 8.2 Laboratory Tests 10/12 444 Hematology WBC (4.5 - 11.0 x10 3/uL) 7.70 RBC (3.54 - 5.02 x10 6/uL) 2.54 L Hgb (11.0 - 15.0 g/dL) 8.5 L Hct (33.0 - 45.0 %) 26.9 L MCV (81.0 - 99.0 fL) 105.9 H MCH (27.0 - 33.0 pg) 33.5 H MCHC (33.0 - 37.0 g/dL) 31.6 L RDW (11.5 - 14.5 %) 12.6 Plt Count (150 - 400 x10 3/uL) 256 MPV (7.0 - 9.0 fL) 9.7 H Neut % (Auto) (56.0 - 77.0 %) 65.9 Lymph % (Auto) (14.0 - 32.0 %) 20.4 Major % (Auto) (4.8 - 9.0 %) 7.8 Eos % (Auto) (0.3 - 3.7 %) 4.0 H Baso % (Auto) (0.0 - 2.0 %) 0.5 Neut # (Auto) (2.0 - 7.6 x10 3/uL) 5.07 Lymph # (Auto) (1.0 - 3.8 x10 3/uL) 1.57 Major # (Auto) (0.1 - 0.8 x10 3/uL) 0.60 Eos # (Auto) (0.0 - 0.2 x10 3/uL) 0.31 H Baso # (Auto) (0.0 - 0.2 x10 3/uL) 0.04 Abs Immat Gran (auto) (0.00 - 0.03 x10 3/uL) 0. 11 H Add Manual Diff NO Immature Gran % (0.0 - 2.0 %) 1.4 Nucleated RBC % (0 - 0 %) 0.0 Nucleated RBCs # (Man) (0.0 - 0.1 x10 3/uL) 0.0 0 Macrocytosis 1+ Diagnosis, Assessment Plan Free Text A P: 1. pneumonia Right sided based on CT chest from outside facility 2. End-stage renal disease on hemodialysis Plan We will get pneumonia work-up including Legionel la, strep pneumonia antigen negative omnicef BID on D/C for 7days gram positive cocci on sputun studies Follow up as outpatient ent lives away offered appoitment stated that she is willing to follow up with her local doctor patient has elevated D-Dimer VQ scan negative Electronically Signed by Victor M Cabrera MD on 09/26 at 1459 RUST #:[id number] END OF REPORT 2019-10-12 17:03:00-00:00 [facility] ([facility]) Hospitalist Progress Note REPORT#:[id number] REPORT STATUS: Signed DATE:10/12/19 TIME: 1702 PATIENT: MICKEY GONZALES UNIT #: [id number] ROOM/BED: [place] [address] : 76 AGE: 44 SEX: F ATTEND: Brayden Larios MD ADM AUTHOR: Gio Moulton DO * ALL edits or amendments must be made on the [employer] document * Subjective Comments: Patient seen and examined, reports she still fee ls short of breath and is currently on oxygen via nasal cannula. Denies an y new complaints Objective General VS/I O: Vital Signs: Date Time Temp Pulse Resp B/P B/P Pulse O2 O2 F low FiO2 Mean Ox Delivery Rate 10/11 0800 Nasal 3.159802 cannula 10/11 0450 97.9 71 16 112/75 87.5 95 Room air 10/11 0057 98.2 70 18 96/61 72.6 93 Room air 10/10 2351 Nasal 2.448150 cannula 10/105 98.2 68 20 104/60 74.2 98 Room air 10/10 1956 Nasal 2.830062 cannula 10/10 1952 99.1 67 17 108/66 80 98 Nasal 2.0000 00 cannula 10/10 1952 67 29 108/66 81 98 10/10 1900 65 10/10 1900 15 89 24 hour I O ending at 0700: 10/11 0700 10/10 1900 Intake Total 240 750.00 Output Total 0 Balance 240 750.00 Intake, IV 250.00 Intake, Oral 240 500 Intake, Oral 0 Supplement Number 1 Bowel Movements Output, Urine 0 Patient Weight Weight (lb): Weight (oz): Weight (kg): 108.000 Medications: Active Meds + DC'd Last 24 Hrs Azithromycin 500 MG DAILY PO Epoetin Bharat-epbx 10,000 UNIT MoWeFr@2100 IV Heparin Sodium 5,000 UNIT ASDIR PRN DIALYSIS Heparin Sodium 5,000 UNIT ASDIR PRN DIALYSIS Cefepime HCl 1 GM Q24H IV Sodium Chloride 10 ML Albumin Human 12.5 GM ASDIR PRN IV Lidocaine HCl 0.5 ML ASDIR PRN I-DERMAL (CKD) Mannitol 12.5 GM ASDIR PRN IV Sodium Chloride 2,000 ML ASDIR PRN IV Sodium Chloride 10 ML ASDIR PRN IV Sodium Chloride 250 ML ASDIR PRN IV Sevelamer Carbonate 3,200 MG TID MEALS PO Nicotine 21 MG DAILY PRN PRN TRANSDERM (CKD) Citalopram Hydrobromide 40 MG DAILY PO Gabapentin 1,200 MG BID PO Losartan Potassium 50 MG DAILY PO Nifedipine 90 MG DAILY PO Azithromycin 500 MG Q24H IV (DC) Sodium Chloride 250 ML Carvedilol 50 MG BID MEALS PO Acetaminophen 650 MG Q4H PRN PRN PO Hydralazine HCl 10 MG Q6H PRN PRN IV Hydrocodone Bitart/Acetaminophen 1 TAB Q4H PRN P RN PO Morphine Sulfate 4 MG Q4H PRN PRN IV Ondansetron HCl 4 MG Q4H PRN PRN IV Physical Exam General appearance: alert, awake, oriented Head/Eyes: atraumatic, clear cornea, EOMI, PERRL A Neck: supple/no meningismus Cardiovascular: normal heart sounds, reg ular rate rhythm, no gallop, no murmur , no rub Respiratory: clear to auscultation Abdomen: non-tender, normal bowel sounds, soft, no distention Extremities: no clubbing, no cyanosis, no edema Results Findings/Data: Laboratory Tests 10/11 10/11 08 0824 Chemistry Sodium (134 - 147 mEq/L) 134 Potassium (3.4 - 5.0 mEq/L) 3.7 Chloride (100 - 108 mEq/L) 99 L Carbon Dioxide (21 - 33 mEq/L) 23 Anion Gap (0 - 20) 16 BUN (7 - 18 mg/dL) 44 H Creatinine (0.6 - 1.3 mg/dL) 13.8 H Glomerular Filtr Rate (95 - 105) 2.9 L Glucose (70 - 110 mg/dL) 125 H Calcium (8.0 - 10.5 mg/dL) 7.6 L Iron (35 - 150 mcg/dL) 55 TIBC (260 - 445 mcg/dL) 109 L % Saturation (14 - 34 %) 50.5 H Unsat Iron Binding (mcg/dL) 54 Ferritin (11.0 - 306.8 ng/mL) 1858.0 H Laboratory Tests 10/11 0824 Hematology WBC (4.5 - 11.0 x10 3/uL) 10.19 RBC (3.54 - 5.02 x10 6/uL) 2.47 L Hgb (11.0 - 15.0 g/dL) 8.2 L Hct (33.0 - 45.0 %) 25.2 L MCV (81.0 - 99.0 fL) 102.0 H MCH (27.0 - 33.0 pg) 33.2 H MCHC (33.0 - 37.0 g/dL) 32.5 L RDW (11.5 - 14.5 %) 12.7 Plt Count (150 - 400 x10 3/uL) 254 MPV (7.0 - 9.0 fL) 9.5 H Neut % (Auto) (56.0 - 77.0 %) 80.0 H Lymph % (Auto) (14.0 - 32.0 %) 10.2 L Major % (Auto) (4.8 - 9.0 %) 4.5 L Eos % (Auto) (0.3 - 3.7 %) 4.1 H Baso % (Auto) (0.0 - 2.0 %) 0.3 Neut # (Auto) (2.0 - 7.6 x10 3/uL) 8.15 H Lymph # (Auto) (1.0 - 3.8 x10 3/uL) 1.04 Major # (Auto) (0.1 - 0.8 x10 3/uL) 0.46 Eos # (Auto) (0.0 - 0.2 x10 3/uL) 0.42 H Baso # (Auto) (0.0 - 0.2 x10 3/uL) 0.03 Abs Immat Gran (auto) (0.00 - 0.03 x10 3/uL) 0 .09 H Add Manual Diff NO Immature Gran % (0.0 - 2.0 %) 0.9 Nucleated RBC % (0 - 0 %) 0.0 Nucleated RBCs # (Man) (0.0 - 0.1 x10 3/uL) 0.0 0 Diagnosis, Assessment Plan Free Text DxA P Notes Free text DxA P notes: This is 44-year-old female Assessments -Multifocal pneumonia -Leukocytosis -End-stage renal disease -High blood pressure -History of uterine cancer Plan -Currently on Maxipime and azithromycin -Blood cultures done, will await those results -Patient also with elevated d-dimer -VQ scan unlikely for PE -Pulmonology following -COVID negative -Renal consulted -Continue hemodialysis -Disposition: Check 6-minute walk test o n room air, continue current treatment including antibiotics, possible discharge home t omorrow if we can wean off oxygen and transition to oral antibiotics Electronically Signed by Gio Moulton DO on 08/27 at 6922 RPT #:[id number] END OF REPORT 2019-10-12 10:36:00-00:00 [facility] ([facility]) Nephrology Progress Note REPORT#:[id number] REPORT STATUS: Signed DATE:10/12/19 TIME: 1036 PATIENT: MICKEY GONZALES UNIT #: [id number] [place] [facility] [place] AGE: 44 SEX: F ATTEND: Brayden Larios MD ADM AUTHOR: Alesia Delacruz MD * ALL edits or amendments must be made on the [employer]/computer document * Subjective Comments: hd today Objective General VS/I O: Vital Signs: Date Time Temp Pulse Resp B/P B/P Pulse O2 O2 F low FiO2 Mean Ox Delivery Rate 10/11 0800 Nasal 3.304681 cannula 10/11 0450 97.9 71 16 112/75 87.5 95 Room air / 0057 98.2 70 18 96/61 72.6 93 Room air 10/10 2351 Nasal 2.279385 cannula 10/10 2215 98.2 68 20 104/60 74.2 98 Room air 10/10 1957 Nasal 2.378145 cannula 10/10 195 99.1 67 17 108/66 80 98 Nasal 2.0000 00 cannula / 1953 67 29 108/66 81 98 06/03 1900 65 06/03 1900 15 89 /03 1651 99.7 71 12 115/62 79 96 Nasal 2.0000 00 cannula / 1643 71 12 115/62 82 96 /03 1102 99.1 70 13 124/59 80 96 Nasal 2.0000 00 cannula / 1057 70 13 124/59 83 96 24 hour I O ending at 0700: / 0700 / 1900 Intake Total 240 750.00 Output Total 0 Balance 240 750.00 Intake, IV 250.00 Intake, Oral 240 500 Intake, Oral 0 Supplement Number 1 Bowel Movements Output, Urine 0 Medications Active Meds + DC'd Last 24 Hrs Azithromycin 500 MG DAILY PO Epoetin Bharat-epbx 10,000 UNIT MoWeFr@2100 IV Heparin Sodium 5,000 UNIT ASDIR PRN DIALYSIS Heparin Sodium 5,000 UNIT ASDIR PRN DIALYSIS Cefepime HCl 1 GM Q24H IV Sodium Chloride 10 ML Albumin Human 12.5 GM ASDIR PRN IV Lidocaine HCl 0.5 ML ASDIR PRN I-DERMAL (CKD) Mannitol 12.5 GM ASDIR PRN IV Sodium Chloride 2,000 ML ASDIR PRN IV Sodium Chloride 10 ML ASDIR PRN IV Sodium Chloride 250 ML ASDIR PRN IV Sevelamer Carbonate 3,200 MG TID MEALS PO Heparin Sodium 5,000 UNIT ASDIR PRN DIALYSIS (D C) Nicotine 21 MG DAILY PRN PRN TRANSDERM (CKD) Citalopram Hydrobromide 40 MG DAILY PO Gabapentin 1,200 MG BID PO Losartan Potassium 50 MG DAILY PO Nifedipine 90 MG DAILY PO Azithromycin 500 MG Q24H IV (DC) Sodium Chloride 250 ML Carvedilol 50 MG BID MEALS PO Acetaminophen 650 MG Q4H PRN PRN PO Hydralazine HCl 10 MG Q6H PRN PRN IV Hydrocodone Bitart/Acetaminophen 1 TAB Q4H PRN P RN PO Morphine Sulfate 4 MG Q4H PRN PRN IV Ondansetron HCl 4 MG Q4H PRN PRN IV Physical Exam General appearance: alert, awake Head/eyes: atraumatic, normocephalic, PERRLA Neck: no JVD, no lymphadenopathy Cardiovascular: normal heart sounds, regular rate and rhythm, no murmur, no rub Respiratory: decreased breath sounds, no distres s Abdomen: non-tender, normal bowel sounds, soft, no rebound Extremities: no edema, no gangrene Neuro/CHANNEL CEMENTER INSOLE MACHINE: alert, oriented X 3, CN II-XII intact , normal speech Results Findings/Data: Laboratory Tests 10/11 10/11 0824 0824 Chemistry Sodium (134 - 147 mEq/L) 134 Potassium (3.4 - 5.0 mEq/L) 3.7 Chloride (100 - 108 mEq/L) 99 L Carbon Dioxide (21 - 33 mEq/L) 23 Anion Gap (0 - 20) 16 BUN (7 - 18 mg/dL) 44 H Creatinine (0.6 - 1.3 mg/dL) 13.8 H Glomerular Filtr Rate (95 - 105) 2.9 L Glucose (70 - 110 mg/dL) 125 H Calcium (8.0 - 10.5 mg/dL) 7.6 L Iron (35 - 150 mcg/dL) 55 TIBC (260 - 445 mcg/dL) 109 L % Saturation (14 - 34 %) 50.5 H Unsat Iron Binding (mcg/dL) 54 Ferritin (11.0 - 306.8 ng/mL) 1858.0 H Laboratory Tests 10/11 0824 Hematology WBC (4.5 - 11.0 x10 3/uL) 10.19 RBC (3.54 - 5.02 x10 6/uL) 2.47 L Hgb (11.0 - 15.0 g/dL) 8.2 L Hct (33.0 - 45.0 %) 25.2 L MCV (81.0 - 99.0 fL) 102.0 H MCH (27.0 - 33.0 pg) 33.2 H MCHC (33.0 - 37.0 g/dL) 32.5 L RDW (11.5 - 14.5 %) 12.7 Plt Count (150 - 400 x10 3/uL) 254 MPV (7.0 - 9.0 fL) 9.5 H Neut % (Auto) (56.0 - 77.0 %) 80.0 H Lymph % (Auto) (14.0 - 32.0 %) 10.2 L Major % (Auto) (4.8 - 9.0 %) 4.5 L Eos % (Auto) (0.3 - 3.7 %) 4.1 H Baso % (Auto) (0.0 - 2.0 %) 0.3 Neut # (Auto) (2.0 - 7.6 x10 3/uL) 8.15 H Lymph # (Auto) (1.0 - 3.8 x10 3/uL) 1.04 Major # (Auto) (0.1 - 0.8 x10 3/uL) 0.46 Eos # (Auto) (0.0 - 0.2 x10 3/uL) 0.42 H Baso # (Auto) (0.0 - 0.2 x10 3/uL) 0.03 Abs Immat Gran (auto) (0.00 - 0.03 x10 3/uL) 0. 09 H Add Manual Diff NO Immature Gran % (0.0 - 2.0 %) 0.9 Nucleated RBC % (0 - 0 %) 0.0 Nucleated RBCs # (Man) (0.0 - 0.1 x10 3/uL) 0.0 0 Diagnosis, Assessment Plan Free Text A P: 1. ESRD will do Hd TTS. will neeed Pd cathter removed later as outpt. out pt Hs setup in [place] done already per patient, aksed CM to verify 2. Pneumonia negative Covid test , pulmonary con sulted. cw abntibiotics 3. htn controlled 4. anemia of ckd started ROSA MARIA, iron panel ok Electronically Signed by Alesia Delacruz MD on at 1512 RPT #:[id number] END OF REPORT 2019-10-12 09:06:00-00:00 [facility] ([facility]) Pharmacy Prog.Note IV to PO REPORT#:[id number] REPORT STATUS: Signed DATE:10/12/19 TIME: 905 PATIENT: MICKEY GONZALES UNIT #: [id number] ROOM/BED: [place] [address] : 76 AGE: 44 SEX: F ATTEND: Brayden Larios MD ADM AUTHOR: Marva Munguia RPh * ALL edits or amendments must be made on the [employer]/computer document * IV to PO Adjustment IV to PO Adjustment Medication: From: Azithromycin 500 mg IV q24h To: Azithromycin 500 mg po q24h Inclusion criteria: Tolerating: PO/Tube medication Vital signs: Vital Signs Date Temp Pulse Resp B/P B/P Mean Pulse Ox FiO2 10/08-10/11 36.6-38.6 63-84 12-48 96-146/57-84 71-105 72-100 Labs: Laboratory Test:WBC-72 Hrs 10/11 10/10 10/09 0824 0418 0011 Hematology WBC (4.5 - 11.0 x10 3/uL) 10.19 8.41 12.29 H at 0906 RPT #:[id number] END OF REPORT 2019-10-11 16:19:00-00:00 [facility] ([facility]) Hospitalist Progress Note REPORT#:[id number] REPORT STATUS: Signed DATE:10/11/19 TIME: 1618 PATIENT: MICKEY GONZALES UNIT #: [id number] ROOM/BED: [place] [address] : 76 AGE: 44 SEX: F ATTEND: Brayden Larios MD ADM AUTHOR: Gio Moulton DO * ALL edits or amendments must be made on the [employer]/computer document * Subjective Comments: Patient seen and examined, denies any new compla ints. Reports she is feeling better but still having fevers overnight Objective General VS/I O: Vital Signs: Date Time Temp Pulse Resp B/P B/P Pulse O2 O2 F low FiO2 Mean Ox Delivery Rate 10/10 1102 99.1 70 13 124/59 80 96 Nasal 2.0000 00 cannula 10/10 1057 70 13 124/59 83 96 / 0800 98.8 70 19 146/65 92 100 Nasal 2.000 000 cannula / 0759 70 19 146/65 100 100 / 0700 68 / 0700 Nasal 3.996988 cannula 10/10 0700 15 91 / 0410 99.5 75 23 131/76 94 98 Nasal 3.0000 00 cannula 10/10 0408 75 23 131/76 98 98 / 2303 138/78 103 / 2300 101.4 82 15 138/78 98 95 Nasal 2.00 0000 cannula 10/09 2200 82 48 95 /1999 Nasal 2.817918 cannula 10/09 195 100.9 84 14 140/70 93 97 Nasal 2.000 000 cannula 10/09 195 84 14 140/70 100 97 06/02 1700 72 23 142/76 103 72 / 1645 79 36 145/81 105 99 06/02 1630 74 24 136/70 94 98 24 hour I O ending at 0700: 10/10 0700 10/09 1900 Intake Total 700.00 Output Total 1999 Balance -1300.00 Intake, IV 250.00 Intake, Oral 450 Intake, Oral 0 Supplement Number 0 Bowel Movements Number Voids 0 Output, 1999 Hemodialysis Patient Weight Weight (lb): Weight (oz): Weight (kg): 108.000 Medications: Active Meds + DC'd Last 24 Hrs Epoetin Bharat-epbx 10,000 UNIT MoWeFr@2100 IV Heparin Sodium 5,000 UNIT ASDIR PRN DIALYSIS Heparin Sodium 5,000 UNIT ASDIR PRN DIALYSIS Cefepime HCl 1 GM Q24H IV Sodium Chloride 10 ML Albumin Human 12.5 GM ASDIR PRN IV Lidocaine HCl 0.5 ML ASDIR PRN I-DERMAL (CKD) Mannitol 12.5 GM ASDIR PRN IV Sodium Chloride 2,000 ML ASDIR PRN IV Sodium Chloride 10 ML ASDIR PRN IV Sodium Chloride 250 ML ASDIR PRN IV Sevelamer Carbonate 3,200 MG TID MEALS PO Heparin Sodium 5,000 UNIT ASDIR PRN DIALYSIS (DC ) Nicotine 21 MG DAILY PRN PRN TRANSDERM (CKD) Citalopram Hydrobromide 40 MG DAILY PO Gabapentin 1,200 MG BID PO Losartan Potassium 50 MG DAILY PO Nifedipine 90 MG DAILY PO Azithromycin 500 MG Q24H IV Sodium Chloride 250 ML Carvedilol 50 MG BID MEALS PO Acetaminophen 650 MG Q4H PRN PRN PO Hydralazine HCl 10 MG Q6H PRN PRN IV Hydrocodone Bitart/Acetaminophen 1 TAB Q4H PRN P RN PO Morphine Sulfate 4 MG Q4H PRN PRN IV Ondansetron HCl 4 MG Q4H PRN PRN IV Physical Exam General appearance: alert, awake, oriented Head/Eyes: atraumatic, clear cornea, EOMI, PERRL A Neck: supple/no meningismus Cardiovascular: normal heart sounds, reg ular rate rhythm, no gallop, no murmur , no rub Respiratory: clear to auscultation Abdomen: non-tender, normal bowel sounds, soft, no distention Extremities: no clubbing, no cyanosis, no edema Results Findings/Data: Laboratory Tests 10/10 417 Chemistry Sodium (134 - 147 mEq/L) 136 Potassium (3.4 - 5.0 mEq/L) 3.8 Chloride (100 - 108 mEq/L) 101 Carbon Dioxide (21 - 33 mEq/L) 22 Anion Gap (0 - 20) 17 BUN (7 - 18 mg/dL) 33 H Creatinine (0.6 - 1.3 mg/dL) 12.1 H Glomerular Filtr Rate (95 - 105) 3.4 L Glucose (70 - 110 mg/dL) 64 L Calcium (8.0 - 10.5 mg/dL) 7.7 L Laboratory Tests 10/10 417 Hematology WBC (4.5 - 11.0 x10 3/uL) 8.41 RBC (3.54 - 5.02 x10 6/uL) 2.40 L Hgb (11.0 - 15.0 g/dL) 8.0 L Hct (33.0 - 45.0 %) 24.9 L MCV (81.0 - 99.0 fL) 103.8 H MCH (27.0 - 33.0 pg) 33.3 H MCHC (33.0 - 37.0 g/dL) 32.1 L RDW (11.5 - 14.5 %) 12.8 Plt Count (150 - 400 x10 3/uL) 250 MPV (7.0 - 9.0 fL) 10.6 H Neut % (Auto) (56.0 - 77.0 %) 73.0 Lymph % (Auto) (14.0 - 32.0 %) 16.5 Major % (Auto) (4.8 - 9.0 %) 6.3 Eos % (Auto) (0.3 - 3.7 %) 3.0 Baso % (Auto) (0.0 - 2.0 %) 0.2 Neut # (Auto) (2.0 - 7.6 x10 3/uL) 6.14 Lymph # (Auto) (1.0 - 3.8 x10 3/uL) 1.39 Major # (Auto) (0.1 - 0.8 x10 3/uL) 0.53 Eos # (Auto) (0.0 - 0.2 x10 3/uL) 0.25 H Baso # (Auto) (0.0 - 0.2 x10 3/uL) 0.02 Abs Immat Gran (auto) (0.00 - 0.03 x10 3/uL) 0. 08 H Add Manual Diff NO Immature Gran % (0.0 - 2.0 %) 1.0 Nucleated RBC % (0 - 0 %) 0.0 Nucleated RBCs # (Man) (0.0 - 0.1 x10 3/uL) 0.0 0 Microbiology Date/Time Procedure - Status Source Growth 10/10 0035 Stool Leukocytes - COMP STOOL Radiology data: Recent Impressions: RADIOLOGY - XR CHEST 1 V 10/09 8104 Report Impression - Status: SIGNED Entered: 10/10/2019 3690 Impression: Chest, single view. Cardiomegaly. Ri ght lung opacities, pneumonia favored over edema. No definite pleura l effusion. No pneumothorax. No acute osseous abnormality. SL: [id number] Impression By: LevonDAVE Estrella M.D. NUCLEAR MEDICINE - NM LUNG PERF PARTICULATE 0730 Report Impression - Status: SIGNED Entered: 10/11/2019 0847 IMPRESSION: Low probability for acute pulmonary embolism. SL: [id number] Impression By: Sophia Estrella M.D. Diagnosis, Assessment Plan Free Text DxA P Notes Free text DxA P notes: This is 44-year-old female Assessments -Multifocal pneumonia -Leukocytosis -End-stage renal disease -High blood pressure -History of uterine cancer Plan -Currently on Maxipime and azithromycin -Blood cultures done, will await those results -Patient also with elevated d-dimer -VQ scan unlikely for PE -Pulmonology following -COVID negative -Renal consulted -Continue hemodialysis -Check labs in the a.m. Electronically Signed by Gio Moulton DO on 07/27 at 1621 RPT #:[id number] END OF REPORT 2019-10-11 14:17:00-00:00 [facility]) Nephrology Progress Note REPORT#:[id number] REPORT STATUS: Signed DATE:10/11/19 TIME: 1417 PATIENT: MICKEY GONZALES UNIT #: [id number] ROOM/BED: [place] [id number] : 76 AGE: 44 SEX: F ATTEND: Brayden Larios MD ADM AUTHOR: Alesia Delacruz MD * ALL edits or amendments must be made on the [employer]/computer document * Subjective Comments: Tolerated hemodialysis yesterday. No new complai nt. Objective General VS/I O: Vital Signs: Date Time Temp Pulse Resp B/P B/P Pulse O2 O2 F low FiO2 Mean Ox Delivery Rate 10/10 1102 99.1 70 13 124/59 80 96 Nasal 2.0000 00 cannula 10/10 1057 70 13 124/59 83 96 / 0800 98.8 70 19 146/65 92 100 Nasal 2.000 000 cannula 10/10 0759 70 19 146/65 100 100 / 0700 68 / 0700 Nasal 3.603356 cannula / 0700 15 91 06/03 0410 99.5 75 23 131/76 94 98 Nasal 3.0000 00 cannula 10/10 0408 75 23 131/76 98 98 06/02 2303 138/78 103 06/ 2300 101.4 82 15 138/78 98 95 Nasal 2.000 000 cannula / 2200 82 48 95 06/1999 Nasal 2.825450 cannula 10/09 195 100.9 84 14 140/70 93 97 Nasal 2.000 000 cannula 10/09 1955 84 14 140/70 100 97 06/02 1700 72 23 142/76 103 72 06/02 1645 79 36 145/81 105 99 06/02 1630 74 24 136/70 94 98 06/02 1615 71 22 143/67 95 99 06/02 1601 98.1 69 20 125/73 90 99 Nasal 3.0000 00 cannula 10/09 1601 69 20 125/73 93 99 06/02 1546 68 20 118/65 83 97 06/02 1530 72 18 113/57 79 97 06/02 1515 66 17 119/71 86 94 06/02 1500 67 22 124/66 88 95 06/02 1445 67 21 120/71 91 94 06/02 1430 69 28 118/75 92 96 24 hour I O ending at 0700: 10/10 0700 10/09 1900 Intake Total 700.00 Output Total 1999 Balance -1300.00 Intake, IV 250.00 Intake, Oral 450 Intake, Oral 0 Supplement Number 0 Bowel Movements Number Voids 0 Output, 1999 Hemodialysis Medications Active Meds + DC'd Last 24 Hrs Cefepime HCl 1 GM Q24H IV Sodium Chloride 10 ML Albumin Human 12.5 GM ASDIR PRN IV Lidocaine HCl 0.5 ML ASDIR PRN I-DERMAL (CKD) Mannitol 12.5 GM ASDIR PRN IV Sodium Chloride 2,000 ML ASDIR PRN IV Sodium Chloride 10 ML ASDIR PRN IV Sodium Chloride 250 ML ASDIR PRN IV Sevelamer Carbonate 3,200 MG TID MEALS PO Heparin Sodium 5,000 UNIT ASDIR PRN DIALYSIS Nicotine 21 MG DAILY PRN PRN TRANSDERM (CKD) Citalopram Hydrobromide 40 MG DAILY PO Gabapentin 1,200 MG BID PO Losartan Potassium 50 MG DAILY PO Nifedipine 90 MG DAILY PO Azithromycin 500 MG Q24H IV Sodium Chloride 250 ML Carvedilol 50 MG BID MEALS PO Acetaminophen 650 MG Q4H PRN PRN PO Hydralazine HCl 10 MG Q6H PRN PRN IV Hydrocodone Bitart/Acetaminophen 1 TAB Q4H PRN P RN PO Morphine Sulfate 4 MG Q4H PRN PRN IV Ondansetron HCl 4 MG Q4H PRN PRN IV Physical Exam General appearance: alert, awake, oriented Head/eyes: atraumatic, normocephalic, PERRLA Neck: no JVD, no lymphadenopathy Cardiovascular: normal heart sounds, regular rate and rhythm, no murmur, no rub Respiratory: decreased breath sounds, no distres s Abdomen: non-tender, normal bowel sounds, soft, no rebound Extremities: no edema, no gangrene Neuro/CHANNEL CEMENTER INSOLE MACHINE: alert, oriented X 3, CN II-XII intact , normal speech Results Findings/Data: Laboratory Tests 10/10 417 Chemistry Sodium (134 - 147 mEq/L) 136 Potassium (3.4 - 5.0 mEq/L) 3.8 Chloride (100 - 108 mEq/L) 101 Carbon Dioxide (21 - 33 mEq/L) 22 Anion Gap (0 - 20) 17 BUN (7 - 18 mg/dL) 33 H Creatinine (0.6 - 1.3 mg/dL) 12.1 H Glomerular Filtr Rate (95 - 105) 3.4 L Glucose (70 - 110 mg/dL) 64 L Calcium (8.0 - 10.5 mg/dL) 7.7 L Laboratory Tests 10/10 417 Hematology WBC (4.5 - 11.0 x10 3/uL) 8.41 RBC (3.54 - 5.02 x10 6/uL) 2.40 L Hgb (11.0 - 15.0 g/dL) 8.0 L Hct (33.0 - 45.0 %) 24.9 L MCV (81.0 - 99.0 fL) 103.8 H MCH (27.0 - 33.0 pg) 33.3 H MCHC (33.0 - 37.0 g/dL) 32.1 L RDW (11.5 - 14.5 %) 12.8 Plt Count (150 - 400 x10 3/uL) 250 MPV (7.0 - 9.0 fL) 10.6 H Neut % (Auto) (56.0 - 77.0 %) 73.0 Lymph % (Auto) (14.0 - 32.0 %) 16.5 Major % (Auto) (4.8 - 9.0 %) 6.3 Eos % (Auto) (0.3 - 3.7 %) 3.0 Baso % (Auto) (0.0 - 2.0 %) 0.2 Neut # (Auto) (2.0 - 7.6 x10 3/uL) 6.14 Lymph # (Auto) (1.0 - 3.8 x10 3/uL) 1.39 Major # (Auto) (0.1 - 0.8 x10 3/uL) 0.53 Eos # (Auto) (0.0 - 0.2 x10 3/uL) 0.25 H Baso # (Auto) (0.0 - 0.2 x10 3/uL) 0.02 Abs Immat Gran (auto) (0.00 - 0.03 x10 3/uL) 0. 08 H Add Manual Diff NO Immature Gran % (0.0 - 2.0 %) 1.0 Nucleated RBC % (0 - 0 %) 0.0 Nucleated RBCs # (Man) (0.0 - 0.1 x10 3/uL) 0.0 0 Laboratory Tests 10/09 1448 Serology Hepatitis A IgM Ab (NON REACT. INDEX) NON REACT RUBI Hep Bs Antigen (NonReactive INDEX) NON REACTIVE Hep B Core IgM Ab (NON REACT. INDEX) NON REACTI VE Hepatitis C Antibody (NON REACT. INDEX) NON RE ACTIVE Microbiology Date/Time Procedure - Status Source Growth 10/10 0035 Stool Leukocytes - COMP STOOL Radiology data: Recent Impressions: RADIOLOGY - XR CHEST 1 V 10/09 1734 Report Impression - Status: SIGNED Entered: 10/10/2019 1746 Impression: Chest, single view. Cardiomegaly. Ri ght lung opacities, pneumonia favored over edema. No definite pleura l effusion. No pneumothorax. No acute osseous abnormality. SL: [id number] Impression By: [email or web address] Estrella M.D. NUCLEAR MEDICINE - NM LUNG PERF PARTICULATE 3 0730 Report Impression - Status: SIGNED Entered: 10/11/2019 0847 IMPRESSION: Low probability for acute pulmonary embolism. SL: [id number] Impression By: [email or web address] - Nury Estrella M.D. Diagnosis, Assessment Plan Free Text A P: 1. ESRD will do Hd TTS. will neeed Pd cathter re moved later as outpt 2. Pneumonia negative Covid test , pulmonary con sulted. cw abntibiotics 3. htn controlled 4. anemia of ckd started ROSA MARIA, check iron panel Electronically Signed by Alesia Delacruz MD on at 1510 RPT #:[id number] END OF REPORT 2019-10-10 17:13:00-00:00 [facility] Nephrology Consultation Note REPORT#:[id number] REPORT STATUS: Signed DATE:10/10/19 TIME: 1713 PATIENT: MICKEY GONZALES UNIT #: [id number] ROOM/BED: [place] [address] : 76 AGE: 44 SEX: F ATTEND: Brayden Larios MD ADM AUTHOR: Alesia Delacruz MD * ALL edits or amendments must be made on the [employer]/computer document * History of Present Illness Reason for consult: esrd HPI: This is 44-year-old female with past m edical history of end-stage renal disease on Pd, schduled to switch back to hemodialysis , uterine cancer status post total abdominal hysterectomy, HTN wa s transferred from [facility] for left-sided chest pain. Patient also complained of fever chills , cough productive of whitish sputum , CT chest at OSH showed evidence of pneumonitis with infiltrate involving ri ght middle and lower lobes, covid test was (-). Repaet covid is pen ding here. Patient was on HD before then switched to PD but as hse felt Pd not he lpimg her that much, was scheduled to go back on HD tomorow. She has LUE AVF, her last PD was wednesday night History - Adult longitudinal Additional medical history: End-stage renal disease on hemodialysis Uterine cancer status post total abdominal hyst erectomy High blood pressure Additional surgical history: Total abdominal hysterectomy AV fistula Family history: Reports: Heart disease. Alcohol use: Denies EtOH use Drug use: Denies recreational drugs Smoking status for patients 13 years old or olde r: Current every day smoker Allergies: Coded Allergies: lisinopril (Mild, itching 10/10/19) codeine (Severe, VOMIT 10/09/19) Uncoded Allergies: "PRILS" (COUGH 10/09/19) Review of Systems Constitutional: Yes chills, Yes fatigue, Yes fever, Yes generali zed weakness, No lethargy, No malaise, No recent wt loss, No other Skin: No abrasion, No bruising, No contusion, No diaph oresis, No ecchymosis, No itching, No laceration, No rash, No swelling, No other Allergy/Immun: No allergic reaction, No anaphylaxis, No hives, No itching, No rhinorrhea, No sneezing, No other Eyes: No redness, No discharge, No visual loss/blurred , No itching, No diplopia, No eye pain, No photophobia, No swelling, No other ENT: No ear drainage, No ear ring ing, No earache, No hearing loss, No mouth pain, No nasal congestion, No nose bl eeding, No sinus problem, No sore throat, No throat pain, No throat swelling, No tongue pain , No tongue swelling, No toothache, No voice change, No other Respiratory: Yes productive cough (sputum), Yes SOB, No HUGHES ( dyspnea on exertion), No hemoptysis, No non productiv e cough, No parox nocturnal dyspnea, No pleurisy, No pleuritic pain, No pneumonia, No wheezing, No ot her Cardiovascular: No chest pain, No HUGHES (dyspnea on exertion), No edema, No orthopnea, No palpitations, No parox nocturnal dyspnea, No oth er GI: No abdominal pain, No anorexia, No const ipation, No diarrhea, No dysphagia, No GERD, No hematemesis, No hematochezia, N o hiatal hernia, No melena, No nausea, No rectal pain, No vomiting, No other : Denies: dysuria, flank pain, frequency, hematuri a, nocturia, pelvic pain, , urgency, urinary retention, vaginal bl eeding, vaginal discharge, other. Endocrine: No cold intolerance, No heat intolerance, No lucas ydipsia, No polyphagia, No polyuria, No weight gain, No weight loss, No oth er Neuro: No bladder dysfunction, No b owel dysfunction, No change in LOC, No confusion, No dizziness, No focal weakness, No gait pr oblem, No headache, No lightheaded, No numbness, No seizure, No slurred speech, No spinning sensation, No syncope, No unable to speak, No vision change, No weakness, No other Objective General VS/I O: Vital Signs: Date Time Temp Pulse Resp B/P B/P Pulse O2 O2 F low FiO2 Mean Ox Delivery Rate 10/09 1601 98.1 69 20 125/73 90 99 Nasal 3.000 000 cannula 10/09 1601 69 20 125/73 93 99 06/02 1546 68 20 118/65 83 97 06/ 1530 72 18 113/57 79 97 06/02 1515 66 17 119/71 86 94 06/02 1500 67 22 124/66 88 95 06/02 1445 67 21 120/71 91 94 06/02 1430 69 28 118/75 92 96 06/02 1417 65 23 113/69 87 96 06/02 1401 66 25 108/67 83 94 06/02 1217 97.8 64 20 116/57 76 96 Nasal 3.0000 00 cannula / 1216 63 16 116/57 71 93 06/02 0913 Nasal 3.411275 cannula / 0849 98.1 68 20 132/84 100 Nasal 3.36433 0 cannula / 0600 Nasal 2.486395 cannula /02 0600 72 14 127/65 85 96 Nasal 2.323165 cannula 06/02 0405 68 16 99/60 73 95 Nasal 2.159997 cannula /02 0400 Nasal 2.305426 cannula /02 0200 Nasal 2.854687 cannula 06/02 0200 74 16 103/57 72 94 Nasal 2.860580 cannula / 2330 Nasal 2.499593 cannula / 2308 98.6 73 14 108/60 76 96 Nasal 2.0000 00 cannula 24 hour I O ending at 0700: 06/02 0700 06 1900 Intake Total Output Total Balance Patient 108 kg Weight Weight Bed scale Measurement Method Patient Weight Weight (lb): Weight (oz): Weight (kg): 108.000 Medications: Active Meds + DC'd Last 24 Hrs Cefepime HCl 1 GM Q24H IV Sodium Chloride 10 ML Albumin Human 12.5 GM ASDIR PRN IV Lidocaine HCl 0.5 ML ASDIR PRN I-DERMAL (CKD) Mannitol 12.5 GM ASDIR PRN IV Sodium Chloride 2,000 ML ASDIR PRN IV Sodium Chloride 10 ML ASDIR PRN IV Sodium Chloride 250 ML ASDIR PRN IV Sevelamer Carbonate 3,200 MG TID MEALS PO Heparin Sodium 5,000 UNIT ASDIR PRN DIALYSIS Nicotine 21 MG DAILY PRN PRN TRANSDERM (CKD) Citalopram Hydrobromide 40 MG DAILY PO Gabapentin 1,200 MG BID PO Losartan Potassium 50 MG DAILY PO Nifedipine 90 MG DAILY PO Azithromycin 500 MG Q24H IV Sodium Chloride 250 ML Carvedilol 50 MG BID MEALS PO Acetaminophen 650 MG Q4H PRN PRN PO Hydralazine HCl 10 MG Q6H PRN PRN IV Hydrocodone Bitart/Acetaminophen 1 TAB Q4H PRN P RN PO Morphine Sulfate 4 MG Q4H PRN PRN IV Ondansetron HCl 4 MG Q4H PRN PRN IV Acetaminophen 650 MG Q4H PRN PRN PO (DC) Ibuprofen 600 MG Q6H PRN PRN PO (DC) Ondansetron HCl 4 MG Q6H PRN PRN IV (DC) Ceftriaxone Sodium 1,000 MG X1ED STA IV (DC) Sodium Chloride 10 ML Sodium Chloride 1,000 ML X1ED STA IV (DC) Ketorolac Tromethamine 30 MG X1ED STA IV (DC) Physical Exam General appearance: awake, no respiratory distre ss Head/eyes: atraumatic, normocephalic, PERRLA Neck: no JVD, no lymphadenopathy Cardiovascular: normal heart sounds, regular rate and rhythm, no murmur, no rub Respiratory: decreased breath sounds, no distres s Abdomen: non-tender, normal bowel sounds, soft, no rebound Extremities: no edema, no gangrene Neuro/CHANNEL CEMENTER INSOLE MACHINE: alert, oriented X 3, CN II-XII intact , normal speech Results Findings/Data: Laboratory Tests 10/09 10/09 10/09 10/09 0011 0011 0011 0011 Chemistry Sodium (134 - 147 mEq/L) 132 L Potassium (3.4 - 5.0 mEq/L) 4.7 Chloride (100 - 108 mEq/L) 93 L Carbon Dioxide (21 - 33 mEq/L) 24 Anion Gap (0 - 20) 20 BUN (7 - 18 mg/dL) 76 H Creatinine (0.6 - 1.3 mg/dL) 22.4 H Glomerular Filtr Rate (95 - 105) 1.7 L Glucose (70 - 110 mg/dL) 81 Lactic Acid (0.4 - 1.9 mmol/L) 0.5 Calcium (8.0 - 10.5 mg/dL) 7.8 L Total Bilirubin (<1.5 MG/DL) 0.7 AST (15 - 37 IUnit/L) 8 L ALT (15 - 65 IUnit/L) 11 L Total Alk Phosphatase (20 - 125 IUnit/L) 125 C-Reactive Protein (0.0 - 2.9 MG/L) 205.0 H Total Protein (6.4 - 8.2 g/dL) 7.2 Albumin (3.4 - 5.0 g/dL) 2.30 L Procalcitonin (0.00 - 0.05 ng/mL) 0.55 H Laboratory Tests 10/09 0011 Coagulation D-Dimer (<=500 ng/mlFEU) 1392 *H Laboratory Tests 10/09 0011 Hematology WBC (4.5 - 11.0 x10 3/uL) 12.29 H RBC (3.54 - 5.02 x10 6/uL) 2.62 L Hgb (11.0 - 15.0 g/dL) 8.8 L Hct (33.0 - 45.0 %) 26.7 L MCV (81.0 - 99.0 fL) 101.9 H MCH (27.0 - 33.0 pg) 33.6 H MCHC (33.0 - 37.0 g/dL) 33.0 RDW (11.5 - 14.5 %) 12.8 Plt Count (150 - 400 x10 3/uL) 274 MPV (7.0 - 9.0 fL) 9.5 H Neut % (Auto) (56.0 - 77.0 %) 80.8 H Lymph % (Auto) (14.0 - 32.0 %) 11.5 L Major % (Auto) (4.8 - 9.0 %) 4.8 Eos % (Auto) (0.3 - 3.7 %) 2.0 Baso % (Auto) (0.0 - 2.0 %) 0.2 Neut # (Auto) (2.0 - 7.6 x10 3/uL) 9.92 H Lymph # (Auto) (1.0 - 3.8 x10 3/uL) 1.41 Major # (Auto) (0.1 - 0.8 x10 3/uL) 0.59 Eos # (Auto) (0.0 - 0.2 x10 3/uL) 0.25 H Baso # (Auto) (0.0 - 0.2 x10 3/uL) 0.03 Abs Immat Gran (auto) (0.00 - 0.03 x10 3/uL) 0. 09 H Add Manual Diff NO Immature Gran % (0.0 - 2.0 %) 0.7 Nucleated RBC % (0 - 0 %) 0.0 Nucleated RBCs # (Man) (0.0 - 0.1 x10 3/uL) 0.0 0 Laboratory Tests 10/09 10/09 10/08 1448 0048 2345 Serology COVID-19 PCR (Negative) Negative Hepatitis A IgM Ab (NON REACT. INDEX) NON REACT RUBI Hep Bs Antigen (NonReactive INDEX) NON REACTIVE Hep B Core IgM Ab (NON REACT. INDEX) NON REACTI VE Hepatitis C Antibody (NON REACT. INDEX) NON HOWARD CTIVE Influenza Type A (PCR) (Negative) Negative Influenza Type B (PCR) (Negative) Negative Microbiology Date/Time Procedure - Status Source Growth 10/09 0250 MRSA DNA Surveillance Screen - COMP NASAL Diagnosis, Assessment Plan Free Text DxA P Notes Free Text DxA P Notes: 1. ESRD will do Hd today the n TTS. will neeed Pd cathter removed later as outpt 2. Pneumonia fu on covid test , pulmonary consul roger. cw abntibiotics 3. htn controlled 4. anemia of ckd start ROSA MARIA, check iron panel thank you for the consult Electronically Signed by Alesia Delacruz MD on at 1417 RPT #:[id number] END OF REPORT 2019-10-10 15:08:00-00:00 [facility] ([facility]) Pulmonary Consultation Note REPORT#:[id number] REPORT STATUS: Signed DATE:10/10/19 TIME: 1508 PATIENT: MICKEY GONZALES UNIT #: [id number] ROOM/BED: 608-1 : 76 AGE: 44 SEX: F ATTEND: Brayden Larios MD ADM AUTHOR: Victor M Cabrera MD * ALL edits or amendments must be made on the [employer]/computer document * History of Present Illness Free Text HPI Notes Free Text HPI Notes: This is 44-year-old female with past medical his tory pertinent for end-stage renal disease on hemodialysis , uterine cancer s tatus post total abdominal hysterectomy, HTN was transferred from [facility] for left-sided chest pain. Patient also complained of fever chills , cough productive of whitish sputum , symproms started 10 days patient was tr eated as outpatient with p.o. doxy and Zithromax for 5 days without an y improvement.therefore presented with possible COVID testing was done and was negative , patient has less pain at this point. CT chest reviewed showed evidence of pneumonitis. With infiltrate involving right middle and lower History - Adult longitudinal Additional medical history: End-stage renal disease on hemodialysis Uterine cancer status post total abdominal hyst erectomy High blood pressure Additional surgical history: Total abdominal hysterectomy AV fistula Family history: Reports: Heart disease. Alcohol use: Denies EtOH use Drug use: Denies recreational drugs Smoking status for patients 13 years old or olde r: Current every day smoker Allergies: Coded Allergies: lisinopril (Mild, itching 10/10/19) codeine (Severe, VOMIT 10/09/19) Uncoded Allergies: "PRILS" (COUGH 10/09/19) Review of Systems All systems rev neg: except as marked Objective Physical Exam: VS/I O: Last Documented: Result Date Time Pulse Ox 94 10/09 1445 B/P 120/71 10/09 1445 B/P Mean 91 10/09 1445 Pulse 67 10/09 1445 Resp 21 10/09 1445 O2 Delivery Nasal cannula 10/09 1217 O2 Flow Rate 3.149739 10/09 1217 Temp 36.6 10/09 1217 24 hour I O ending at 0700: 10/09 0700 06 1900 Intake Total Output Total Balance Patient 108 kg Weight Weight Bed scale Measurement Method Patient Weight Weight (lb): Weight (oz): Weight (kg): 108.000 Medications: Active Meds + DC'd Last 24 Hrs Albumin Human 12.5 GM ASDIR PRN IV Lidocaine HCl 0.5 ML ASDIR PRN I-DERMAL (CKD) Mannitol 12.5 GM ASDIR PRN IV Sodium Chloride 2,000 ML ASDIR PRN IV Sodium Chloride 10 ML ASDIR PRN IV Sodium Chloride 250 ML ASDIR PRN IV Sevelamer Carbonate 3,200 MG TID MEALS PO Heparin Sodium 5,000 UNIT ASDIR PRN DIALYSIS Nicotine 21 MG DAILY PRN PRN TRANSDERM (CKD) Citalopram Hydrobromide 40 MG DAILY PO Gabapentin 1,200 MG BID PO Losartan Potassium 50 MG DAILY PO Nifedipine 90 MG DAILY PO Azithromycin 500 MG Q24H IV Sodium Chloride 250 ML Carvedilol 50 MG BID MEALS PO Acetaminophen 650 MG Q4H PRN PRN PO Hydralazine HCl 10 MG Q6H PRN PRN IV Hydrocodone Bitart/Acetaminophen 1 TAB Q4H PRN P RN PO Morphine Sulfate 4 MG Q4H PRN PRN IV Ondansetron HCl 4 MG Q4H PRN PRN IV Acetaminophen 650 MG Q4H PRN PRN PO (DC) Ibuprofen 600 MG Q6H PRN PRN PO (DC) Ondansetron HCl 4 MG Q6H PRN PRN IV (DC) Ceftriaxone Sodium 1,000 MG X1ED STA IV (DC) Sodium Chloride 10 ML Sodium Chloride 1,000 ML X1ED STA IV (DC) Ketorolac Tromethamine 30 MG X1ED STA IV (DC) General appearance: alert, awake, oriented ENT: normal nose, normal sinus Neck: full range of motion, normal thyroid Cardiovascular: no murmur, no gallop Respiratory/chest: decreased breath soun ds, symmetric expansion, no tenderness Abdomen: distended, soft, non-tender Extremities: moves all, normal capillary refill Neuro/CHANNEL CEMENTER INSOLE MACHINE alert, oriented X 3 Skin: dry, intact Lymphatics: no lymphadenopathy Results: Findings/Data: Laboratory Tests 10/10/19 0011: [Embedded Image Not Available] Laboratory Tests 10/09 10/09 10/09 10/09 0011 0011 0011 0011 Chemistry Sodium (134 - 147 mEq/L) 132 L Potassium (3.4 - 5.0 mEq/L) 4.7 Chloride (100 - 108 mEq/L) 93 L Carbon Dioxide (21 - 33 mEq/L) 24 Anion Gap (0 - 20) 20 BUN (7 - 18 mg/dL) 76 H Creatinine (0.6 - 1.3 mg/dL) 22.4 H Glomerular Filtr Rate (95 - 105) 1.7 L Glucose (70 - 110 mg/dL) 81 Lactic Acid (0.4 - 1.9 mmol/L) 0.5 Calcium (8.0 - 10.5 mg/dL) 7.8 L Total Bilirubin (<1.5 MG/DL) 0.7 AST (15 - 37 IUnit/L) 8 L ALT (15 - 65 IUnit/L) 11 L Total Alk Phosphatase (20 - 125 IUnit/L) 125 C-Reactive Protein (0.0 - 2.9 MG/L) 205.0 H Total Protein (6.4 - 8.2 g/dL) 7.2 Albumin (3.4 - 5.0 g/dL) 2.30 L Procalcitonin (0.00 - 0.05 ng/mL) 0.55 H Laboratory Tests 10/09 0011 Coagulation D-Dimer (<=500 ng/mlFEU) 1392 *H Laboratory Tests 10/09 0011 Hematology WBC (4.5 - 11.0 x10 3/uL) 12.29 H RBC (3.54 - 5.02 x10 6/uL) 2.62 L Hgb (11.0 - 15.0 g/dL) 8.8 L Hct (33.0 - 45.0 %) 26.7 L MCV (81.0 - 99.0 fL) 101.9 H MCH (27.0 - 33.0 pg) 33.6 H MCHC (33.0 - 37.0 g/dL) 33.0 RDW (11.5 - 14.5 %) 12.8 Plt Count (150 - 400 x10 3/uL) 274 MPV (7.0 - 9.0 fL) 9.5 H Neut % (Auto) (56.0 - 77.0 %) 80.8 H Lymph % (Auto) (14.0 - 32.0 %) 11.5 L Major % (Auto) (4.8 - 9.0 %) 4.8 Eos % (Auto) (0.3 - 3.7 %) 2.0 Baso % (Auto) (0.0 - 2.0 %) 0.2 Neut # (Auto) (2.0 - 7.6 x10 3/uL) 9.92 H Lymph # (Auto) (1.0 - 3.8 x10 3/uL) 1.41 Major # (Auto) (0.1 - 0.8 x10 3/uL) 0.59 Eos # (Auto) (0.0 - 0.2 x10 3/uL) 0.25 H Baso # (Auto) (0.0 - 0.2 x10 3/uL) 0.03 Abs Immat Gran (auto) (0.00 - 0.03 x10 3/uL) 0 .09 H Add Manual Diff NO Immature Gran % (0.0 - 2.0 %) 0.7 Nucleated RBC % (0 - 0 %) 0.0 Nucleated RBCs # (Man) (0.0 - 0.1 x10 3/uL) 0.0 0 Laboratory Tests 10/09 10/08 0048 2345 Serology COVID-19 PCR (Negative) Negative Influenza Type A (PCR) (Negative) Negative Influenza Type B (PCR) (Negative) Negative Microbiology Date/Time Procedure - Status Source Growth 10/09 0250 MRSA DNA Surveillance Screen - COMP NASAL Diagnosis, Assessment Plan Free Text DxA P Notes Free Text DxA P Notes: 1. pneumonia Right sided based on CT chest from outside facility 2. End-stage renal disease on hemodialysis Plan We will get pneumonia work-up including Legionel la, strep pneumonia antigen, sputum for AFB, sputum for culture We will add IV cefepime to cover for H CAP Monitor for any allergies patient has elevated D-Dimer OK for VQ scan Follow up CXR Electronically Signed by Victor M Cabrera MD on 06/29 at 1524 RPT #:[id number] END OF REPORT 2019-10-10 13:27:00-00:00 [facility] ([facility]) Clinical Note REPORT#:[id number] REPORT STATUS: Signed DATE:10/10/19 TIME: 1327 PATIENT: MICKEY GONZALES UNIT #: [id number] ROOM/BED: [place] [address] : 76 AGE: 44 SEX: F ATTEND: Brayden Larios MD ADM AUTHOR: Gio Moulton DO * ALL edits or amendments must be made on the [employer] document * Clinical Note Note: Patient seen and examined earlier this morning b y Dr Larios. Denies any new complaints. Awaiting pulmonology evaluat ion. Continue plan of care outlined by Dr Larios Electronically Signed by Gio Moulton DO on 06/29 at 1830 RPT #:[id number] END OF REPORT 2019-10-10 07:43:00-00:00 [facility] ([facility]) Hospitalist History Physical REPORT#:[id number] REPORT STATUS: Signed DATE:10/10/19 TIME: 742 PATIENT: MICKEY GONZALES UNIT #: [id number] ROOM/BED: [place] [address] : 76 AGE: 44 SEX: F ATTEND: Brayden Larios MD ADM AUTHOR: Lachelle Larios MD * ALL edits or amendments must be made on the [employer] document * History of Present Illness HPI Chief complaint: Pneumonia PCP: PCP: No Primary or Family Physician HPI: This is 44-year-old female with past medical his tory pertinent for end-stage renal disease on hemodialysis and uterine cancer status post total abdominal hysterectomy along with high blood press ure coming in from [facility] for left-sided chest pain. Patient also has been hav ing fever chills cough and shortness of breath for past 10 days. She was tr eated with p.o. doxy and Zithromax for 5 days without any improvement. Anjum dorsey also reports left-sided chest pain which does hurt when she takes a deep breath. No other complaints elicited. History Additional medical history: End-stage renal disease on hemodialysis Uterine cancer status post total abdominal hyste rectomy High blood pressure Additional surgical history: Total abdominal hysterectomy AV fistula Family history: Reports: Heart disease. Alcohol use: Denies EtOH use Drug use: Denies recreational drugs Smoking status for patients 13 years old or olde r: Current every day smoker Medication/Allergy-Vaccine Hx Home Medications: CARVEDILOL (COREG) 50 MG PO BID MEALS CITALOPRAM (CeleXA) 40 MG PO DAILY GABAPENTIN (NEURONTIN) 1,200 MG PO BID LOSARTAN (COZAAR) 50 MG PO DAILY NIFEdipine CC (ADALAT CC) 90 MG PO DAILY Allergies: Coded Allergies: codeine (Severe, VOMIT 10/09/19) Uncoded Allergies: "PRILS" (COUGH 10/09/19) Review of Systems Additional notes: 14 point review of systems done with the patient please see HPI for detail Objective General VS/I O: Vital Signs: Date Time Temp Pulse Resp B/P B/P Pulse O2 O2 F low FiO2 Mean Ox Delivery Rate 10/09 0600 Nasal 2.752043 cannula 10/09 0600 72 14 127/65 85 96 Nasal 2.955884 cannula 10/09 0405 68 16 99/60 73 95 Nasal 2.992848 cannula 10/09 0400 Nasal 2.386061 cannula 10/09 0200 Nasal 2.622183 cannula 10/09 0200 74 16 103/57 72 94 Nasal 2.598425 cannula 10/08 2330 Nasal 2.657623 cannula 10/08 2308 98.6 73 14 108/60 76 96 Nasal 2.000 000 cannula 24 hour I O ending at 0700: 10/09 0700 06 1900 Intake Total Output Total Balance Patient 108 kg Weight Weight Bed scale Measurement Method Patient Weight Weight (lb): Weight (oz): Weight (kg): 108.000 Medications: Active Meds + DC'd Last 24 Hrs Citalopram Hydrobromide 40 MG DAILY PO Gabapentin 1,200 MG BID PO Losartan Potassium 50 MG DAILY PO Nifedipine 90 MG DAILY PO (UNV) Carvedilol 50 MG BID MEALS PO Acetaminophen 650 MG Q4H PRN PRN PO (UNV) Azithromycin 500 MG Q24H IV (UNV) Sodium Chloride 250 ML Hydralazine HCl 10 MG Q6H PRN PRN IV Hydrocodone Bitart/Acetaminophen 1 TAB Q4H PRN P RN PO Morphine Sulfate 4 MG Q4H PRN PRN IV Ondansetron HCl 4 MG Q4H PRN PRN IV (UNV) Acetaminophen 650 MG Q4H PRN PRN PO (DCr) Ibuprofen 600 MG Q6H PRN PRN PO (DCr) Ondansetron HCl 4 MG Q6H PRN PRN IV (DCr) Ceftriaxone Sodium 1,000 MG X1ED STA IV (DC) Sodium Chloride 10 ML Sodium Chloride 1,000 ML X1ED STA IV (DC) Ketorolac Tromethamine 30 MG X1ED STA IV (DC) Physical Exam General appearance: no acute distress Head/Eyes: atraumatic, clear cornea, EOMI, PERRL A Neck: supple/no meningismus Cardiovascular: normal heart sounds, reg ular rate rhythm, no gallop, no murmur , no rub Respiratory: clear to auscultation Abdomen: non-tender, normal bowel sounds, soft, no distention Extremities: no clubbing, no cyanosis, no edema Results Findings/Data: Laboratory Tests 10/091 0011 0011 0011 Chemistry Sodium (134 - 147 mEq/L) 132 L Potassium (3.4 - 5.0 mEq/L) 4.7 Chloride (100 - 108 mEq/L) 93 L Carbon Dioxide (21 - 33 mEq/L) 24 Anion Gap (0 - 20) 20 BUN (7 - 18 mg/dL) 76 H Creatinine (0.6 - 1.3 mg/dL) 22.4 H Glomerular Filtr Rate (95 - 105) 1.7 L Glucose (70 - 110 mg/dL) 81 Lactic Acid (0.4 - 1.9 mmol/L) 0.5 Calcium (8.0 - 10.5 mg/dL) 7.8 L Total Bilirubin (<1.5 MG/DL) 0.7 AST (15 - 37 IUnit/L) 8 L ALT (15 - 65 IUnit/L) 11 L Total Alk Phosphatase (20 - 125 IUnit/L) 125 C-Reactive Protein (0.0 - 2.9 MG/L) 205.0 H Total Protein (6.4 - 8.2 g/dL) 7.2 Albumin (3.4 - 5.0 g/dL) 2.30 L Procalcitonin (0.00 - 0.05 ng/mL) 0.55 H Laboratory Tests 10/091 Coagulation D-Dimer (<=500 ng/mlFEU) 1392 *H Laboratory Tests 10/091 Hematology WBC (4.5 - 11.0 x10 3/uL) 12.29 H RBC (3.54 - 5.02 x10 6/uL) 2.62 L Hgb (11.0 - 15.0 g/dL) 8.8 L Hct (33.0 - 45.0 %) 26.7 L MCV (81.0 - 99.0 fL) 101.9 H MCH (27.0 - 33.0 pg) 33.6 H MCHC (33.0 - 37.0 g/dL) 33.0 RDW (11.5 - 14.5 %) 12.8 Plt Count (150 - 400 x10 3/uL) 274 MPV (7.0 - 9.0 fL) 9.5 H Neut % (Auto) (56.0 - 77.0 %) 80.8 H Lymph % (Auto) (14.0 - 32.0 %) 11.5 L Major % (Auto) (4.8 - 9.0 %) 4.8 Eos % (Auto) (0.3 - 3.7 %) 2.0 Baso % (Auto) (0.0 - 2.0 %) 0.2 Neut # (Auto) (2.0 - 7.6 x10 3/uL) 9.92 H Lymph # (Auto) (1.0 - 3.8 x10 3/uL) 1.41 Major # (Auto) (0.1 - 0.8 x10 3/uL) 0.59 Eos # (Auto) (0.0 - 0.2 x10 3/uL) 0.25 H Baso # (Auto) (0.0 - 0.2 x10 3/uL) 0.03 Abs Immat Gran (auto) (0.00 - 0.03 x10 3/uL) 0. 09 H Add Manual Diff NO Immature Gran % (0.0 - 2.0 %) 0.7 Nucleated RBC % (0 - 0 %) 0.0 Nucleated RBCs # (Man) (0.0 - 0.1 x10 3/uL) 0.0 0 Laboratory Tests 10/09 0048 Serology Influenza Type A (PCR) (Negative) Negative Influenza Type B (PCR) (Negative) Negative Radiology data: Chest [facility] from [facility] showed multi focal pneumonia Diagnosis, Assessment Plan Free Text DxA P Notes Free text DxA P notes: This is 44-year-old female Multifocal pneumonia Leukocytosis End-stage renal disease High blood pressure History of uterine cancer Plan Placed on IV ceftriaxone and azithromycin Blood cultures done, will await those results Patient also with elevated d-dimer Will get VQ scan Consult pulmonary COVID negative Renal consulted Continue hemodialysis Check labs in the a.m. Electronically Signed by Lachelle Larios MD 10/10/19 at 0748 RUST #:[id number] END OF REPORT 2019-10-09 23:32:00-00:00 [facility] ([facility]) EMERGENCY PROVIDER REPORT REPORT#:[id number] REPORT STATUS: Signed DATE:10/09/19 TIME: 2331 PATIENT: MICKEY GONZALES UNIT #: [id number] ROOM/BED: [place] [address] AGE: 44 SEX: F PCP PHYS: No Primary or Family Ph ysician SERVICE AUTHOR: Valeriano Echavarria MD * ALL edits or amendments must be made on the [employer]/computer document * HPI-Dyspnea/Wheezing General Initial Greet Date/Time 10/09/192328 Presentation Chief Complaint Cough, Shortness of breath )( Sudden in Onset? No Free Text HPI Notes Free Text HPI Notes 44-year-old with history of end-stage renal dise ase on peritoneal dialysis transferred from hospital in [place]. Patient com [place] of left-sided chest pain. Patient has been with fever chills cough and shortness of breath for the past 10 days. Patient already took a course of d oxycycline and Zithromax without improvement. CT scan done at [facility] pneumonia. A rapid COVID test was negative. On physical exam patient without any respiratory distress. Positive rales at lung bases. No meningeal signs. Risk-Dyspnea/Wheezing Risk Stratification Coronary Artery Disease Risk factors reviewed Pulmonary Embolism Risk factors reviewed Review of Systems ROS Statements All systems rev neg except as marked. Focused Review of Systems Constitutional Reports: Chills, Fatigue, Fever, Malaise, Weakne ss - generalized. Ears/Nose/Throat Reports: Sore throat. Respiratory Reports: Cough, productive, Shortness of breath. Denies: Cough, non-productive, Dyspnea on exertion, Hemoptysis, Parox nocturnal dyspnea, Pleuritic pain, Wheezing. Cardiovascular Reports: Chest pain (left ). Denies: Dyspnea on exertion, Edema, Orthopnea, Palpitations, Parox nocturnal dyspnea, Syncope. Past Medical History - Adult Stated Complaint PNUMOUNIA, PUI, SHOULDER/LEFT R IB PAIN Allergies Coded Allergies: lisinopril (Mild, itching 10/10/19) codeine (Severe, VOMIT 10/09/19) Uncoded Allergies: "PRILS" (COUGH 10/09/19) Home Medications Reported Medications SEVELAMER CARBONATE (RENVELA) 3,200 MG PO TID ME ALS CITALOPRAM (CeleXA) 40 MG PO DAILY GABAPENTIN (NEURONTIN) 1,200 MG PO BID CARVEDILOL (COREG) 50 MG PO BID MEALS LOSARTAN (COZAAR) 50 MG PO DAILY NIFEdipine CC (ADALAT CC) 90 MG PO DAILY Smoking status for patients 13 years old or olde r: Never Smoker Physical Exam Vital Signs Vital Signs First Documented: Result Date Time Pulse Ox 96 / 2308 B/P 108/60 / 2308 B/P Mean 76 / 2308 O2 Delivery Nasal cannula 10/08 2308 O2 Flow Rate 2.557694 10/08 2308 Temp 37.0 10/08 2308 Pulse 73 06/ 2308 Resp 14 10/08 2308 Last Documented: Result Date Time O2 Delivery Nasal cannula 10/08 2330 O2 Flow Rate 2.533334 / 2330 Pulse Ox 96 / 2308 B/P 108/60 / 2308 B/P Mean 76 / 2308 Temp 37.0 / 2308 Pulse 73 / 2308 Resp 14 / 2308 Review of Vital Signs Reviewed Focused PE General/Const General/Const Awake, Alert MS Neck Neck Supple, No meningismus, No adenopathy Resp/Chest Respiratory/Chest Breath sounds = bilat, No res piratory distress, bilateral rales Cardiovascular Cardiovascular Heart rate NL, Regular rhythm, H eart sounds NL Abdomen/GI Abdomen/GI Soft, Non-tender MS Lower Extrem Lower Ext/Pelvis/MS No swelling, Non-tender, No erythema Skin Skin No rash, Warm Neurologic Neurologic Oriented X3, Speech NL, No m otor deficits, No sensory deficits, CN II - XII intact, Cerebellar NL, Memory NL, no me ningeal signs Interpretation Diagnostics Lab Results Interpretation Results Laboratory Tests 10/10/19 0011: [Embedded Image Not Available] Laboratory Tests: 10/09 10/09 10/09 10/09 0048 0011 0011 0011 Chemistry Lactic Acid (0.4 - 1.9 mmol/L) 0.5 C-Reactive Protein (0.0 - 2.9 MG/L) 205.0 H Procalcitonin (0.00 - 0.05 ng/mL) 0.55 H Serology Influenza Type A (PCR) (Negative) Negative Influenza Type B (PCR) (Negative) Negative 10/091 2345 Chemistry Sodium (134 - 147 mEq/L) 132 L Potassium (3.4 - 5.0 mEq/L) 4.7 Chloride (100 - 108 mEq/L) 93 L Carbon Dioxide (21 - 33 mEq/L) 24 Anion Gap (0 - 20) 20 BUN (7 - 18 mg/dL) 76 H Creatinine (0.6 - 1.3 mg/dL) 22.4 H Glomerular Filtr Rate (95 - 105) 1.7 L Glucose (70 - 110 mg/dL) 81 Calcium (8.0 - 10.5 mg/dL) 7.8 L Total Bilirubin (<1.5 MG/DL) 0.7 AST (15 - 37 IUnit/L) 8 L ALT (15 - 65 IUnit/L) 11 L Total Alk Phosphatase (20 - 125 IUnit/L) 125 Total Protein (6.4 - 8.2 g/dL) 7.2 Albumin (3.4 - 5.0 g/dL) 2.30 L Coagulation D-Dimer (<=500 ng/mlFEU) 1392 *H Hematology WBC (4.5 - 11.0 x10 3/uL) 12.29 H RBC (3.54 - 5.02 x10 6/uL) 2.62 L Hgb (11.0 - 15.0 g/dL) 8.8 L Hct (33.0 - 45.0 %) 26.7 L MCV (81.0 - 99.0 fL) 101.9 H MCH (27.0 - 33.0 pg) 33.6 H MCHC (33.0 - 37.0 g/dL) 33.0 RDW (11.5 - 14.5 %) 12.8 Plt Count (150 - 400 x10 3/uL) 274 MPV (7.0 - 9.0 fL) 9.5 H Neut % (Auto) (56.0 - 77.0 %) 80.8 H Lymph % (Auto) (14.0 - 32.0 %) 11.5 L Major % (Auto) (4.8 - 9.0 %) 4.8 Eos % (Auto) (0.3 - 3.7 %) 2.0 Baso % (Auto) (0.0 - 2.0 %) 0.2 Neut # (Auto) (2.0 - 7.6 x10 3/uL) 9.92 H Lymph # (Auto) (1.0 - 3.8 x10 3/uL) 1.41 Major # (Auto) (0.1 - 0.8 x10 3/uL) 0.59 Eos # (Auto) (0.0 - 0.2 x10 3/uL) 0.25 H Baso # (Auto) (0.0 - 0.2 x10 3/uL) 0.03 Abs Immat Gran (auto) (0.00 - 0.03 x10 3/uL) 0. 09 H Add Manual Diff NO Immature Gran % (0.0 - 2.0 %) 0.7 Nucleated RBC % (0 - 0 %) 0.0 Nucleated RBCs # (Man) (0.0 - 0.1 x10 3/uL) 0.0 0 Serology COVID-19 PCR (Negative) Negative Microbiology: Date/Time Procedure - Status Source Growth 10/09 10 Group A Streptococcus Screen ([facility]) - RES THROAT 10/09 0011 Streptococcus Culture - RES THROAT 10/09 0003 Blood Culture - RES BLOOD 10/09 0003 Blood Culture - RES BLOOD Re-Evaluation MDM )( Re-Evaluation/Progress #1 )( Re-Eval Status Improved ED Course Medication(s) Ordered Medication(s) Ordered: Anti-Infective Agents Sig/Zoey Start time Last Medication Dose Route Stop Time Status Admin Ceftriaxone Sodium 1,000 MG X1ED STA 10/08 2346 DC 10/09 Sodium Chloride 10 ML IV 10/08 2348 0004 Central Nervous System Agents Sig/Zoey Start time Last Medication Dose Route Stop Time Status Admin Acetaminophen 650 MG Q4H PRN PRN 10/095 AC PO 10/09 2338 Ibuprofen 600 MG Q6H PRN PRN 10/095 AC PO 06/02 2339 Ketorolac 30 MG X1ED STA 10/08 2332 DC 10/08 Tromethamine IV 10/08 2333 2353 Electrolytic, Caloric, And Adam Sig/Zoey Start time Last Medication Dose Route Stop Time Status Admin Sodium Chloride 1,000 ML X1ED STA 10/08 2346 DC 10/08 IV 10/08 2347 2357 Gastrointestinal Drugs Sig/Zoey Start time Last Medication Dose Route Stop Time Status Admin Ondansetron HCl 4 MG Q6H PRN PRN 10/09 0045 AC IV 10/09 233 Patient Discharge Departure Vital Signs/Condition Vital Signs First Documented: Result Date Time Pulse Ox 96 10/08 2308 B/P 108/60 10/08 2308 B/P Mean 76 10/08 2308 O2 Delivery Nasal cannula 10/08 2308 O2 Flow Rate 2.889709 10/08 2308 Temp 37.0 10/08 2308 Pulse 73 06/ 2308 Resp 14 10/08 2308 Last Documented: Result Date Time O2 Delivery Nasal cannula 10/08 2330 O2 Flow Rate 2.622368 10/08 2330 Pulse Ox 96 10/08 2308 B/P 108/60 10/08 2308 B/P Mean 76 10/08 2308 Temp 37.0 10/08 2308 Pulse 73 10/08 2308 Resp 14 10/08 2308 All vital signs available at the time of this en try have been reviewed. Clinical Impression Clinical Impression Primary Impression: Pneumonia Secondary Impressions: Sepsis Time of Impression 42 (= time of sepsis diagno sis) Disposition Decision Admit Admit Physician Name Lachelle Larios MD Admit Physician Hospitalist Request Time 42 Request Date 10/10/19 )( Admission Accepts Yes )( Accepted Time 42 )( Accepted Date 10/10/19 Call Information will see patient Critical Care Time Spent (minutes): 31 Services Performed Patient management by Rajan nelson spent at bedside, Reviewing test results, Reviewing imaging, Discussing ent care, Documentation in record, Time with fam/surrogate Separately billable procedures excluded from rajan caruso. Patient was critically ill due to: Sepsis secondary to pneumonia My treatment and management were: IV fluid resuscitation, IV antibiotics CC Note 1 Total critical care time [31 ] minutes. Total critical care time documented does not include time spent on separately billed proc edures or the services of residents, students, nurses or physician assista nts. I personally saw and examined the patient. I have reviewed all diagno stic interpretations and treatment plans as written. I was present for the fitch portions of any procedures performed and the inclusive time noted in any critical care statement. Critical care time includes patient m anagement by me, time spent at the patients bedside, time to review lab and imaging results, discussing patient care, documentation in the medical record, and time spent with the f amily or caregiver. Supervising Physician Note Provider Scribed Statement I personally performed the s ervices described in this documentation and reviewed the documentation and it acc urately records my words and actions. Valeriano Echavarria., 10/10/19 at 1623 RUST #:[id number] END OF REPORT
== END 2022-10-03 18:42 | disposition left against medical advice (07) ==
LOC: ER 18:01
DX: Z02.9 Encounter for administrative examinations, unspecified (principal)